=== PATIENT | male | born 1940 | race Caucasian/White ===

== ENCOUNTER → 2018-03-18 09:55 | Outpatient (CLI) | payer MEDICARE, OTHER, SELFPAY ==
[2018-03-18 12:13] LABS: Absolute Lymphocyte Count 1.56 X10^3/ul (0.83-4.51); Absolute Neutrophil Count 4.7 X10^3/uL (2.0-7.7); Basophil# 0.03 X10^3/uL; Basophil% 0.4 % (0-1); Eosinophil# 0.12 X10^3/uL; Eosinophils% 1.7 % (0-5); Hematocrit 43.8 % (40-54); Hemoglobin 14.7 g/dl (13.0-16.5); Lymphocyte # 1.56 X10^3/ul (4.0); Lymphocyte % 22.3 % (19-41); Mean Corp Hgb Conc 33.6 g/gl (32-36); Mean Corpuscular Hgb 31.8 pg (27.0-32.0); Mean Corpuscular Volume 94.8 fL (80-94); Mean Platelet Vol. 10.5 fl (6.2-12.0); Monocyte# 0.62 X10^3/uL; Monocyte% 8.9 % (0-10); Neutrophil # 4.66 X10^3/uL (2.7-7.7); Neutrophil % 66.6 % (47-70); Platelet Count 208 K/mm3 (150-450); RBC Distribution Width CV 13.1 % (11.6-14.6); Red Blood Count 4.62 M/mm3 (4.6-6.2)
[2018-03-18 12:21] LABS: POSITIVE COUNT NO; POSITIVE DIFFERENTIAL NO; POSITIVE MORPHOLOGY NO
[2018-03-18 12:31] LABS: AST(SGOT) 44 U/L (15-37); Alanine Aminotransfer ALT/SGPT 42 U/L (16-61); Albumin, Serum 3.8 g/dL (3.2-5.0); Alkaline Phosphatase 53 U/L (45-117); Anion Gap 9 (5-15); BUN 15 mg/dL (7-18); BUN/Creat Ratio 12.6 RATIO (10-20); Calcium,Total 9.1 mg/dL (8.5-10.1); Chloride 105 mmol/L (98-107); Creatinine, Serum 1.19 mg/dL (0.70-1.30); EST Glomerular Filtration Rate 63 mL/min (>60); Est Glom Filt Rate - Afr Amer 76 mL/min (>60); Globulin 3.9 g/dL (2.2-4.2); Glucose 197 mg/dL (74-106); Potassium 4.5 mmol/L (3.5-5.1); Protein, Total 7.7 g/dL (6.4-8.2); Sodium Level 141 mmol/L (136-145)
[2018-03-18 12:32] LABS: Hemoglobin A1c 8.4 % (4.2-6.3)
== END ==
PROVIDERS: Family Provider Family Medicine; PCP Family Medicine; Visit Provider Family Medicine
DX: E11.22 Type 2 diabetes mellitus with diabetic chronic kidney disease (principal); J44.9 Chronic obstructive pulmonary disease, unspecified
CPT/HCPCS: 36415; 80053; 83036; 85025

== ENCOUNTER 2018-05-06 16:37 | Inpatient (IN) | payer MEDICARE, OTHER, SELFPAY ==
[2018-05-06] VITALS (8 sets, daily range): BP systolic 144–206; BP diastolic 80–99; PULSE 74–88; RESP 15–18; TEMP 36.8–37.1; O2SAT 94–98; BMI 32.3; BMI 31.1
--- NOTE | 2018-05-06 16:49 | CT_ITS ---
STUDY: CT CERVICAL SPINE WITHOUT CONTRAST REASON FOR EXAM: Male, 77 years old. Fall. Question loss of consciousness. Laceration over the right high. RADIATION DOSAGE (If Supplied By Facility): CTDIvol = ( 34.12 ) mGy, DLP = ( 635.15 ) mGycm TECHNIQUE: High resolution transaxial imaging was performed without contrast material. Sagittal and coronal images were reconstructed. Individualized dose optimization techniques were used for this CT. COMPARISON: CT of the cervical spine, June 16, 2017. FINDINGS: Normal craniovertebral junction. There is widening of the anterior atlantoaxial articulation suggesting ligamentous laxity. Normal odontoid process. Normal cervical lordosis. Normal vertebral bodies and posterior osseous elements. C2-3: Normal endplates. Normal disc height and morphology. There is facet and uncovertebral joint degenerative change. Normal central canal and intervertebral neuroforamina. C3-4: There is anterolisthesis of C3 on C4 of 2 mm. There is no evidence of facet joint subluxation. There is no loss of disc height or endplate spondylosis. There is marked facet joint degenerative change left greater than right.. Normal central canal . There is mild narrowing of the bilateral intervertebral neuroforamina. C4-5: There is loss of disc height with endplate spondylosis. There is facet and uncovertebral joint degenerative change. Normal central canal and intervertebral neuroforamina. C5-6: There is loss of disc height with endplate spondylosis. There is facet and uncovertebral joint degenerative change. Normal central canal and is narrowing of the bilateral intervertebral neuroforamina, right greater than left. C6-7: There is loss of disc height with endplate spondylosis. There is facet and uncovertebral joint degenerative change. Normal central canal and intervertebral neuroforamina. C7-T1: Normal endplates. There is minimal loss of disc height.. Normal central canal and intervertebral neuroforamina. Normal visualized soft tissue structures. CT/Spine Cervical without Contras IMPRESSION: Degenerative changes of the cervical spine. Findings appear unchanged from June 16, 2017. There is no acute fracture or subluxation. Electronically Signed: Piyush Ruggiero DO at 17:35 EDT Tel [phone], Service support ,
--- NOTE | 2018-05-06 16:49 | CT_ITS ---
STUDY: CT BRAIN WITHOUT CONTRAST REASON FOR EXAM: Male, 77 years old. Fall with right eye laceration. Question loss of consciousness. RADIATION DOSAGE (If Supplied By Facility): CTDIvol = ( 60.81 ) mGy, DLP = ( 1135.50 ) mGycm TECHNIQUE: Transaxial CT imaging of the brain was performed without administration of intravenous contrast material. Individualized dose optimization techniques were used for this CT. COMPARISON: June 16, 2017. FINDINGS: There is mild thickening of the right preseptal soft tissues extending towards the right restorationist. Soft tissues are otherwise unremarkable. The right globe and intraorbital contents appear normal. There is no visualized orbital fracture. Normal calvarium. There is asymmetry of the ventricles consistent with an anatomic variant. There are areas of decreased attenuation within the white matter tracts of the supratentorial brain, consistent with microvascular disease changes. There is an area of white matter encephalomalacia in the right posterior parietal lobe where the hemorrhage is noted on the previous study. Normal basal ganglia and thalami. Normal brainstem. Normal cerebellum. There is no intracranial hemorrhage. There are no findings of an acute ischemic infarction. Normal visualized paranasal sinuses. CT/Brain/Head without Contrast IMPRESSION: Chronic involutional changes without evidence of acute intracranial or calvarial abnormality. There is resolution of the intracranial hemorrhage seen on the previous study. Electronically Signed: Piyush Ruggiero DO at 17:40 EDT Tel [phone], Service support ,
--- NOTE | 2018-05-06 16:49 | EKG12_ITS ---
Test Reason : FALL Blood Pressure : / mmHG Vent. Rate : 074 BPM Atrial Rate : 069 BPM P-R Int : 000 ms QRS Dur : 126 ms QT Int : 404 ms P-R-T Axes : 000 -66 063 degrees QTc Int : 448 ms Atrial fibrillation with occasional ventricular-paced complexes Left axis deviation Non-specific intra-ventricular conduction block Abnormal ECG Confirmed by YANNI MORALES, FRANCOIS ([id number]), fan mail editor NOY CASTLE ([id number]) on 05/09/2018 1:31:05 PM Referred By: BAO Confirmed By:FRANCOIS LIAO MD
--- NOTE | 2018-05-06 16:54 | RAD_ITS ---
STUDY: X-RAY CHEST REASON FOR EXAM: Male, 77 years old. Fall. Syncope. TECHNIQUE: Single AP portable view of the chest. COMPARISON: April 02, 2016. FINDINGS: Telemetry wires overlie the chest. The lungs are well expanded. There is no focal mass or infiltrate. There is no demonstrated pleural abnormality. There is borderline cardiomegaly. Stable cardiac pacemaker. Normal mediastinum and sylvie. Normal visualized pulmonary arteries. There is atherosclerotic tortuosity of the aortic arch and descending thoracic aorta. There are diffuse degenerative changes of the visualized thoracic spine. There is degenerative osteoarthritis of the bilateral shoulders. There is no demonstrated abnormality of the visualized soft tissue structures of the upper abdomen. RAD/Chest 1 View (Portable) IMPRESSION: Slightly decreased inspiratory effort when compared to prior study. The remainder of the findings are stable. Electronically Signed: Piyush Ruggiero DO at 17:04 EDT Tel [phone], Service support ,
[2018-05-06 17:21] LABS: Absolute Lymphocyte Count 2.08 X10^3/ul (0.83-4.51); Absolute Neutrophil Count 4.4 X10^3/uL (2.0-7.7); Basophil# 0.03 X10^3/uL; Basophil% 0.4 % (0-1); Eosinophil# 0.17 X10^3/uL; Eosinophils% 2.3 % (0-5); Hematocrit 42.8 % (40-54); Hemoglobin 14.1 g/dl (13.0-16.5); Lymphocyte # 2.08 X10^3/ul (4.0); Lymphocyte % 28.5 % (19-41); Mean Corp Hgb Conc 32.9 g/gl (32-36); Mean Corpuscular Volume 94.1 fL (80-94); Mean Platelet Vol. 10.3 fl (6.2-12.0); Monocyte# 0.58 X10^3/uL; Neutrophil # 4.41 X10^3/uL (2.7-7.7); Neutrophil % 60.5 % (47-70); Platelet Count 178 K/mm3 (150-450); RBC Distribution Width SD 44.9 fl (35.1-43.9); Red Blood Count 4.55 M/mm3 (4.6-6.2); White Blood Count 7.3 K/mm3 (4.4-11.0)
[2018-05-06 17:32] LABS: International Normalized Ratio 2.2; Partial Thromboplast Time 31.4 Seconds (24.1-36.2); Prothrombin Time (Protime)PT. 24.5 SECONDS (11.7-14.9)
[2018-05-06 17:35] LABS: Anion Gap 7 (5-15); BUN 12 mg/dL (7-18); BUN/Creat Ratio 10.4 RATIO (10-20); Calcium,Total 8.9 mg/dL (8.5-10.1); Chloride 105 mmol/L (98-107); Creatinine, Serum 1.15 mg/dL (0.70-1.30); EST Glomerular Filtration Rate 65 mL/min (>60); Est Glom Filt Rate - Afr Amer 79 mL/min (>60); Estimated Creatinine Clearance 53.78 ml/min; Glucose 246 mg/dL (74-106); Potassium 4.1 mmol/L (3.5-5.1); Sodium Level 140 mmol/L (136-145)
[2018-05-06 17:36] LABS: Bacteria 0 SEEN /hpf (None Seen); Mucous, Urine 0 SEEN /hpf (<or=2+); Red Blood Cells-Urine 0 SEEN /hpf (0-5); Squamous Epithelial Cells - UA 0 SEEN /hpf (0-5); White Blood Cells 0 SEEN /hpf (0-5)
[2018-05-06 17:36] LABS: POSITIVE COUNT NO; POSITIVE DIFFERENTIAL NO; POSITIVE MORPHOLOGY NO
[2018-05-06 17:43] LABS: Color, Urine Yellow (Yellow); Glucose, Dipstick 1000 mg/dl (Normal); Ketone-Dipstick Negative (Negative); Leukocyte Esterase-Dipstick Negative /ul (Negative); Nitrite-Dipstick Negative (Negative); Occult Blood-Urine 25 /ul (Negative); Protein-Dipstick 100 mg/dl (Negative); Specific Gravity, Urine 1.015 (1.002-1.030); Urine Bilirubin Dipstick Negative (Negative); Urine Clarity Clear (Clear); Urine Urobilinogen Normal (Normal)
--- NOTE | 2018-05-06 19:11 | ED.VISSUMM ---
- ER Visit Summary Date of Service: 05/06/18 Chief Complaint: Fall History of Present Illness: The patient is a 77 M who fell today. He did hit his head and sustained an abrasion to his right eyebrow. He does not remember the events of the fall. EMS helped him up at home after his called 911. He was unsteady on his feet. His reports that he falls every 2-3 weeks. He is sometimes incontinent afterwards. Every time he falls he is confused for an hour or so afterwards. She has never noted any seizure activity. He does take Coumadin for atrial fibrillation and a history of PE. She said he fell last year and had a intracranial bleed. Physical Examination: Blood pressure 206/92. Otherwise vitals unremarkable. Afebrile. He has an abrasion to his right lateral eyebrow. Neck is nontender. HEENT exam otherwise unremarkable. Heart irregularly irregular. Lungs clear. Abdomen soft. Patient is incontinent of urine. Extremities atraumatic. No focal neurologic abnormalities grossly. Alert but oriented to person only. Test Results: EKG showed atrial fibrillation at a rate of 74. CBC normal. Glucose 246. INR 2.2. Urinalysis unremarkable. Troponin normal. Chest x-ray was stable. CT head and C-spine showed chronic changes and nothing acute. Emergency Department Course and Treatment: Patient was placed on a monitor. He received IV fluids. He had no new or worsening symptoms during his stay. He had no seizure activity or syncope in the emergency department. On reevaluation, he is alert and oriented ?3. I spoke with neurology who recommended MRI, Keppra, and EEG. I spoke with the hospitalist who will admit. On further evaluation, the patient has a pacemaker and cannot have an MRI. Treatment Plan: As above Disposition: Admission Impression: 1. Syncopal episode This note was generated with [employer] dictation software. It may contain incorrect words, spelling, and punctuation that were not noted in review of the chart prior to signing ED Disposition - Plan for ED Patient: Chief Complaint: Fall Referrals: Joe Hernandez MD [Primary Care Provider] -
[2018-05-06] MEDS: levETIRAcetam 500 MG Tablet PO (19:29)
--- NOTE | 2018-05-06 19:30 | PCM.HP.STD ---
Problem List (1) CAD (coronary artery disease) Status: Chronic Qualifiers: (2) Chronic atrial fibrillation Status: Chronic (3) DM2 (diabetes mellitus, type 2) Status: Chronic (4) Dyslipidemia Status: Chronic (5) Essential (primary) hypertension Status: Chronic (6) Cardiac pacemaker Status: Chronic (7) Cardiac dysrhythmia Status: Chronic (8) HTN (hypertension) Status: Chronic Qualifiers: History of Present Illness Date of Admission: 05/06/18 Chief Complaint: Fall. The patient is a 77 year old M with past medical history as mentioned above presented to the emergency room because of fall. Today around 4 PM, patient had a fall at home, was walking and all of a sudden, he collapsed. He is not completely aware of what happened. He denied any preceding symptoms such as dizziness, lightheadedness, chest pain, palpitation or shortness of breath. He does not think that he passed out completely. His mentioned that when she heard the fall, she came to see him and he was on his face but he responded to her call and he seemed to be confused. She mentioned that he was incontinent of urine. There is no reported obvious seizure activity. According to the patient's , patient had been having frequent falls every 2-4 weeks for the last several months and most of them are similar to what happened today. He has history of chronic atrial fibrillation status post pacemaker, patient's mentioned that he had pacer checked a week ago and looks fine but I could not find any documents for that pacer check. Most recent pacer check was back on January, according to the patient's chart. Still of type 2 diabetes mellitus, has been on Victoza and metformin and his blood pressure is not well controlled, most recent hemoglobin A1c was in March, and it was 8.4. He has a history of CAD status post stents to RCA, and he has been on aspirin, losartan, metoprolol and statins. In the emergency department, his blood pressure was elevated upon arrival which was 206/92 and most recent one is 171/99, was afebrile, heart rate stable, pulse ox is maintained on room air. Routine blood work was unremarkable. INR is 2.2. EKG revealed atrial fibrillation, paced rhythm, no acute ischemic changes. Troponin is negative. CT scan brain showed no acute hemorrhage or infarction. CT cervical spine showed no acute fractures or dislocation. Chest x-ray showed no acute infiltrate, consolidation or effusion. He is being admitted for recurrent falls, questionable suspected seizure versus near syncope. Past Medical History Past Medical History (Chronic Problems): Chronic Problems (Last Updated 09/21/17 @ 08:09 by KATIE Glover) Sick sinus syndrome (Chronic) On anticoagulant therapy (Chronic) CAD (coronary artery disease) (Chronic) Chronic atrial fibrillation (Chronic) DM2 (diabetes mellitus, type 2) (Chronic) Dyslipidemia (Chronic) Essential (primary) hypertension (Chronic) Cardiac pacemaker (Chronic) Diverticulosis (Chronic) Tremor, essential (Chronic) TIA (transient ischemic attack) (Chronic) Subtherapeutic international normalized ratio (INR) (Chronic) Cardiac dysrhythmia (Chronic) Atrial dysrhythmia (Chronic) Atrial fibrillation (Chronic) S/P PTCA (percutaneous transluminal coronary angioplasty) (Chronic) HTN (hypertension) (Chronic) HLD (hyperlipidemia) (Chronic) Medical History: Medical History (Last Updated 09/21/17 @ 08:09 by CARLOS GloverC) Sick sinus syndrome (Chronic) I49.5 On anticoagulant therapy (Chronic) Z79.01 CAD (coronary artery disease) (Chronic) I25.10 Chronic atrial fibrillation (Chronic) I48.2 DM2 (diabetes mellitus, type 2) (Chronic) E11.9 Dyslipidemia (Chronic) E78.5 Essential (primary) hypertension (Chronic) I10 Cardiac pacemaker (Chronic) Z95.0 Diverticulosis (Chronic) K57.90 Tremor, essential (Chronic) G25.0 TIA (transient ischemic attack) (Chronic) Subtherapeutic international normalized ratio (INR) (Chronic) R79.1 Cardiac dysrhythmia (Chronic) I49.9 Atrial dysrhythmia (Chronic) I49.8 Atrial fibrillation (Chronic) I48.91 HTN (hypertension) (Chronic) I10 HLD (hyperlipidemia) (Chronic) E78.5 History of cardioversion Z98.890 09/2005; History of electrophysiologic study Z98.890 December 2005 Pulmonary embolism I26.99 Allergies hydrochlorothiazide Adverse Reaction (Unknown, Verified 05/06/18 16:38) Gout symptoms Home Medications: Ambulatory Orders Medication Instructions Recorded Aspirin [Aspirin, Baby] 81 mg PO DAILY 06/24/14 Liraglutide [Victoza] 1.8 units SQ DAILY 06/16/17 bumetanide 1 mg tablet 0.5 mg PO PRN PRN tab 09/21/17 albuterol sulfate HFA 90 2 puff INHALATION Q6H 09/22/17 mcg/actuation aerosol inhaler nitroglycerin 0.4 mg sublingual 0.4 mg SUBLINGUAL Q5-15M PRN 09/22/17 tablet losartan 100 mg tablet 100 mg PO DAILY #90 tab 01/12/18 Clonidine HCl [Catapres] 0.1 mg PO DAILY 05/06/18 Metformin HCl [Glucophage] 500 mg PO DAILY 05/06/18 Metoprolol Tartrate [Lopressor 50 mg PO BID 05/06/18 (beta mitul)] Multivit-Min/FA/Lycopen/Lutein 1 tablet PO DAILY 05/06/18 [Centrum Silver Tablet] Pravastatin Sodium 80 mg PO QHS 05/06/18 Warfarin Sodium [Warfarin Sodium] 3 mg PO .COMPLEX 05/06/18 Surgical History: Surgical History (Last Reviewed 09/22/17 @ 09:17 by Jacques Alberts) S/P PTCA (percutaneous transluminal coronary angioplasty) (Chronic) Z98.61 H/O right and left heart catheterization Z98.890 December 2005; PTCA of the RCA April 2010; PVI and Superior Vena Cava Isolation 01/31/2010 S/P ablation of atrial flutter Z98.890, Z86.December; 01/31/2010 S/P pericardiocentesis Z98.890 04/2010 S/P placement of cardiac pacemaker Onset Date: ~02/2010 Z95.0 Surgical History: angioplasty, pacemaker implantation Psychiatric History: No pertinent psych hx Lives: Spouse/ Significant Other Smoking Status: Former smoker Alcohol: None Drugs: None - *Family History Maternal Family History: Family History (Last Reviewed 09/22/17 @ 09:18 by Jacques Alberts) Brother Colon cancer Father CAD (coronary artery disease) Mother Colon cancer Sister Breast cancer History Items: Cancer - of the colon, No pertinent history Paternal Family History: Family History (Last Reviewed 09/22/17 @ 09:18 by Jacques Alberts) Brother Colon cancer Father CAD (coronary artery disease) Mother Colon cancer Sister Breast cancer History Items: Heart Disease Review of Systems Constitutional: Denies: Anorexia, Chills, Fever, Weakness Eyes: Denies: Blurred vision, Double vision, Drainage, Redness HEENT: Denies: Difficulty Hearing, Ear Pain, Eye Pain, Nasal Congestion, Sore Throat Cardiovascular: Denies: Chest Pain, Chest Pressure, Chest Tightness, Heaviness, Light Headedness, Palpitations, Paroxysmal Noc. Dyspnea, Syncope Respiratory: Denies: Cough, Pleuritic Pain, Shortness of Breath, Sputum production, Wheezing Gastrointestinal: Denies: Abdominal Pain, Constipation, Diarrhea, Nausea, Vomiting Genitourinary: Denies: Dysuria, Frequency, Hematuria Musculoskeletal: Denies: Arm Pain, Back Pain, Foot Pain Skin: Denies: Dryness, Rash Neurological: Reports: Confusion. Denies: Balance problems, Double vision, Change in Speech, Slurred speech, Headaches, Incoordination, Numbness Psychiatric: Denies: Anxiety, Depression VTE Information - Inpt Only VTE Present on Admission: No VTE Mechan Device Prophylaxis: None VTE Pharm Prophylaxis ordered?: No - Physical Exam General: Alert, Oriented x3, Cooperative, No apparent distress HEENT: PERRLA, EOMI, Normocephalic, - - Small laceration above the right eyebrow. Oral: Moist Mucosa, No Gingival or Mucosal Lesions/ Ulcerations Neck: Supple, No JVD, Negative Carotid Bruits, Trachea Midline, Thyroid Normal Size and Texture Lungs: Clear to auscultation, No rhonchi, No wheeze, No rales, Diminished Cardiovascular: Normal S1, Normal S2, No murmurs, PMI Normal, Irregular Rate Abdomen: Bowel Sounds Present, Soft, Non Tender, Non-Distended, No Hepato-splenomegaly, Obese Extremities: No clubbing, No cyanosis, Edema - + Edema. Skin: No rashes, No breakdown Lymphatic: No Cervical, Supraclavicular, or Inguinal Adenopathy Neurological: Cranial nerves II-XII grossly intact, Motor Exam 5/5 strength throughout Psych/Mental Status: Normal Affect, Appropriate, Alert and oriented to time, place, person, mood and affect Vital Signs Temp Pulse Resp BP Pulse Ox 98.3 F 76 18 171/99 H 98 05/06/18 16:38 05/06/18 19:15 05/06/18 19:15 05/06/18 19:15 05/06/18 19:15 Oxygen Delivery Method Room Air Weight: 225 lb 1.471 oz Body Mass Index (BMI) 32.3 Finger Stick Blood Glucose 124 Laboratory Tests Past 24 Hrs 05/06/18 05/06/18 05/06/18 17:00 17:00 17:00 WBC 7.3 RBC 4.55 L Hgb 14.1 Hct 42.8 MCV 94.1 H MCH 31.0 MCHC 32.9 RDW 13.0 RDW Differential 44.9 H Plt Count 178 MPV 10.3 Immature Gran % (Auto) 0.300 Neut % (Auto) 60.5 Lymph % (Auto) 28.5 [place] % (Auto) 8.0 Eos % (Auto) 2.3 Baso % (Auto) 0.4 Absolute Neuts (auto) 4.4 Absolute Lymphs (auto) 2.08 Total Counted Not Reportable PT 24.5 H INR 2.2 APTT 31.4 Sodium 140 Potassium 4.1 Chloride 105 Carbon Dioxide 28.0 Anion Gap 7 BUN 12 Creatinine 1.15 Estim Creat Clear Calc 53.78 Est GFR (MDRD) Af Amer 79 Est GFR (MDRD) Non-Af 65 BUN/Creatinine Ratio 10.4 Glucose 246 H Calcium 8.9 Troponin I < 0.015 Urine Color Urine Clarity Urine pH Ur Specific [place] Urine Protein Urine Glucose (UA) Urine Ketones Urine Occult Blood Urine Nitrite Urine Bilirubin Urine Urobilinogen Ur Leukocyte Esterase Urine RBC Urine WBC Ur Squamous Epith Cells Urine Bacteria Urine Mucus 05/06/18 17:29 WBC RBC Hgb Hct MCV MCH MCHC RDW RDW Differential Plt Count MPV Immature Gran % (Auto) Neut % (Auto) Lymph % (Auto) [place] % (Auto) Eos % (Auto) Baso % (Auto) Absolute Neuts (auto) Absolute Lymphs (auto) Total Counted PT INR APTT Sodium Potassium Chloride Carbon Dioxide Anion Gap BUN Creatinine Estim Creat Clear Calc Est GFR (MDRD) Af Amer Est GFR (MDRD) Non-Af BUN/Creatinine Ratio Glucose Calcium Troponin I Urine Color Yellow Urine Clarity Clear Urine pH 6.0 Ur Specific [place] 1.015 Urine Protein 100 H Urine Glucose (UA) 1000 H Urine Ketones Negative Urine Occult Blood 25 H Urine Nitrite Negative Urine Bilirubin Negative Urine Urobilinogen Normal Ur Leukocyte Esterase Negative Urine RBC 0 SEEN Urine WBC 0 SEEN Ur Squamous Epith Cells 0 SEEN Urine Bacteria 0 SEEN Urine Mucus 0 SEEN Clinical Impression(s) from Imaging Studies Brain CT 05/06/18 16:49 IMPRESSION: Chronic involutional changes without evidence of acute intracranial or calvarial abnormality. There is resolution of the intracranial hemorrhage seen on the previous study. Electronically Signed: Piyush Ruggiero at 17:40 EDT Tel [phone], Service support , Cervical Spine CT 05/06/18 16:49 IMPRESSION: Degenerative changes of the cervical spine. Findings appear unchanged from June 16, 2017. There is no acute fracture or subluxation. Electronically Signed: Piyush BahmanDO at 17:35 EDT Tel [phone], Service support , Chest X-Ray 05/06/18 16:54 IMPRESSION: Slightly decreased inspiratory effort when compared to prior study. The remainder of the findings are stable. Electronically Signed: Piyush BahmanDO at 17:04 EDT Tel [phone], Service support , Assessment/Plan All Active Problems (Last Updated 09/21/17 @ 08:09 by Filiberto Landon NP-C) Hx pulmonary embolism (Resolved) This is a 77 years old male patient presented to the emergency room because of fall, followed by transient confusion and urine incontinence and he is being admitted for evaluation for possible seizure versus near syncope. #1 fall/confusion/urinary incontinence: Unclear etiology, could be due to possible seizure versus near syncope. Patient reported that he did not pass out completely. He denied any preceding prodromal symptoms, no chest pain, shortness of breath, palpitation, dizziness or lightheadedness. Patient's reported urine incontinence but no obvious seizure activity. Patient has been having frequent falls at home with the same scenario. He has a history of chronic A. fib status post pacemaker. EKG revealed A. fib, paced rhythm. CT scan brain showed no acute findings. CT scan cervical spine showed no acute fractures of the secretions. Routine blood work was unremarkable. Troponin is negative. Plan: Admit to PCU for observation, cardiac monitoring, orthostatic vitals, pacer check, EEG, neurology consult, PT OT evaluation and treatment. Patient cannot have MRI done because he has pacemaker. #2 chronic atrial fibrillation: Rate is controlled, continue metoprolol for rate control and Coumadin for anticoagulation, INR is therapeutic. #3 hypertension: Blood pressure elevated, slightly improved at this time. Plan to continue Catapres, losartan and metoprolol, start IV hydralazine as needed. #4 type 2 diabetes mellitus: ADA diet, Accu-Cheks, and systolic scale, continue Victoza and metformin. #5 CAD status post stents: EKG reviewed, no acute ischemic changes, troponin is negative. Continue aspirin, losartan, metoprolol and statins. #6 hyperlipidemia: Continue statins. #7 DVT prophylaxis: INR is 2.2. This note was generated with [employer] dictation software. It may contain incorrect words, spelling, and punctuation that were not noted in checking the note before signing. Code Visit OBSV E&M: 98902 Initial observation care L3
--- NOTE | 2018-05-06 19:39 | HP.PCM_ITS ---
Problem List (1) CAD (coronary artery disease) Status: Chronic Qualifiers: (2) Chronic atrial fibrillation Status: Chronic (3) DM2 (diabetes mellitus, type 2) Status: Chronic (4) Dyslipidemia Status: Chronic (5) Essential (primary) hypertension Status: Chronic (6) Cardiac pacemaker Status: Chronic (7) Cardiac dysrhythmia Status: Chronic (8) HTN (hypertension) Status: Chronic Qualifiers: History of Present Illness Date of Admission: 05/06/18 Chief Complaint: Fall. The patient is a 77 year old M with past medical history as mentioned above presented to the emergency room because of fall. Today around 4 PM, patient had a fall at home, was walking and all of a sudden, he collapsed. He is not completely aware of what happened. He denied any preceding symptoms such as dizziness, lightheadedness, chest pain, palpitation or shortness of breath. He does not think that he passed out completely. His mentioned that when she heard the fall, she came to see him and he was on his face but he responded to her call and he seemed to be confused. She mentioned that he was incontinent of urine. There is no reported obvious seizure activity. According to the patient's , patient had been having frequent falls every 2-4 weeks for the last several months and most of them are similar to what happened today. He has history of chronic atrial fibrillation status post pacemaker, patient's mentioned that he had pacer checked a week ago and looks fine but I could not find any documents for that pacer check. Most recent pacer check was back on January, according to the patient's chart. Still of type 2 diabetes mellitus, has been on Victoza and metformin and his blood pressure is not well controlled, most recent hemoglobin A1c was in March, and it was 8.4. He has a history of CAD status post stents to RCA, and he has been on aspirin, losartan, metoprolol and statins. In the emergency department, his blood pressure was elevated upon arrival which was 206/92 and most recent one is 171/ 99, was afebrile, heart rate stable, pulse ox is maintained on room air. Routine blood work was unremarkable. INR is 2.2. EKG revealed atrial fibrillation, paced rhythm, no acute ischemic changes. Troponin is negative. CT scan brain showed no acute hemorrhage or infarction. CT cervical spine showed no acute fractures or dislocation. Chest x-ray showed no acute infiltrate, consolidation or effusion. He is being admitted for recurrent falls , questionable suspected seizure versus near syncope. Past Medical History Past Medical History (Chronic Problems): Chronic Problems (Last Updated 09/21/17 @ 08:09 by KATIE Glover) Sick sinus syndrome (Chronic) On anticoagulant therapy (Chronic) CAD (coronary artery disease) (Chronic) Chronic atrial fibrillation (Chronic) DM2 (diabetes mellitus, type 2) (Chronic) Dyslipidemia (Chronic) Essential (primary) hypertension (Chronic) Cardiac pacemaker (Chronic) Diverticulosis (Chronic) Tremor, essential (Chronic) TIA (transient ischemic attack) (Chronic) Subtherapeutic international normalized ratio (INR) (Chronic) Cardiac dysrhythmia (Chronic) Atrial dysrhythmia (Chronic) Atrial fibrillation (Chronic) S/P PTCA (percutaneous transluminal coronary angioplasty) (Chronic) HTN (hypertension) (Chronic) HLD (hyperlipidemia) (Chronic) Medical History: Medical History (Last Updated 09/21/17 @ 08:09 by CARLOS GloverC) Sick sinus syndrome (Chronic) I49.5 On anticoagulant therapy (Chronic) Z79.01 CAD (coronary artery disease) (Chronic) I25.10 Chronic atrial fibrillation (Chronic) I48.2 DM2 (diabetes mellitus, type 2) (Chronic) E11.9 Dyslipidemia (Chronic) E78.5 Essential (primary) hypertension (Chronic) I10 Cardiac pacemaker (Chronic) Z95.0 Diverticulosis (Chronic) K57.90 Tremor, essential (Chronic) G25.0 TIA (transient ischemic attack) (Chronic) Subtherapeutic international normalized ratio (INR) (Chronic) R79.1 Cardiac dysrhythmia (Chronic) I49.9 Atrial dysrhythmia (Chronic) I49.8 Atrial fibrillation (Chronic) I48.91 HTN (hypertension) (Chronic) I10 HLD (hyperlipidemia) (Chronic) E78.5 History of cardioversion Z98.890 09/2005; History of electrophysiologic study Z98.890 December 2005 Pulmonary embolism I26.99 Allergies hydrochlorothiazide Adverse Reaction (Unknown, Verified 05/06/18 16:38) Gout symptoms Home Medications: Ambulatory Orders Medication Instructions Recorded Aspirin [Aspirin, Baby] 81 mg PO DAILY 06/24/14 Liraglutide [Victoza] 1.8 units SQ DAILY 06/16/17 bumetanide 1 mg tablet 0.5 mg PO PRN PRN tab 09/21/17 albuterol sulfate HFA 90 2 puff INHALATION Q6H 09/22/17 mcg/actuation aerosol inhaler nitroglycerin 0.4 mg sublingual 0.4 mg SUBLINGUAL Q5-15M PRN 09/22/17 tablet losartan 100 mg tablet 100 mg PO DAILY #90 tab 01/12/18 Clonidine HCl [Catapres] 0.1 mg PO DAILY 05/06/18 Metformin HCl [Glucophage] 500 mg PO DAILY 05/06/18 Metoprolol Tartrate [Lopressor 50 mg PO BID 05/06/18 (beta mitul)] Multivit-Min/FA/Lycopen/Lutein 1 tablet PO DAILY 05/06/18 [Centrum Silver Tablet] Pravastatin Sodium 80 mg PO QHS 05/06/18 Warfarin Sodium [Warfarin Sodium] 3 mg PO .COMPLEX 05/06/18 Surgical History: Surgical History (Last Reviewed 09/22/17 @ 09:17 by Jacques Alberts) S/P PTCA (percutaneous transluminal coronary angioplasty) (Chronic) Z98.61 H/O right and left heart catheterization Z98.890 December 2005; PTCA of the RCA April 2010; PVI and Superior Vena Cava Isolation 01/31/2010 S/P ablation of atrial flutter Z98.890, Z86.December; 01/31/2010 S/P pericardiocentesis Z98.890 04/2010 S/P placement of cardiac pacemaker Onset Date: ~02/2010 Z95.0 Surgical History: angioplasty, pacemaker implantation Psychiatric History: No pertinent psych hx Lives: Spouse/ Significant Other Smoking Status: Former smoker Alcohol: None Drugs: None - *Family History Maternal Family History: Family History (Last Reviewed 09/22/17 @ 09:18 by Jacques Alberts) Brother Colon cancer Father CAD (coronary artery disease) Mother Colon cancer Sister Breast cancer History Items: Cancer - of the colon, No pertinent history Paternal Family History: Family History (Last Reviewed 09/22/17 @ 09:18 by Jacques Alberts) Brother Colon cancer Father CAD (coronary artery disease) Mother Colon cancer Sister Breast cancer History Items: Heart Disease Review of Systems Constitutional: Denies: Anorexia, Chills, Fever, Weakness Eyes: Denies: Blurred vision, Double vision, Drainage, Redness HEENT: Denies: Difficulty Hearing, Ear Pain, Eye Pain, Nasal Congestion, Sore Throat Cardiovascular: Denies: Chest Pain, Chest Pressure, Chest Tightness, Heaviness, Light Headedness, Palpitations, Paroxysmal Noc. Dyspnea, Syncope Respiratory: Denies: Cough, Pleuritic Pain, Shortness of Breath, Sputum production, Wheezing Gastrointestinal: Denies: Abdominal Pain, Constipation, Diarrhea, Nausea, Vomiting Genitourinary: Denies: Dysuria, Frequency, Hematuria Musculoskeletal: Denies: Arm Pain, Back Pain, Foot Pain Skin: Denies: Dryness, Rash Neurological: Reports: Confusion. Denies: Balance problems, Double vision, Change in Speech, Slurred speech, Headaches, Incoordination, Numbness Psychiatric: Denies: Anxiety, Depression VTE Information - Inpt Only VTE Present on Admission: No VTE Mechan Device Prophylaxis: None VTE Pharm Prophylaxis ordered?: No - Physical Exam General: Alert, Oriented x3, Cooperative, No apparent distress HEENT: PERRLA, EOMI, Normocephalic, - - Small laceration above the right eyebrow. Oral: Moist Mucosa, No Gingival or Mucosal Lesions/ Ulcerations Neck: Supple, No JVD, Negative Carotid Bruits, Trachea Midline, Thyroid Normal Size and Texture Lungs: Clear to auscultation, No rhonchi, No wheeze, No rales, Diminished Cardiovascular: Normal S1, Normal S2, No murmurs, PMI Normal, Irregular Rate Abdomen: Bowel Sounds Present, Soft, Non Tender, Non-Distended, No Hepato- splenomegaly, Obese Extremities: No clubbing, No cyanosis, Edema - + Edema. Skin: No rashes, No breakdown Lymphatic: No Cervical, Supraclavicular, or Inguinal Adenopathy Neurological: Cranial nerves II-XII grossly intact, Motor Exam 5/5 strength throughout Psych/Mental Status: Normal Affect, Appropriate, Alert and oriented to time, place, person, mood and affect Vital Signs Temp Pulse Resp BP Pulse Ox 98.3 F 76 18 171/99 H 98 05/06/18 16:38 05/06/18 19:15 05/06/18 19:15 05/06/18 19:15 05/06/18 19:15 Oxygen Delivery Method Room Air Weight: 225 lb 1.471 oz Body Mass Index (BMI) 32.3 Finger Stick Blood Glucose 124 Laboratory Tests Past 24 Hrs 05/06/18 05/06/18 05/06/18 17:00 17:00 17:00 WBC 7.3 RBC 4.55 L Hgb 14.1 Hct 42.8 MCV 94.1 H MCH 31.0 MCHC 32.9 RDW 13.0 RDW Differential 44.9 H Plt Count 178 MPV 10.3 Immature Gran % (Auto) 0.300 Neut % (Auto) 60.5 Lymph % (Auto) 28.5 [place] % (Auto) 8.0 Eos % (Auto) 2.3 Baso % (Auto) 0.4 Absolute Neuts (auto) 4.4 Absolute Lymphs (auto) 2.08 Total Counted Not Reportable PT 24.5 H INR 2.2 APTT 31.4 Sodium 140 Potassium 4.1 Chloride 105 Carbon Dioxide 28.0 Anion Gap 7 BUN 12 Creatinine 1.15 Estim Creat Clear Calc 53.78 Est GFR (MDRD) Af Amer 79 Est GFR (MDRD) Non-Af 65 BUN/Creatinine Ratio 10.4 Glucose 246 H Calcium 8.9 Troponin I < 0.015 Urine Color Urine Clarity Urine pH Ur Specific [place] Urine Protein Urine Glucose (UA) Urine Ketones Urine Occult Blood Urine Nitrite Urine Bilirubin Urine Urobilinogen Ur Leukocyte Esterase Urine RBC Urine WBC Ur Squamous Epith Cells Urine Bacteria Urine Mucus 05/06/18 17:29 WBC RBC Hgb Hct MCV MCH MCHC RDW RDW Differential Plt Count MPV Immature Gran % (Auto) Neut % (Auto) Lymph % (Auto) [place] % (Auto) Eos % (Auto) Baso % (Auto) Absolute Neuts (auto) Absolute Lymphs (auto) Total Counted PT INR APTT Sodium Potassium Chloride Carbon Dioxide Anion Gap BUN Creatinine Estim Creat Clear Calc Est GFR (MDRD) Af Amer Est GFR (MDRD) Non-Af BUN/Creatinine Ratio Glucose Calcium Troponin I Urine Color Yellow Urine Clarity Clear Urine pH 6.0 Ur Specific [place] 1.015 Urine Protein 100 H Urine Glucose (UA) 1000 H Urine Ketones Negative Urine Occult Blood 25 H Urine Nitrite Negative Urine Bilirubin Negative Urine Urobilinogen Normal Ur Leukocyte Esterase Negative Urine RBC 0 SEEN Urine WBC 0 SEEN Ur Squamous Epith Cells 0 SEEN Urine Bacteria 0 SEEN Urine Mucus 0 SEEN Clinical Impression(s) from Imaging Studies Brain CT 05/06/18 16:49 IMPRESSION: Chronic involutional changes without evidence of acute intracranial or calvarial abnormality. There is resolution of the intracranial hemorrhage seen on the previous study. Electronically Signed: Piyush Ruggiero at 17:40 EDT Tel [phone], Service support , Cervical Spine CT 05/06/18 16:49 IMPRESSION: Degenerative changes of the cervical spine. Findings appear unchanged from June 16, 2017. There is no acute fracture or subluxation. Electronically Signed: Piyush BahmanDO at 17:35 EDT Tel [phone], Service support , Chest X-Ray 05/06/18 16:54 IMPRESSION: Slightly decreased inspiratory effort when compared to prior study. The remainder of the findings are stable. Electronically Signed: Piyush BahmanDO at 17:04 EDT Tel [phone], Service support , Assessment/Plan All Active Problems (Last Updated 09/21/17 @ 08:09 by Filiberto Landon NP-C) Hx pulmonary embolism (Resolved) This is a 77 years old male patient presented to the emergency room because of fall, followed by transient confusion and urine incontinence and he is being admitted for evaluation for possible seizure versus near syncope. #1 fall/confusion/urinary incontinence: Unclear etiology, could be due to possible seizure versus near syncope. Patient reported that he did not pass out completely. He denied any preceding prodromal symptoms, no chest pain, shortness of breath, palpitation, dizziness or lightheadedness. Patient's reported urine incontinence but no obvious seizure activity. Patient has been having frequent falls at home with the same scenario. He has a history of chronic A. fib status post pacemaker. EKG revealed A. fib, paced rhythm. CT scan brain showed no acute findings. CT scan cervical spine showed no acute fractures of the secretions. Routine blood work was unremarkable. Troponin is negative. Plan: Admit to PCU for observation, cardiac monitoring, orthostatic vitals, pacer check, EEG, neurology consult, PT OT evaluation and treatment. Patient cannot have MRI done because he has pacemaker. #2 chronic atrial fibrillation: Rate is controlled, continue metoprolol for rate control and Coumadin for anticoagulation, INR is therapeutic. #3 hypertension: Blood pressure elevated, slightly improved at this time. Plan to continue Catapres, losartan and metoprolol, start IV hydralazine as needed. #4 type 2 diabetes mellitus: ADA diet, Accu-Cheks, and systolic scale, continue Victoza and metformin. #5 CAD status post stents: EKG reviewed, no acute ischemic changes, troponin is negative. Continue aspirin, losartan, metoprolol and statins. #6 hyperlipidemia: Continue statins. #7 DVT prophylaxis: INR is 2.2. This note was generated with Gliph dictation software. It may contain incorrect words, spelling, and punctuation that were not noted in checking the note before signing. Code Visit OBSV E&M: 15996 Initial observation care L3
[2018-05-06] MEDS: Acetaminophen 325 MG Tablet 650 MG PO (20:13)
[2018-05-06] MEDS: Metoprolol Tartrate 50 MG Tablet PO (21:22)
[2018-05-06] MEDS: Insulin Lispro 100 UNIT/ML INSULN.PEN SC (21:23)
[2018-05-06] MEDS: Pravastatin 80 MG Tablet PO (21:23)
[2018-05-06 21:35] LABS: Bedside Glucose 245 mg/dL (70-110)
[2018-05-07] VITALS (16 sets, daily range): BP systolic 146–182; BP diastolic 69–105; PULSE 66–89; RESP 16–18; TEMP 36.3–37.4; O2SAT 95–97
[2018-05-07] MEDS: HYDROcodone Bitartrate/Apap 5/325 Tablet PO ×3 (03:22→21:36)
--- NOTE | 2018-05-07 05:55 | EKG12_ITS ---
Test Reason : CP Blood Pressure : / mmHG Vent. Rate : 073 BPM Atrial Rate : 084 BPM P-R Int : 000 ms QRS Dur : 128 ms QT Int : 404 ms P-R-T Axes : 000 -69 -16 degrees QTc Int : 445 ms Atrial fibrillation with intermittent electronic ventricular pacemaker Left axis deviation Non-specific intra-ventricular conduction block Abnormal ECG Confirmed by YANNI MORALES, FRANCOIS ([id number]), film editor supervisor NOY CASTLE ([id number]) on 05/11/2018 11:34:08 AM Referred By: LIEN Confirmed By:FRANCOIS LIAO MD
[2018-05-07 06:50] LABS: Bedside Glucose 223 mg/dL (70-110)
[2018-05-07 06:57] LABS: International Normalized Ratio 2.2; Prothrombin Time (Protime)PT. 24.5 SECONDS (11.7-14.9)
[2018-05-07 07:28] LABS: Absolute Neutrophil Count 4.5 X10^3/uL (2.0-7.7); Basophil# 0.02 X10^3/uL; Basophil% 0.3 % (0-1); Eosinophil# 0.09 X10^3/uL; Eosinophils% 1.3 % (0-5); Hematocrit 40.6 % (40-54); Hemoglobin 13.2 g/dl (13.0-16.5); Lymphocyte % 23.2 % (19-41); Mean Corp Hgb Conc 32.5 g/gl (32-36); Mean Corpuscular Hgb 30.7 pg (27.0-32.0); Mean Corpuscular Volume 94.4 fL (80-94); Mean Platelet Vol. 10.6 fl (6.2-12.0); Monocyte# 0.68 X10^3/uL; Monocyte% 9.9 % (0-10); Neutrophil # 4.49 X10^3/uL (2.7-7.7); Neutrophil % 65.2 % (47-70); POSITIVE COUNT NO; POSITIVE DIFFERENTIAL NO; POSITIVE MORPHOLOGY NO; Platelet Count 164 K/mm3 (150-450); RBC Distribution Width CV 13.1 % (11.6-14.6); RBC Distribution Width SD 44.9 fl (35.1-43.9); White Blood Count 6.9 K/mm3 (4.4-11.0)
[2018-05-07 07:37] LABS: Anion Gap 5 (5-15); BUN 12 mg/dL (7-18); BUN/Creat Ratio 11.4 RATIO (10-20); Calcium,Total 8.5 mg/dL (8.5-10.1); Chloride 107 mmol/L (98-107); Creatinine, Serum 1.05 mg/dL (0.70-1.30); EST Glomerular Filtration Rate 72 mL/min (>60); Est Glom Filt Rate - Afr Amer 87 mL/min (>60); Glucose 239 mg/dL (74-106); Potassium 4.5 mmol/L (3.5-5.1); Sodium Level 140 mmol/L (136-145)
[2018-05-07] MEDS: Losartan Potassium 100 MG Tablet PO (08:30)
[2018-05-07] MEDS: cloNIDine HCl 0.1 MG Tablet PO (08:30)
[2018-05-07] MEDS: Aspirin 81 MG TAB.CHEW PO (08:30)
[2018-05-07] MEDS: Metoprolol Tartrate 50 MG Tablet PO ×2 (08:30→21:32)
[2018-05-07] MEDS: Insulin Lispro 100 UNIT/ML INSULN.PEN SC ×4 (08:31→21:32)
--- NOTE | 2018-05-07 08:51 | RAD_ITS ---
STUDY: X-RAY - RIGHT SHOULDER REASON FOR EXAM: Male, 77 years old. Fall. Pain. TECHNIQUE: view(s) of the shoulder. COMPARISON: Right humerus, May 07, 2018. FINDINGS: There is mild degenerative arthrosis of the glenohumeral articulation. There is degenerative arthrosis of the acromioclavicular joint without inferior osseous spur formation. Normal acromion. There is no acute fracture, dislocation or destructive osseous pathology. Normal humeral head and visualized proximal humerus. The soft tissue structures are unremarkable. There is a cardiac pacemaker generator overlying the left chest. Normal visualized pulmonary apex. RAD/Shoulder min 2 Views IMPRESSION: Degenerative changes of the right shoulder without fracture or dislocation. Electronically Signed: Piyush Ruggiero DO at 18:10 EDT Tel [phone], Service support ,
--- NOTE | 2018-05-07 08:52 | RAD_ITS ---
STUDY: X-RAY - RIGHT HUMERUS REASON FOR EXAM: Male, 77 years old. Fall. Pain. TECHNIQUE: 2 view(s) of the humerus. COMPARISON: Right shoulder, May 07, 2018. FINDINGS: Normal visualized humerus. There is no demonstrated fracture or osseous destructive process. The shoulder and elbow appear intact. There is no demonstrated soft tissue abnormality. There is a cardiac pacemaker overlying the right upper chest. RAD/Humerus min 2 Views IMPRESSION: No acute fracture or dislocation. Electronically Signed: Piyush Ruggiero DO at 18:05 EDT Tel [phone], Service support ,
--- NOTE | 2018-05-07 11:13 | CASEMGMT ---
Social Work Referral for placement due to patient having multiples falls within the home. Spoke with patient in room. This director social welfare introduced self as well as social work role. Patient reporting to live with spouse in a 1-story home with 2-3 stairs to enter the home. Patient reporting to use a cane prior to hospitalization and to be independent with all functional task. This director social welfare broaching topic of skilled stay for patient as patient was noted to ambulate 60 feet with a walker at a CGA level. Patient is not open to senior care placement and is reporting to be planning to return home with spouse. Patient is agreeable to outpatient physical therapy through [facility] but is declining home health services. Order for outpatient physical therapy signed by doctor and placed on patient chart in event that patient discharges this weekend. Support given. Social work to continue to follow as needed. Kaya VAZQUEZ, WILDLIFE PROTECTOR
--- NOTE | 2018-05-07 11:34 | PCM.PN.HOSP ---
Subjective: Patient seen and examined. He was admitted on account of frequent falls at home. He fell yesterday and had right upper extremity pain. He rates of pain in his right upper extremity after he fell. He denies any limited range of movement of right arm. He denies any fever or chills, any cough or chest pain, shortness of breath, any abdominal pain, any diarrhea vomiting. Review of systems was otherwise negative. Patient denies any lightheadedness or dizziness or palpitations of short of breath prior to falls. He states that he just falls because his knees give out. Was stated by the admitting note that patient had been having frequent falls every 2-4 weeks for the last several months. He has a pacemaker in place which was checked recently according to was normal, but there was no documentation for that seen. Blood pressure in the ED was elevated when he arrived at 206/92. INR was therapeutic at 2.2. EKG showed atrial fibrillation troponins were negative. CT brain was negative and CT of the cervical spine showed no acute fractures or dislocations. He has been managed for recurrent falls due to a suspected seizure near syncope. Vitals/I&O's: Vital Signs Temp Pulse Resp BP Pulse Ox 98.1 F 66 18 153/89 H 95 05/07/18 08:24 05/07/18 11:11 05/07/18 08:24 05/07/18 08:30 05/07/18 09:30 Oxygen Delivery Method Room Air Weight: 217 lb 2.485 oz Body Mass Index (BMI) 31.1 Orthostatic Vital Signs Start: 05/07/18 03:25 Freq: q24h Status: Active Protocol: Activity Type Activity Date Activity User E-Sign Co-Sign Detail Recorded Client Recorded Date Recorded By Document 05/07/18 03:25 [facility] [id number] 05/07/18 03:30 [facility] 05/07/18 03:25 Orthostatic Vitals Standing -Blood Pressure (90/60-120/80) 182/105 H -Extremity Use Left Arm -Pulse Rate (60-100) 89 Sitting -Blood Pressure (90/60-120/80) 153/94 H -Extremity Use Left Arm -Pulse Rate (60-100) 83 Lying -Blood Pressure (90/60-120/80) 154/82 H -Extremity Use Left Arm -Pulse Rate (60-100) 80 Intake and Output for Last 24 Hours 08/02/18 08/03/18 08/04/18 23:59 23:59 23:59 Intake Total 240 / 240 Output Total 200 / 200 275 / 275 Balance 40 / 40 -275 / -275 General: Alert, Oriented x3, Cooperative, No apparent distress HEENT: Atraumatic, PERRLA, EOMI, Normocephalic Oral: Moist Mucosa Neck: Supple, No JVD, Negative Carotid Bruits Lungs: Clear to auscultation, Normal air movement, No rhonchi, No wheeze, No rales Cardiovascular: Normal S1, Normal S2, No murmurs, Irregular Rate - and rhythm Abdomen: Bowel Sounds Present, Soft, Non Tender, Non-Distended, No Hepato-splenomegaly Extremities: No clubbing, No cyanosis, No edema, Capillary Refill Less than 3 Seconds Skin: No rashes, No breakdown Musculoskeletal: No Tenderness to Palpation of Joints or Extremities Lymphatic: No Cervical, Supraclavicular, or Inguinal Adenopathy Neurological: Cranial nerves II-XII grossly intact, Motor Exam 5/5 strength throughout, - - resting tremors of UEs bilaterally. Patient also appears to have a flat affect, ?masked facies Psych/Mental Status: Flat Affect Laboratory Results 05/06/18 21:18: POC Glucose 245 H 05/07/18 06:30: PT 24.5 H, INR 2.2 05/07/18 06:30: WBC 6.9, RBC 4.30 L, Hgb 13.2, Hct 40.6, MCV 94.4 H, MCH 30.7, MCHC 32.5, RDW 13.1, RDW Differential 44.9 H, Plt Count 164, MPV 10.6, Immature Gran % (Auto) 0.100, Neut % (Auto) 65.2, Lymph % (Auto) 23.2, [place] % (Auto) 9.9, Eos % (Auto) 1.3, Baso % (Auto) 0.3, Absolute Neuts (auto) 4.5, Absolute Lymphs (auto) 1.60, Total Counted Not Reportable 05/07/18 06:30: Sodium 140, Potassium 4.5, Chloride 107, Carbon Dioxide 28.0, Anion Gap 5, BUN 12, Creatinine 1.05, Estim Creat Clear Calc 58.90, Est GFR (MDRD) Af Amer 87, Est GFR (MDRD) Non-Af 72, BUN/Creatinine Ratio 11.4, Glucose 239 H, Calcium 8.5 05/07/18 06:45: POC Glucose 223 H Diagnostic Data Brain CT 05/06/18 16:49 IMPRESSION: Chronic involutional changes without evidence of acute intracranial or calvarial abnormality. There is resolution of the intracranial hemorrhage seen on the previous study. Electronically Signed: Piyush Ruggiero DO at 17:40 EDT Tel [phone], Service support , Cervical Spine CT 05/06/18 16:49 IMPRESSION: Degenerative changes of the cervical spine. Findings appear unchanged from June 16, 2017. There is no acute fracture or subluxation. Electronically Signed: Piyush Ruggiero DO at 17:35 EDT Tel [phone], Service support , Chest X-Ray 05/06/18 16:54 IMPRESSION: Slightly decreased inspiratory effort when compared to prior study. The remainder of the findings are stable. Electronically Signed: Piyush Ruggiero DO at 17:04 EDT Tel [phone], Service support , Current Medications Acetaminophen (Tylenol) 650 mg PO Q6H PRN PRN PRN Reason: Fever, headache, pain Last Admin: 05/06/18 20:13 Dose: 650 mg Hydrocodone Bitart/Acetaminophen (Lingle 5mg-325mg) 1 - 2 tablet PO Q6H PRN PRN PRN Reason: Moderate-severe pain Last Admin: 05/07/18 11:30 Dose: 2 tablet Aspirin (Aspirin, Baby) 81 mg PO DAILY@0800 [facility] Last Admin: 05/07/18 08:30 Dose: 81 mg Clonidine (Catapres) 0.1 mg PO DAILY [facility] Last Admin: 05/07/18 08:30 Dose: 0.1 mg Hydralazine HCl (Apresoline) 25 mg PO Q6H PRN PRN PRN Reason: SBP > 160 Sodium Chloride () 250 mls @ 15 mls/hr IV .[id number] PRN PRN Reason: SALINE FLUSH Insulin Human Lispro (Humalog Kwikpen (Bkc)) 0 unit SC ACHS [facility] PRN Reason: Protocol Last Admin: 05/07/18 08:31 Dose: 2 units Losartan Potassium (Cozaar) 100 mg PO DAILY [facility] Last Admin: 05/07/18 08:30 Dose: 100 mg Magnesium Hydroxide (Milk Of Magnesia) 30 ml PO DAILY PRN PRN Reason: Constipation Metformin HCl (Glucophage) 500 mg PO DAILY@0800 [facility] Last Admin: 05/07/18 08:30 Dose: 500 mg Metoprolol Tartrate (Lopressor (Beta Mohinder)) 50 mg PO BID [facility] Last Admin: 05/07/18 08:30 Dose: 50 mg Morphine Sulfate () 1 - 2 mg IV Q4H PRN PRN PRN Reason: PAIN Ondansetron HCl (Zofran) 4 mg IV Q8H PRN PRN PRN Reason: NAUSEA/VOMITING Pravastatin Sodium (Pravachol) 80 mg PO QHS [facility] Last Admin: 05/06/18 21:23 Dose: 80 mg Sodium Chloride () 5 - 30 ml IV UD PRN PRN Reason: SALINE FLUSH Warfarin Sodium (Coumadin (Pbkc)) 3 mg PO SuMoTuWeThSa@1700 [facility] Warfarin Sodium 0.5 mg/ (Warfarin Sodium 1 mg) 1.5 mg PO Fr@1700 [facility] Medical Necessity - Tobacco Use Smoking Status: Former smoker Assessment/Plan All Active Problems (Last Updated 09/21/17 @ 08:09 by Filiberto Landon NP-C) Hx pulmonary embolism (Resolved) 1. REcurrent mechanical falls Etiology is unclear. Patient denies any dizziness or lightheadedness or palpitations prior to falls. She does not lose consciousness with falls and has no urinary or fecal incontinence. His however noted that he had urinary incontinence, per documentation. He has resting tremors of both upper extremities. He does have somewhat of a flat affect; As such gait instability from Parkinson's disease or Parkinson-plus syndrome may not fully be ruled out in this case. EKG showed A. fib with paced rhythm. CT head and cervical spine were negative. Orthostatics were negative Neurology consulted. MRI was deferred on admission on account of pacemaker being present. discussed extensively with Dr Murdock. Patient received a dose of PO Keppra 500mg once in the ED: plan had been to start patient on PO Keppra 500mg bid; however, patient does not seem to have any prodromal lightheadedness, dizziness, palpitations or loss of consciousness. He does have urinary incontinence, but it is chronic. Neurology to review him, and would like to hold off on Keppra now till they evaluate him as seizure seems less likely from the description given by patient. CT cervical spine showed chronic degenerative changes unchanged from previous CT in 2017. CT lumbar spine ordered, per neuro PT OT consulted Falls precaution 2. Right shoulder and arm pain due to fall complains of pain of his right shoulder and upper arm after fall. Thinks he hit his shoulder against the wall on tyelenol and Lingle for pain. xray of Right shoulder and right upper arm ordered. 3. chronic atrial fibrillation: rate controlled. On metoprolol. On coumadin for anticoagulation. INR was 2.2 on admission. is 2.2 today In light of frequent falls, will have to discuss with cardiology about stopping coumadin due to risk of intracranial bleed with falls. 4. Hypertension: Interval is improved. Blood pressure was in the 200s systolic on admission. Is 153/89 during review today. On losartan, metoprolol and clonidine. Continue. 5. Type 2 diabetes mellitus on ISS and metformin. ISS. Accuchecks ACHS 6. CA s/p stents: On aspirin, statin, metoprolol and losartan. 7. DVT prophylaxis: On Coumadin for A. fib CODE STATUS: Disposition: wants to go home after discharge; refuses to consider SNF. This note was generated with [employer] dictation software. It may contain incorrect words, spelling, and punctuation that were not noted in checking the note before signing. Code Visit Inpatient E&M: 73601 Subs Hosp L3
[2018-05-07 11:36] LABS: Bedside Glucose 296 mg/dL (70-110)
--- NOTE | 2018-05-07 11:39 | PN_ITS ---
Subjective: Patient seen and examined. He was admitted on account of frequent falls at home. He fell yesterday and had right upper extremity pain. He rates of pain in his right upper extremity after he fell. He denies any limited range of movement of right arm. He denies any fever or chills, any cough or chest pain, shortness of breath, any abdominal pain, any diarrhea vomiting. Review of systems was otherwise negative. Patient denies any lightheadedness or dizziness or palpitations of short of breath prior to falls. He states that he just falls because his knees give out. Was stated by the admitting note that patient had been having frequent falls every 2-4 weeks for the last several months. He has a pacemaker in place which was checked recently according to was normal, but there was no documentation for that seen. Blood pressure in the ED was elevated when he arrived at 206/92. INR was therapeutic at 2.2. EKG showed atrial fibrillation troponins were negative. CT brain was negative and CT of the cervical spine showed no acute fractures or dislocations. He has been managed for recurrent falls due to a suspected seizure near syncope. Vitals/I&O's: Vital Signs Temp Pulse Resp BP Pulse Ox 98.1 F 66 18 153/89 H 95 05/07/18 08:24 05/07/18 11:11 05/07/18 08:24 05/07/18 08:30 05/07/18 09:30 Oxygen Delivery Method Room Air Weight: 217 lb 2.485 oz Body Mass Index (BMI) 31.1 Orthostatic Vital Signs Start: 05/07/18 03:25 Freq: q24h Status: Active Protocol: Activity Type Activity Date Activity User E-Sign Co-Sign Detail Recorded Client Recorded Date Recorded By Document 05/07/18 03:25 [facility] [id number] 05/07/18 03:30 [facility] 05/07/18 03:25 Orthostatic Vitals Standing -Blood Pressure (90/60-120/80) 182/105 H -Extremity Use Left Arm -Pulse Rate (60-100) 89 Sitting -Blood Pressure (90/60-120/80) 153/94 H -Extremity Use Left Arm -Pulse Rate (60-100) 83 Lying -Blood Pressure (90/60-120/80) 154/82 H -Extremity Use Left Arm -Pulse Rate (60-100) 80 Intake and Output for Last 24 Hours 08/02/18 08/03/18 08/04/18 23:59 23:59 23:59 Intake Total 240 / 240 Output Total 200 / 200 275 / 275 Balance 40 / 40 -275 / -275 General: Alert, Oriented x3, Cooperative, No apparent distress HEENT: Atraumatic, PERRLA, EOMI, Normocephalic Oral: Moist Mucosa Neck: Supple, No JVD, Negative Carotid Bruits Lungs: Clear to auscultation, Normal air movement, No rhonchi, No wheeze, No rales Cardiovascular: Normal S1, Normal S2, No murmurs, Irregular Rate - and rhythm Abdomen: Bowel Sounds Present, Soft, Non Tender, Non-Distended, No Hepato- splenomegaly Extremities: No clubbing, No cyanosis, No edema, Capillary Refill Less than 3 Seconds Skin: No rashes, No breakdown Musculoskeletal: No Tenderness to Palpation of Joints or Extremities Lymphatic: No Cervical, Supraclavicular, or Inguinal Adenopathy Neurological: Cranial nerves II-XII grossly intact, Motor Exam 5/5 strength throughout, - - resting tremors of UEs bilaterally. Patient also appears to have a flat affect, ?masked facies Psych/Mental Status: Flat Affect Laboratory Results 05/06/18 21:18: POC Glucose 245 H 05/07/18 06:30: PT 24.5 H, INR 2.2 05/07/18 06:30: WBC 6.9, RBC 4.30 L, Hgb 13.2, Hct 40.6, MCV 94.4 H, MCH 30.7, MCHC 32.5, RDW 13.1, RDW Differential 44.9 H, Plt Count 164, MPV 10.6, Immature Gran % (Auto) 0.100, Neut % (Auto) 65.2, Lymph % (Auto) 23.2, [place] % (Auto) 9.9 , Eos % (Auto) 1.3, Baso % (Auto) 0.3, Absolute Neuts (auto) 4.5, Absolute Lymphs (auto) 1.60, Total Counted Not Reportable 05/07/18 06:30: Sodium 140, Potassium 4.5, Chloride 107, Carbon Dioxide 28.0, Anion Gap 5, BUN 12, Creatinine 1.05, Estim Creat Clear Calc 58.90, Est GFR ( MDRD) Af Amer 87, Est GFR (MDRD) Non-Af 72, BUN/Creatinine Ratio 11.4, Glucose 239 H, Calcium 8.5 05/07/18 06:45: POC Glucose 223 H Diagnostic Data Brain CT 05/06/18 16:49 IMPRESSION: Chronic involutional changes without evidence of acute intracranial or calvarial abnormality. There is resolution of the intracranial hemorrhage seen on the previous study. Electronically Signed: Piyush Ruggiero DO at 17:40 EDT Tel [phone], Service support , Cervical Spine CT 05/06/18 16:49 IMPRESSION: Degenerative changes of the cervical spine. Findings appear unchanged from June 16, 2017. There is no acute fracture or subluxation. Electronically Signed: Piyush Ruggiero DO at 17:35 EDT Tel [phone], Service support , Chest X-Ray 05/06/18 16:54 IMPRESSION: Slightly decreased inspiratory effort when compared to prior study. The remainder of the findings are stable. Electronically Signed: Piyush Ruggiero DO at 17:04 EDT Tel [phone], Service support , Current Medications Acetaminophen (Tylenol) 650 mg PO Q6H PRN PRN PRN Reason: Fever, headache, pain Last Admin: 05/06/18 20:13 Dose: 650 mg Hydrocodone Bitart/Acetaminophen ([place] 5mg-325mg) 1 - 2 tablet PO Q6H PRN PRN PRN Reason: Moderate-severe pain Last Admin: 05/07/18 11:30 Dose: 2 tablet Aspirin (Aspirin, Baby) 81 mg PO DAILY@0800 [facility] Last Admin: 05/07/18 08:30 Dose: 81 mg Clonidine (Catapres) 0.1 mg PO DAILY [facility] Last Admin: 05/07/18 08:30 Dose: 0.1 mg Hydralazine HCl (Apresoline) 25 mg PO Q6H PRN PRN PRN Reason: SBP > 160 Sodium Chloride () 250 mls @ 15 mls/hr IV .[id number] PRN PRN Reason: SALINE FLUSH Insulin Human Lispro (Humalog Kwikpen (Bkc)) 0 unit SC ACHS [facility] PRN Reason: Protocol Last Admin: 05/07/18 08:31 Dose: 2 units Losartan Potassium (Cozaar) 100 mg PO DAILY [facility] Last Admin: 05/07/18 08:30 Dose: 100 mg Magnesium Hydroxide (Milk Of Magnesia) 30 ml PO DAILY PRN PRN Reason: Constipation Metformin HCl (Glucophage) 500 mg PO DAILY@0800 [facility] Last Admin: 05/07/18 08:30 Dose: 500 mg Metoprolol Tartrate (Lopressor (Beta Mohinder)) 50 mg PO BID [facility] Last Admin: 05/07/18 08:30 Dose: 50 mg Morphine Sulfate () 1 - 2 mg IV Q4H PRN PRN PRN Reason: PAIN Ondansetron HCl (Zofran) 4 mg IV Q8H PRN PRN PRN Reason: NAUSEA/VOMITING Pravastatin Sodium (Pravachol) 80 mg PO QHS [facility] Last Admin: 05/06/18 21:23 Dose: 80 mg Sodium Chloride () 5 - 30 ml IV UD PRN PRN Reason: SALINE FLUSH Warfarin Sodium (Coumadin (Pbkc)) 3 mg PO SuMoTuWeThSa@1700 [facility] Warfarin Sodium 0.5 mg/ (Warfarin Sodium 1 mg) 1.5 mg PO Fr@1700 [facility] Medical Necessity - Tobacco Use Smoking Status: Former smoker Assessment/Plan All Active Problems (Last Updated 09/21/17 @ 08:09 by Filiberto Landon [employer]-C) Hx pulmonary embolism (Resolved) 1. REcurrent mechanical falls * Etiology is unclear. Patient denies any dizziness or lightheadedness or palpitations prior to falls. She does not lose consciousness with falls and has no urinary or fecal incontinence. His however noted that he had urinary incontinence, per documentation. * He has resting tremors of both upper extremities. He does have somewhat of a flat affect; As such gait instability from Parkinson's disease or Parkinson- plus syndrome may not fully be ruled out in this case. * EKG showed A. fib with paced rhythm. CT head and cervical spine were negative. * Orthostatics were negative * Neurology consulted. MRI was deferred on admission on account of pacemaker being present. * discussed extensively with Dr Murdock. Patient received a dose of PO Keppra 500mg once in the ED: plan had been to start patient on PO Keppra 500mg bid; however, patient does not seem to have any prodromal lightheadedness, dizziness, palpitations or loss of consciousness. He does have urinary incontinence, but it is chronic. Neurology to review him, and would like to hold off on Keppra now till they evaluate him as seizure seems less likely from the description given by patient. * CT cervical spine showed chronic degenerative changes unchanged from previous CT in 2017. * CT lumbar spine ordered, per neuro * PT OT consulted * Falls precaution 2. Right shoulder and arm pain due to fall * complains of pain of his right shoulder and upper arm after fall. Thinks he hit his shoulder against the wall * on tyelenol and Ramona for pain. * xray of Right shoulder and right upper arm ordered. * 3. chronic atrial fibrillation: * rate controlled. On metoprolol. On coumadin for anticoagulation. * INR was 2.2 on admission. is 2.2 today * In light of frequent falls, will have to discuss with cardiology about stopping coumadin due to risk of intracranial bleed with falls. * 4. Hypertension: * Interval is improved. Blood pressure was in the 200s systolic on admission. Is 153/89 during review today. * On losartan, metoprolol and clonidine. Continue. * 5. Type 2 diabetes mellitus * on ISS and metformin. ISS. Accuchecks ACHS * 6. CA s/p stents: On aspirin, statin, metoprolol and losartan. 7. DVT prophylaxis: On Coumadin for A. fib CODE STATUS: Disposition: wants to go home after discharge; refuses to consider SNF. This note was generated with [employer] dictation software. It may contain incorrect words, spelling, and punctuation that were not noted in checking the note before signing. Code Visit Inpatient E&M: 95195 Subs Hosp L3
--- NOTE | 2018-05-07 13:33 | CT_ITS ---
STUDY: CT LUMBAR SPINE WITHOUT CONTRAST REASON FOR EXAM: Male, 77 years old. Fell last night. Lower back pain. History of hypertension and diabetes. RADIATION DOSAGE (If Supplied By Facility): CTDIvol = ( 42.73 ) mGy, DLP = ( 1241.28 ) mGycm TECHNIQUE: The patient was scanned in a multi detector CT scanner. High resolution transaxial imaging was performed. Images were obtained from T12 to the sacrum. Sagittal and coronal images were reconstructed. Individualized dose optimization techniques were used for this CT. COMPARISON: None FINDINGS: Normal lumbar lordosis. There is no substantial scoliosis. Normal vertebrae of the lumbar spine. L1-2: There is endplate spondylosis. There is a mildly bulging annulus without loss of disc height. There are degenerative changes of the bilateral facet joints, most marked on the right.. Normal central canal. Question mild impingement on the right lateral recess. Normal bilateral intervertebral neural foramina. L2-3: Normal endplates. There is a mild bulging annulus without loss of disc height. There is facet joint degenerative change. Normal central canal and bilateral lateral recesses. Normal bilateral intervertebral neural foramina. L3-4: There is anterolisthesis of L3 on L4 of 2 mm. There is loss of disc height with vacuum disc phenomena diffusely bulging annulus. There is minimal endplate spondylosis. There is facet joint degenerative change without subluxation. There is ligamentum flavum hypertrophy.. There is severe stenosis central canal and impingement on the bilateral lateral recesses. Is narrowing of the bilateral intervertebral neural foramina. L4-5: There is minimal endplate spondylosis. There is a minimal bulging annulus without loss of disc height. There is facet joint degenerative change. Normal central canal and bilateral lateral recesses. Normal bilateral intervertebral neural foramina. L5-S1: Normal endplates. There is minimal loss of disc height with a mildly bulging annulus. There is facet joint degenerative change. Normal central canal and bilateral lateral recesses. Normal bilateral intervertebral neural foramina. Normal visualized paraspinous soft tissue structures. CT/Spine Lumbar without Contrast IMPRESSION: 1. Degenerative changes of the lumbar spine most marked at L3-4. There is no acute fracture or subluxation. Electronically Signed: Piyush Ruggiero DO at 17:48 EDT Tel [phone], Service support ,
[2018-05-07 16:50] LABS: Bedside Glucose 320 mg/dL (70-110)
--- NOTE | 2018-05-07 18:58 | EEG ---
- Electroencephalogram Date of service 05/07/2018 History EEG is being done in this 77 yr M to rule out seizures EEG Description: This is an 18 channel EEG with 10-20 lead placement system. Bipolar montages, Referential and Circumferential montages were reviewed. Photic stimulation and Hyperventilation were performed. The posterior dominant rhythm is 8 HZ synchronous, symmetric, reacting to eye opening and closing. Photo stimulation elicited normal driving response but no abnormal photoparoxysmal response, Hyperventilation did not elicit any abnormal photoparoxysmal response. Sleep was identified. There is no abnormal background slowing noted. There was no epileptiform discharges or electrographic seizures noted during this recording. EEG Interpretation This is a normal awake and asleep EEG. There is no epileptiform discharges or electrographic seizures noted during the record.
--- NOTE | 2018-05-07 19:47 | CON.PCM_ITS ---
Problem List (1) Frequent falls Status: Chronic (2) Balance problem Status: Chronic (3) Lumbar stenosis Status: Chronic Reason for Consult Date of Consultation: 05/07/18 Reason for Consultation: Frequent falls, balance issues History of Present Illness: The patient is a 77 year old CM with PMH HTN, HLD, DM, H/O TIA, H/O SAH in 2017 , Essential Tremors, CAD s/p stents, Afib on Coumadin, SSS s/p pacer admitted with frequent falls and balance issues. Per patient he falls about once in a month, his legs give out and he falls down, denies any loss of consciousness, denies any episodes of confusion with the fall. Per patient he has been having falls for more than a year now, has chronic urinary incontinence, denies any new memory issues, denies any REM behavior sleep d/o, denies any visual hallucinations, denies resting tremors, bradykinesia or stiffness. Per patient he has tremors in both UE when he is trying to do things like reading newspaper and has to place the paper on the table to read. Patient also complaints of lower back pain if he stands for a long time and cannot walk long distances due to pain in the lower back. Denies any neck pain, radicular symptoms, denies any numbness in the fingers and toes. Per ED documentation, patient's had told ED physician Dr. Whelan that he gets confused after the falls and has episodes of urinary incontinence and hence Dr. Whelan felt it could be seizures and hence patient was given a dose of Keppra, but there is no witnessed GTCs or partial seizures. Per patient he is always aware of the fall, falls forward, yesterday he fell and was found face down on the floor when the paramedics had reached his place. Per patient he would mostly hold on to the furniture, uses cane to ambulate, does drive and does not need any assistance for his ADLs. On admission his BP was high at 206/[address] head on admission reported nothing acute, CT C spine reported to show degenerative changes without any fracture, and CT L spine reported to show degenerative changes, with severe canal stenosis and impingement on the bilateral lateral recesses at L3-4 level. On admission UA was negative. Past Medical History Past Medical History (Chronic Problems): Chronic Problems (Last Updated 09/21/17 @ 08:09 by KATIE Glover) Frequent falls (Chronic) Balance problem (Chronic) Lumbar stenosis (Chronic) Sick sinus syndrome (Chronic) On anticoagulant therapy (Chronic) CAD (coronary artery disease) (Chronic) Chronic atrial fibrillation (Chronic) DM2 (diabetes mellitus, type 2) (Chronic) Dyslipidemia (Chronic) Essential (primary) hypertension (Chronic) Cardiac pacemaker (Chronic) Diverticulosis (Chronic) Tremor, essential (Chronic) TIA (transient ischemic attack) (Chronic) Subtherapeutic international normalized ratio (INR) (Chronic) Cardiac dysrhythmia (Chronic) Atrial dysrhythmia (Chronic) Atrial fibrillation (Chronic) S/P PTCA (percutaneous transluminal coronary angioplasty) (Chronic) HTN (hypertension) (Chronic) HLD (hyperlipidemia) (Chronic) Medical History: Medical History (Last Updated 09/21/17 @ 08:09 by KATIE Glover) Sick sinus syndrome (Chronic) I49.5 On anticoagulant therapy (Chronic) Z79.01 CAD (coronary artery disease) (Chronic) I25.10 Chronic atrial fibrillation (Chronic) I48.2 DM2 (diabetes mellitus, type 2) (Chronic) E11.9 Dyslipidemia (Chronic) E78.5 Essential (primary) hypertension (Chronic) I10 Cardiac pacemaker (Chronic) Z95.0 Diverticulosis (Chronic) K57.90 Tremor, essential (Chronic) G25.0 TIA (transient ischemic attack) (Chronic) Subtherapeutic international normalized ratio (INR) (Chronic) R79.1 Cardiac dysrhythmia (Chronic) I49.9 Atrial dysrhythmia (Chronic) I49.8 Atrial fibrillation (Chronic) I48.91 HTN (hypertension) (Chronic) I10 HLD (hyperlipidemia) (Chronic) E78.5 History of cardioversion Z98.890 09/2005; History of electrophysiologic study Z98.890 December 2005 Pulmonary embolism I26.99 Allergies hydrochlorothiazide Adverse Reaction (Unknown, Verified 05/06/18 16:38) Gout symptoms Home Medications: Ambulatory Orders Medication Instructions Recorded Aspirin [Aspirin, Baby] 81 mg PO DAILY 06/24/14 Liraglutide [Victoza] 1.8 units SQ DAILY 06/16/17 bumetanide 1 mg tablet 0.5 mg PO PRN PRN tab 09/21/17 albuterol sulfate HFA 90 2 puff INHALATION Q6H 09/22/17 mcg/actuation aerosol inhaler nitroglycerin 0.4 mg sublingual 0.4 mg SUBLINGUAL Q5-15M PRN 09/22/17 tablet losartan 100 mg tablet 100 mg PO DAILY #90 tab 01/12/18 Clonidine HCl [Catapres] 0.1 mg PO DAILY 05/06/18 Metformin HCl [Glucophage] 500 mg PO DAILY 05/06/18 Metoprolol Tartrate [Lopressor 50 mg PO BID 05/06/18 (beta mitul)] Multivit-Min/FA/Lycopen/Lutein 1 tablet PO DAILY 05/06/18 [Centrum Silver Tablet] Pravastatin Sodium 80 mg PO QHS 05/06/18 Warfarin Sodium [Warfarin Sodium] 3 mg PO .COMPLEX 05/06/18 Surgical History: Surgical History (Last Reviewed 09/22/17 @ 09:17 by Jacques Alberts) S/P PTCA (percutaneous transluminal coronary angioplasty) (Chronic) Z98.61 H/O right and left heart catheterization Z98.890 December 2005; PTCA of the RCA April 2010; PVI and Superior Vena Cava Isolation 01/31/2010 S/P ablation of atrial flutter Z98.890, Z86.December; 01/31/2010 S/P pericardiocentesis Z98.890 04/2010 S/P placement of cardiac pacemaker Onset Date: ~02/2010 Z95.0 Surgical History: angioplasty, pacemaker implantation Psychiatric History: No pertinent psych hx Lives: Spouse/ Significant Other Smoking Status: Former smoker Alcohol: None Drugs: None - *Family History Maternal Family History: Family History (Last Reviewed 09/22/17 @ 09:18 by Jacques Alberts) Brother Colon cancer Father CAD (coronary artery disease) Mother Colon cancer Sister Breast cancer History Items: Cancer - of the colon, No pertinent history Paternal Family History: Family History (Last Reviewed 09/22/17 @ 09:18 by Jacques Alberts) Brother Colon cancer Father CAD (coronary artery disease) Mother Colon cancer Sister Breast cancer History Items: Heart Disease Review of Systems Constitutional: Reports: - - complete ROS negative except as documented in HPI - Physical Exam General: Alert HEENT: Normocephalic Neck: Supple Lungs: Clear to auscultation Cardiovascular: Normal S1, Normal S2, Irregular Rate Abdomen: Bowel Sounds Present Extremities: No cyanosis Musculoskeletal: - - RIght shoulder tenderness Neurological: - - consious, alert, AoAx3, CN 2-12 grossly intact, power Right UE limited examination due to right shoulder tenderness following the fall, Left UE and B/L LE 5/5, no sensory loss, B/L action tremors, no cerebellar signs , Reflexes + B/L B/S/T/K/A, gait mildly wide based, had to use walker at present to ambulate, no short shuffling gait seen, tone normal both UE, Romberg' s deferred. Psych/Mental Status: Normal Affect Vital Signs Temp Pulse Resp BP Pulse Ox 97.3 F L 75 18 150/83 H 96 05/07/18 14:20 05/07/18 15:36 05/07/18 14:20 05/07/18 14:20 05/07/18 14:20 Oxygen Delivery Method Room Air POC Glucose 05/07/18 16:41 POC Glucose 320 H Assessment/Plan All Active Problems (Last Updated 09/21/17 @ 08:09 by Filiberto Landon, SPECIAL EDUCATION CLASSROOM AIDE-C) Hx pulmonary embolism (Resolved) The patient is a 77 year old CM with PMH HTN, HLD, DM, H/O TIA, H/O SAH in 2017 , Essential Tremors, CAD s/p stents, Afib on Coumadin, H/O PE, SSS s/p pacer admitted with frequent falls and balance issues. Per patient he falls about once in a month, his legs give out and he falls down, denies any loss of consciousness, denies any episodes of confusion with the fall. Per patient he has been having falls for more than a year now, has chronic urinary incontinence , denies any new memory issues, denies any REM behavior sleep d/o, denies any visual hallucinations, denies resting tremors, bradykinesia or stiffness. Per patient he has tremors in both UE when he is trying to do things like reading newspaper and has to place the paper on the table to read. Patient also complaints of lower back pain if he stands for a long time and cannot walk long distances due to pain in the lower back. Denies any neck pain, radicular symptoms, denies any numbness in the fingers and toes. Per ED documentation, patient's had told ED physician Dr. Whelan that he gets confused after the falls and has episodes of urinary incontinence and hence Dr. Whelan felt it could be seizures and hence patient was given a dose of Keppra, but there is no witnessed GTCs or partial seizures. Per patient he is always aware of the fall, falls forward, yesterday he fell and was found face down on the floor when the paramedics had reached his place. Per patient he would mostly hold on to the furniture, uses cane to ambulate, does drive and does not need any assistance for his ADLs. On admission his BP was high at 206/[address] head on admission reported nothing acute, CT C spine reported to show degenerative changes without any fracture, and CT L spine reported to show degenerative changes, with severe canal stenosis and impingement on the bilateral lateral recesses at L3-4 level. On admission UA was negative. Impression Frequent falls Balance issues Lumbar stenosis Plan -CT head, CT C spine and CT L spine reviewed -Cannot get MRI due to pacer -Recommend spine surgeon consult for severe lumbar stenosis -Check TSH, Vitamin B12 level and vitamin D level. -At present unlikely to be seizures, with no clear seizure symptomatology and normal EEG/CT brain -At present features unlikely from neurodegenerative d/o like PD or parkinsonism -Better BP control with goal BP < 130/80 mmHg, will defer to primary team -Further medical management per primary team -GI/DVT Prophylaxis -PT/OT and placement -Fall precautions -Please call with questions if any -Thank you for allowing us to participate in patient's care and management I spent 60 minutes taking history, doing physical examination, reviewing medical records, coordinating care, and counseling patient Code Visit Inpatient E&M: 49459 Init Hosp L3
[2018-05-07] MEDS: hydrALAZINE 25 MG Tablet PO (20:33)
[2018-05-07] MEDS: Pravastatin 80 MG Tablet PO (21:32)
[2018-05-07 22:15] LABS: Bedside Glucose 296 mg/dL (70-110)
[2018-05-07 22:30] LABS: Thyroid Stim Hormone (TSH) 3.61 uIU/mL (0.358-3.74)
[2018-05-08] VITALS (15 sets, daily range): BP systolic 146–167; BP diastolic 77–90; PULSE 63–82; RESP 18; TEMP 36.4–37.1; O2SAT 94–98
[2018-05-08 06:45] LABS: Bedside Glucose 243 mg/dL (70-110)
[2018-05-08] MEDS: Insulin Lispro 100 UNIT/ML INSULN.PEN SC ×4 (07:50→21:51)
[2018-05-08] MEDS: Losartan Potassium 100 MG Tablet PO (07:52)
[2018-05-08] MEDS: Metoprolol Tartrate 50 MG Tablet PO ×2 (07:52→21:51)
[2018-05-08] MEDS: Aspirin 81 MG TAB.CHEW PO (07:52)
[2018-05-08] MEDS: cloNIDine HCl 0.1 MG Tablet PO (07:52)
[2018-05-08] MEDS: HYDROcodone Bitartrate/Apap 5/325 Tablet PO ×2 (11:35→21:55)
[2018-05-08 11:40] LABS: Bedside Glucose 254 mg/dL (70-110)
--- NOTE | 2018-05-08 12:04 | PCM.PN.HOSP ---
Subjective: He had a good night and felt wonderful. He denied any fever or chills, any cough or chest pain, no shortness of breath, any belly pain, any diarrhea vomiting. Review of systems is otherwise negative. Patient's came to his bedside at time of review. Labs and vitals reviewed. 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 It is therefore unlikely that he has any Parkinson's or Parkinson plus syndrome. CT of the lumbar spine showed lumbar spinal stenosis and this is thought to be likely due to the cause of his balance problems. Neurology therefore, the patient follows up with neurosurgeon. However patient told me point blank that it is unlikely he will go just because he does not want to. Patient's concurred that patient is likely not to follow-up because it might involve surgery which he does not want to do. Patient's expressed concerns about the fact that they needed by 3 will start home because of patient's frequent falls and also he needed a walker or Rollator. Available today and so patient will be discharged tomorrow most likely. Also discussed concerns about patient's frequent falls and being on Coumadin which put him at risk of brain bleed. states patient had a brain bleed last he was managed at [facility] after being transferred from [facility]. He has never been kept on the Coumadin until then. Will discuss with Dr. Lawson. Vitals/I&O's: Vital Signs Temp Pulse Resp BP Pulse Ox 98.0 F 71 18 155/77 H 96 05/08/18 07:43 05/08/18 11:45 05/08/18 07:43 05/08/18 07:52 05/08/18 07:43 Oxygen Delivery Method Room Air Orthostatic Vital Signs Start: 05/07/18 03:25 Freq: q24h Status: Active Protocol: Activity Type Activity Date Activity User E-Sign Co-Sign Detail Recorded Client Recorded Date Recorded By Document 05/08/18 06:10 KDB [id number] 05/08/18 06:26 KDB 05/08/18 06:10 Orthostatic Vitals Standing -Blood Pressure (90/60-120/80) 165/88 H -Extremity Use Left Arm -Pulse Rate (60-100) 64 Sitting -Blood Pressure (90/60-120/80) 166/90 H -Extremity Use Left Arm -Pulse Rate (60-100) 76 Lying -Blood Pressure (90/60-120/80) 167/89 H -Extremity Use Left Arm -Pulse Rate (60-100) 82 Intake and Output for Last 24 Hours 05/06/18 05/07/18 05/08/18 23:59 23:59 23:59 Intake Total 480 / 480 Output Total 125 / 500 Balance 355 / -20 General: Alert, Oriented x3, Cooperative, No apparent distress HEENT: Atraumatic, PERRLA, EOMI, Normocephalic Oral: Moist Mucosa Neck: Supple, No JVD, Negative Carotid Bruits Lungs: Clear to auscultation, Normal air movement, No rhonchi, No wheeze, No rales Cardiovascular: Regular rate, Normal S1, Normal S2, No murmurs, - - Irregular rhythm Abdomen: Bowel Sounds Present, Soft, Non Tender, Non-Distended, No Hepato-splenomegaly Extremities: No clubbing, No cyanosis, No edema, Capillary Refill Less than 3 Seconds Skin: No rashes, No breakdown Musculoskeletal: No Tenderness to Palpation of Joints or Extremities Lymphatic: No Cervical, Supraclavicular, or Inguinal Adenopathy Neurological: Cranial nerves II-XII grossly intact, Neuro grossly intact Psych/Mental Status: Normal Affect, Alert and oriented to time, place, person, mood and affect Laboratory Results 05/07/18 16:41: POC Glucose 320 H 05/07/18 21:29: POC Glucose 296 H 05/07/18 21:46: TSH 3.61 05/07/18 21:46: Vitamin B12 Pending, Vitamin D 25-Hydroxy Pending 05/08/18 06:41: POC Glucose 243 H 05/08/18 11:28: POC Glucose 254 H Laboratory Tests 05/06/18 05/06/18 05/06/18 17:00 17:00 17:00 WBC 7.3 RBC 4.55 L Hgb 14.1 Hct 42.8 MCV 94.1 H MCH 31.0 MCHC 32.9 RDW 13.0 RDW Differential 44.9 H Plt Count 178 MPV 10.3 Immature Gran % (Auto) 0.300 Neut % (Auto) 60.5 Lymph % (Auto) 28.5 [place] % (Auto) 8.0 Eos % (Auto) 2.3 Baso % (Auto) 0.4 Absolute Neuts (auto) 4.4 Absolute Lymphs (auto) 2.08 Total Counted Not Reportable PT 24.5 H INR 2.2 APTT 31.4 Sodium 140 Potassium 4.1 Chloride 105 Carbon Dioxide 28.0 Anion Gap 7 BUN 12 Creatinine 1.15 Estim Creat Clear Calc 53.78 Est GFR (MDRD) Af Amer 79 Est GFR (MDRD) Non-Af 65 BUN/Creatinine Ratio 10.4 Glucose 246 H Calcium 8.9 Troponin I < 0.015 TSH Urine Color Urine Clarity Urine pH Ur Specific [place] Urine Protein Urine Glucose (UA) Urine Ketones Urine Occult Blood Urine Nitrite Urine Bilirubin Urine Urobilinogen Ur Leukocyte Esterase Urine RBC Urine WBC Ur Squamous Epith Cells Urine Bacteria Urine Mucus POC Glucose 05/06/18 05/06/18 05/07/18 17:29 21:18 06:30 WBC RBC Hgb Hct MCV MCH MCHC RDW RDW Differential Plt Count MPV Immature Gran % (Auto) Neut % (Auto) Lymph % (Auto) [place] % (Auto) Eos % (Auto) Baso % (Auto) Absolute Neuts (auto) Absolute Lymphs (auto) Total Counted PT 24.5 H INR 2.2 APTT Sodium Potassium Chloride Carbon Dioxide Anion Gap BUN Creatinine Estim Creat Clear Calc Est GFR (MDRD) Af Amer Est GFR (MDRD) Non-Af BUN/Creatinine Ratio Glucose Calcium Troponin I TSH Urine Color Yellow Urine Clarity Clear Urine pH 6.0 Ur Specific [place] 1.015 Urine Protein 100 H Urine Glucose (UA) 1000 H Urine Ketones Negative Urine Occult Blood 25 H Urine Nitrite Negative Urine Bilirubin Negative Urine Urobilinogen Normal Ur Leukocyte Esterase Negative Urine RBC 0 SEEN Urine WBC 0 SEEN Ur Squamous Epith Cells 0 SEEN Urine Bacteria 0 SEEN Urine Mucus 0 SEEN POC Glucose 245 H 05/07/18 05/07/18 05/07/18 06:30 06:30 06:45 WBC 6.9 RBC 4.30 L Hgb 13.2 Hct 40.6 MCV 94.4 H MCH 30.7 MCHC 32.5 RDW 13.1 RDW Differential 44.9 H Plt Count 164 MPV 10.6 Immature Gran % (Auto) 0.100 Neut % (Auto) 65.2 Lymph % (Auto) 23.2 [place] % (Auto) 9.9 Eos % (Auto) 1.3 Baso % (Auto) 0.3 Absolute Neuts (auto) 4.5 Absolute Lymphs (auto) 1.60 Total Counted Not Reportable PT INR APTT Sodium 140 Potassium 4.5 Chloride 107 Carbon Dioxide 28.0 Anion Gap 5 BUN 12 Creatinine 1.05 Estim Creat Clear Calc 58.90 Est GFR (MDRD) Af Amer 87 Est GFR (MDRD) Non-Af 72 BUN/Creatinine Ratio 11.4 Glucose 239 H Calcium 8.5 Troponin I TSH Urine Color Urine Clarity Urine pH Ur Specific [place] Urine Protein Urine Glucose (UA) Urine Ketones Urine Occult Blood Urine Nitrite Urine Bilirubin Urine Urobilinogen Ur Leukocyte Esterase Urine RBC Urine WBC Ur Squamous Epith Cells Urine Bacteria Urine Mucus POC Glucose 223 H 05/07/18 05/07/18 05/07/18 11:15 16:41 21:29 WBC RBC Hgb Hct MCV MCH MCHC RDW RDW Differential Plt Count MPV Immature Gran % (Auto) Neut % (Auto) Lymph % (Auto) [place] % (Auto) Eos % (Auto) Baso % (Auto) Absolute Neuts (auto) Absolute Lymphs (auto) Total Counted PT INR APTT Sodium Potassium Chloride Carbon Dioxide Anion Gap BUN Creatinine Estim Creat Clear Calc Est GFR (MDRD) Af Amer Est GFR (MDRD) Non-Af BUN/Creatinine Ratio Glucose Calcium Troponin I TSH Urine Color Urine Clarity Urine pH Ur Specific [place] Urine Protein Urine Glucose (UA) Urine Ketones Urine Occult Blood Urine Nitrite Urine Bilirubin Urine Urobilinogen Ur Leukocyte Esterase Urine RBC Urine WBC Ur Squamous Epith Cells Urine Bacteria Urine Mucus POC Glucose 296 H 320 H 296 H 05/07/18 05/08/18 05/08/18 21:46 06:41 11:28 WBC RBC Hgb Hct MCV MCH MCHC RDW RDW Differential Plt Count MPV Immature Gran % (Auto) Neut % (Auto) Lymph % (Auto) [place] % (Auto) Eos % (Auto) Baso % (Auto) Absolute Neuts (auto) Absolute Lymphs (auto) Total Counted PT INR APTT Sodium Potassium Chloride Carbon Dioxide Anion Gap BUN Creatinine Estim Creat Clear Calc Est GFR (MDRD) Af Amer Est GFR (MDRD) Non-Af BUN/Creatinine Ratio Glucose Calcium Troponin I TSH 3.61 Urine Color Urine Clarity Urine pH Ur Specific [place] Urine Protein Urine Glucose (UA) Urine Ketones Urine Occult Blood Urine Nitrite Urine Bilirubin Urine Urobilinogen Ur Leukocyte Esterase Urine RBC Urine WBC Ur Squamous Epith Cells Urine Bacteria Urine Mucus POC Glucose 243 H 254 H Diagnostic Data Brain CT 05/06/18 16:49 IMPRESSION: Chronic involutional changes without evidence of acute intracranial or calvarial abnormality. There is resolution of the intracranial hemorrhage seen on the previous study. Electronically Signed: Piyush Ruggiero DO at 17:40 EDT Tel [phone], Service support , Cervical Spine CT 05/06/18 16:49 IMPRESSION: Degenerative changes of the cervical spine. Findings appear unchanged from June 16, 2017. There is no acute fracture or subluxation. Electronically Signed: Piyush Ruggiero DO at 17:35 EDT Tel [phone], Service support , Chest X-Ray 05/06/18 16:54 IMPRESSION: Slightly decreased inspiratory effort when compared to prior study. The remainder of the findings are stable. Electronically Signed: Piyush Ruggiero DO at 17:04 EDT Tel [phone], Service support , Shoulder X-Ray 05/07/18 08:51 IMPRESSION: Degenerative changes of the right shoulder without fracture or dislocation. Electronically Signed: Piyush Ruggiero DO at 18:10 EDT Tel [phone], Service support , Humerus X-Ray 05/07/18 08:52 IMPRESSION: No acute fracture or dislocation. Electronically Signed: Piyush Ruggiero DO at 18:05 EDT Tel [phone], Service support , Lumbar Spine CT 05/07/18 13:33 IMPRESSION: 1. Degenerative changes of the lumbar spine most marked at L3-4. There is no acute fracture or subluxation. Electronically Signed: Piyush Ruggiero DO at 17:48 EDT Tel [phone], Service support , Current Medications Acetaminophen (Tylenol) 650 mg PO Q6H PRN PRN PRN Reason: Fever, headache, pain Last Admin: 05/06/18 20:13 Dose: 650 mg Hydrocodone Bitart/Acetaminophen ([place] 5mg-325mg) 1 - 2 tablet PO Q6H PRN PRN PRN Reason: Moderate-severe pain Last Admin: 05/08/18 11:35 Dose: 1 tablet Aspirin (Aspirin, Baby) 81 mg PO DAILY@0800 [facility] Last Admin: 05/08/18 07:52 Dose: 81 mg Clonidine (Catapres) 0.1 mg PO DAILY [facility] Last Admin: 05/08/18 07:52 Dose: 0.1 mg Hydralazine HCl (Apresoline) 25 mg PO Q6H PRN PRN PRN Reason: SBP > 160 Last Admin: 05/07/18 20:33 Dose: 25 mg Sodium Chloride () 250 mls @ 15 mls/hr IV .[id number] PRN PRN Reason: SALINE FLUSH Insulin Human Lispro (Humalog Kwikpen (Bkc)) 0 unit SC ACHS [facility] PRN Reason: Protocol Last Admin: 05/08/18 11:30 Dose: 2 units Losartan Potassium (Cozaar) 100 mg PO DAILY [facility] Last Admin: 05/08/18 07:52 Dose: 100 mg Magnesium Hydroxide (Milk Of Magnesia) 30 ml PO DAILY PRN PRN Reason: Constipation Metformin HCl (Glucophage) 500 mg PO DAILY@0800 [facility] Last Admin: 05/08/18 07:52 Dose: 500 mg Metoprolol Tartrate (Lopressor (Beta Mohinder)) 50 mg PO BID [facility] Last Admin: 05/08/18 07:52 Dose: 50 mg Morphine Sulfate () 1 - 2 mg IV Q4H PRN PRN PRN Reason: PAIN Ondansetron HCl (Zofran) 4 mg IV Q8H PRN PRN PRN Reason: NAUSEA/VOMITING Pravastatin Sodium (Pravachol) 80 mg PO QHS [facility] Last Admin: 05/07/18 21:32 Dose: 80 mg Sodium Chloride () 5 - 30 ml IV UD PRN PRN Reason: SALINE FLUSH Warfarin Sodium (Coumadin (Pbkc)) 3 mg PO Jesse@1700 [facility] Last Admin: 05/07/18 16:44 Dose: 3 mg Warfarin Sodium 0.5 mg/ (Warfarin Sodium 1 mg) 1.5 mg PO Fr@1700 [facility] Medical Necessity - Tobacco Use Smoking Status: Former smoker Assessment/Plan All Active Problems (Last Updated 09/21/17 @ 08:09 by Filiberto Landon, BILLIE-C) Hx pulmonary embolism (Resolved) 1. REcurrent mechanical falls Has been working well with physical therapy and has been able to ambulate very well with a walker. Has no complaints today. Orthostatics have been negative. EEG done o/a of suspicion for seizure was negative. CT cervical spine showed chronic degenerative changes unchanged from previous CT in 2017. CT lumbar spine: The canal stenosis and impingement on the bilateral lateral recesses at the L3-L4 level PT OT on board Patient to be referred to neurosurgeon at [facility] upon discharge. Patient is however not likely his complaints he stated that he would not go. needs both reveals at home on account of patient's frequent falls and also he needs a Rollator. Falls precaution 2. Right shoulder and arm pain due to fall resolving. Pain is much better. on tyelenol and [place] for pain. xray of Right shoulder and right upper arm negative for any fracture 3. chronic atrial fibrillation: rate controlled. On metoprolol. On coumadin for anticoagulation. INR has been therapeutic. Discussed concerns about risk of intracranial bleed extensively with Dr. Lawson, patient's oim architect. 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 He was transferred from [place] to [place] and says that he was managed conservatively. states patient keeps on falling at home. Patient is therefore at high risk of intracranial bleeding bleed on account of recent falls. Actually has a resolving laceration on his eyebrow on account of recent fall. Per discussion with Dr. Lawson, will stop patient's Coumadin and put him on aspirin 81 mg daily. Patient is to comply with aspirin and to follow-up with oim architect. 4. Hypertension: Fairly controlled. On losartan, metoprolol and clonidine. Continue. 5. Type 2 diabetes mellitus on ISS and metformin. ISS. Accuchecks ACHS 6. CA s/p stents: On aspirin, statin, metoprolol and losartan. 7. DVT prophylaxis: On Coumadin for A. fib Disposition: for discharge home tomorrow. Need to set up home health care, bathroom rails and rollator. drug department worker not available today. Will dc tomorrow after setting all these up with casey saw operator, as feels he wont be safe at home if these are not addressed. This note was generated with [employer] dictation software. It may contain incorrect words, spelling, and punctuation that were not noted in checking the note before signing. Code Visit Inpatient E&M: 59133 Subs Hosp L2
--- NOTE | 2018-05-08 12:08 | PN_ITS ---
Subjective: He had a good night and felt wonderful. He denied any fever or chills, any cough or chest pain, no shortness of breath, any belly pain, any diarrhea vomiting. Review of systems is otherwise negative. Patient's came to his bedside at time of review. Labs and vitals reviewed. 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 It is therefore unlikely that he has any Parkinson's or Parkinson plus syndrome. CT of the lumbar spine showed lumbar spinal stenosis and this is thought to be likely due to the cause of his balance problems. Neurology therefore, the patient follows up with neurosurgeon. However patient told me point blank that it is unlikely he will go just because he does not want to. Patient's concurred that patient is likely not to follow-up because it might involve surgery which he does not want to do. Patient's expressed concerns about the fact that they needed by 3 will start home because of patient's frequent falls and also he needed a walker or Rollator. Available today and so patient will be discharged tomorrow most likely. Also discussed concerns about patient' s frequent falls and being on Coumadin which put him at risk of brain bleed. states patient had a brain bleed last he was managed at [place] after being transferred from [facility]. He has never been kept on the Coumadin until then. Will discuss with Dr. Lawson. Vitals/I&O's: Vital Signs Temp Pulse Resp BP Pulse Ox 98.0 F 71 18 155/77 H 96 05/08/18 07:43 05/08/18 11:45 05/08/18 07:43 05/08/18 07:52 05/08/18 07:43 Oxygen Delivery Method Room Air Orthostatic Vital Signs Start: 05/07/18 03:25 Freq: q24h Status: Active Protocol: Activity Type Activity Date Activity User E-Sign Co-Sign Detail Recorded Client Recorded Date Recorded By Document 05/08/18 06:10 KDB [id number] 05/08/18 06:26 KDB 05/08/18 06:10 Orthostatic Vitals Standing -Blood Pressure (90/60-120/80) 165/88 H -Extremity Use Left Arm -Pulse Rate (60-100) 64 Sitting -Blood Pressure (90/60-120/80) 166/90 H -Extremity Use Left Arm -Pulse Rate (60-100) 76 Lying -Blood Pressure (90/60-120/80) 167/89 H -Extremity Use Left Arm -Pulse Rate (60-100) 82 Intake and Output for Last 24 Hours 05/06/18 05/07/18 05/08/18 23:59 23:59 23:59 Intake Total 480 / 480 Output Total 125 / 500 Balance 355 / -20 General: Alert, Oriented x3, Cooperative, No apparent distress HEENT: Atraumatic, PERRLA, EOMI, Normocephalic Oral: Moist Mucosa Neck: Supple, No JVD, Negative Carotid Bruits Lungs: Clear to auscultation, Normal air movement, No rhonchi, No wheeze, No rales Cardiovascular: Regular rate, Normal S1, Normal S2, No murmurs, - - Irregular rhythm Abdomen: Bowel Sounds Present, Soft, Non Tender, Non-Distended, No Hepato- splenomegaly Extremities: No clubbing, No cyanosis, No edema, Capillary Refill Less than 3 Seconds Skin: No rashes, No breakdown Musculoskeletal: No Tenderness to Palpation of Joints or Extremities Lymphatic: No Cervical, Supraclavicular, or Inguinal Adenopathy Neurological: Cranial nerves II-XII grossly intact, Neuro grossly intact Psych/Mental Status: Normal Affect, Alert and oriented to time, place, person, mood and affect Laboratory Results 05/07/18 16:41: POC Glucose 320 H 05/07/18 21:29: POC Glucose 296 H 05/07/18 21:46: TSH 3.61 05/07/18 21:46: Vitamin B12 Pending, Vitamin D 25-Hydroxy Pending 05/08/18 06:41: POC Glucose 243 H 05/08/18 11:28: POC Glucose 254 H Laboratory Tests 05/06/18 05/06/18 05/06/18 17:00 17:00 17:00 WBC 7.3 RBC 4.55 L Hgb 14.1 Hct 42.8 MCV 94.1 H MCH 31.0 MCHC 32.9 RDW 13.0 RDW Differential 44.9 H Plt Count 178 MPV 10.3 Immature Gran % (Auto) 0.300 Neut % (Auto) 60.5 Lymph % (Auto) 28.5 [place] % (Auto) 8.0 Eos % (Auto) 2.3 Baso % (Auto) 0.4 Absolute Neuts (auto) 4.4 Absolute Lymphs (auto) 2.08 Total Counted Not Reportable PT 24.5 H INR 2.2 APTT 31.4 Sodium 140 Potassium 4.1 Chloride 105 Carbon Dioxide 28.0 Anion Gap 7 BUN 12 Creatinine 1.15 Estim Creat Clear Calc 53.78 Est GFR (MDRD) Af Amer 79 Est GFR (MDRD) Non-Af 65 BUN/Creatinine Ratio 10.4 Glucose 246 H Calcium 8.9 Troponin I < 0.015 TSH Urine Color Urine Clarity Urine pH Ur Specific [place] Urine Protein Urine Glucose (UA) Urine Ketones Urine Occult Blood Urine Nitrite Urine Bilirubin Urine Urobilinogen Ur Leukocyte Esterase Urine RBC Urine WBC Ur Squamous Epith Cells Urine Bacteria Urine Mucus POC Glucose 05/06/18 05/06/18 05/07/18 17:29 21:18 06:30 WBC RBC Hgb Hct MCV MCH MCHC RDW RDW Differential Plt Count MPV Immature Gran % (Auto) Neut % (Auto) Lymph % (Auto) [place] % (Auto) Eos % (Auto) Baso % (Auto) Absolute Neuts (auto) Absolute Lymphs (auto) Total Counted PT 24.5 H INR 2.2 APTT Sodium Potassium Chloride Carbon Dioxide Anion Gap BUN Creatinine Estim Creat Clear Calc Est GFR (MDRD) Af Amer Est GFR (MDRD) Non-Af BUN/Creatinine Ratio Glucose Calcium Troponin I TSH Urine Color Yellow Urine Clarity Clear Urine pH 6.0 Ur Specific [place] 1.015 Urine Protein 100 H Urine Glucose (UA) 1000 H Urine Ketones Negative Urine Occult Blood 25 H Urine Nitrite Negative Urine Bilirubin Negative Urine Urobilinogen Normal Ur Leukocyte Esterase Negative Urine RBC 0 SEEN Urine WBC 0 SEEN Ur Squamous Epith Cells 0 SEEN Urine Bacteria 0 SEEN Urine Mucus 0 SEEN POC Glucose 245 H 05/07/18 05/07/18 05/07/18 06:30 06:30 06:45 WBC 6.9 RBC 4.30 L Hgb 13.2 Hct 40.6 MCV 94.4 H MCH 30.7 MCHC 32.5 RDW 13.1 RDW Differential 44.9 H Plt Count 164 MPV 10.6 Immature Gran % (Auto) 0.100 Neut % (Auto) 65.2 Lymph % (Auto) 23.2 [place] % (Auto) 9.9 Eos % (Auto) 1.3 Baso % (Auto) 0.3 Absolute Neuts (auto) 4.5 Absolute Lymphs (auto) 1.60 Total Counted Not Reportable PT INR APTT Sodium 140 Potassium 4.5 Chloride 107 Carbon Dioxide 28.0 Anion Gap 5 BUN 12 Creatinine 1.05 Estim Creat Clear Calc 58.90 Est GFR (MDRD) Af Amer 87 Est GFR (MDRD) Non-Af 72 BUN/Creatinine Ratio 11.4 Glucose 239 H Calcium 8.5 Troponin I TSH Urine Color Urine Clarity Urine pH Ur Specific [place] Urine Protein Urine Glucose (UA) Urine Ketones Urine Occult Blood Urine Nitrite Urine Bilirubin Urine Urobilinogen Ur Leukocyte Esterase Urine RBC Urine WBC Ur Squamous Epith Cells Urine Bacteria Urine Mucus POC Glucose 223 H 05/07/18 05/07/18 05/07/18 11:15 16:41 21:29 WBC RBC Hgb Hct MCV MCH MCHC RDW RDW Differential Plt Count MPV Immature Gran % (Auto) Neut % (Auto) Lymph % (Auto) [place] % (Auto) Eos % (Auto) Baso % (Auto) Absolute Neuts (auto) Absolute Lymphs (auto) Total Counted PT INR APTT Sodium Potassium Chloride Carbon Dioxide Anion Gap BUN Creatinine Estim Creat Clear Calc Est GFR (MDRD) Af Amer Est GFR (MDRD) Non-Af BUN/Creatinine Ratio Glucose Calcium Troponin I TSH Urine Color Urine Clarity Urine pH Ur Specific [place] Urine Protein Urine Glucose (UA) Urine Ketones Urine Occult Blood Urine Nitrite Urine Bilirubin Urine Urobilinogen Ur Leukocyte Esterase Urine RBC Urine WBC Ur Squamous Epith Cells Urine Bacteria Urine Mucus POC Glucose 296 H 320 H 296 H 05/07/18 05/08/18 05/08/18 21:46 06:41 11:28 WBC RBC Hgb Hct MCV MCH MCHC RDW RDW Differential Plt Count MPV Immature Gran % (Auto) Neut % (Auto) Lymph % (Auto) [place] % (Auto) Eos % (Auto) Baso % (Auto) Absolute Neuts (auto) Absolute Lymphs (auto) Total Counted PT INR APTT Sodium Potassium Chloride Carbon Dioxide Anion Gap BUN Creatinine Estim Creat Clear Calc Est GFR (MDRD) Af Amer Est GFR (MDRD) Non-Af BUN/Creatinine Ratio Glucose Calcium Troponin I TSH 3.61 Urine Color Urine Clarity Urine pH Ur Specific [place] Urine Protein Urine Glucose (UA) Urine Ketones Urine Occult Blood Urine Nitrite Urine Bilirubin Urine Urobilinogen Ur Leukocyte Esterase Urine RBC Urine WBC Ur Squamous Epith Cells Urine Bacteria Urine Mucus POC Glucose 243 H 254 H Diagnostic Data Brain CT 05/06/18 16:49 IMPRESSION: Chronic involutional changes without evidence of acute intracranial or calvarial abnormality. There is resolution of the intracranial hemorrhage seen on the previous study. Electronically Signed: Piyush Ruggiero DO at 17:40 EDT Tel [phone], Service support , Cervical Spine CT 05/06/18 16:49 IMPRESSION: Degenerative changes of the cervical spine. Findings appear unchanged from June 16, 2017. There is no acute fracture or subluxation. Electronically Signed: Piyush Ruggiero DO at 17:35 EDT Tel [phone], Service support , Chest X-Ray 05/06/18 16:54 IMPRESSION: Slightly decreased inspiratory effort when compared to prior study. The remainder of the findings are stable. Electronically Signed: Piyush Ruggiero DO at 17:04 EDT Tel [phone], Service support , Shoulder X-Ray 05/07/18 08:51 IMPRESSION: Degenerative changes of the right shoulder without fracture or dislocation. Electronically Signed: Piyush Ruggiero DO at 18:10 EDT Tel [phone], Service support , Humerus X-Ray 05/07/18 08:52 IMPRESSION: No acute fracture or dislocation. Electronically Signed: Piyush Ruggiero DO at 18:05 EDT Tel [phone], Service support , Lumbar Spine CT 05/07/18 13:33 IMPRESSION: 1. Degenerative changes of the lumbar spine most marked at L3-4. There is no acute fracture or subluxation. Electronically Signed: Piyush Ruggiero DO at 17:48 EDT Tel [phone], Service support , Current Medications Acetaminophen (Tylenol) 650 mg PO Q6H PRN PRN PRN Reason: Fever, headache, pain Last Admin: 05/06/18 20:13 Dose: 650 mg Hydrocodone Bitart/Acetaminophen ([place] 5mg-325mg) 1 - 2 tablet PO Q6H PRN PRN PRN Reason: Moderate-severe pain Last Admin: 05/08/18 11:35 Dose: 1 tablet Aspirin (Aspirin, Baby) 81 mg PO DAILY@0800 [facility] Last Admin: 05/08/18 07:52 Dose: 81 mg Clonidine (Catapres) 0.1 mg PO DAILY [facility] Last Admin: 05/08/18 07:52 Dose: 0.1 mg Hydralazine HCl (Apresoline) 25 mg PO Q6H PRN PRN PRN Reason: SBP > 160 Last Admin: 05/07/18 20:33 Dose: 25 mg Sodium Chloride () 250 mls @ 15 mls/hr IV .[id number] PRN PRN Reason: SALINE FLUSH Insulin Human Lispro (Humalog Kwikpen (Bkc)) 0 unit SC ACHS [facility] PRN Reason: Protocol Last Admin: 05/08/18 11:30 Dose: 2 units Losartan Potassium (Cozaar) 100 mg PO DAILY [facility] Last Admin: 05/08/18 07:52 Dose: 100 mg Magnesium Hydroxide (Milk Of Magnesia) 30 ml PO DAILY PRN PRN Reason: Constipation Metformin HCl (Glucophage) 500 mg PO DAILY@0800 [facility] Last Admin: 05/08/18 07:52 Dose: 500 mg Metoprolol Tartrate (Lopressor (Beta Mohinder)) 50 mg PO BID [facility] Last Admin: 05/08/18 07:52 Dose: 50 mg Morphine Sulfate () 1 - 2 mg IV Q4H PRN PRN PRN Reason: PAIN Ondansetron HCl (Zofran) 4 mg IV Q8H PRN PRN PRN Reason: NAUSEA/VOMITING Pravastatin Sodium (Pravachol) 80 mg PO QHS [facility] Last Admin: 05/07/18 21:32 Dose: 80 mg Sodium Chloride () 5 - 30 ml IV UD PRN PRN Reason: SALINE FLUSH Warfarin Sodium (Coumadin (Pbkc)) 3 mg PO Jesse@1700 [facility] Last Admin: 05/07/18 16:44 Dose: 3 mg Warfarin Sodium 0.5 mg/ (Warfarin Sodium 1 mg) 1.5 mg PO Fr@1700 [facility] Medical Necessity - Tobacco Use Smoking Status: Former smoker Assessment/Plan All Active Problems (Last Updated 09/21/17 @ 08:09 by Filiberto Landon, BILLIE-C) Hx pulmonary embolism (Resolved) 1. REcurrent mechanical falls * Has been working well with physical therapy and has been able to ambulate very well with a walker. * Has no complaints today. Orthostatics have been negative. * EEG done o/a of suspicion for seizure was negative. * CT cervical spine showed chronic degenerative changes unchanged from previous CT in 2017. * CT lumbar spine: The canal stenosis and impingement on the bilateral lateral recesses at the L3-L4 level * PT OT on board * Patient to be referred to neurosurgeon at [facility] upon discharge. Patient is however not likely his complaints he stated that he would not go. * needs both reveals at home on account of patient's frequent falls and also he needs a Rollator. * Falls precaution 2. Right shoulder and arm pain due to fall * resolving. Pain is much better. * on tyelenol and [place] for pain. * xray of Right shoulder and right upper arm negative for any fracture * 3. chronic atrial fibrillation: * rate controlled. On metoprolol. On coumadin for anticoagulation. * INR has been therapeutic. * Discussed concerns about risk of intracranial bleed extensively with Dr. Lawson, patient's research laboratory manager. 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 He was transferred from [place] to [place] and says that he was managed conservatively. states patient keeps on falling at home. Patient is therefore at high risk of intracranial bleeding bleed on account of recent falls. Actually has a resolving laceration on his eyebrow on account of recent fall. Per discussion with Dr. Lawsno, will stop patient's Coumadin and put him on aspirin 81 mg daily. Patient is to comply with aspirin and to follow-up with research laboratory manager. * * 4. Hypertension: * Fairly controlled. * On losartan, metoprolol and clonidine. Continue. * 5. Type 2 diabetes mellitus * on ISS and metformin. ISS. Accuchecks ACHS * 6. CA s/p stents: On aspirin, statin, metoprolol and losartan. 7. DVT prophylaxis: On Coumadin for A. fib Disposition: for discharge home tomorrow. Need to set up home health care, bathroom rails and rollator. city secretary not available today. Will dc tomorrow after setting all these up with case work aide, as feels he wont be safe at home if these are not addressed. This note was generated with [employer] dictation software. It may contain incorrect words, spelling, and punctuation that were not noted in checking the note before signing. Code Visit Inpatient E&M: 67256 Subs Hosp L2
[2018-05-08 16:40] LABS: Bedside Glucose 244 mg/dL (70-110)
[2018-05-08] MEDS: Pravastatin 80 MG Tablet PO (21:51)
[2018-05-08 22:21] LABS: Bedside Glucose 279 mg/dL (70-110)
[2018-05-09] VITALS (8 sets, daily range): BP systolic 152–174; BP diastolic 90–96; PULSE 58–113; RESP 17–18; TEMP 36.5–37.1; O2SAT 95–98
[2018-05-09 06:51] LABS: Bedside Glucose 226 mg/dL (70-110)
[2018-05-09] MEDS: Insulin Lispro 100 UNIT/ML INSULN.PEN SC ×2 (08:04→11:06)
[2018-05-09] MEDS: Aspirin 81 MG TAB.CHEW PO (08:04)
[2018-05-09] MEDS: HYDROcodone Bitartrate/Apap 5/325 Tablet PO ×2 (08:09→11:13)
[2018-05-09 10:20] LABS: Vitamin B12 423 pg/mL (211-911); Vitamin D,25 Hydroxy 28.6 ng/mL (29.95-100.01)
--- NOTE | 2018-05-09 10:31 | CASEMGMT ---
CONNER LINDQUIST Note. Intro role of CM to patient and his . Recommendation is for home health on discharge and rollator. and both seem reticent to have home health. RN AMEENA explained @ length benefit of PT evaluations including safety assessment, recommendations for safety equipment @ home, Nurse assessment. They are agreeable to [facility] (choices were given for area agencies, no preference noted). did ask re: SNF instead of home. CONNER LINDQUIST let her know we could have referral sent however pt states no, he is returning home. -Rollator script given to who will go to DME co. to fill if they decide they need this. -Call to [place] w/[facility]. Referral given. Crystal JARQUINN RN ACM
[2018-05-09] MEDS: Losartan Potassium 100 MG Tablet PO (11:05)
[2018-05-09] MEDS: Metoprolol Tartrate 50 MG Tablet PO (11:05)
[2018-05-09] MEDS: cloNIDine HCl 0.1 MG Tablet PO (11:07)
--- NOTE | 2018-05-09 11:12 | PCM.DC ---
- Discharge Diagnoses Current Active Problems: Current Active and Chronic Problems (Last Updated 09/21/17 @ 08:09 by CARLOS GloverC) Frequent falls (Chronic) Balance problem (Chronic) Lumbar stenosis (Chronic) Allergies/Adverse Reactions: Allergies hydrochlorothiazide Adverse Reaction (Unknown, Verified 05/06/18 16:38) Gout symptoms Medications to take at Discharge Aspirin [Aspirin, Baby] 81 mg PO DAILY 06/24/14 Liraglutide [Victoza] 1.8 units SQ DAILY 06/16/17 bumetanide 1 mg tablet 0.5 mg PO PRN PRN tab 09/21/17 albuterol sulfate HFA 90 mcg/actuation aerosol inhaler 2 puff INHALATION Q6H 09/22/17 nitroglycerin 0.4 mg sublingual tablet 0.4 mg SUBLINGUAL Q5-15M PRN 09/22/17 losartan 100 mg tablet 100 mg PO DAILY #90 tab 01/12/18 Clonidine HCl [Catapres] 0.1 mg PO DAILY 05/06/18 Metformin HCl [Glucophage] 500 mg PO DAILY 05/06/18 Metoprolol Tartrate [Lopressor (beta mitul)] 50 mg PO BID 05/06/18 Multivit-Min/FA/Lycopen/Lutein [Centrum Silver Tablet] 1 tablet PO DAILY 05/06/18 Pravastatin Sodium 80 mg PO QHS 05/06/18 Primary Care Physician: Joe Hernandez MD [Primary Care Provider] - Please follow up with your Primary Care Physician in: 1-2 weeks Test Results: Test results from this visit will be discussed in further detail at your follow-up appointment, if applicable. Please Follow Up With: Carter Arroyo - Neurosurgery When: 1-2 weeks Proposed Discharge Date: 05/09/18
--- NOTE | 2018-05-09 11:54 | PCM.DC.SUM ---
<Radu Browning - Last Filed: 05/09/18 12:03> Discharge Date and Diagnosis Date of Admission: 05/06/18 Date of Discharge: 05/09/18 - Primary Discharge Diagnosis Debility with recurrent mechanical falls 2/2 spinal stenosis L3-4 C spine degenerative changes Benign essential tremor Chronic Afib HTN T2DM CAD, prior stents - Secondary Discharge Diagnosis Chronic Problems (Last Updated 09/21/17 @ 08:09 by Filiberto Landon NP-C) Frequent falls (Chronic) Balance problem (Chronic) Lumbar stenosis (Chronic) Sick sinus syndrome (Chronic) On anticoagulant therapy (Chronic) CAD (coronary artery disease) (Chronic) Chronic atrial fibrillation (Chronic) DM2 (diabetes mellitus, type 2) (Chronic) Dyslipidemia (Chronic) Essential (primary) hypertension (Chronic) Cardiac pacemaker (Chronic) Diverticulosis (Chronic) Tremor, essential (Chronic) TIA (transient ischemic attack) (Chronic) Subtherapeutic international normalized ratio (INR) (Chronic) Cardiac dysrhythmia (Chronic) Atrial dysrhythmia (Chronic) Atrial fibrillation (Chronic) S/P PTCA (percutaneous transluminal coronary angioplasty) (Chronic) HTN (hypertension) (Chronic) HLD (hyperlipidemia) (Chronic) Hospital Course and Treatment Imaging Results: CT/Brain/Head without Contrast IMPRESSION: Chronic involutional changes without evidence of acute intracranial or calvarial abnormality. There is resolution of the intracranial hemorrhage seen on the previous study. CT/Spine Cervical without Contras IMPRESSION: Degenerative changes of the cervical spine. Findings appear unchanged from June 16, 2017. There is no acute fracture or subluxation. RAD/Chest 1 View (Portable) IMPRESSION: Slightly decreased inspiratory effort when compared to prior study. The remainder of the findings are stable. RAD/Shoulder min 2 Views IMPRESSION: Degenerative changes of the right shoulder without fracture or dislocation. RAD/Humerus min 2 Views IMPRESSION: No acute fracture or dislocation. EEG Interpretation This is a normal awake and asleep EEG. There is no epileptiform discharges or electrographic seizures noted during the record. Consults: Collette - neuro Operations: None Procedures: Electroencephalogram Summary of Care Provided: Physical exam on day of discharge: General: Resting comfortably NAD Psych: A/Ox3 normal affect HEENT: PEARRLA AT SD Neck: Supple NT CV: RRR no m/t/r/g/h Resp: CTA Abd: [id number] Soft NT no guarding or rigidity Ext: DP2+= no edema Skin: W/D normal turgor Lymph/Heme: No active bleeding or adenopathy Neuro: CN2-12 intact Hospital Course: The patient is a 77 year old M with a hx of CAD, htn, DMt2, arthritis, benign essential tremor who presented to the ER with fall and right shoulder pain with no prodromal symptoms. No seizure activity reported. He seemed confused and incontinent. He had fallen multiple times over the preceding weeks and has worsening leg weakness. CT brain, C spine negative for acute changes. Shoulder and humeral fractures were negative. He was admitted to the PCU. Neuro was consulted. EEG was obtained. Lumbar spine CT obtained showing degenerative changes of the lumbar spine at L3-4. This was felt to be the most likely cause of his increasing weakness. EEG was negative. No MRI could be obtained as he has a pacemaker. We recommended a neurosurgery referral as an outpatient, he is undecided whether he will follow through with it or not. He continued to be unsteady on his feet. An Rx was provided for a rollator. Home health care was arranged. With his hx of multiple falls it was felt that warfarin (Hx afib) was now contraindicated, and this was discontinued. He was discharged home in stable condition. Patient was seen by Radu Browning PA-C under the supervision of Dr. Medrano [] Discharge Diet: Low fat/ Low Cholesterol, 1800 Calorie Control Diet, 2000 mg Sodium Diet Discharge Activity: Return to Normal Activity Home Medications: Medications to take at Discharge Aspirin [Aspirin, Baby] 81 mg PO DAILY 06/24/14 Liraglutide [Victoza] 1.8 units SQ DAILY 06/16/17 bumetanide 1 mg tablet 0.5 mg PO PRN PRN tab 09/21/17 albuterol sulfate HFA 90 mcg/actuation aerosol inhaler 2 puff INHALATION Q6H 09/22/17 nitroglycerin 0.4 mg sublingual tablet 0.4 mg SUBLINGUAL Q5-15M PRN 09/22/17 losartan 100 mg tablet 100 mg PO DAILY #90 tab 01/12/18 Clonidine HCl [Catapres] 0.1 mg PO DAILY 05/06/18 Metformin HCl [Glucophage] 500 mg PO DAILY 05/06/18 Metoprolol Tartrate [Lopressor (beta mitul)] 50 mg PO BID 05/06/18 Multivit-Min/FA/Lycopen/Lutein [Centrum Silver Tablet] 1 tablet PO DAILY 05/06/18 Pravastatin Sodium 80 mg PO QHS 05/06/18 Primary Care Physician: Joe Hernandez MD [Primary Care Provider] - Please follow up with your Primary Care Physician in: 1-2 weeks Please Follow Up With: Catrer Arroyo When: 1-2 weeks Please Follow Up With: Joe Hernandez MD Disposition: Home Minutes spent on discharge:: 35 Patient Condition:: Stable Medical Necessity - Tobacco Use Smoking Status: Former smoker Meaningful Use Info Meaningful Use Diagnoses (Choose all that apply): None applicable <Cornelia Medrano - Last Filed: 05/09/18 15:46> Discharge Date and Diagnosis - Secondary Discharge Diagnosis Chronic Problems (Last Updated 09/21/17 @ 08:09 by KATIE Glover) Frequent falls (Chronic) Balance problem (Chronic) Lumbar stenosis (Chronic) Sick sinus syndrome (Chronic) On anticoagulant therapy (Chronic) CAD (coronary artery disease) (Chronic) Chronic atrial fibrillation (Chronic) DM2 (diabetes mellitus, type 2) (Chronic) Dyslipidemia (Chronic) Essential (primary) hypertension (Chronic) Cardiac pacemaker (Chronic) Diverticulosis (Chronic) Tremor, essential (Chronic) TIA (transient ischemic attack) (Chronic) Subtherapeutic international normalized ratio (INR) (Chronic) Cardiac dysrhythmia (Chronic) Atrial dysrhythmia (Chronic) Atrial fibrillation (Chronic) S/P PTCA (percutaneous transluminal coronary angioplasty) (Chronic) HTN (hypertension) (Chronic) HLD (hyperlipidemia) (Chronic) Hospital Course and Treatment Summary of Care Provided: Patient seen by Radu Browning PA-C under my supervision. The patient is a 77 year old M with a past medical history as listed above. He was admitted with a complaint of frequent falls and right shoulder pain. Seizure was ruled out with negative EEG and CT of the brain and C-spine were negative. X-rays of the shoulder and left humerus were also negative. Lumbar spine CT showed degenerative changes of the lumbar spine at L3 and L4 with spinal stenosis which was thought to be the cause of his frequent falls. MRI could not be done as he had a pacemaker. ORthostatics were negative. Patient was referred to outpatient neurosurgery at [facility]; patient however stated that it was unlikely he would go. Due to patient's frequent falls, I was discussed with cardiology Dr. Lawson about his Coumadin and decision was made to stop Coumadin due to risk of intracranial bleed. It must be mentioned the patient stated he had intracranial bleed last year which was managed conservatively. Patient remained stable and was discharged home with home health care on 05/09/2018. He was given a prescription for a rollator. Patient seen and examined prior to discharge/ o/e: Vital Signs Height 5 ft 10 in Weight: 217 lb 2.485 oz Weight in Pounds 217.2 lbs Pulse Ox 98 Temperature 98.7 F Pulse Rate [Standing] 64 Pulse Rate [Sitting] 76 Pulse Rate [Lying] 82 Pulse Rate 65 Respiratory Rate 17 Blood Pressure [Standing] 165/88 Blood Pressure [Sitting] 166/90 Blood Pressure [Lying] 167/89 Blood Pressure 174/94 Blood Pressure Position Sitting []General: Alert, Oriented x3, Cooperative, No apparent distress HEENT: Atraumatic, PERRLA, EOMI, Normocephalic Oral: Moist Mucosa Neck: Supple, No JVD, Negative Carotid Bruits Lungs: Clear to auscultation, Normal air movement, No rhonchi, No wheeze, No rales Cardiovascular: Regular rate, Normal S1, Normal S2, No murmurs, - - Irregular rhythm Abdomen: Bowel Sounds Present, Soft, Non Tender, Non-Distended, No Hepato-splenomegaly Extremities: No clubbing, No cyanosis, No edema, Capillary Refill Less than 3 Seconds Skin: No rashes, No breakdown Musculoskeletal: No Tenderness to Palpation of Joints or Extremities Lymphatic: No Cervical, Supraclavicular, or Inguinal Adenopathy Neurological: Cranial nerves II-XII grossly intact, Neuro grossly intact Psych/Mental Status: Normal Affect, Alert and oriented to time, place, person, mood and affect Plan as stated above. Agree with rest of documentation by Radu Browning PA-C Code Visit Inpatient E&M: [id number] Disch Hosp
--- NOTE | 2018-05-09 12:03 | DS.PCM_ITS ---
<Radu Browning - Last Filed: 05/09/18 12:03> Discharge Date and Diagnosis Date of Admission: 05/06/18 Date of Discharge: 05/09/18 - Primary Discharge Diagnosis Debility with recurrent mechanical falls 2/2 spinal stenosis L3-4 C spine degenerative changes Benign essential tremor Chronic Afib HTN T2DM CAD, prior stents - Secondary Discharge Diagnosis Chronic Problems (Last Updated 09/21/17 @ 08:09 by Filiberto Landon NP-C) Frequent falls (Chronic) Balance problem (Chronic) Lumbar stenosis (Chronic) Sick sinus syndrome (Chronic) On anticoagulant therapy (Chronic) CAD (coronary artery disease) (Chronic) Chronic atrial fibrillation (Chronic) DM2 (diabetes mellitus, type 2) (Chronic) Dyslipidemia (Chronic) Essential (primary) hypertension (Chronic) Cardiac pacemaker (Chronic) Diverticulosis (Chronic) Tremor, essential (Chronic) TIA (transient ischemic attack) (Chronic) Subtherapeutic international normalized ratio (INR) (Chronic) Cardiac dysrhythmia (Chronic) Atrial dysrhythmia (Chronic) Atrial fibrillation (Chronic) S/P PTCA (percutaneous transluminal coronary angioplasty) (Chronic) HTN (hypertension) (Chronic) HLD (hyperlipidemia) (Chronic) Hospital Course and Treatment Imaging Results: CT/Brain/Head without Contrast IMPRESSION: Chronic involutional changes without evidence of acute intracranial or calvarial abnormality. There is resolution of the intracranial hemorrhage seen on the previous study. CT/Spine Cervical without Contras IMPRESSION: Degenerative changes of the cervical spine. Findings appear unchanged from June 16, 2017. There is no acute fracture or subluxation. RAD/Chest 1 View (Portable) IMPRESSION: Slightly decreased inspiratory effort when compared to prior study. The remainder of the findings are stable. RAD/Shoulder min 2 Views IMPRESSION: Degenerative changes of the right shoulder without fracture or dislocation. RAD/Humerus min 2 Views IMPRESSION: No acute fracture or dislocation. EEG Interpretation This is a normal awake and asleep EEG. There is no epileptiform discharges or electrographic seizures noted during the record. Consults: Collette - neuro Operations: None Procedures: Electroencephalogram Summary of Care Provided: Physical exam on day of discharge: General: Resting comfortably NAD Psych: A/Ox3 normal affect HEENT: PEARRLA AT SD Neck: Supple NT CV: RRR no m/t/r/g/h Resp: CTA Abd: [id number] Soft NT no guarding or rigidity Ext: DP2+= no edema Skin: W/D normal turgor Lymph/Heme: No active bleeding or adenopathy Neuro: CN2-12 intact Hospital Course: The patient is a 77 year old M with a hx of CAD, htn, DMt2, arthritis, benign essential tremor who presented to the ER with fall and right shoulder pain with no prodromal symptoms. No seizure activity reported. He seemed confused and incontinent. He had fallen multiple times over the preceding weeks and has worsening leg weakness. CT brain, C spine negative for acute changes. Shoulder and humeral fractures were negative. He was admitted to the PCU. Neuro was consulted. EEG was obtained. Lumbar spine CT obtained showing degenerative changes of the lumbar spine at L3-4. This was felt to be the most likely cause of his increasing weakness. EEG was negative. No MRI could be obtained as he has a pacemaker. We recommended a neurosurgery referral as an outpatient, he is undecided whether he will follow through with it or not. He continued to be unsteady on his feet. An Rx was provided for a rollator. Home health care was arranged. With his hx of multiple falls it was felt that warfarin (Hx afib) was now contraindicated, and this was discontinued. He was discharged home in stable condition. Patient was seen by Radu Browning PA-C under the supervision of Dr. Medrano [] Discharge Diet: Low fat/ Low Cholesterol, 1800 Calorie Control Diet, 2000 mg Sodium Diet Discharge Activity: Return to Normal Activity Home Medications: Medications to take at Discharge Aspirin [Aspirin, Baby] 81 mg PO DAILY 06/24/14 Liraglutide [Victoza] 1.8 units SQ DAILY 06/16/17 bumetanide 1 mg tablet 0.5 mg PO PRN PRN tab 09/21/17 albuterol sulfate HFA 90 mcg/actuation aerosol inhaler 2 puff INHALATION Q6H nitroglycerin 0.4 mg sublingual tablet 0.4 mg SUBLINGUAL Q5-15M PRN 09/22/17 losartan 100 mg tablet 100 mg PO DAILY #90 tab 01/12/18 Clonidine HCl [Catapres] 0.1 mg PO DAILY 05/06/18 Metformin HCl [Glucophage] 500 mg PO DAILY 05/06/18 Metoprolol Tartrate [Lopressor (beta mitul)] 50 mg PO BID 05/06/18 Multivit-Min/FA/Lycopen/Lutein [Centrum Silver Tablet] 1 tablet PO DAILY Pravastatin Sodium 80 mg PO QHS 05/06/18 Primary Care Physician: Joe Hernandez MD [Primary Care Provider] - Please follow up with your Primary Care Physician in: 1-2 weeks Please Follow Up With: Carter rAroyo When: 1-2 weeks Please Follow Up With: Joe Hernandez MD Disposition: Home Minutes spent on discharge:: 35 Patient Condition:: Stable Medical Necessity - Tobacco Use Smoking Status: Former smoker Meaningful Use Info Meaningful Use Diagnoses (Choose all that apply): None applicable <Cornelia Medrano - Last Filed: 05/09/18 15:46> Discharge Date and Diagnosis - Secondary Discharge Diagnosis Chronic Problems (Last Updated 09/21/17 @ 08:09 by KATIE Glover) Frequent falls (Chronic) Balance problem (Chronic) Lumbar stenosis (Chronic) Sick sinus syndrome (Chronic) On anticoagulant therapy (Chronic) CAD (coronary artery disease) (Chronic) Chronic atrial fibrillation (Chronic) DM2 (diabetes mellitus, type 2) (Chronic) Dyslipidemia (Chronic) Essential (primary) hypertension (Chronic) Cardiac pacemaker (Chronic) Diverticulosis (Chronic) Tremor, essential (Chronic) TIA (transient ischemic attack) (Chronic) Subtherapeutic international normalized ratio (INR) (Chronic) Cardiac dysrhythmia (Chronic) Atrial dysrhythmia (Chronic) Atrial fibrillation (Chronic) S/P PTCA (percutaneous transluminal coronary angioplasty) (Chronic) HTN (hypertension) (Chronic) HLD (hyperlipidemia) (Chronic) Hospital Course and Treatment Summary of Care Provided: Patient seen by Radu Browning PA-C under my supervision. The patient is a 77 year old M with a past medical history as listed above. He was admitted with a complaint of frequent falls and right shoulder pain. Seizure was ruled out with negative EEG and CT of the brain and C-spine were negative. X-rays of the shoulder and left humerus were also negative. Lumbar spine CT showed degenerative changes of the lumbar spine at L3 and L4 with spinal stenosis which was thought to be the cause of his frequent falls. MRI could not be done as he had a pacemaker. ORthostatics were negative. Patient was referred to outpatient neurosurgery at [facility]; patient however stated that it was unlikely he would go. Due to patient's frequent falls, I was discussed with cardiology Dr. Lawson about his Coumadin and decision was made to stop Coumadin due to risk of intracranial bleed. It must be mentioned the patient stated he had intracranial bleed last year which was managed conservatively. Patient remained stable and was discharged home with home health care on 05/09/2018. He was given a prescription for a rollator. Patient seen and examined prior to discharge/ o/e: Vital Signs Height 5 ft 10 in Weight: 217 lb 2.485 oz Weight in Pounds 217.2 lbs Pulse Ox 98 Temperature 98.7 F Pulse Rate [Standing] 64 Pulse Rate [Sitting] 76 Pulse Rate [Lying] 82 Pulse Rate 65 Respiratory Rate 17 Blood Pressure [Standing] 165/88 Blood Pressure [Sitting] 166/90 Blood Pressure [Lying] 167/89 Blood Pressure 174/94 Blood Pressure Position Sitting []General: Alert, Oriented x3, Cooperative, No apparent distress HEENT: Atraumatic, PERRLA, EOMI, Normocephalic Oral: Moist Mucosa Neck: Supple, No JVD, Negative Carotid Bruits Lungs: Clear to auscultation, Normal air movement, No rhonchi, No wheeze, No rales Cardiovascular: Regular rate, Normal S1, Normal S2, No murmurs, - - Irregular rhythm Abdomen: Bowel Sounds Present, Soft, Non Tender, Non-Distended, No Hepato- splenomegaly Extremities: No clubbing, No cyanosis, No edema, Capillary Refill Less than 3 Seconds Skin: No rashes, No breakdown Musculoskeletal: No Tenderness to Palpation of Joints or Extremities Lymphatic: No Cervical, Supraclavicular, or Inguinal Adenopathy Neurological: Cranial nerves II-XII grossly intact, Neuro grossly intact Psych/Mental Status: Normal Affect, Alert and oriented to time, place, person, mood and affect Plan as stated above. Agree with rest of documentation by Radu Browning PA-C Code Visit Inpatient E&M: [id number] Disch Hosp
[2018-05-09 12:26] LABS: Bedside Glucose 286 mg/dL (70-110)
--- NOTE | 2018-05-10 15:14 | CASEMGMT ---
CONNER LINDQUIST DC PHONE CALL NOTE. MATILDA 3. DC DATE: 05/09/18 Intro role of CM to pt's via phone. remembered CM from speaking with them prior to dc yesterday. No questions re: prescriptions, f/u or DC instructions. is able to assist pt at home and states he is feeling better. CONNER LINDQUIST Thanked her for using [facility]. No suggestions given for improving care @ this time. Crystal JARQUINN RN ACM
== END 2018-05-09 13:25 | disposition home health service (06) | DRG 552 ==
LOC: ED 17:35 → PCU 19:23
PROVIDERS: Psychiatry & Neurology Neurology; Admitting Provider Hospitalist; Emergency Provider Emergency Medicine; Family Provider Family Medicine; PCP Family Medicine; Visit Provider Student in an Organized Health Care Education/Training Program
DX: M48.061 Spinal stenosis, lumbar region without neurogenic claudication (principal); I48.2 Chronic atrial fibrillation; Z95.0 Presence of cardiac pacemaker; E78.5 Hyperlipidemia, unspecified; I10 Essential (primary) hypertension; E11.9 Type 2 diabetes mellitus without complications; I25.10 Atherosclerotic heart disease of native coronary artery without angina pectoris; Z87.891 Personal history of nicotine dependence; G25.0 Essential tremor; Z95.5 Presence of coronary angioplasty implant and graft; M19.90 Unspecified osteoarthritis, unspecified site; R32 Unspecified urinary incontinence; R29.6 Repeated falls; S00.211A Abrasion of right eyelid and periocular area, initial encounter; W18.39XA Other fall on same level, initial encounter; Y93.01 Activity, walking, marching and hiking; Y92.009 Unspecified place in unspecified non-institutional (private) residence as the place of occurrence of the external cause; Z86.711 Personal history of pulmonary embolism; M25.511 Pain in right shoulder; M79.601 Pain in right arm
CPT/HCPCS: 36415; 51702; 70450; 71045; 72125; 72131; 73030; 73060; 80048; 81001; 82306; 82607; 82962; 84443; 84484; 85025; 85610; 85730; 93005; 95819; 97110; 97162; 97166; 97535; 99285; J7030; J7040

== ENCOUNTER → 2018-12-02 11:57 | Outpatient (CLI) | payer MEDICARE, OTHER, SELFPAY ==
[2018-12-02 14:33] LABS: Absolute Lymphocyte Count 1.32 X10^3/ul (0.83-4.51); Absolute Neutrophil Count 6.3 X10^3/uL (2.0-7.7); Basophil# 0.02 X10^3/uL; Basophil% 0.2 % (0-1); Eosinophil# 0.06 X10^3/uL; Eosinophils% 0.7 % (0-5); Hematocrit 42.3 % (40-54); Hemoglobin 13.7 g/dl (13.0-16.5); Lymphocyte # 1.32 X10^3/ul (4.0); Lymphocyte % 15.3 % (19-41); Mean Corp Hgb Conc 32.4 g/gl (32-36); Mean Corpuscular Hgb 31.4 pg (27.0-32.0); Mean Corpuscular Volume 96.8 fL (80-94); Mean Platelet Vol. 10.3 fl (6.2-12.0); Monocyte# 0.91 X10^3/uL; Monocyte% 10.5 % (0-10); Neutrophil # 6.32 X10^3/uL (2.7-7.7); Neutrophil % 73.2 % (47-70); Platelet Count 232 K/mm3 (150-450); RBC Distribution Width CV 12.6 % (11.6-14.6); RBC Distribution Width SD 43.6 fl (35.1-43.9); Red Blood Count 4.37 M/mm3 (4.6-6.2); White Blood Count 8.6 K/mm3 (4.4-11.0)
[2018-12-02 14:35] LABS: POSITIVE COUNT NO; POSITIVE DIFFERENTIAL NO; POSITIVE MORPHOLOGY NO
[2018-12-02 14:45] LABS: ALB/GLOB Ratio 1.1 RATIO (0.9-2.4); AST(SGOT) 15 U/L (15-37); Alanine Aminotransfer ALT/SGPT 17 U/L (16-61); Albumin, Serum 3.8 g/dL (3.2-5.0); Alkaline Phosphatase 61 U/L (45-117); Anion Gap 11 (5-15); BUN 17 mg/dL (7-18); BUN/Creat Ratio 15.6 RATIO (10-20); Calcium,Total 9.2 mg/dL (8.5-10.1); Chloride 106 mmol/L (98-107); Creatinine, Serum 1.09 mg/dL (0.70-1.30); EST Glomerular Filtration Rate 69 mL/min (>60); Est Glom Filt Rate - Afr Amer 84 mL/min (>60); Globulin 3.5 g/dL (2.2-4.2); Glucose 238 mg/dL (74-106); Potassium 4.6 mmol/L (3.5-5.1); Protein, Total 7.3 g/dL (6.4-8.2); Sodium Level 142 mmol/L (136-145)
== END ==
PROVIDERS: Family Provider Family Medicine; PCP Family Medicine; Referring Provider Family Medicine; Visit Provider Family Medicine
DX: N18.2 Chronic kidney disease, stage 2 (mild) (principal); R32 Unspecified urinary incontinence
CPT/HCPCS: 36415; 80053; 85025; 87086; 87088

== ENCOUNTER → 2019-01-02 08:19 | Outpatient (CLI) | payer MEDICARE, OTHER, SELFPAY ==
[2019-01-02 10:35] LABS: Anion Gap 9 (5-15); BUN 14 mg/dL (7-18); BUN/Creat Ratio 12.7 RATIO (10-20); Calcium,Total 9.4 mg/dL (8.5-10.1); Chloride 107 mmol/L (98-107); EST Glomerular Filtration Rate 68 mL/min (>60); Est Glom Filt Rate - Afr Amer 83 mL/min (>60); Glucose 257 mg/dL (74-106); Potassium 4.2 mmol/L (3.5-5.1); Sodium Level 140 mmol/L (136-145)
[2019-01-02 13:51] LABS: Erythrocyte Sedimentation Rate 87 mm/hr (0-20)
[2019-01-02 14:09] LABS: Absolute Lymphocyte Count 1.57 X10^3/ul (0.83-4.51); Absolute Neutrophil Count 6.7 X10^3/uL (2.0-7.7); Basophil# 0.02 X10^3/uL; Basophil% 0.2 % (0-1); Eosinophil# 0.11 X10^3/uL; Eosinophils% 1.2 % (0-5); Hemoglobin 13.2 g/dl (13.0-16.5); Lymphocyte # 1.57 X10^3/ul (4.0); Lymphocyte % 16.8 % (19-41); Mean Corp Hgb Conc 32.2 g/gl (32-36); Mean Corpuscular Hgb 29.9 pg (27.0-32.0); Mean Platelet Vol. 9.8 fl (6.2-12.0); Monocyte# 0.86 X10^3/uL; Monocyte% 9.2 % (0-10); Neutrophil # 6.73 X10^3/uL (2.7-7.7); Neutrophil % 72.3 % (47-70); Platelet Count 308 K/mm3 (150-450); RBC Distribution Width CV 12.7 % (11.6-14.6); RBC Distribution Width SD 42.9 fl (35.1-43.9); Red Blood Count 4.41 M/mm3 (4.6-6.2); White Blood Count 9.3 K/mm3 (4.4-11.0)
[2019-01-02 14:13] LABS: CPK Total, Creatine Kinase 37 U/L (39-308); Thyroid Stim Hormone (TSH) 1.43 uIU/mL (0.358-3.74)
[2019-01-02 14:15] LABS: POSITIVE COUNT NO; POSITIVE DIFFERENTIAL NO; POSITIVE MORPHOLOGY NO
[2019-01-04 11:14] LABS: ANTINUCLEAR ANTIBODIES DIRECT Negative (Negative)
== END ==
PROVIDERS: Family Provider Family Medicine; PCP Family Medicine; Visit Provider Family Medicine
DX: M35.3 Polymyalgia rheumatica (principal); E78.00 Pure hypercholesterolemia, unspecified
CPT/HCPCS: 36415; 80048; 82550; 84443; 85025; 85652; 86038; 86140

== ENCOUNTER → 2019-01-04 08:01 | Outpatient (CLI) | payer MEDICARE, OTHER, SELFPAY ==
[2019-01-06 14:59] LABS: Cortisol, Free 24Ur 4 ug/24 hr (5-64); Cortisol, Urinary Free 5 ug/L (Undefined)
== END ==
PROVIDERS: Family Provider Family Medicine; PCP Family Medicine; Referring Provider Family Medicine; Visit Provider Family Medicine
DX: M35.3 Polymyalgia rheumatica (principal)
CPT/HCPCS: 81050; 82530

== ENCOUNTER → 2019-01-06 10:21 | Outpatient (CLI) | payer MEDICARE, OTHER, SELFPAY ==
[2019-01-06 12:42] LABS: Erythrocyte Sedimentation Rate 26 mm/hr (0-20)
[2019-01-06 12:55] LABS: CRP 3.76 mg/L (0.0-3.0)
== END ==
PROVIDERS: Family Provider Family Medicine; PCP Family Medicine; Referring Provider Family Medicine; Visit Provider Family Medicine
DX: M35.3 Polymyalgia rheumatica (principal)
CPT/HCPCS: 36415; 85652; 86140

== ENCOUNTER 2019-01-23 09:59 | Outpatient (RCR) | payer MEDICARE, OTHER, SELFPAY ==
[2019-01-13 09:05] VITALS: BMI 29.2
[2019-01-23 12:39] LABS: Erythrocyte Sedimentation Rate 22 mm/hr (0-20)
[2019-01-23 12:42] LABS: CRP < 2.90 mg/L (0.0-3.0)
== END 2019-01-31 23:59 ==
LOC: MFPLAB 09:59
PROVIDERS: Family Provider Family Medicine; PCP Family Medicine; Visit Provider Family Medicine
DX: M35.3 Polymyalgia rheumatica (principal)
CPT/HCPCS: 36415; 85652; 86140

== ENCOUNTER → 2019-04-05 | Outpatient (CLI) | payer MEDICARE, OTHER, SELFPAY ==
[2019-01-13 09:05] VITALS: BMI 29.2
[2019-04-05 12:46] LABS: Erythrocyte Sedimentation Rate 16 mm/hr (0-20)
[2019-04-05 12:50] LABS: Absolute Lymphocyte Count 1.58 X10^3/ul (0.83-4.51); Absolute Neutrophil Count 8.9 X10^3/uL (2.0-7.7); Basophil# 0.01 X10^3/uL; Basophil% 0.1 % (0-1); Eosinophil# 0.05 X10^3/uL; Eosinophils% 0.4 % (0-5); Hematocrit 40.9 % (40-54); Hemoglobin 13.5 g/dl (13.0-16.5); Lymphocyte # 1.58 X10^3/ul (4.0); Lymphocyte % 14.1 % (19-41); Mean Corpuscular Hgb 30.2 pg (27.0-32.0); Mean Corpuscular Volume 91.5 fL (80-94); Monocyte# 0.67 X10^3/uL; Neutrophil # 8.85 X10^3/uL (2.7-7.7); Neutrophil % 78.9 % (47-70); Platelet Count 249 K/mm3 (150-450); RBC Distribution Width CV 15.1 % (11.6-14.6); RBC Distribution Width SD 49.8 fl (35.1-43.9); Red Blood Count 4.47 M/mm3 (4.6-6.2); White Blood Count 11.2 K/mm3 (4.4-11.0)
[2019-04-05 12:55] LABS: POSITIVE COUNT NO; POSITIVE DIFFERENTIAL NO; POSITIVE MORPHOLOGY NO
[2019-04-05 13:07] LABS: ALB/GLOB Ratio 1.1 RATIO (0.9-2.4); AST(SGOT) 15 U/L (15-37); Alanine Aminotransfer ALT/SGPT 17 U/L (16-61); Albumin, Serum 3.5 g/dL (3.2-5.0); Alkaline Phosphatase 49 U/L (45-117); Anion Gap 12 (5-15); BUN 25 mg/dL (7-18); CRP 3.18 mg/L (0.0-3.0); Calcium,Total 9.4 mg/dL (8.5-10.1); Chloride 105 mmol/L (98-107); Creatinine, Serum 1.19 mg/dL (0.70-1.30); EST Glomerular Filtration Rate 62 mL/min (>60); Est Glom Filt Rate - Afr Amer 76 mL/min (>60); Globulin 3.2 g/dL (2.2-4.2); Glucose 206 mg/dL (74-106); Potassium 5.1 mmol/L (3.5-5.1); Protein, Total 6.7 g/dL (6.4-8.2); Sodium Level 140 mmol/L (136-145); Thyroid Stim Hormone (TSH) 2.04 uIU/mL (0.358-3.74)
== END | disposition home or self-care (01) ==
LOC: MFPLAB 10:30
PROVIDERS: Family Provider Family Medicine; PCP Family Medicine; Referring Provider Family Medicine; Visit Provider Family Medicine
DX: E11.22 Type 2 diabetes mellitus with diabetic chronic kidney disease (principal); N18.2 Chronic kidney disease, stage 2 (mild); M35.3 Polymyalgia rheumatica
CPT/HCPCS: 36415; 80053; 84443; 85025; 85652; 86140

== ENCOUNTER 2019-06-16 10:30 | Outpatient (RCR) | payer MEDICARE, OTHER, SELFPAY ==
[2019-01-13 09:05] VITALS: BMI 29.2
--- NOTE | 2019-04-10 12:50 | HP.PTEVAL_ITS ---
Patient's Visit Information TANIA GUERRERO is a 78 year old M referred to Physical Therapy by Joe Hernandez MD with a diagnosis of PMR, weakness in core, tremor. Date of Evaluation: 04/10/19 Physical Therapist: ELDA Amado - Visit Plan Frequency: 1x/Week Duration: 10 weeks Plan: 1X/ week for 10 weeks for LE strengthening, gait mechanics, functional transfers and activities, balance activities including testing on the NeuroCOM with HEP. - Subjective Findings: Pt reports that 2 months ago he could not get in and out of bed by himself cause his muscle and joints were all messed up. put him on the prednizone. He uses a walker in the home and he uses a cane when he is out and about. He seems to be getting better but Dr Hernandez wanted him to do PT. He reports that his balance is not really good. He has not fallen for quite awhile. He fell 4 months ago and hit his head and was taken to [facility] for a brain bleed. He has had an essential tremor forever. Stairs: He has stairs at home but does not use them everyday. He uses a 2handrails and he goes up and down reciprical. He reports that he had home therapy for 3 months or so. He has hand rails in the tub and shower. - Objective Gait: walks with slightly WBOS with very little veering with a straight cane. LE MMT: B hip flex 4-/5, B hip abd 4-/5, Bridge ( 1/2 normal ROM), B knee flex 3+/5, B knee ext 4/5. Sit to stand transfer: Pt is not able to get out of the chair without using his arms. He plops back down into the chair. Stairs: Pt is able to go up and and down the stairs sometimes recip and sometimes a step 2 pattern with 2 hand rails. FGA: 9. Rolling on mat table.... pt was able to do it but he struggled a little with it. - Balance Scores Functional Gait Assessment Score: 9 % Disability: 70.0000 - Goals Goal 1:: I HEP Goal Time Frame: 4-6 Weeks Goal 2:: Test the pt on the NeuroCOM Goal Time Frame: 2 Weeks Goal 3:: Increase LE strength by 1/2 muscle grade to make ADL's easier. ( at ti me of eval: LE MMT: B hip flex 4-/5, B hip abd 4-/5, Bridge ( 1/2 normal ROM), B knee flex 3+/5, B knee ext 4/5). Goal Time Frame: 4-6 Weeks Goal 4:: Be able to get out of a chair and sit back into the chair without use of UE's with slow controlled movement on first attempt. Goal Time Frame: 4-6 Weeks Goal 5:: Be able to go up and down the stairs recip with 2 hand rails with SBA Goal Time Frame: 4-6 Weeks Goal 6:: Increase FGA by 5 points to decrease fall risk to a 14) - Rehabilitation Potential Rehabilitation Potential: Good - Anticipated Interventions Patient/Client Instruction: Educate patient on: Condition, Plan of Care For the Purpose of:: To improve muscle performance and motor function, To improve ability to perform ADL's, To increase tolerance to activity/condition/position, To improve performance and independence with ADL's, To improve ability of physical actions for home/community/work/leisure, To improve gait and locomotor functions, To decrease soft tissue restriction, To improve endurance, To improve balance, To improve safety with gait Therapeutic Exercise to Include: Strength training, Endurance training, Balance training, Gait and locomotor training, Neuromotor development, Active ROM, Dynamic Lumbar Stabilization For the Purpose of:: To improve muscle performance and motor function, To improve ability to perform ADL's, To increase tolerance to activity/condition/position, To improve performance and independence with ADL's, To improve ability of physical actions for home/community/work/leisure, To improve gait and locomotor functions, To increase flexibility/ROM, To improve endurance, To improve balance, To improve safety with gait Functional Training to Include: Gait training For the Purpose of:: To improve gait and locomotor functions Thank you for the opportunity to evaluate your patient. For Medicare and Medicare HMO plans, please review the plan of care and approve it. It will need to be FAXED BACK to us at [phone] for Medicare purposes. For Medicare only, by signing this I certify the plan of care. Please let me know if there are questions or concerns regarding this plan of care. Physician Signature: Date:
--- NOTE | 2019-05-02 09:20 | HP.PTCOM_ITS ---
PT Communication Note 05/02/[address] Joe Hernandez MD , Thank you for the referral of Peter Montaño to our clinic. He was tested on our [employer] Equitest System today and enclosed are the test results. On the Sensory Organization Test her scored an overall score of 28 which is recommendation for an assistive device. He had trouble with his somatosensory systems and vestibular systems helping to control his balance. In other words, he relies heavily on his vision to help him control his balance. His center of gravity alignment is within normal limits and he is more ankle dominant which is higher level. On the Motor Control Test... the pt's overall score was with in normal limits which shows that his overall reaction time is normal. On the Limits of Stability Test the pt had trouble with weight shifting in all directions except to his L side. At this point in time we will add weight shifting to our plan of care as well s activities that will use his somatosensory and vestibular systems. Sincerely, Evelyn Hill, ELDA Contact Information
--- NOTE | 2019-06-16 10:53 | HP.PTDCSUM ---
HP - PT D/C Summary It has been my pleasure to treat TANIA GUERRERO under orders from Joe Hernandez MD, for the diagnosis of PMR, weakness in core, tremor for a total of 9 visit(s). Discharge Date: 06/16/19 Please see the following information for a summary of their discharge status. - Subjective Subjective: Pt reports that he is doing good at home and keeps using his walker at home cause his yells at him. He can get up and down the steps ok. He is doing his HEP everyother day and is happy with that. He reports that his Quads were sore for 3 days after trying to sit to stand without using his arms. - Overall Improvement % Improvement: 75 - Objective Objective/Function: Pt still needs UE to get up out of a chair. LE MMT: B hip flex 4/5, B hip abd 4-/5, Bridge ( 1/2 normal ROM), B knee flex 4-/5, B knee ext 4/5. Stairs: be able to go up and down the stairs recip with 2 hand rails with SBA. FGA: 10 - Goals Goal 1:: I HEP Goal Progress: Goal Met Goal 2:: Test the pt on the NeuroCOM Goal Progress: Goal Met Goal 3:: Increase LE strength by 1/2 muscle grade to make ADL's easier. ( at time of eval: LE MMT: B hip flex 4-/5, B hip abd 4-/5, Bridge ( 1/2 normal ROM), B knee flex 3+/5, B knee ext 4/5). Goal Progress: Goal Met Goal 4:: Be able to get out of a chair and sit back into the chair without use of UE's with slow controlled movement on first attempt. Goal Progress: Progressing Goal 5:: Be able to go up and down the stairs recip with 2 hand rails with SBA Goal Progress: Goal Met Goal 6:: Increase FGA by 5 points to decrease fall risk to a 14) Goal Progress: Progressing - Plan Plan: DC PT to HEP - D/C Information Discharge Comments: DC PT to HEP If there are questions or concerns regarding this patient's physical therapy, please feel free to call me at [phone]. Thank you for the referral of this patient. Sincerely, Evelyn Hill, MPT
== END 2019-06-16 19:00 | disposition home or self-care (01) ==
LOC: PT 10:30
PROVIDERS: Family Provider Family Medicine; PCP Family Medicine; Referring Provider Family Medicine; Visit Provider Family Medicine
DX: M35.3 Polymyalgia rheumatica (principal); M62.81 Muscle weakness (generalized); R25.1 Tremor, unspecified
CPT/HCPCS: 97110; 97161; 97530; 97750

== ENCOUNTER → 2019-08-11 10:57 | Outpatient (CLI) | payer MEDICARE, OTHER, SELFPAY ==
[2019-07-20 10:40] VITALS: BMI 28.5
[2019-08-11 13:04] LABS: Erythrocyte Sedimentation Rate 11 mm/hr (0-20)
[2019-08-11 13:55] LABS: AST(SGOT) 12 U/L (15-37); Alanine Aminotransfer ALT/SGPT 19 U/L (16-61); Albumin, Serum 3.6 g/dL (3.2-5.0); Alkaline Phosphatase 44 U/L (45-117); Anion Gap 10 (5-15); BUN 15 mg/dL (7-18); CRP < 2.90 mg/L (0.0-3.0); Calcium,Total 9.2 mg/dL (8.5-10.1); Chloride 107 mmol/L (98-107); EST Glomerular Filtration Rate 76 mL/min (>60); Est Glom Filt Rate - Afr Amer 92 mL/min (>60); Globulin 3.6 g/dL (2.2-4.2); Glucose 114 mg/dL (74-106); Potassium 4.6 mmol/L (3.5-5.1); Protein, Total 7.2 g/dL (6.4-8.2); Sodium Level 141 mmol/L (136-145)
[2019-08-11 15:02] LABS: Hemoglobin A1c 9.6 % (4.2-6.3)
== END ==
PROVIDERS: Family Provider Family Medicine; PCP Family Medicine; Referring Provider Family Medicine; Visit Provider Family Medicine
DX: E11.22 Type 2 diabetes mellitus with diabetic chronic kidney disease (principal); N18.2 Chronic kidney disease, stage 2 (mild); M35.3 Polymyalgia rheumatica
CPT/HCPCS: 36415; 80053; 83036; 85652; 86140

== ENCOUNTER → 2019-11-16 10:33 | Outpatient (CLI) | payer MEDICARE, OTHER, SELFPAY ==
[2019-07-20 10:40] VITALS: BMI 28.5
[2019-11-16 12:49] LABS: AST(SGOT) 10 U/L (15-37); Alanine Aminotransfer ALT/SGPT 15 U/L (16-61); Albumin, Serum 3.7 g/dL (3.2-5.0); Alkaline Phosphatase 58 U/L (45-117); Anion Gap 5 (5-15); BUN 15 mg/dL (7-18); BUN/Creat Ratio 13.3 RATIO (10-20); Calcium,Total 9.2 mg/dL (8.5-10.1); Chloride 107 mmol/L (98-107); Creatinine, Serum 1.13 mg/dL (0.70-1.30); EST Glomerular Filtration Rate 66 mL/min (>60); Est Glom Filt Rate - Afr Amer 80 mL/min (>60); Ferritin 28 ng/mL (26-388); Globulin 3.8 g/dL (2.2-4.2); Glucose 189 mg/dL (74-106); Potassium 4.2 mmol/L (3.5-5.1); Protein, Total 7.5 g/dL (6.4-8.2); Sodium Level 140 mmol/L (136-145)
[2019-11-16 13:49] LABS: Erythrocyte Sedimentation Rate 16 mm/hr (0-20)
[2019-11-16 13:51] LABS: Absolute Lymphocyte Count 1.55 X10^3/uL (0.83-4.51); Absolute Neutrophil Count 4.3 X10^3/uL (2.0-7.7); Basophil# 0.04 X10^3/uL; Basophil% 0.6 % (0-1); Eosinophils% 1.5 % (0-5); Hematocrit 45.2 % (40-54); Hemoglobin 14.2 g/dL (13.0-16.5); Lymphocyte # 1.55 X10^3/ul (4.0); Lymphocyte % 23.3 % (19-41); Mean Corp Hgb Conc 31.4 g/dL (32-36); Mean Corpuscular Hgb 30.3 pg (27.0-32.0); Mean Corpuscular Volume 96.4 fL (80-94); Mean Platelet Vol. 10.4 fl (6.2-12.0); NRBC Flagged by Analyzer 0 % (0-5); Neutrophil # 4.33 X10^3/uL (2.7-7.7); Neutrophil % 65.3 % (47-70); Platelet Count 215 K/mm3 (150-450); RBC Distribution Width CV 12.9 % (11.6-14.6); RBC Distribution Width SD 45.7 fl (35.1-43.9); Red Blood Count 4.69 M/mm3 (4.6-6.2); White Blood Count 6.6 K/mm3 (4.4-11.0)
== END ==
PROVIDERS: PCP Family Medicine; Referring Provider Family Medicine; Visit Provider Family Medicine
DX: E11.22 Type 2 diabetes mellitus with diabetic chronic kidney disease (principal); N18.2 Chronic kidney disease, stage 2 (mild); M35.3 Polymyalgia rheumatica
CPT/HCPCS: 36415; 80053; 82728; 85025; 85652; 86140

== ENCOUNTER → 2019-12-14 | Outpatient (CLI) | payer MEDICARE, OTHER, SELFPAY ==
[2019-07-20 10:40] VITALS: BMI 28.5
== END | disposition home or self-care (01) ==
PROVIDERS: PCP Family Medicine; Referring Provider Family Medicine; Visit Provider Family Medicine
DX: R35.0 Frequency of micturition (principal)
CPT/HCPCS: 87086; 87088

== ENCOUNTER 2019-12-16 00:02 | Observation (INO) | payer MEDICARE, OTHER, SELFPAY ==
[2019-07-20 10:40] VITALS: BMI 28.5
[2019-12-16] VITALS (14 sets, daily range): BP systolic 150–218; BP diastolic 66–106; PULSE 62–86; RESP 14–20; TEMP 36.7–37.1; O2SAT 95–97; BMI 29.4; BMI 39.1
--- NOTE | 2019-12-16 00:24 | CT_ITS ---
STUDY: CT BRAIN WITHOUT CONTRAST REASON FOR EXAM: Male, 79 years old. CONFUSION SINCE WEDNESDAY, HX TIA, HTN, DIABetes, PACER RADIATION DOSAGE (If Supplied By Facility): CTDIvol = ( 44.99 ) mGy, DLP = ( 846.73 ) mGycm TECHNIQUE: Transaxial CT imaging of the brain was performed without administration of intravenous contrast material. Individualized dose optimization techniques were used for this CT. COMPARISON: CT brain noncontrast 05/06/2018. 06/16/2017. 07/03/2014. FINDINGS: Normal soft tissue structures. Normal calvarium. There is moderate cerebral atrophy with widening of the extra-axial spaces and ventricular dilatation. There are areas of decreased attenuation within the white matter tracts of the supratentorial brain, consistent with microvascular disease changes. Small area of encephalomalacia left high parietal lobe at former site of June 23, 2017. Normal basal ganglia and thalami. Normal brainstem. There is mild cerebellar atrophy. There is no intracranial hemorrhage. There are no findings of an acute ischemic infarction. Trace fluid in the dependent maxillary sinuses. The bilateral mastoid air cells and ossicles are unopacified. Intracranial arteriosclerosis of the carotid and vertebral arteries. CT/Brain/Head without Contrast IMPRESSION: Chronic involutional changes of the brain. There is no acute intracranial pathology. There is no significant interval change. Trace fluid in the maxillary sinuses is new. Electronically Signed: Radha Wall MD at 1:09 EDT , Service support ,
--- NOTE | 2019-12-16 00:25 | RAD_ITS ---
STUDY: X-RAY CHEST REASON FOR EXAM: Male, 79 years old. Confusion TECHNIQUE: Single AP portable view of the chest. COMPARISON: 04/02/2016. 05/06/2018. FINDINGS: There is a stable dual right subclavian approached multilead permanent pacemaker. There are superimposed monitor leads. The lungs are clear and expanded. There is no demonstrated pleural abnormality. Stable mild cardiac enlargement.. Normal mediastinum and sylvie. Normal visualized pulmonary arteries. Normal visualized aortic arch and descending thoracic aorta. There are diffuse degenerative changes of the visualized thoracic spine. There is degenerative osteoarthritis of the bilateral shoulders. There is no demonstrated abnormality of the visualized soft tissue structures of the upper abdomen. RAD/Chest 1 View (Portable) IMPRESSION: Stable mild cardiomegaly and postsurgical changes. No pulmonary edema, congestive heart failure or confluent pneumonia. Electronically Signed: Radha Wall MD at 1:11 EDT , Service support ,
--- NOTE | 2019-12-16 00:27 | EKG12_ITS ---
Test Reason : DYSRHYTHMIA Blood Pressure : / mmHG Vent. Rate : 072 BPM Atrial Rate : 060 BPM P-R Int : 000 ms QRS Dur : 104 ms QT Int : 422 ms P-R-T Axes : 000 -67 145 degrees QTc Int : 462 ms Atrial fibrillation Left axis deviation Septal infarct , age undetermined Abnormal ECG Confirmed by REYNA MORALES, ZHENG ([id number]), purchase request editor SOFIA RAMSAY ([id number]) on 12/18/2019 1:52:33 PM Referred By: GIOVANI Confirmed By:DON ORELLANA MD
[2019-12-16 00:41] LABS: Absolute Lymphocyte Count 2.37 X10^3/uL (0.83-4.51); Basophil# 0.04 X10^3/uL; Basophil% 0.5 % (0-1); Eosinophil# 0.27 X10^3/uL; Eosinophils% 3.2 % (0-5); Hematocrit 43.8 % (40-54); Lymphocyte # 2.37 X10^3/ul (4.0); Lymphocyte % 27.9 % (19-41); Mean Corpuscular Hgb 29.5 pg (27.0-32.0); Mean Corpuscular Volume 92.4 fL (80-94); Monocyte# 0.81 X10^3/uL; Monocyte% 9.6 % (0-10); NRBC Flagged by Analyzer 0 % (0-5); Neutrophil # 4.96 X10^3/uL (2.7-7.7); Neutrophil % 58.4 % (47-70); Platelet Count 227 K/mm3 (150-450); RBC Distribution Width CV 12.9 % (11.6-14.6); RBC Distribution Width SD 43.8 fl (35.1-43.9); Red Blood Count 4.74 M/mm3 (4.6-6.2); White Blood Count 8.5 K/mm3 (4.4-11.0)
[2019-12-16 00:45] LABS: International Normalized Ratio 1.1
[2019-12-16 00:46] LABS: Partial Thromboplast Time 27.3 Seconds (24.1-36.2)
[2019-12-16 00:55] LABS: AST(SGOT) 14 U/L (15-37); Alanine Aminotransfer ALT/SGPT 12 U/L (16-61); Albumin, Serum 3.7 g/dL (3.2-5.0); Alkaline Phosphatase 61 U/L (45-117); Anion Gap 5 (5-15); BUN 12 mg/dL (7-18); BUN/Creat Ratio 9.8 RATIO (10-20); Calcium,Total 9.3 mg/dL (8.5-10.1); Chloride 109 mmol/L (98-107); Creatinine, Serum 1.23 mg/dL (0.70-1.30); EST Glomerular Filtration Rate 60 mL/min (>60); Est Glom Filt Rate - Afr Amer 73 mL/min (>60); Estimated Creatinine Clearance 48.63 ml/min; Globulin 3.7 g/dL (2.2-4.2); Glucose 130 mg/dL (74-106); Potassium 4.3 mmol/L (3.5-5.1); Protein, Total 7.4 g/dL (6.4-8.2); Sodium Level 143 mmol/L (136-145)
[2019-12-16 02:07] LABS: Bacteria 0 SEEN /hpf (None Seen); Mucous, Urine 0 SEEN /hpf (<or=2+); Red Blood Cells-Urine 0 SEEN /hpf (0-5)
[2019-12-16 02:08] LABS: Color, Urine Yellow (Yellow); Glucose, Dipstick Normal (Normal); Ketone-Dipstick Negative (Negative); Leukocyte Esterase-Dipstick 25 /ul (Negative); Nitrite-Dipstick Negative (Negative); Occult Blood-Urine Negative /ul (Negative); Protein-Dipstick 30 mg/dl (Negative); Urine Bilirubin Dipstick Negative (Negative); Urine Clarity Sl. Cloudy (Clear); Urine Urobilinogen 1 mg/dl (Normal)
[2019-12-16 02:15] LABS: Squamous Epithelial Cells - UA 0-5 SEEN /hpf (0-5); White Blood Cells 0-5 SEEN /hpf (0-5)
--- NOTE | 2019-12-16 02:16 | HP.PCM_ITS ---
Problem List (1) Acute encephalopathy Status: Acute (2) Mixed hyperlipidemia Status: Chronic (3) Essential hypertension Status: Chronic (4) COPD (chronic obstructive pulmonary disease) Status: Chronic Qualifiers: COPD type: unspecified COPD Qualified Code(s): J44.9 - Chronic obstructive pulmonary disease, unspecified (5) Cardiac pacemaker in situ Status: Chronic (6) Atherosclerotic heart disease of [place] coronary artery without angina pectoris Status: Chronic Qualifiers: [place] vs. 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 ED on 12/16/19 with history of increased confusion ongoing x 4 days to been evaluated by a physician 2 days prior with recommendation to present if ongoing. notes his confusion has been intermittent with some more lucid periods. Spouse denies any specific focal neurological deficits but patient has had some difficulty following commands. Work-up in the ED included T 98.4, heart 75, BP initially 190/102, respiratory rate 20, 96% on room air, CBC with WBC 8.5, hemoglobin 14, platelet 227 with no shift, coags unremarkable, UA unremarkable, CMP with unremarkable aside glucose 130, chest x-ray with no acute cardiopulmonary findings, CT head with chronic involutional changes of the brain with no acute intracranial pathology, EKG with atrial fibrillation without acute evidence of ischemia. Past Medical History Past Medical History (Chronic Problems): Chronic Problems (Last Reviewed 07/20/19 @ 10:48 by Yelena Elliott) Mixed hyperlipidemia (Chronic) Essential hypertension (Chronic) COPD (chronic obstructive pulmonary disease) (Chronic) Cardiac pacemaker in situ (Chronic) Atherosclerotic heart disease of [place] coronary artery without angina pectoris (Chronic) Frequent falls (Chronic) Balance problem (Chronic) Lumbar stenosis (Chronic) Sick sinus syndrome (Chronic) Chronic atrial fibrillation (Chronic) DM2 (diabetes mellitus, type 2) (Chronic) Atrial dysrhythmia (Chronic) S/P PTCA (percutaneous transluminal coronary angioplasty) (Chronic ~04/2010) PTCA of the RCA intracoronary stent 04/12 Medical History: Medical History (Last Reviewed 07/20/19 @ 10:48 by Yelena Elliott) Mixed hyperlipidemia (Chronic) E78.2 Essential hypertension (Chronic) I10 COPD (chronic obstructive pulmonary disease) (Chronic) J44.9 History of bacterial endocarditis (Acute) Z86.79 Cardiac tamponade (Acute) I31.4 Cardiac pacemaker in situ (Chronic) Z95.0 Atherosclerotic heart disease of [place] coronary artery without angina pectoris (Chronic) I25.10 Sick sinus syndrome (Chronic) I49.5 Chronic atrial fibrillation (Chronic) I48.2 DM2 (diabetes mellitus, type 2) (Chronic) E11.9 Atrial dysrhythmia (Chronic) I49.8 Gout M10.9 Sick sinus syndrome I49.5 TIA (transient ischemic attack) G45.9 Diverticulosis K57.90 History of cardioversion Z98.890 09/2005; History of electrophysiologic study Z98.890 December 2005 Pulmonary embolism I26.99 Cardiac dysrhythmia (Inactive) I49.9 Essential (primary) hypertension (Inactive) I10 HTN (hypertension) (Inactive) I10 Hyperlipidemia (Inactive) E78.5 On anticoagulant therapy (Inactive) Z79.01 Tremor, essential (Inactive) G25.0 Allergies hydrochlorothiazide Adverse Reaction (Unknown, Verified 12/16/19 00:28) Gout symptoms Home Medications: Ambulatory Orders Medication Instructions Recorded Aspirin [Aspirin, Baby] 81 mg PO DAILY 06/24/14 bumetanide 1 mg tablet 0.5 mg PO PRN PRN tab 09/21/17 metformin 1,000 mg tablet 1,000 mg PO BID 01/13/19 losartan 100 mg tablet 100 mg PO DAILY #90 tab 07/07/19 clonidine HCl 0.1 mg tablet 0.1 mg PO DAILY tab 07/20/19 insulin glargine 100 unit/mL 10 unit SC BREAKFAST 07/20/19 subcutaneous solution pravastatin 80 mg tablet 80 mg PO QHS #90 tab 09/25/19 Magnesium Oxide [Magnesium] 400 mg PO DAILY 12/16/19 Metoprolol Succinate [Toprol Xl] 50 mg PO BID 12/16/19 Multivit-Min/FA/Lycopen/Lutein 1 ea PO DAILY 12/16/19 [Centrum Silver Tablet] Vit A/Vit C/Vit E/Zinc/Copper 1 ea PO DAILY 12/16/19 [Preservision Areds Tablet] Surgical History: Surgical History (Last Reviewed 07/20/19 @ 10:48 by Yelena Elliott) S/P PTCA (percutaneous transluminal coronary angioplasty) (Chronic) Onset Date: ~04/2010 Z98.61 PTCA of the RCA intracoronary stent 04/12 H/O right and left heart catheterization Z98.890 December 2005; PTCA of the RCA April 2010; PVI and Superior Vena Cava Isolation 01/31/2010 S/P pericardiocentesis Z98.890 04/2010 S/P placement of cardiac pacemaker Onset Date: ~02/2010 Z95.0 History of cardiac radiofrequency ablation Onset Date: ~09/2005 Z98.890 History of hernia repair Z98.890, Z87.19 Surgical History: angioplasty, pacemaker implantation Psychiatric History: No pertinent psych hx Lives: Spouse/ Significant Other Smoking Status: Never smoker Tobacco Use: Non-smoker Alcohol: None Drugs: None - *Family History Maternal Family History: Family History (Last Reviewed 07/20/19 @ 10:48 by Yelena Elliott) Brother Colon cancer Father CAD (coronary artery disease) Mother Colon cancer Sister Breast cancer History Items: Cancer - of the colon Paternal Family History: Family History (Last Reviewed 07/20/19 @ 10:48 by Yelena Elliott) Brother Colon cancer Father CAD (coronary artery disease) Mother Colon cancer Sister Breast cancer History Items: High Cholesterol, Heart Disease, Hypertension Review of Systems Constitutional: Reports: Fatigue. Denies: Anorexia, Chills, Fever, Malaise, Weakness, Weight Change HEENT: Denies: Head Aches, Sinus Congestion, Sinus Drainage Cardiovascular: Denies: Chest Pain, Palpitations Respiratory: Denies: Cough, Shortness of breath at rest, Sputum production Gastrointestinal: Reports: Constipation. Denies: Abdominal Pain, Nausea, Vomiting Genitourinary: Denies: Dysuria Musculoskeletal: Reports: Joint Pain. Denies: Joint Tenderness Skin: Denies: Rash, Wounds Neurological: Reports: Confusion, Tremor. Denies: Balance problems, Focal weakness, Numbness, Tingling Psychiatric: Denies: Anxiety, Depression, Homicidal Ideations, Suicidal Ideations Hematologic/ Lymphatic: Reports: Easy Bruising, Easy Bleeding. Denies: Anemia VTE Information - Inpt Only VTE Present on Admission: No VTE Mechan Device Prophylaxis: SCD's VTE Pharm Prophylaxis ordered?: Yes Patient Problems: Active and Suspected Problems (Last Reviewed 07/20/19 @ 10:48 by Yelena Elliott) Acute encephalopathy (Acute) Accelerated hypertension (Acute) Subjective: Seated upright in ED bed, fatigued appearance, notes he has been mildly irritable but currently calm. Objective: Physical Examination: General: awake, alert, oriented to self, states that he is at home and is unable to give correct year, month, president, remains cooperative, seated upright in the ED bed in no apparent distress. Skin: normal color, turgor, no icterus, cyanosis. HEENT: AT/NC, EOMI, PERRLA, mildly dry MM, no carotid bruits or JVD noted. Lungs: CTA bilaterally, moderate effort, moderate decrease BL bases, no rales, ronchi or wheezing. Heart: Irregular, rate controlled; no gallop, rub audible. Abdomen: soft, NTTP, ND, normal BS, no HSM. Extremities: no cyanosis, clubbing, or edema. Neurological: patient awake, alert, oriented as noted; cognitive function not baseline intact; pupils equally reactive to light and accomodation; cranial nerves II-XII grossly normal, moving all 4 extremities, no focal specific deficits however difficult examination as some difficulty following commands, sensation intact, some difficulty with [id number] and [id number] although when able to do so performs it correctly, equivocal Babinski. Psychiatric: affect appears fatigued, no acute evidence of depressive or anxiety feelings. - Physical Exam Vitals/I&O's: Vital Signs Temp Pulse Resp BP Pulse Ox 98.4 F 75 20 H 190/102 H 96 12/16/19 00:05 12/16/19 00:05 12/16/19 00:05 12/16/19 00:05 12/16/19 00:05 Oxygen Delivery Method Room Air Weight: 205 lb 0.478 oz Body Mass Index (BMI) 29.4 Finger Stick Blood Glucose 124 Laboratory Results 12/16/19 00:15: WBC 8.5, RBC 4.74, Hgb 14.0, Hct 43.8, MCV 92.4, MCH 29.5, MCHC 32.0, RDW Std Deviation 43.8, RDW Coeff of Cristel 12.9, Plt Count 227, MPV 10.0, Immature Gran % (Auto) 0.400, Neut % (Auto) 58.4, Lymph % (Auto) 27.9, [place] % (Auto) 9.6, Eos % (Auto) 3.2, Baso % (Auto) 0.5, Absolute Neuts (auto) 5.0, Absolute Lymphs (auto) 2.37, Nucleated RBC % 0 12/16/19 00:15: Sodium 143, Potassium 4.3, Chloride 109 H, Carbon Dioxide 29.0, Anion Gap 5, BUN 12, Creatinine 1.23, Estim Creat Clear Calc 48.63, Est GFR (MDRD) Af Amer 73, Est GFR (MDRD) Non-Af 60, BUN/Creatinine Ratio 9.8 L, Glucose 130 H, Calcium 9.3, Total Bilirubin 0.40, AST 14 L, ALT 12 L, Alkaline Phosphatase 61, Total Protein 7.4, Albumin 3.7, Globulin 3.7, Albumin/Globulin Ratio 1.0 12/16/19 00:15: PT 14.0, INR 1.1, APTT 27.3 12/16/19 02:03: Urine Color Yellow, Urine Clarity Sl. Cloudy, Urine pH 6.0, Ur Specific [place] 1.020, Urine Protein 30 H, Urine Glucose (UA) Normal, Urine Ketones Negative, Urine Occult Blood Negative, Urine Nitrite Negative, Urine Bilirubin Negative, Urine Urobilinogen 1 H, Ur Leukocyte Esterase 25 H, Urine RBC 0 SEEN, Urine WBC 0-5 SEEN, Ur Squamous Epith Cells 0-5 SEEN, Urine Bacteria 0 SEEN, Urine Mucus 0 SEEN Assessment/Plan All Active Problems (Last Reviewed 07/20/19 @ 10:48 by Yelena Elliott) Acute encephalopathy (Acute) Accelerated hypertension (Acute) History of bacterial endocarditis (Acute) Cardiac tamponade (Acute) Hx pulmonary embolism (Resolved) The patient is an 79 y/o M w/ PMHx: Essential tremor, Sick Sinus Syndrome s/p pacemaker, Chronic COPD, HTN, HLD, Diabetes mellitus type II, CAD s/p PTCA RCA, Hx TIA, Chronic AF s/p RFA who presents to the [facility] ED on 12/16/19 with history of increased confusion ongoing x 4 days to been evaluated by a physician 2 days prior with recommendation to present if ongoing. 1. Acute encephalopathy, unclear etiology, Possible CVA: Will admit to PCU, unable to obtain MRI of the brain given pacemaker status, will continue to closely monitor on telemetry, cycle cardiac enzymes, obtain carotid US, obtain ECHO given duration of prior, PT/OT/Speech/Nutrition evaluation per protocol. May consider Neurology consultation pending these evaluations. Given timeline will continue patient HTN regimen, maintain on asa, statin w/ AM FLP, fall precautions. Mag, TSH, HgbA1c pending. Interrogation of pacemaker requested. NH requested. 2. Chronic atrial fibrillation: Status post RFA, status post permanent pacemaker, continue patient home aspirin, metoprolol regimen. Previous record of anticoagulation with Coumadin but notable fall history thus suspect likely discontinuation. Most recent echo noted 06/24/2014 with normal LV size, normal LV systolic function, EF 60%, mild ALIN. 3. Diabetes mellitus type II: Hold oral home regimen, continue home insulin regimen, ADA diet, accu checks w/ ISS, most recent hemoglobin A1c noted 08/11/2019 9.6%. 4. CAD: Status post PCI RCA, continue patient home aspirin, metoprolol, losartan, statin therapy. 5. Hypertension: Continue home regimen including clonidine, losartan, metoprolol, PRN hydralazine. 6. Hyperlipidemia: Continue home statin regimen. AM FLP. 7. Chronic COPD: ATC duonebs, PRN albuterol, HOB, IS parameters. 8. History of sick sinus syndrome: Status post permanent pacemaker. Most recent pacemaker check noted 10/24/2019. Interrogation requested given acute presentation as noted #1. 9. DVT prophylaxis: SCDs, Lovenox. 10. CODE status: Patient KORY is his who is present and living will is currently in place. Discussed CODE status at length including difference between FULL code, DNR-CCA and DNR-CC status. Following discussions about the differences in these status, requested DNR CCA, no intubation. Advanced Care Planning Face to Face Time: 16 minutes. OBSV E&M: [id number] Initial observation care L3 Procedures: [id number] Advncd Care Plan 30 Min
--- NOTE | 2019-12-16 02:22 | ED.VIS.GEN ---
History of Present Illness Chief Complaint: Confusion Informant: Patient, Significant Other Onset: Days - 3 Narrative: Brought by EMS from home significant other present. Increased confusion since Wednesday. Saw PCP office yesterday concerns for UTI started on Bactrim. See other states at supper seem to be himself however shortly after more confused. No dementia or stroke history. Reports history of atrial fibrillation, taken off his Coumadin [address] Lawson due to frequent falls. Patient denies any symptoms. No other reports no recent cough no recent vomiting or diarrhea. EMS reports blood glucose 120. Prior similar symptoms: No Past Medical History - Allergies and Home Meds Allergies/Adverse Reactions: Allergies hydrochlorothiazide Adverse Reaction (Unknown, Verified 12/16/19 00:28) Gout symptoms Past Medical History: - - Hypertension, hyperlipidemia, diabetes, chronic A. fib, sick sinus syndrome, CHF, COPD Surgical History: angioplasty, pacemaker implantation Smoking Status: Never smoker - Family History Maternal Family History: Family History (Last Reviewed 07/20/19 @ 10:48 by Yelena Elliott) Brother Colon cancer Father CAD (coronary artery disease) Mother Colon cancer Sister Breast cancer Family History: Reports: Cancer - of the colon, No pertinent history Paternal Family History: Family History (Last Reviewed 07/20/19 @ 10:48 by Yelena Elliott) Brother Colon cancer Father CAD (coronary artery disease) Mother Colon cancer Sister Breast cancer Family History: Reports: Heart Disease Review of Systems All systems negative except as indicated General: Denies: Chills, Fever, Sweats Eyes: Denies: Visual changes - bilaterally, Diplopia ENT: Denies: Rhinorrhea, Sore throat Cardiovascular: Denies: Chest pain, Palpitations Respiratory: Denies: Dyspnea, Cough, Dyspnea on exertion Gastrointestinal: Denies: Abdominal pain, Nausea, Vomiting, Diarrhea, Melena, Hematochezia Genitourinary: Denies: Dysuria, Hematuria, Frequency Musculoskeletal: Denies: Back pain, Extremity Pain Skin: Denies: Rash, Wounds Neurological: Denies: Headache, Weakness, Numbness Physical Exam Vital Signs/Narrative: Vital Signs Temp Pulse Resp BP Pulse Ox 12/16/19 02:17 78 16 95 12/16/19 00:05 98.4 F 75 20 H 190/102 H 96 Inital Vital Signs reviewed: Yes General: Well nourished, Well developed, No Acute Distress, - - Pleasantly confused, cooperative Head: Normocephalic, Atraumatic Eyes: Perrl, EOMI ENT: Moist mucous membranes, No rhinorrhea Neck: Supple, Nontender Cardiovascular: Regular rate, Regular rhythm, No murmurs Respiratory: No distress, CTA bilaterally, Chest nontender Abdomen: Soft, Nontender, Nondistended, Normal bowel sounds Back: Nontender, Normal Inspection Extremities: Nontender, No edema Skin: Normal color, No rash Neurological: Alert, Cranial nerves II-XII grossly intact, Normal Strength, Normal Sensation, - - Alert to person, and age difficult due to patient confusion. Could not tell me his age or month, unable to describe objects. No focal deficits however. Psychological: Normal affect, Normal Mood Diagnostic/Tx/Re-eval Clinical Impression(s) from Imaging Studies Brain CT 12/16/19 00:24 IMPRESSION: Chronic involutional changes of the brain. There is no acute intracranial pathology. There is no significant interval change. Trace fluid in the maxillary sinuses is new. Electronically Signed: Radha Wall MD at 1:09 EDT , Service support , Chest X-Ray 12/16/19 00:25 IMPRESSION: Stable mild cardiomegaly and postsurgical changes. No pulmonary edema, congestive heart failure or confluent pneumonia. Electronically Signed: Radha Wall MD at 1:11 EDT , Service support , Abnormal Lab Results 12/16/19 12/16/19 12/16/19 00:15 00:15 00:15 WBC 8.5 RBC 4.74 Hgb 14.0 Hct 43.8 MCV 92.4 MCH 29.5 MCHC 32.0 RDW Std Deviation 43.8 RDW Coeff of Cristel 12.9 Plt Count 227 MPV 10.0 Immature Gran % (Auto) 0.400 Neut % (Auto) 58.4 Lymph % (Auto) 27.9 Woods % (Auto) 9.6 Eos % (Auto) 3.2 Baso % (Auto) 0.5 Absolute Neuts (auto) 5.0 Absolute Lymphs (auto) 2.37 Nucleated RBC % 0 PT 14.0 INR 1.1 APTT 27.3 Sodium 143 Potassium 4.3 Chloride 109 H Carbon Dioxide 29.0 Anion Gap 5 BUN 12 Creatinine 1.23 Estim Creat Clear Calc 48.63 Est GFR (MDRD) Af Amer 73 Est GFR (MDRD) Non-Af 60 BUN/Creatinine Ratio 9.8 L Glucose 130 H Calcium 9.3 Total Bilirubin 0.40 AST 14 L ALT 12 L Alkaline Phosphatase 61 Total Protein 7.4 Albumin 3.7 Globulin 3.7 Albumin/Globulin Ratio 1.0 Urine Color Urine Clarity Urine pH Ur Specific [place] Urine Protein Urine Glucose (UA) Urine Ketones Urine Occult Blood Urine Nitrite Urine Bilirubin Urine Urobilinogen Ur Leukocyte Esterase Urine RBC Urine WBC Ur Squamous Epith Cells Urine Bacteria Urine Mucus 12/16/19 02:03 WBC RBC Hgb Hct MCV MCH MCHC RDW Std Deviation RDW Coeff of Cristel Plt Count MPV Immature Gran % (Auto) Neut % (Auto) Lymph % (Auto) Woods % (Auto) Eos % (Auto) Baso % (Auto) Absolute Neuts (auto) Absolute Lymphs (auto) Nucleated RBC % PT INR APTT Sodium Potassium Chloride Carbon Dioxide Anion Gap BUN Creatinine Estim Creat Clear Calc Est GFR (MDRD) Af Amer Est GFR (MDRD) Non-Af BUN/Creatinine Ratio Glucose Calcium Total Bilirubin AST ALT Alkaline Phosphatase Total Protein Albumin Globulin Albumin/Globulin Ratio Urine Color Yellow Urine Clarity Sl. Cloudy Urine pH 6.0 Ur Specific [place] 1.020 Urine Protein 30 H Urine Glucose (UA) Normal Urine Ketones Negative Urine Occult Blood Negative Urine Nitrite Negative Urine Bilirubin Negative Urine Urobilinogen 1 H Ur Leukocyte Esterase 25 H Urine RBC 0 SEEN Urine WBC 0-5 SEEN Ur Squamous Epith Cells 0-5 SEEN Urine Bacteria 0 SEEN Urine Mucus 0 SEEN - EKG Initial EKG Interpretation: Atrial Fibrillation - Rate controlled atrial fibrillation at 72 - Medical Decision Making Patient with no focal neurologic deficits however he is confused. Work-up initiated. CT chest x-ray negative. Labs stable urine noted leukocytes. Urine sent for culture. I discussed with hospitalist Dr. Stacy, risk factors for stroke especially taken off his anticoagulants, however he does have a pacemaker. We will hold antibiotics at this time pending the culture. Will admit to PCU. During ED, patient's blood pressure trended up, will give IV hydralazine. ED Disposition - Plan for ED Patient: Disposition: Acute Care Hospital [facility] Diagnosis: Acute encephalopathy, Accelerated hypertension
[2019-12-16] MEDS: 0.9% Normal Saline 1,000 ML 100 ML IV (04:20)
[2019-12-16] MEDS: 0.9% Saline Lock 10 ML Syringe IV (04:32)
[2019-12-16] MEDS: hydrALAZINE 20 MG/ML Vial 10 MG IV (04:32)
[2019-12-16 04:54] LABS: Absolute Lymphocyte Count 1.24 X10^3/uL (0.83-4.51); Absolute Neutrophil Count 6.2 X10^3/uL (2.0-7.7); Basophil# 0.03 X10^3/uL; Basophil% 0.4 % (0-1); Eosinophil# 0.08 X10^3/uL; Hematocrit 41.7 % (40-54); Hemoglobin 13.1 g/dL (13.0-16.5); Lymphocyte # 1.24 X10^3/ul (4.0); Lymphocyte % 15.2 % (19-41); Mean Corp Hgb Conc 31.4 g/dL (32-36); Mean Corpuscular Hgb 29.6 pg (27.0-32.0); Mean Corpuscular Volume 94.3 fL (80-94); Mean Platelet Vol. 9.9 fl (6.2-12.0); Monocyte% 7.4 % (0-10); NRBC Flagged by Analyzer 0 % (0-5); Neutrophil # 6.16 X10^3/uL (2.7-7.7); Neutrophil % 75.6 % (47-70); Platelet Count 216 K/mm3 (150-450); Red Blood Count 4.42 M/mm3 (4.6-6.2); White Blood Count 8.1 K/mm3 (4.4-11.0)
[2019-12-16] MEDS: Metoprolol Tartrate 5 MG/5 ML Vial IV (05:24)
[2019-12-16 05:33] LABS: AST(SGOT) 15 U/L (15-37); Alanine Aminotransfer ALT/SGPT 13 U/L (16-61); Albumin, Serum 3.5 g/dL (3.2-5.0); Alkaline Phosphatase 54 U/L (45-117); Anion Gap 2 (5-15); BUN 12 mg/dL (7-18); BUN/Creat Ratio 9.8 RATIO (10-20); Calcium,Total 9.1 mg/dL (8.5-10.1); Chloride 109 mmol/L (98-107); Cholesterol 114 mg/dL (200); Creatinine, Serum 1.23 mg/dL (0.70-1.30); EST Glomerular Filtration Rate 60 mL/min (>60); Est Glom Filt Rate - Afr Amer 73 mL/min (>60); Estimated Creatinine Clearance 33.31 ml/min; Globulin 3.6 g/dL (2.2-4.2); Glucose 163 mg/dL (74-106); High Density Lipoprotein 44 mg/dL; Magnesium 1.5 mg/dL (1.6-2.6); Potassium 4.9 mmol/L (3.5-5.1); Protein, Total 7.1 g/dL (6.4-8.2); Sodium Level 141 mmol/L (136-145); Thyroid Stim Hormone (TSH) 1.54 uIU/mL (0.358-3.74); Triglycerides 89 mg/dL; Very Low Density Lipoprotein 18 mg/dL (5-40)
--- NOTE | 2019-12-16 05:55 | ECHOD_ITS ---
Reason For Study: TIA/CVA Procedure This was a 2D Doppler, Color Flow transthoracic echocardiogram. Exam performed portable in patient room. Left Ventricle Normal LV size. The estimated ejection fraction is 60 %. Diastolic function is indeterminate. No regional wall motion abnormalities noted. Right Ventricle Normal RV size. There is a pacemaker lead in the right ventricle. Normal systolic function. Atria The left atrium is mildly enlarged. The right atrium is mildly enlarged. ICD or pacer leads identified within the right atrium. No doppler evidence for ASD. Mitral Valve There is no mitral valve stenosis. Mild-Moderate (1-2+) mitral valve insufficiency. Tricuspid Valve There is no tricuspid stenosis. Mild tricuspid valve insufficiency. Pulmonary artery systolic pressure is 50-55 mmHg. Aortic Valve Trisinus/trileaflet aortic valve. Aortic sclerosis, no stenosis. There is no aortic stenosis. Mild (1+) aortic valve insufficiency. Pulmonic Valve There is no pulmonic valvular stenosis. No pulmonic valve insufficiency. Great Vessels Normal aortic root. Pericardium/Pleural No pericardial effusion. MMode/2D Measurements & Calculations LVIDd: 5.0 cm IVSd: 1.3 cm Ao root diam: 3.4 cm LVIDs: 2.9 cm LVPWd: 0.85 cm RVDd: 3.6 cm FS: 41.6 % LAV(MOD-bp): 68.4 ml LVAd ap4: 28.0 cm2 SV(MOD-sp4): 38.3 ml LAV(MOD-bp) Indexed: 32.4 ml/m2 EDV(MOD-sp4): 79.3 ml LAV(MOD-sp2): 69.7 ml EDV(sp4-el): 81.7 ml LAV(MOD-sp4): 62.8 ml LVAs ap4: 17.9 cm2 ESV(MOD-sp4): 41.0 ml ESV(sp4-el): 39.9 ml EF(MOD-sp4): 48.3 % EF(sp4-el): 51.1 % SV(sp4-el): 41.8 ml LA A4 area: 22.1 cm2 LA dimension(2D): 5.1 cm RA A4 area: 24.4 cm2 Doppler Measurements & Calculations MV E max jb: 105.5 cm/sec Ao V2 max: 108.5 cm/sec AI max jb: 428.1 cm/sec Ao max P.7 mmHg AI max P.4 mmHg Ao V2 mean: 73.5 cm/sec Ao mean P.4 mmHg AI dec slope: 246.4 cm/sec2 Ao V2 VTI: 20.2 cm AI P1/2t: 508.9 msec LV V1 max: 94.3 cm/sec PA V2 max: 74.6 cm/sec TR max jb: 339.9 cm/sec LV V1 max P.6 mmHg TR max P.2 mmHg Interpretation Summary The estimated ejection fraction is 60 %. Diastolic function is indeterminate. The left atrium is mildly enlarged. The right atrium is mildly enlarged. Mild-Moderate (1-2+) mitral valve insufficiency. Mild tricuspid valve insufficiency. Pulmonary artery systolic pressure is 50-55 mmHg. Aortic sclerosis, no stenosis. Mild (1+) aortic valve insufficiency. ICD or pacer leads identified within the right atrium There is a pacemaker lead in the right ventricle. Ordering Physician: Gisela Stacy Referring Physician: Joe Hernandez Performed By: Latosha Landon, URSULA, RVT
[2019-12-16 06:51] LABS: Bedside Glucose 136 mg/dL (70-110)
[2019-12-16 07:30] LABS: Hemoglobin A1c 6.6 % (4.2-6.3)
--- NOTE | 2019-12-16 10:36 | PN_ITS ---
Patient Problems: Active and Suspected Problems (Last Reviewed 07/20/19 @ 10:48 by Yelena Elliott) Acute encephalopathy (Acute) Accelerated hypertension (Acute) Subjective: Patient seen and examined.. He was admitted with a complaint of confusion. says she noted he was more confused, and kept moving his arms for no reason. He had no fever or chills and she had not noticed any nausea or vomiting or frequent urination. She says he is usually admitted oriented and able to carry on a conversation. Patient had no complaints this morning. He did seem confused but was elected to place and person though he was not alert at the time. Review of systems was negative. He has remained hemodynamically stable. He had a brain CT which was negative for any stroke. However he is not able to have an MRI on account of having a pacemaker which is not MRI compatible. Vitals/I&O's: Vital Signs Temp Pulse Resp BP Pulse Ox 98.4 F 69 14 162/66 H 96 12/16/19 08:38 12/16/19 08:38 12/16/19 08:38 12/16/19 08:38 12/16/19 08:38 Oxygen Delivery Method Room Air Weight: 200 lb 2.876 oz Body Mass Index (BMI) 39.1 Finger Stick Blood Glucose 124 Intake and Output for Last 24 Hours 12/14/19 12/15/19 12/16/19 23:59 23:59 23:59 Intake Total 352.27 / 352.27 Output Total 30 / 30 Balance 322.27 / 322.27 General: Alert, Cooperative, No apparent distress, Disoriented HEENT: Atraumatic, PERRLA, EOMI, Normocephalic Oral: Dry Mucosa Neck: Supple, No JVD, Negative Carotid Bruits Lungs: Clear to auscultation, Normal air movement, No rhonchi, No wheeze, No rales Cardiovascular: Regular rate, Regular Rhythm, Normal S1, Normal S2, No murmurs Abdomen: Bowel Sounds Present, Soft, Non Tender, Non-Distended, No Hepato- splenomegaly Extremities: No clubbing, No cyanosis, No edema, Capillary Refill Less than 3 Seconds Skin: No rashes, No breakdown Musculoskeletal: No Tenderness to Palpation of Joints or Extremities Lymphatic: No Cervical, Supraclavicular, or Inguinal Adenopathy Neurological: Cranial nerves II-XII grossly intact, Motor Exam 5/5 strength throughout, - - has tremors of the UEs- says it is a benign tremor, per previous diagnosis Psych/Mental Status: Normal Affect, Appropriate Laboratory Results 12/16/19 00:15: WBC 8.5, RBC 4.74, Hgb 14.0, Hct 43.8, MCV 92.4, MCH 29.5, MCHC 32.0, RDW Std Deviation 43.8, RDW Coeff of Cristel 12.9, Plt Count 227, MPV 10.0, Immature Gran % (Auto) 0.400, Neut % (Auto) 58.4, Lymph % (Auto) 27.9, [place] % (Auto) 9.6, Eos % (Auto) 3.2, Baso % (Auto) 0.5, Absolute Neuts (auto) 5.0, Absolute Lymphs (auto) 2.37, Nucleated RBC % 0 12/16/19 00:15: Sodium 143, Potassium 4.3, Chloride 109 H, Carbon Dioxide 29.0, Anion Gap 5, BUN 12, Creatinine 1.23, Estim Creat Clear Calc 48.63, Est GFR (MDRD) Af Amer 73, Est GFR (MDRD) Non-Af 60, BUN/Creatinine Ratio 9.8 L, Glucose 130 H, Calcium 9.3, Total Bilirubin 0.40, AST 14 L, ALT 12 L, Alkaline Phosphatase 61, Total Protein 7.4, Albumin 3.7, Globulin 3.7, Albumin/Globulin Ratio 1.0 12/16/19 00:15: PT 14.0, INR 1.1, APTT 27.3 12/16/19 02:03: Urine Color Yellow, Urine Clarity Sl. Cloudy, Urine pH 6.0, Ur Specific [place] 1.020, Urine Protein 30 H, Urine Glucose (UA) Normal, Urine Ketones Negative, Urine Occult Blood Negative, Urine Nitrite Negative, Urine Bilirubin Negative, Urine Urobilinogen 1 H, Ur Leukocyte Esterase 25 H, Urine RBC 0 SEEN, Urine WBC 0-5 SEEN, Ur Squamous Epith Cells 0-5 SEEN, Urine Bacteria 0 SEEN, Urine Mucus 0 SEEN 12/16/19 04:42: Ammonia 18.0 12/16/19 04:42: WBC 8.1, RBC 4.42 L, Hgb 13.1, Hct 41.7, MCV 94.3 H, MCH 29.6, MCHC 31.4 L, RDW Std Deviation 45.0 H, RDW Coeff of Cristel 13.0, Plt Count 216, MPV 9.9, Immature Gran % (Auto) 0.400, Neut % (Auto) 75.6 H, Lymph % (Auto) 15.2 L, [place] % (Auto) 7.4, Eos % (Auto) 1.0, Baso % (Auto) 0.4, Absolute Neuts (auto) 6.2, Absolute Lymphs (auto) 1.24, Nucleated RBC % 0 12/16/19 04:42: Sodium 141, Potassium 4.9, Chloride 109 H, Carbon Dioxide 30.0, Anion Gap 2 L, BUN 12, Creatinine 1.23, Estim Creat Clear Calc 33.31, Est GFR (MDRD) Af Amer 73, Est GFR (MDRD) Non-Af 60, BUN/Creatinine Ratio 9.8 L, Glucose 163 H, Calcium 9.1, Magnesium 1.5 L, Total Bilirubin 0.50, AST 15, ALT 13 L, Alkaline Phosphatase 54, Total Protein 7.1, Albumin 3.5, Globulin 3.6, Albumin/Globulin Ratio 1.0, Triglycerides 89, Cholesterol 114, LDL Cholesterol 52, VLDL Cholesterol 18, HDL Cholesterol 44, Folate 6.80, TSH 1.54 12/16/19 04:42: Hemoglobin A1c 6.6 H 12/16/19 04:42: Vitamin B12 Pending 12/16/19 06:46: POC Glucose 136 H Diagnostic Data Brain CT 12/16/19 00:24 IMPRESSION: Chronic involutional changes of the brain. There is no acute intracranial pathology. There is no significant interval change. Trace fluid in the maxillary sinuses is new. Electronically Signed: Radha Wall MD at 1:09 EDT , Service support , Chest X-Ray 12/16/19 00:25 IMPRESSION: Stable mild cardiomegaly and postsurgical changes. No pulmonary edema, congestive heart failure or confluent pneumonia. Electronically Signed: Radha Wall MD at 1:11 EDT , Service support , Current Medications Acetaminophen (Tylenol) 650 mg PO Q6H PRN PRN PRN Reason: Pain Score 1-10/Temp > 100.7 F Al Hydroxide/Mg Hydroxide (Mylanta Ii) 30 ml PO Q6H PRN PRN PRN Reason: Gastric Burning Albuterol Sulfate (Ventolin Aerosols) 2.5 mg INHALATION Q2H PRN PRN PRN Reason: SOB/Wheezing Aspirin (Aspirin, Baby) 81 mg PO DAILYCM DAYAMI Clonidine (Catapres) 0.1 mg PO DAILY DAYAMI Enoxaparin Sodium (Lovenox) 40 mg SC DAILY DAYAMI Famotidine (Pepcid) 20 mg PO BID DAYAMI Glucagon () 1 mg IM .X1 PRN PRN Reason: Hypoglycemia Guaifenesin (Robitussin) 20 ml PO Q4H PRN PRN PRN Reason: COUGH Hydralazine HCl (Apresoline Iv) 10 mg IV Q4H PRN PRN PRN Reason: SBP > 160 Last Admin: 12/16/19 04:32 Dose: 10 mg Documented by: Sodium Chloride () 1,000 mls @ 100 mls/hr IV .Q10H DAYAMI Stop: 12/16/19 13:56 Last Infusion: 12/16/19 08:49 Dose: 100 mls/hr Documented by: Sodium Chloride () 250 mls @ 15 mls/hr IV .[id number] PRN PRN Reason: Saline Flush Sodium Chloride () 250 mls @ 15 mls/hr IV .[id number] PRN PRN Reason: Additional IVPB Infusion Dextrose (Dextrose 10%-Water) 250 mls @ 999 mls/hr IV .Q16M PRN; Protocol PRN Reason: HYPOGLYCEMIA Insulin Glargine (Lantus (Bk)) 10 units SC BREAKFAST DAYAMI Insulin Human Lispro (Humalog Kwikpen ([facility])) 0 unit SC ACHS DAYAMI; Protocol Last Admin: 12/16/19 06:46 Dose: Not Given Documented by: Losartan Potassium (Cozaar) 100 mg PO DAILY DAYAMI Magnesium Hydroxide (Milk Of Magnesia) 30 ml PO DAILY PRN PRN PRN Reason: Constipation Magnesium Oxide (Mag-Ox 400) 400 mg PO DAILY [facility] Melatonin (Melatonin) 3 mg PO QHS PRN PRN PRN Reason: INSOMNIA Metoprolol Succinate (Toprol Xl (Beta Mohinder)) 50 mg PO BID [facility] Metoprolol Tartrate (Lopressor (Beta Mohinder)) 5 mg IV Q8H PRN PRN PRN Reason: SBP > 160, hold for HR < 60 Last Admin: 12/16/19 05:24 Dose: 5 mg Documented by: Ondansetron HCl (Zofran) 4 mg IV Q8H PRN PRN PRN Reason: NAUSEA/VOMITING Pravastatin Sodium (Pravachol) 80 mg PO QHS [facility] Prochlorperazine Edisylate (Compazine Iv) 5 mg IV Q4H PRN PRN PRN Reason: Breakthrough Nausea/Vomiting Psyllium Hydrophilic Mucilloid (Metamucil) 1 packet PO DAILY PRN PRN PRN Reason: Constipation Senna/Docusate Sodium (Senokot-S, Bridgett-Colace) 2 tablet PO BID PRN PRN PRN Reason: Constipation Sodium Chloride () 10 - 40 ml IV UD PRN PRN Reason: SALINE FLUSH Last Admin: 12/16/19 04:32 Dose: 10 ml Documented by: Throat Lozenges (Cepacol Sore Throat Lozenge) 1 lozenge MUCOUS MEM Q2H PRN PRN PRN Reason: SORE THROAT STROKE Vital Signs/Narrative: Vital Signs Temp Pulse Resp BP BP Pulse Ox 12/16/19 08:38 98.4 F 69 14 162/66 H 96 12/16/19 07:00 68 12/16/19 06:40 73 150/82 H Medical Necessity - Tobacco Use Smoking Status: Never smoker Tobacco Use: Non-smoker Assessment/Plan All Active Problems (Last Reviewed 07/20/19 @ 10:48 by Yelena Elliott) Acute encephalopathy (Acute) Accelerated hypertension (Acute) History of bacterial endocarditis (Acute) Cardiac tamponade (Acute) Hx pulmonary embolism (Resolved) 1. Acute metatabolic encephalopathy * etiology is unclear * CT of brain was negative, MRI cannot be done o/a of patient having a pacemaker which is not MRI compatible * 2D ehco pending; carotid USG pending * lipid panel WNL. * PT/OT on board * will consult neurology to help make determination whether patient needs to go back on anticoagulation if suspicion is high this is a stroke; patient has been off anticoagulation for Afib for ~ 6 months o/a of fall risk. says patient hasnt had any recent falls though. * per neurology recommendations, patient to be transferred to tertiary Center forcontinuous EEG monitoring as patient may be having seizures versus acute CVA * 2. Chronic afib * currently rate controlled * on metoprolol 50mg bid * on baby aspirin; not on oral anticoagulation as under 1. 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 3. Type 2 diabetes mellitus * A1C is 6.6 * on ISS, accuchecks ACHS * on lantus 10IU with breakfast * 4. CAD s/p stents: on aspirin, statin, loasrtan and metoprolol 5. Hyperlipidemia: on losartan, metoprolol and clonidine 6. Sick sinus syndrome: Status post pacemaker. Recent pacemaker check was on 10/24/2019. Pacemaker check requested for this admission. Upon pacemaker check, it was determined that Lester is MRI compatible. However patient is unable to have MRI till Wednesday because pacemaker has to be put in MRI mode. DVT prophylaxis: Lovenox Code status: DNRCCA- no intubation Disposition: transfer to [facility]- accepting physician Dr Bragg. OBSV E&M: [id number] Subsequent observation care L2
[2019-12-16] MEDS: Losartan Potassium 100 MG Tablet PO (10:49)
[2019-12-16] MEDS: Enoxaparin 40 MG/0.4 ML Syringe SC (10:49)
[2019-12-16] MEDS: cloNIDine HCl 0.1 MG Tablet PO (10:49)
[2019-12-16] MEDS: Aspirin 81 MG TAB.CHEW PO (10:49)
[2019-12-16] MEDS: Famotidine 20 MG Tablet PO (10:50)
[2019-12-16] MEDS: Magnesium Oxide 400 MG Tablet PO (10:50)
[2019-12-16] MEDS: Metoprolol(XL)Succ 50 MG Tablet PO (10:50)
--- NOTE | 2019-12-16 11:00 | NURSING ---
Pt having increased urinary frequency and only voiding small amounts at a time. Bladder scan performed on patient only showing PVR of 167. Will continue to monitor.
[2019-12-16] MEDS: Insulin Lispro 100 UNIT/ML INSULN.PEN SC (12:18)
[2019-12-16 12:41] LABS: Bedside Glucose 198 mg/dL (70-110)
--- NOTE | 2019-12-16 15:12 | DS.PCM_ITS ---
Discharge Date and Diagnosis - Problem List Patient Problems: Active and Suspected Problems (Last Reviewed 07/20/19 @ 10:48 by Yelena Elliott) Acute encephalopathy (Acute) Accelerated hypertension (Acute) Date of Admission: 12/16/19 Date of Discharge: 12/16/19 - Primary Discharge Diagnosis Active and Suspected Problems (Last Reviewed 07/20/19 @ 10:48 by Yelena Elliott) Acute encephalopathy (Acute) Accelerated hypertension (Acute) - Secondary Discharge Diagnosis Chronic Problems (Last Reviewed 07/20/19 @ 10:48 by Yelena Elliott) Mixed hyperlipidemia (Chronic) Essential hypertension (Chronic) COPD (chronic obstructive pulmonary disease) (Chronic) Cardiac pacemaker in situ (Chronic) Atherosclerotic heart disease of [place] coronary artery without angina pectoris (Chronic) Frequent falls (Chronic) Balance problem (Chronic) Lumbar stenosis (Chronic) Sick sinus syndrome (Chronic) Chronic atrial fibrillation (Chronic) DM2 (diabetes mellitus, type 2) (Chronic) Atrial dysrhythmia (Chronic) S/P PTCA (percutaneous transluminal coronary angioplasty) (Chronic ~04/2010) PTCA of the RCA intracoronary stent 04/12 Hospital Course and Treatment Imaging Results: 12/16/19 11:46 Brain without Contrast [MRI] Stat MRA Head ONLY WITH & W/O Cont [MRI] Stat 12/16/19 11:47 MRA Neck WITH and W/O Contrast [MRI] Stat Diagnostic Data Brain CT 12/16/19 00:24 IMPRESSION: Chronic involutional changes of the brain. There is no acute intracranial pathology. There is no significant interval change. Trace fluid in the maxillary sinuses is new. Electronically Signed: Radha Wall MD at 1:09 EDT , Service support , Chest X-Ray 12/16/19 00:25 IMPRESSION: Stable mild cardiomegaly and postsurgical changes. No pulmonary edema, congestive heart failure or confluent pneumonia. Electronically Signed: Radha Wall MD at 1:11 EDT , Service support , neurology- SOC teleneurology Operations: None Procedures: None Summary of Care Provided: The patient is a 79 year old M with an extensive past medical history as outlined was admitted with a complaint of confusion going on for about 4 days prior to admission. He had been evaluated by his physician 2 days prior and was told to present again if symptoms were ongoing. notes as that is symptoms were worsening but were intermittent with more lucid periods. He had no associated blurred vision or dizziness and denied any focal weakness of mouth droop. CT of the brain done on admission was negative for any acute intracranial pathology and EKG done showed no evidence of ischemia. Of note, patient had been off his anticoagulation for about 6 to 9 months according to his due to concerns for falls. Patient was admitted and managed for acute metabolic encephalopathy with suspicion been a probable stroke. Patient's pacemaker was initially thought to be not compatible with MRI, but after I was interrogated, it was determined that it was MRI compatible. However patient could not have the MRI on 12/16/2019 because there was nobody available to put pacer in MRI mode. Neurology was consulted, and per their review, the neurologist felt that patient had either had a CVA or was having seizures. He recommended continuous EEG monitoring to assess for seizures. Since this is not available in [facility], he recommended that patient be transferred to a tertiary center for continuous EEG monitoring. Patient was accepted at [facility] to the care of Dr. Bragg. He was transferred to [facility] on 12/16/2019. Patient was seen and examined prior to discharge. He had no complaints. was by his bedside. He denied any lightheadedness, palpitations or dizziness, chest pain, palpitations, dizziness, diarrhea vomiting. Review of systems otherwise negative. Labs and vitals reviewed. o/e: Vital Signs Height 5 ft Weight: 200 lb 2.876 oz Weight in Pounds 200.2 lbs Pulse Ox 97 Temperature 98.1 F Pulse Rate 70 Respiratory Rate 16 Blood Pressure [BP] 150/82 Blood Pressure 150/74 Blood Pressure Position [BP] Semi-Fowlers Blood Pressure Position Semi-Fowlers [] General: Alert, Cooperative, No apparent distress, Disoriented HEENT: Atraumatic, PERRLA, EOMI, Normocephalic Oral: Dry Mucosa Neck: Supple, No JVD, Negative Carotid Bruits Lungs: Clear to auscultation, Normal air movement, No rhonchi, No wheeze, No rales Cardiovascular: Regular rate, Regular Rhythm, Normal S1, Normal S2, No murmurs Abdomen: Bowel Sounds Present, Soft, Non Tender, Non-Distended, No Hepato- splenomegaly Extremities: No clubbing, No cyanosis, No edema, Capillary Refill Less than 3 Seconds Skin: No rashes, No breakdown Musculoskeletal: No Tenderness to Palpation of Joints or Extremities Lymphatic: No Cervical, Supraclavicular, or Inguinal Adenopathy Neurological: Cranial nerves II-XII grossly intact, Motor Exam 5/5 strength throughout, - - has tremors of the UEs- says it is a benign tremor, per previous diagnosis Psych/Mental Status: Normal Affect, Appropriate Plan is for transfer to [facility]. Patient Problems: Active and Suspected Problems (Last Reviewed 07/20/19 @ 10:48 by Yelena Elliott) Acute encephalopathy (Acute) Accelerated hypertension (Acute) - Physical Exam Vitals/I&O's: Vital Signs Temp Pulse Resp BP Pulse Ox 98.1 F 70 16 150/74 H 97 12/16/19 12:40 12/16/19 12:40 12/16/19 12:40 12/16/19 12:40 12/16/19 12:40 Oxygen Delivery Method Room Air Weight: 200 lb 2.876 oz Body Mass Index (BMI) 39.1 Finger Stick Blood Glucose 124 Intake and Output for Last 24 Hours 12/14/19 12/15/19 12/16/19 23:59 23:59 23:59 Intake Total 800.60 / 800.60 Output Total 255 / 255 Balance 545.60 / 545.60 Laboratory Results 12/16/19 00:15: WBC 8.5, RBC 4.74, Hgb 14.0, Hct 43.8, MCV 92.4, MCH 29.5, MCHC 32.0, RDW Std Deviation 43.8, RDW Coeff of Cristel 12.9, Plt Count 227, MPV 10.0, Immature Gran % (Auto) 0.400, Neut % (Auto) 58.4, Lymph % (Auto) 27.9, [place] % (Auto) 9.6, Eos % (Auto) 3.2, Baso % (Auto) 0.5, Absolute Neuts (auto) 5.0, Absolute Lymphs (auto) 2.37, Nucleated RBC % 0 12/16/19 00:15: Sodium 143, Potassium 4.3, Chloride 109 H, Carbon Dioxide 29.0, Anion Gap 5, BUN 12, Creatinine 1.23, Estim Creat Clear Calc 48.63, Est GFR (MDRD) Af Amer 73, Est GFR (MDRD) Non-Af 60, BUN/Creatinine Ratio 9.8 L, Glucose 130 H, Calcium 9.3, Total Bilirubin 0.40, AST 14 L, ALT 12 L, Alkaline Phosphatase 61, Total Protein 7.4, Albumin 3.7, Globulin 3.7, Albumin/Globulin Ratio 1.0 12/16/19 00:15: PT 14.0, INR 1.1, APTT 27.3 12/16/19 02:03: Urine Color Yellow, Urine Clarity Sl. Cloudy, Urine pH 6.0, Ur Specific [place] 1.020, Urine Protein 30 H, Urine Glucose (UA) Normal, Urine Ketones Negative, Urine Occult Blood Negative, Urine Nitrite Negative, Urine Bilirubin Negative, Urine Urobilinogen 1 H, Ur Leukocyte Esterase 25 H, Urine RBC 0 SEEN, Urine WBC 0-5 SEEN, Ur Squamous Epith Cells 0-5 SEEN, Urine Bacteria 0 SEEN, Urine Mucus 0 SEEN 12/16/19 04:42: Ammonia 18.0 12/16/19 04:42: WBC 8.1, RBC 4.42 L, Hgb 13.1, Hct 41.7, MCV 94.3 H, MCH 29.6, MCHC 31.4 L, RDW Std Deviation 45.0 H, RDW Coeff of Cristel 13.0, Plt Count 216, MPV 9.9, Immature Gran % (Auto) 0.400, Neut % (Auto) 75.6 H, Lymph % (Auto) 15.2 L, [place] % (Auto) 7.4, Eos % (Auto) 1.0, Baso % (Auto) 0.4, Absolute Neuts (auto) 6.2, Absolute Lymphs (auto) 1.24, Nucleated RBC % 0 12/16/19 04:42: Sodium 141, Potassium 4.9, Chloride 109 H, Carbon Dioxide 30.0, Anion Gap 2 L, BUN 12, Creatinine 1.23, Estim Creat Clear Calc 33.31, Est GFR (MDRD) Af Amer 73, Est GFR (MDRD) Non-Af 60, BUN/Creatinine Ratio 9.8 L, Glucose 163 H, Calcium 9.1, Magnesium 1.5 L, Total Bilirubin 0.50, AST 15, ALT 13 L, Alkaline Phosphatase 54, Total Protein 7.1, Albumin 3.5, Globulin 3.6, Albumin/Globulin Ratio 1.0, Triglycerides 89, Cholesterol 114, LDL Cholesterol 52, VLDL Cholesterol 18, HDL Cholesterol 44, Folate 6.80, TSH 1.54 12/16/19 04:42: Hemoglobin A1c 6.6 H 12/16/19 04:42: Vitamin B12 Pending 12/16/19 06:46: POC Glucose 136 H 12/16/19 12:15: POC Glucose 198 H Current Medications Acetaminophen (Tylenol) 650 mg PO Q6H PRN PRN PRN Reason: Pain Score 1-10/Temp > 100.7 F Al Hydroxide/Mg Hydroxide (Mylanta Ii) 30 ml PO Q6H PRN PRN PRN Reason: Gastric Burning Albuterol Sulfate (Ventolin Aerosols) 2.5 mg INHALATION Q2H PRN PRN PRN Reason: SOB/Wheezing [facility], [facility]) [facility] Last Admin: 12/16/19 10:49 Dose: 81 mg Documented by: Clonidine (Catapres) 0.1 mg PO DAILY [facility] Last Admin: 12/16/19 10:49 Dose: 0.1 mg Documented by: Enoxaparin Sodium (Lovenox) 40 mg SC DAILY [facility] Last Admin: 12/16/19 10:49 Dose: 40 mg Documented by: Famotidine (Pepcid) 20 mg PO BID [facility] Last Admin: 12/16/19 10:50 Dose: 20 mg Documented by: Glucagon () 1 mg IM .X1 PRN PRN Reason: Hypoglycemia Guaifenesin (Robitussin) 20 ml PO Q4H PRN PRN PRN Reason: COUGH Hydralazine HCl (Apresoline Iv) 10 mg IV Q4H PRN PRN PRN Reason: SBP > 160 Last Admin: 12/16/19 04:32 Dose: 10 mg Documented by: Sodium Chloride () 250 mls @ 15 mls/hr IV .[id number] PRN PRN Reason: Saline Flush Sodium Chloride () 250 mls @ 15 mls/hr IV .[id number] PRN PRN Reason: Additional IVPB Infusion Dextrose (Dextrose 10%-Water) 250 mls @ 999 mls/hr IV .Q16M PRN; Protocol PRN Reason: HYPOGLYCEMIA Insulin Glargine (Lantus (Bk)) 10 units SC BREAKFAST [facility] Last Admin: 12/16/19 10:50 Dose: 10 units Documented by: Insulin Human Lispro (Humalog Kwikpen ([facility])) 0 unit SC ACHS [facility]; Protocol Last Admin: 12/16/19 12:18 Dose: 2 units Documented by: Losartan Potassium (Cozaar) 100 mg PO DAILY [facility] Last Admin: 12/16/19 10:49 Dose: 100 mg Documented by: Magnesium Hydroxide (Milk Of Magnesia) 30 ml PO DAILY PRN PRN PRN Reason: Constipation Magnesium Oxide (Mag-Ox 400) 400 mg PO DAILY [facility] Last Admin: 12/16/19 10:50 Dose: 400 mg Documented by: Melatonin (Melatonin) 3 mg PO QHS PRN PRN PRN Reason: INSOMNIA Metoprolol Succinate (Toprol Xl (Beta Mohinder)) 50 mg PO BID [facility] Last Admin: 12/16/19 10:50 Dose: 50 mg Documented by: Metoprolol Tartrate (Lopressor (Beta Mohinder)) 5 mg IV Q8H PRN PRN PRN Reason: SBP > 160, hold for HR < 60 Last Admin: 12/16/19 05:24 Dose: 5 mg Documented by: Ondansetron HCl (Zofran) 4 mg IV Q8H PRN PRN PRN Reason: NAUSEA/VOMITING Pravastatin Sodium (Pravachol) 80 mg PO QHS [facility] Prochlorperazine Edisylate (Compazine Iv) 5 mg IV Q4H PRN PRN PRN Reason: Breakthrough Nausea/Vomiting Psyllium Hydrophilic Mucilloid (Metamucil) 1 packet PO DAILY PRN PRN PRN Reason: Constipation Senna/Docusate Sodium (Senokot-S, Bridgett-Colace) 2 tablet PO BID PRN PRN PRN Reason: Constipation Sodium Chloride () 10 - 40 ml IV UD PRN PRN Reason: SALINE FLUSH Last Admin: 12/16/19 04:32 Dose: 10 ml Documented by: Throat Lozenges (Cepacol Sore Throat Lozenge) 1 lozenge MUCOUS MEM Q2H PRN PRN PRN Reason: SORE THROAT Home Medications: Medications to take at Discharge Aspirin [Aspirin, Baby] 81 mg PO DAILY 06/24/14 bumetanide 1 mg tablet 0.5 mg PO QODAY PRN tab 09/21/17 metformin 1,000 mg tablet 1,000 mg PO BID 01/13/19 losartan 100 mg tablet 100 mg PO DAILY #90 tab 07/07/19 clonidine HCl 0.1 mg tablet 0.1 mg PO DAILY tab 07/20/19 insulin glargine 100 unit/mL subcutaneous solution 10 unit SC BREAKFAST 07/20/19 pravastatin 80 mg tablet 80 mg PO QHS #90 tab 09/25/19 Magnesium Oxide [Magnesium] 400 mg PO DAILY 12/16/19 Metoprolol Succinate [Toprol Xl] 50 mg PO BID 12/16/19 Multivit-Min/FA/Lycopen/Lutein [Centrum Silver Tablet] 1 ea PO DAILY 12/16/19 Vit A/Vit C/Vit E/Zinc/Copper [Preservision Areds Tablet] 1 ea PO DAILY 12/16/19 Primary Care Physician: Joe Hernandez MD [Primary Care Provider] - Please follow up with your Primary Care Physician in: 1-2 weeks Disposition: Acute care Hospital - [facility] Minutes spent on discharge:: 45 Patient Condition:: Stable Medical Necessity - Tobacco Use Smoking Status: Never smoker Tobacco Use: Non-smoker Meaningful Use Info Meaningful Use Diagnoses (Choose all that apply): None applicable Inpatient E&M: 47237 Disch Hosp
[2019-12-18 10:55] LABS: Vitamin B12 189 pg/mL (211-911)
== END 2019-12-16 16:39 | disposition short-term general hospital (02) ==
LOC: ED 00:28 → PCU 02:44
PROVIDERS: Admitting Provider Family Medicine; Emergency Provider Emergency Medicine; PCP Family Medicine; Visit Provider Student in an Organized Health Care Education/Training Program
DX: G93.40 Encephalopathy, unspecified (principal); I10 Essential (primary) hypertension; E78.2 Mixed hyperlipidemia; J44.9 Chronic obstructive pulmonary disease, unspecified; I25.10 Atherosclerotic heart disease of native coronary artery without angina pectoris; I48.20 Chronic atrial fibrillation, unspecified; E11.9 Type 2 diabetes mellitus without complications; Z95.0 Presence of cardiac pacemaker; Z79.899 Other long term (current) drug therapy; Z79.4 Long term (current) use of insulin; Z79.82 Long term (current) use of aspirin; G25.0 Essential tremor; Z86.711 Personal history of pulmonary embolism; I49.5 Sick sinus syndrome
CPT/HCPCS: 36415; 70450; 71045; 80053; 80061; 81001; 82140; 82607; 82746; 82962; 83036; 83735; 84443; 85025; 85610; 85730; 87077; 87086; 87088; 92610; 93005; 93306; 96361; 96372; 96374; 96375; 97162; 97166; 97802; 99218; 99251; 99285; J7030; Q9957; A4216; G0378; G0463

== ENCOUNTER → 2020-01-15 10:04 | Outpatient (CLI) | payer MEDICARE, OTHER, SELFPAY ==
[2020-01-11 14:11] VITALS: BMI 38.0
[2020-01-15 12:29] LABS: Anion Gap 6 (5-15); BUN 17 mg/dL (7-18); BUN/Creat Ratio 15.6 RATIO (10-20); CRP 4.55 mg/L (0.0-3.0); Calcium,Total 9.4 mg/dL (8.5-10.1); Chloride 106 mmol/L (98-107); Creatinine, Serum 1.09 mg/dL (0.70-1.30); EST Glomerular Filtration Rate 69 mL/min (>60); Est Glom Filt Rate - Afr Amer 83 mL/min (>60); Glucose 113 mg/dL (74-106); Magnesium 1.5 mg/dL (1.6-2.6); Potassium 4.5 mmol/L (3.5-5.1); Sodium Level 139 mmol/L (136-145)
[2020-01-15 12:50] LABS: Absolute Lymphocyte Count 1.91 X10^3/uL (0.83-4.51); Absolute Neutrophil Count 7.1 X10^3/uL (2.0-7.7); Basophil# 0.04 X10^3/uL; Basophil% 0.4 % (0-1); Eosinophil# 0.19 X10^3/uL; Eosinophils% 1.9 % (0-5); Hematocrit 44.7 % (40-54); Lymphocyte # 1.91 X10^3/ul (4.0); Lymphocyte % 19.1 % (19-41); Mean Corp Hgb Conc 31.3 g/dL (32-36); Mean Corpuscular Volume 92.7 fL (80-94); Mean Platelet Vol. 10.4 fl (6.2-12.0); Monocyte# 0.75 X10^3/uL; Monocyte% 7.5 % (0-10); NRBC Flagged by Analyzer 0 % (0-5); Neutrophil # 7.06 X10^3/uL (2.7-7.7); Neutrophil % 70.8 % (47-70); Platelet Count 283 K/mm3 (150-450); RBC Distribution Width CV 12.7 % (11.6-14.6); RBC Distribution Width SD 43.2 fl (35.1-43.9); Red Blood Count 4.82 M/mm3 (4.6-6.2)
[2020-01-15 13:53] LABS: Erythrocyte Sedimentation Rate 25 mm/hr (0-20)
== END ==
PROVIDERS: PCP Family Medicine; Referring Provider Family Medicine; Visit Provider Family Medicine
DX: M79.89 Other specified soft tissue disorders (principal); E53.8 Deficiency of other specified B group vitamins; M35.3 Polymyalgia rheumatica
CPT/HCPCS: 36415; 80048; 83735; 85025; 85652; 86140

== ENCOUNTER → 2020-03-07 09:48 | Outpatient (CLI) | payer MEDICARE, OTHER, SELFPAY ==
[2020-01-11 14:11] VITALS: BMI 38.0
[2020-03-07 12:31] LABS: Absolute Lymphocyte Count 1.85 X10^3/uL (0.83-4.51); Absolute Neutrophil Count 5.2 X10^3/uL (2.0-7.7); Basophil# 0.04 X10^3/uL; Basophil% 0.5 % (0-1); Eosinophil# 0.19 X10^3/uL; Eosinophils% 2.4 % (0-5); Hematocrit 42.4 % (40-54); Hemoglobin 13.5 g/dL (13.0-16.5); Lymphocyte # 1.85 X10^3/ul (4.0); Lymphocyte % 23.1 % (19-41); Mean Corp Hgb Conc 31.8 g/dL (32-36); Mean Corpuscular Hgb 29.7 pg (27.0-32.0); Mean Corpuscular Volume 93.4 fL (80-94); Mean Platelet Vol. 10.4 fl (6.2-12.0); Monocyte# 0.75 X10^3/uL; Monocyte% 9.4 % (0-10); NRBC Flagged by Analyzer 0 % (0-5); Neutrophil # 5.15 X10^3/uL (2.7-7.7); Neutrophil % 64.2 % (47-70); Platelet Count 247 K/mm3 (150-450); RBC Distribution Width SD 47.8 fl (35.1-43.9); Red Blood Count 4.54 M/mm3 (4.6-6.2)
[2020-03-07 12:43] LABS: Erythrocyte Sedimentation Rate 19 mm/hr (0-20)
[2020-03-07 12:57] LABS: Hemoglobin A1c 6.4 % (3.8-5.6)
[2020-03-07 13:02] LABS: Vitamin B12 659 pg/mL (211-911); Vitamin D,25 Hydroxy 27.4 ng/mL
[2020-03-07 13:23] LABS: AST(SGOT) 15 U/L (15-37); Alanine Aminotransfer ALT/SGPT 17 U/L (16-61); Albumin, Serum 3.8 g/dL (3.2-5.0); Alkaline Phosphatase 58 U/L (45-117); Anion Gap 7 (5-15); BUN 16 mg/dL (7-18); BUN/Creat Ratio 13.3 RATIO (10-20); CRP 5.71 mg/L (0.0-3.0); Calcium,Total 9.6 mg/dL (8.5-10.1); Chloride 105 mmol/L (98-107); EST Glomerular Filtration Rate 62 mL/min (>60); Est Glom Filt Rate - Afr Amer 75 mL/min (>60); Ferritin 52 ng/mL (26-388); Globulin 3.8 g/dL (2.2-4.2); Glucose 155 mg/dL (74-106); Potassium 4.7 mmol/L (3.5-5.1); Protein, Total 7.6 g/dL (6.4-8.2); Sodium Level 139 mmol/L (136-145)
== END ==
PROVIDERS: PCP Family Medicine; Referring Provider Family Medicine; Visit Provider Family Medicine
DX: E53.8 Deficiency of other specified B group vitamins (principal); M35.3 Polymyalgia rheumatica; E11.22 Type 2 diabetes mellitus with diabetic chronic kidney disease; N18.9 Chronic kidney disease, unspecified
CPT/HCPCS: 36415; 80053; 82306; 82607; 82728; 83036; 85025; 85652; 86140

== ENCOUNTER → 2020-05-13 11:08 | Outpatient (CLI) | payer MEDICARE, OTHER, SELFPAY ==
[2020-05-07 12:38] VITALS: BMI 39.2
[2020-05-13 12:59] LABS: Erythrocyte Sedimentation Rate 11 mm/hr (0-20)
[2020-05-13 13:00] LABS: Microalbumin,Random Urine 60.6 mg/L (NO RANGE EST.)
[2020-05-13 13:01] LABS: Absolute Neutrophil Count 4.9 X10^3/uL (2.0-7.7); Basophil# 0.05 X10^3/uL; Basophil% 0.6 % (0-1); Eosinophil# 0.19 X10^3/uL; Eosinophils% 2.3 % (0-5); Hematocrit 44.5 % (40-54); Hemoglobin 14.1 g/dL (13.0-16.5); Lymphocyte % 26.8 % (19-41); Mean Corp Hgb Conc 31.7 g/dL (32-36); Mean Corpuscular Hgb 29.4 pg (27.0-32.0); Mean Corpuscular Volume 92.9 fL (80-94); Mean Platelet Vol. 10.1 fl (6.2-12.0); Monocyte# 0.81 X10^3/uL; Monocyte% 9.9 % (0-10); NRBC Flagged by Analyzer 0 % (0-5); Neutrophil # 4.93 X10^3/uL (2.7-7.7); Platelet Count 239 K/mm3 (150-450); RBC Distribution Width CV 13.3 % (11.6-14.6); RBC Distribution Width SD 45.4 fl (35.1-43.9); Red Blood Count 4.79 M/mm3 (4.6-6.2); White Blood Count 8.2 K/mm3 (4.4-11.0)
[2020-05-13 13:06] LABS: ALB/GLOB Ratio 0.8 RATIO (0.9-2.4); AST(SGOT) 18 U/L (15-37); Alanine Aminotransfer ALT/SGPT 17 U/L (16-61); Albumin, Serum 3.4 g/dL (3.2-5.0); Alkaline Phosphatase 58 U/L (45-117); Anion Gap 9 (5-15); BUN 14 mg/dL (7-18); BUN/Creat Ratio 12.1 RATIO (10-20); CRP 2.94 mg/L (0.0-3.0); Calcium,Total 9.1 mg/dL (8.5-10.1); Chloride 106 mmol/L (98-107); Cholesterol 146 mg/dL (200); Creatinine, Serum 1.16 mg/dL (0.70-1.30); EST Glomerular Filtration Rate 64 mL/min (>60); Est Glom Filt Rate - Afr Amer 78 mL/min (>60); Globulin 4.2 g/dL (2.2-4.2); Glucose 107 mg/dL (74-106); High Density Lipoprotein 49 mg/dL; Potassium 5.1 mmol/L (3.5-5.1); Protein, Total 7.6 g/dL (6.4-8.2); Sodium Level 137 mmol/L (136-145); Triglycerides 204 mg/dL; Very Low Density Lipoprotein 41 mg/dL (5-40)
== END ==
PROVIDERS: PCP Family Medicine; Visit Provider Family Medicine
DX: E11.22 Type 2 diabetes mellitus with diabetic chronic kidney disease (principal); N18.9 Chronic kidney disease, unspecified; M35.3 Polymyalgia rheumatica
CPT/HCPCS: 36415; 80053; 80061; 82043; 82570; 85025; 85652; 86140

== ENCOUNTER → 2020-10-22 08:03 | Outpatient (CLI) | payer MEDICARE, OTHER, SELFPAY ==
[2020-05-16 12:58] VITALS: BMI 39.2
[2020-10-22 08:10] LABS: Bacteria 0 SEEN /hpf (None Seen); Mucous, Urine 0 SEEN /hpf (<or=2+)
[2020-10-22 09:44] LABS: Color, Urine Yellow (Yellow); Glucose, Dipstick Normal (Normal); Ketone-Dipstick 5 mg/dl (Negative); Leukocyte Esterase-Dipstick 25 /ul (Negative); Nitrite-Dipstick Negative (Negative); Occult Blood-Urine Negative /ul (Negative); Protein-Dipstick 100 mg/dl (Negative); Urine Bilirubin Dipstick Negative (Negative); Urine Clarity Clear (Clear); Urine Urobilinogen Normal (Normal)
[2020-10-22 09:59] LABS: Erythrocyte Sedimentation Rate 7 mm/hr (0-20); Red Blood Cells-Urine 0 SEEN /hpf (0-5); Squamous Epithelial Cells - UA 0-5 SEEN /hpf (0-5); White Blood Cells 0-5 SEEN /hpf (0-5)
[2020-10-22 10:12] LABS: Hemoglobin A1c 7.2 % (3.8-5.6)
[2020-10-22 10:15] LABS: Absolute Lymphocyte Count 2.02 X10^3/uL (0.83-4.51); Absolute Neutrophil Count 5.7 X10^3/uL (2.0-7.7); Basophil# 0.06 X10^3/uL; Basophil% 0.7 % (0-1); Eosinophil# 0.28 X10^3/uL; Eosinophils% 3.2 % (0-5); Hematocrit 45.2 % (40-54); Hemoglobin 14.8 g/dL (13.0-16.5); Lymphocyte # 2.02 X10^3/ul (4.0); Lymphocyte % 23.1 % (19-41); Mean Corp Hgb Conc 32.7 g/dL (32-36); Mean Corpuscular Hgb 30.5 pg (27.0-32.0); Mean Platelet Vol. 10.4 fl (6.2-12.0); NRBC Flagged by Analyzer 0 % (0-5); Neutrophil # 5.67 X10^3/uL (2.7-7.7); Neutrophil % 64.8 % (47-70); Platelet Count 215 K/mm3 (150-450); RBC Distribution Width SD 44.3 fl (35.1-43.9); Red Blood Count 4.86 M/mm3 (4.6-6.2); White Blood Count 8.8 K/mm3 (4.4-11.0)
[2020-10-22 10:22] LABS: AST(SGOT) 17 U/L (15-37); Alanine Aminotransfer ALT/SGPT 18 U/L (16-61); Albumin, Serum 4.1 g/dL (3.2-5.0); Alkaline Phosphatase 62 U/L (45-117); Anion Gap 8 (5-15); BUN 20 mg/dL (7-18); BUN/Creat Ratio 14.6 RATIO (10-20); CRP < 2.90 mg/L (0.0-3.0); Calcium,Total 9.3 mg/dL (8.5-10.1); Chloride 105 mmol/L (98-107); Creatinine, Serum 1.37 mg/dL (0.70-1.30); EST Glomerular Filtration Rate 53 mL/min (>60); Est Glom Filt Rate - Afr Amer 64 mL/min (>60); Glucose 134 mg/dL (74-106); Potassium 4.1 mmol/L (3.5-5.1); Protein, Total 8.1 g/dL (6.4-8.2); Sodium Level 140 mmol/L (136-145); Thyroid Stim Hormone (TSH) 1.75 uIU/mL (0.358-3.74)
== END ==
PROVIDERS: PCP Family Medicine; Referring Provider Family Medicine; Visit Provider Family Medicine
DX: E11.22 Type 2 diabetes mellitus with diabetic chronic kidney disease (principal); N18.9 Chronic kidney disease, unspecified; M35.3 Polymyalgia rheumatica; R46.89 Other symptoms and signs involving appearance and behavior
CPT/HCPCS: 36415; 80053; 81001; 83036; 84443; 85025; 85652; 86140; 87086; 87088

== ENCOUNTER → 2020-11-02 09:47 | Outpatient (CLI) | payer MEDICARE, OTHER, SELFPAY ==
[2020-05-16 12:58] VITALS: BMI 39.2
--- NOTE | 2020-11-02 09:55 | CT_ITS ---
STUDY: CT LUMBAR SPINE WITHOUT CONTRAST REASON FOR EXAM: Male, 80 years old. SPINAL STENOSIS -- LOW BACK P AIN, FREQUENT FALLS RADIATION DOSAGE (If Supplied By Facility): CTDIvol = ( 17.75 ) mGy, DLP = ( 493.56 ) mGycm TECHNIQUE: The patient was scanned in a multi detector CT scanner. High resolution transaxial imaging was performed. Images were obtained from T12 to S1. Sagittal and coronal images were reconstructed. Individualized dose optimization techniques were used for this CT. COMPARISON: 05/07/2018 FINDINGS: Normal lumbar lordosis. There is no substantial scoliosis. Normal vertebrae of the lumbar spine. L1-2: Mild bilateral facet hypertrophy and moderate ligament flavum hypertrophy, calcified on the right. No change in the mild bilobed disc protrusion which produces mild spinal stenosis and mild bilateral neural foraminal stenosis. L2-3: Mild bilateral facet hypertrophy and ligament flavum hypertrophy. No change in the 2 mm retrolisthesis of L2 on L3 with a mild bilobed disc protrusion which produces mild spinal stenosis and mild bilateral neural foraminal stenosis. L3-4: Moderate bilateral facet hypertrophy and ligament flavum hypertrophy. No change in the 2 mm of anterolisthesis of L3 on L4 with a moderate broad disc protrusion with vacuum disc formation which produces moderate spinal stenosis and moderate bilateral neural foraminal stenosis. L4-5: Mild bilateral facet hypertrophy and ligament flavum hypertrophy. No change in the mild broad disc protrusion which produces mild spinal stenosis and mild bilateral neural foraminal stenosis. L5-S1: Normal endplates. Normal disc height and morphology. Normal bilateral facet joints. Normal central canal and bilateral lateral recesses. Normal bilateral intervertebral neural foramina. Normal visualized paraspinous soft tissue structures. CT/Spine Lumbar without Contrast IMPRESSION: No change from 05/07/2018 P Electronically Signed: Ishaan Austin MD at 13:30 EST Tel , Service support ,
== END ==
PROVIDERS: PCP Family Medicine; Referring Provider Family Medicine; Visit Provider Family Medicine
DX: M48.061 Spinal stenosis, lumbar region without neurogenic claudication (principal)
CPT/HCPCS: 72131

== ENCOUNTER → 2021-06-10 16:10 | Outpatient (CLI) | payer MEDICARE, OTHER, SELFPAY ==
[2021-06-10 18:05] LABS: Vitamin D,25 Hydroxy 19.9 ng/mL
[2021-06-10 18:06] LABS: Vitamin B12 > 2000 pg/mL (211-911)
[2021-06-10 18:11] LABS: ALB/GLOB Ratio 0.9 RATIO (0.9-2.4); AST(SGOT) 14 U/L (15-37); Alanine Aminotransfer ALT/SGPT 17 U/L (16-61); Albumin, Serum 3.7 g/dL (3.2-5.0); Alkaline Phosphatase 59 U/L (45-117); Anion Gap 9 (5-15); BUN 14 mg/dL (7-18); BUN/Creat Ratio 9.9 RATIO (10-20); Chloride 104 mmol/L (98-107); Creatinine, Serum 1.41 mg/dL (0.70-1.30); EST Glomerular Filtration Rate 51 mL/min (>60); Est Glom Filt Rate - Afr Amer 62 mL/min (>60); Globulin 3.9 g/dL (2.2-4.2); Glucose 176 mg/dL (74-106); Potassium 4.3 mmol/L (3.5-5.1); Protein, Total 7.6 g/dL (6.4-8.2); Sodium Level 139 mmol/L (136-145); Thyroid Stim Hormone (TSH) 2.39 uIU/mL (0.358-3.74)
[2021-06-10 18:25] LABS: Microalbumin:Creatinine Ratio 154.9 mg/g CRE (<30 mg/g CRE)
== END ==
PROVIDERS: PCP Family Medicine; Visit Provider Family Medicine
DX: E11.22 Type 2 diabetes mellitus with diabetic chronic kidney disease (principal); E53.8 Deficiency of other specified B group vitamins; E55.9 Vitamin D deficiency, unspecified; I12.9 Hypertensive chronic kidney disease with stage 1 through stage 4 chronic kidney disease, or unspecified chronic kidney disease; N18.2 Chronic kidney disease, stage 2 (mild)
CPT/HCPCS: 36415; 80053; 82043; 82306; 82570; 82607; 84443

== ENCOUNTER 2021-07-14 10:15 | Day surgery (SDC) | payer MEDICARE, OTHER, SELFPAY ==
--- NOTE | 2021-07-09 12:22 | RAD_ITS ---
INDICATION: For PPM generator change with Dr. Graham on EXAMINATION/TECHNIQUE: X-RAY - XR Chest 2 Views COMPARISON: 12/16/2019. FINDINGS: LINES/DEVICES: AICD visualized in the right chest with 2 leads in the RA and RV.. LUNGS: The bronchovascular interstitial lung markings are unremarkable bilaterally, no evidence of consolidation, edema or effusion. No evidence of parenchymal contusion or pneumothorax. MEDIASTINUM AND CARDIOVASCULAR STRUCTURES: Cardiac silhouette not enlarged. Central airways and mediastinal contour are unremarkable. BONES AND SOFT TISSUES: Unremarkable. RAD/Chest PA and Lateral IMPRESSION: No radiographic evidence of acute cardiopulmonary disease. Electronically Signed: Santy Moeller MD at 14:43 EDT Tel , Service support ,
[2021-07-09 12:34] LABS: Bacteria 0 SEEN /hpf (None Seen); Red Blood Cells-Urine 0 SEEN /hpf (0-5); White Blood Cells 0 SEEN /hpf (0-5)
[2021-07-09 12:48] LABS: Color, Urine Yellow (Yellow); Glucose, Dipstick Normal (Normal); Ketone-Dipstick Negative (Negative); Leukocyte Esterase-Dipstick Negative /ul (Negative); Nitrite-Dipstick Negative (Negative); Occult Blood-Urine Negative /ul (Negative); Protein-Dipstick 30 mg/dl (Negative); Urine Bilirubin Dipstick Negative (Negative); Urine Clarity Clear (Clear); Urine Urobilinogen Normal (Normal)
[2021-07-09 12:49] LABS: Hematocrit 43.8 % (40-54); Hemoglobin 13.9 g/dL (13.0-16.5); Mean Corp Hgb Conc 31.7 g/dL (32-36); Mean Corpuscular Hgb 29.5 pg (27.0-32.0); Mean Platelet Vol. 10.1 fl (6.2-12.0); Platelet Count 246 K/mm3 (150-450); RBC Distribution Width CV 13.1 % (11.6-14.6); RBC Distribution Width SD 45.1 fl (35.1-43.9); Red Blood Count 4.71 M/mm3 (4.6-6.2); White Blood Count 8.7 K/mm3 (4.4-11.0)
[2021-07-09 12:58] LABS: Squamous Epithelial Cells - UA 0-5 SEEN /hpf (0-5)
[2021-07-09 12:59] LABS: Mucous, Urine RARE /hpf (<or=2+)
[2021-07-09 13:00] LABS: International Normalized Ratio 1.1; Prothrombin Time (Protime)PT. 13.4 SECONDS (11.7-14.9)
[2021-07-09 13:02] LABS: Anion Gap 7 (5-15); BUN 16 mg/dL (7-18); BUN/Creat Ratio 10.5 RATIO (10-20); Calcium,Total 9.7 mg/dL (8.5-10.1); Chloride 104 mmol/L (98-107); Creatinine, Serum 1.53 mg/dL (0.70-1.30); EST Glomerular Filtration Rate 46 mL/min (>60); Est Glom Filt Rate - Afr Amer 56 mL/min (>60); Glucose 192 mg/dL (74-106); Potassium 4.2 mmol/L (3.5-5.1); Sodium Level 138 mmol/L (136-145)
[2021-07-11 07:56] VITALS: BMI 29.3
--- NOTE | 2021-07-14 12:52 | CL.IE_ITS ---
Patient: TANIA GUERRERO Study Date: 07/14/2021 Performing: Estevan Graham MD : [id number] Age: 81 Gender: male PROCEDURES PERFORMED [id number] REMOVAL+REPLACEMENT PACER-DUAL LEAD INDICATIONS Sinoatrial node dysfunction/Sick sinus syndrome PROCEDURE DETAILS The patient was brought to the Catheterization Lab in the postabsorptive nonsedated state. Infor med consent was obtained prior to the procedure. Local anesthetic was given subcutaneously to the [facility] subclavian region with Lidocaine 2%. Incision was made to the right subclavicular area. PPM gener ator was then interrogated by the rpg programmer. PPM generator was removed. PPM generator was attached t o the lead(s) and inserted into the pocket. Device pocket was irrigated with antibiotic. Subcutaneous closure was completed with 3-0 Vicryl. Skin closure was completed with 4-0 Vicryl. Instrument, spong e, and needle counts were noted to be normal. The patient tolerated the procedure well. Estimated Blood Loss: 15 ml's IMPLANTED / EX-PLANTED DEVICES IMPLANTED DEVICE(S): PPM Generator - Learning Officer: [employer]erID, Model # [id number] XT DR [id number] Bustamante [id number] , Serial # [id number] DEVICE PARAMETERS ATRIAL LEAD PARAMETERS: P wave (mV) - 0.3 threshold (V) - 1.50 VENTRICULAR LEAD PARAMETERS: R wave (mV) - 0.9 threshold (V) - 2.00 DEVICE PARAMETERS: Mode - AAR-DDDR lower rate - 60 upper rate - 130 CONCLUSIONS / RECOMMENDATIONS Device Conclusions: Successful implantation of a dual chamber pacemaker battery change and replacemen t Device Recommendations: Follow up with Primary Care Physician PROCEDURE MEDICATIONS Versed 1 mg IV Fentanyl 50 mcg IV Versed 1 mg IV Oxygen: 2 L/min via nasal cannula Antibiotic given in appropriate timeframe. Ancef 2 Gm IV @ 07/14/2021 11:48:03 Signed By Estevan Graham MD On 07/14/2021 12:51:24 Estevan Graham MD
== END 2021-07-14 14:10 | disposition home or self-care (01) ==
LOC: CLSP 10:16
PROVIDERS: Internal Medicine Cardiovascular Disease; PCP Family Medicine; Referring Provider Internal Medicine Cardiovascular Disease; Visit Provider Internal Medicine Cardiovascular Disease
DX: Z45.018 Encounter for adjustment and management of other part of cardiac pacemaker (principal); I25.10 Atherosclerotic heart disease of native coronary artery without angina pectoris; I10 Essential (primary) hypertension; I49.5 Sick sinus syndrome; J44.9 Chronic obstructive pulmonary disease, unspecified; E11.9 Type 2 diabetes mellitus without complications; M10.9 Gout, unspecified; E78.5 Hyperlipidemia, unspecified; I48.11 Longstanding persistent atrial fibrillation; E78.2 Mixed hyperlipidemia; G25.0 Essential tremor; Z86.73 Personal history of transient ischemic attack (TIA), and cerebral infarction without residual deficits; Z86.711 Personal history of pulmonary embolism; Z95.5 Presence of coronary angioplasty implant and graft; Z79.82 Long term (current) use of aspirin; Z79.84 Long term (current) use of oral hypoglycemic drugs; Z79.899 Other long term (current) drug therapy
CPT/HCPCS: 33228; 36415; 71046; 80048; 81001; 85027; 85610; 99152; 99153; J7040; J7050

== ENCOUNTER → 2021-09-15 10:46 | Outpatient (CLI) | payer MEDICARE, OTHER, SELFPAY ==
--- NOTE | 2021-09-15 10:49 | RAD_ITS ---
STUDY: X-RAY CHEST REASON FOR EXAM: Male, 81 years old. CHEST PAIN CHRONIC OBSTRUCTIVE PULM DISEASE TECHNIQUE: XR Chest 2 Views COMPARISON: 07/09/2021 FINDINGS: There is no demonstrated pleural abnormality. There is a right sided pacemaker batterypack. Normal size heart. Normal mediastinum and sylvie. Normal visualized pulmonary arteries. There is atherosclerotic calcification of the aortic arch with tortuosity. There are diffuse degenerative changes of the visualized thoracic spine. There is degenerative osteoarthritis of the bilateral shoulders. There is no demonstrated abnormality of the visualized soft tissue structures of the upper abdomen. RAD/Chest PA and Lateral IMPRESSION: There are no acute findings. Electronically Signed: Gato Hancock MD at 17:01 EST , Service support ,
== END ==
PROVIDERS: PCP Family Medicine; Referring Provider Family Medicine; Visit Provider Family Medicine
DX: J44.1 Chronic obstructive pulmonary disease with (acute) exacerbation (principal)
CPT/HCPCS: 71046

== ENCOUNTER → 2021-09-15 11:13 | Outpatient (CLI) | payer MEDICARE, OTHER, SELFPAY | PROVIDERS: PCP Family Medicine; Visit Provider Family Medicine | DX: J39.9 Disease of upper respiratory tract, unspecified (principal); J44.1 Chronic obstructive pulmonary disease with (acute) exacerbation | CPT/HCPCS: 71046; 87633; 87635; U0005; U0003 ==

== ENCOUNTER 2022-04-30 09:02 | Outpatient (CLI) | payer MEDICARE, OTHER, SELFPAY ==
[2022-04-30 10:25] LABS: Hematocrit 47.7 % (40-54); Hemoglobin 15.1 g/dL (13.0-16.5); Mean Corp Hgb Conc 31.7 g/dL (32-36); Mean Corpuscular Hgb 29.8 pg (27.0-32.0); Mean Corpuscular Volume 94.1 fL (80-94); POSITIVE DIFFERENTIAL YES; Platelet Count 249 K/mm3 (150-450); RBC Distribution Width CV 13.9 % (11.6-14.6); RBC Distribution Width SD 47.6 fl (35.1-43.9); Red Blood Count 5.07 M/mm3 (4.6-6.2); White Blood Count 12.6 K/mm3 (4.4-11.0)
[2022-04-30 10:41] LABS: Differential Indicated MANUAL DIFF
[2022-04-30 10:54] LABS: Eosinophil 12 % (0-5); Lymphocyte 21 % (19-41); Monocyte 6 % (0-10); Neutrophil-Segmented 61 % (47-70); Platelet Estimate ADEQUATE (ADEQ); Red Cell Morphology NORM C+C NORMAL (NORM C&C); Total Cells Counted 100 (MANUAL DIFF)
[2022-04-30 10:56] LABS: Absolute Neutrophil Count 7.7 X10^3/uL (2.0-7.7)
[2022-04-30 11:29] LABS: Microalbumin,Random Urine 22.2 mg/L (NO RANGE EST.); Microalbumin:Creatinine Ratio 21.1 mg/g CRE (<30 mg/g CRE)
[2022-04-30 11:31] LABS: ALB/GLOB Ratio 0.9 RATIO (0.9-2.4); AST(SGOT) 14 U/L (15-37); Alanine Aminotransfer ALT/SGPT 14 U/L (16-61); Albumin, Serum 3.8 g/dL (3.2-5.0); Alkaline Phosphatase 72 U/L (45-117); Anion Gap 8 (5-15); BUN 23 mg/dL (7-18); BUN/Creat Ratio 14.6 RATIO (10-20); Calcium,Total 9.5 mg/dL (8.5-10.1); Chloride 107 mmol/L (98-107); Cholesterol 164 mg/dL (200); Creatinine, Serum 1.57 mg/dL (0.70-1.30); EST Glomerular Filtration Rate 45 mL/min (>60); Est Glom Filt Rate - Afr Amer 54 mL/min (>60); Globulin 4.2 g/dL (2.2-4.2); Glucose 156 mg/dL (74-106); High Density Lipoprotein 47 mg/dL; Potassium 4.9 mmol/L (3.5-5.1); Sodium Level 140 mmol/L (136-145); Thyroid Stim Hormone (TSH) 1.97 uIU/mL (0.358-3.74); Triglycerides 140 mg/dL; Very Low Density Lipoprotein 28 mg/dL (5-40)
[2022-04-30 13:51] LABS: Hemoglobin A1c 7.3 % (3.8-5.6)
[2022-05-01 12:32] LABS: Pathologist Review Reviewed
== END 2022-04-30 23:59 | disposition home or self-care (01) ==
LOC: MFPLAB 09:09
PROVIDERS: PCP Family Medicine; Referring Provider Family Medicine; Visit Provider Family Medicine
DX: E11.22 Type 2 diabetes mellitus with diabetic chronic kidney disease (principal); J44.9 Chronic obstructive pulmonary disease, unspecified; I48.92 Unspecified atrial flutter; N18.2 Chronic kidney disease, stage 2 (mild)
CPT/HCPCS: 36415; 80053; 80061; 82043; 82570; 83036; 84443; 85025

== ENCOUNTER → 2022-11-10 | Outpatient (CLI) | payer MEDICARE, OTHER, SELFPAY ==
[2022-11-10 14:41] LABS: Hematocrit 48.7 % (40-54); Hemoglobin 15.3 g/dL (13.0-16.5); Mean Corp Hgb Conc 31.4 g/dL (32-36); Mean Corpuscular Hgb 30.1 pg (27.0-32.0); Mean Corpuscular Volume 95.7 fL (80-94); Platelet Count 200 K/mm3 (150-450); RBC Distribution Width CV 13.3 % (11.6-14.6); RBC Distribution Width SD 47.2 fl (35.1-43.9); Red Blood Count 5.09 M/mm3 (4.6-6.2); White Blood Count 8.8 K/mm3 (4.4-11.0)
[2022-11-10 15:14] LABS: ALB/GLOB Ratio 0.8 RATIO (0.9-2.4); AST(SGOT) 12 U/L (15-37); Alanine Aminotransfer ALT/SGPT 21 U/L (16-61); Albumin, Serum 3.8 g/dL (3.2-5.0); Alkaline Phosphatase 64 U/L (45-117); Anion Gap 10 (5-15); BUN 23 mg/dL (7-18); BUN/Creat Ratio 13.1 RATIO (10-20); Calcium,Total 9.1 mg/dL (8.5-10.1); Chloride 102 mmol/L (98-107); Creatinine, Serum 1.76 mg/dL (0.70-1.30); EST Glomerular Filtration Rate 39 mL/min (>60); Est Glom Filt Rate - Afr Amer 48 mL/min (>60); Globulin 4.5 g/dL (2.2-4.2); Glucose 240 mg/dL (74-106); Potassium 4.1 mmol/L (3.5-5.1); Protein, Total 8.3 g/dL (6.4-8.2); Sodium Level 140 mmol/L (136-145); Thyroid Stim Hormone (TSH) 2.05 uIU/mL (0.358-3.74)
[2022-11-10 15:52] LABS: Vitamin D,25 Hydroxy 14.6 ng/mL
== END | disposition home or self-care (01) ==
LOC: MTLAB 11:05
PROVIDERS: PCP Family Medicine; Referring Provider Family Medicine; Visit Provider Family Medicine
DX: E53.8 Deficiency of other specified B group vitamins (principal); N18.31 Chronic kidney disease, stage 3a
CPT/HCPCS: 36415; 80053; 82306; 82746; 84443; 85027

== ENCOUNTER → 2023-04-13 | Outpatient (CLI) | payer MEDICARE, OTHER, SELFPAY ==
[2023-04-13 12:21] LABS: Absolute Lymphocyte Count 1.72 X10^3/uL (0.83-4.51); Basophil# 0.05 X10^3/uL; Basophil% 0.6 % (0-1); Eosinophil# 0.33 X10^3/uL; Eosinophils% 3.7 % (0-5); Hematocrit 49.2 % (40-54); Hemoglobin 15.1 g/dL (13.0-16.5); Lymphocyte # 1.72 X10^3/ul (0.83-4.51); Lymphocyte % 19.4 % (19-41); Mean Corp Hgb Conc 30.7 g/dL (32-36); Mean Corpuscular Hgb 30.2 pg (27.0-32.0); Mean Corpuscular Volume 98.4 fL (80-94); Monocyte# 0.71 X10^3/uL; NRBC Flagged by Analyzer 0 % (0-5); Neutrophil # 5.98 X10^3/uL (2.7-7.7); Neutrophil % 67.6 % (47-70); Platelet Count 173 K/mm3 (150-450); RBC Distribution Width CV 13.1 % (11.6-14.6); RBC Distribution Width SD 46.6 fl (35.1-43.9); White Blood Count 8.9 K/mm3 (4.4-11.0)
[2023-04-13 12:41] LABS: Vitamin B12 306 pg/mL (211-911)
[2023-04-13 12:48] LABS: ALB/GLOB Ratio 1.1 RATIO (0.9-2.4); AST(SGOT) 17 U/L (15-37); Alanine Aminotransfer ALT/SGPT 16 U/L (16-61); Albumin, Serum 3.6 g/dL (3.2-5.0); Alkaline Phosphatase 66 U/L (45-117); Anion Gap 8 (5-15); BUN 20 mg/dL (7-18); BUN/Creat Ratio 10.9 RATIO (10-20); Chloride 106 mmol/L (98-107); Creatinine, Serum 1.83 mg/dL (0.70-1.30); EST Glomerular Filtration Rate 38 mL/min (>60); Est Glom Filt Rate - Afr Amer 46 mL/min (>60); Globulin 3.4 g/dL (2.2-4.2); Glucose 282 mg/dL (74-106); Potassium 5.2 mmol/L (3.5-5.1); Sodium Level 139 mmol/L (136-145)
== END | disposition home or self-care (01) ==
LOC: MFPLAB 10:02
PROVIDERS: PCP Family Medicine; Visit Provider Family Medicine
DX: E53.8 Deficiency of other specified B group vitamins (principal); E11.22 Type 2 diabetes mellitus with diabetic chronic kidney disease
CPT/HCPCS: 36415; 80053; 82607; 82746; 85025

== ENCOUNTER → 2023-05-05 | Outpatient (CLI) | payer MEDICARE, OTHER, SELFPAY ==
[2023-05-05 13:14] LABS: Anion Gap 5 (5-15); BUN 23 mg/dL (7-18); BUN/Creat Ratio 12.6 RATIO (10-20); Calcium,Total 9.1 mg/dL (8.5-10.1); Chloride 105 mmol/L (98-107); Creatinine, Serum 1.83 mg/dL (0.70-1.30); EST Glomerular Filtration Rate 38 mL/min (>60); Est Glom Filt Rate - Afr Amer 46 mL/min (>60); Glucose 377 mg/dL (74-106); Sodium Level 134 mmol/L (136-145)
== END | disposition home or self-care (01) ==
LOC: MFPLAB 10:19
PROVIDERS: PCP Family Medicine; Visit Provider Family Medicine
DX: E87.5 Hyperkalemia (principal)
CPT/HCPCS: 36415; 80048

== ENCOUNTER → 2023-06-25 | Outpatient (CLI) | payer MEDICARE, OTHER, SELFPAY ==
[2023-06-25 10:40] LABS: Hemoglobin A1c 9.7 % (3.8-5.6)
[2023-06-25 10:45] LABS: Vitamin D,25 Hydroxy 52.6 ng/mL
[2023-06-25 10:45] LABS: Anion Gap 5 (5-15); BUN 24 mg/dL (7-18); BUN/Creat Ratio 14.2 RATIO (10-20); Calcium,Total 9.4 mg/dL (8.5-10.1); Chloride 106 mmol/L (98-107); Creatinine, Serum 1.69 mg/dL (0.70-1.30); EST Glomerular Filtration Rate 41 mL/min (>60); Est Glom Filt Rate - Afr Amer 50 mL/min (>60); Glucose 185 mg/dL (74-106); Potassium 4.6 mmol/L (3.5-5.1); Sodium Level 137 mmol/L (136-145)
== END | disposition home or self-care (01) ==
LOC: MTLAB 08:59
PROVIDERS: PCP Family Medicine; Referring Provider Family Medicine; Visit Provider Family Medicine
DX: E11.22 Type 2 diabetes mellitus with diabetic chronic kidney disease (principal); E55.9 Vitamin D deficiency, unspecified
CPT/HCPCS: 36415; 80048; 82306; 83036

== ENCOUNTER 2023-08-19 15:14 | Inpatient (IN) | payer MEDICARE, OTHER, SELFPAY ==
[2023-08-19] VITALS (7 sets, daily range): BP systolic 133–192; BP diastolic 65–105; PULSE 65–99; RESP 16–18; TEMP 36.4–37.5; O2SAT 95–98; BMI 30.4
--- NOTE | 2023-08-19 16:14 | EKG12_ITS ---
Test Reason : Blood Pressure : / mmHG Vent. Rate : 060 BPM Atrial Rate : 000 BPM P-R Int : 000 ms QRS Dur : 174 ms QT Int : 466 ms P-R-T Axes : 000 -86 085 degrees QTc Int : 466 ms Atrial fibrillation Left axis deviation Non-specific intra-ventricular conduction block Minimal voltage criteria for LVH, may be normal variant ( [place] product ) Possible Lateral infarct , age undetermined Inferior infarct , age undetermined Abnormal ECG Confirmed by VAIBHAV MORALES, SAM ([id number]), pictures editor MARIA ELENA MENDOZA ([id number]) on 08/25/2023 11:56:42 AM Referred By: Confirmed By:SAM ESPOSITO MD
[2023-08-19] MEDS: Morphine 4 MG/ML Syringe IV ×2 (16:24→20:54)
[2023-08-19] MEDS: Ondansetron 4 MG/2 ML Vial IV (16:24)
--- NOTE | 2023-08-19 16:33 | EX.ED.GENINJ ---
HPI History of Present Illness Chief Complaint: Fall Informant: patient, spouse/S.O. and EMS Narrative Narrative: 83-year-old male presenting to the emergency room following a fall. Patient states he was in his kitchen when to change his shirt lost his balance and fell onto his left side. He believes he struck the left side of his head. No loss of consciousness. He is unable to get up. He notes pain with the left hip with movement. He denies being on a blood thinner other than a baby aspirin a day. Patient has a pacemaker secondary to sick sinus syndrome. [facility] Medical History Atherosclerotic heart disease of [place] coronary artery without angina pectoris Atrial dysrhythmia Cardiac dysrhythmia Cardiac pacemaker in situ Cardiac tamponade COPD (chronic obstructive pulmonary disease) Diverticulosis DM2 (diabetes mellitus, type 2) Essential (primary) hypertension Essential hypertension Gout History of bacterial endocarditis History of cardioversion History of electrophysiologic study HTN (hypertension) Hyperlipidemia Longstanding persistent atrial fibrillation Mixed hyperlipidemia On anticoagulant therapy Presence of stent in coronary artery (~04/08/10) Pulmonary embolism Sick sinus syndrome Sick sinus syndrome TIA (transient ischemic attack) Tremor, essential Home Medications aspirin 81 mg chewable tablet 81 mg PO QHS HEART [facility] 06/24/14 [History Last Taken 08/18/23] furosemide 20 mg tablet 20 mg PO DAILY FLUID #1 TAB 01/11/20 [Rx Last Taken 08/18/23] empagliflozin 10 mg tablet (Jardiance) 10 mg PO DAILY DIABETES 01/14/22 [History Last Taken 08/19/23] glipizide 5 mg tablet 5 mg PO BID DIABETES 01/14/22 [History Last Taken 08/19/23] clonidine HCl 0.1 mg tablet 0.1 mg PO BID BLOOD PRESSURE #180 tabs 10/01/22 [Rx Last Taken 08/19/23] metoprolol tartrate 50 mg tablet 50 mg PO BID BLOOD PRESSURE #180 tabs 04/05/23 [Rx Last Taken 08/19/23] losartan 100 mg tablet 100 mg PO DAILY BLOOD PRESSURE #90 tabs 04/16/23 [Rx Last Taken 08/19/23] pravastatin 80 mg tablet 80 mg PO QHS CHOLESTEROL #90 tabs 07/21/23 [Rx Last Taken 08/18/23] cholecalciferol (vitamin D3) 50 mcg (2,000 unit) capsule 2,000 unit PO DAILY SUPPLEMENT 08/19/23 [History Last Taken 08/19/23] insulin glargine U-300 conc 300 unit/mL (1.5 mL) subcutaneous pen (Toujeo SoloStar U-300 Insulin) 10 unit subcut DAILY DIABETES 08/19/23 [History Last Taken 08/19/23] vitamins A,C,K-ortv-eptddz 4,296 mcg-226 mg-90 mg capsule (PreserVision AREDS) 1 cap PO DAILY EYE HEALTH 08/19/23 [History Last Taken 08/19/23] Allergy/AdvReac Type Severity Reaction Status Date / Time hydrochlorothiazide AdvReac Unknown Gout Verified 08/19/23 15:15 symptoms Family History Brother Colon cancer Father CAD (coronary artery disease) Mother Colon cancer Sister Breast cancer Surgical History H/O right and left heart catheterization History of cardiac radiofrequency ablation (~09/2005) History of hernia repair Presence of coronary angioplasty implant and graft (~04/08/10) PVI and Superior Vena Cava Isolation S/P pericardiocentesis S/P placement of cardiac pacemaker (~02/2010) S/P PTCA (percutaneous transluminal coronary angioplasty) (~04/2010) Social History Smoking Status: Never smoker alcohol intake: current alcohol intake frequency: 0-2 drinks per day Alcohol type: hard liquor substance use type: does not use caffeine: No what type of physical activity do you participate in: none seatbelt use: always do you feel safe at home: Yes ROS ROS ED Constitutional Constitutional ED: Denies chills, fever(s) or weight loss Eyes Eyes: Denies change in vision or diplopia ENT ENT ED: Denies ear pain, rhinorrhea or sore throat Cardiovascular Cardiovascular: Denies chest pain, orthopnea, palpitations or racing heartbeat Respiratory/Chest Respiratory/Chest: Denies cough, dyspnea or orthopnea Gastrointestinal Gastrointestinal: Denies abdominal pain, diarrhea, nausea or vomiting Genitourinary Genitourinary ED: Denies dysuria, hematuria or urinary frequency Musculoskeletal Musculoskeletal: Reports other Details: Left Hip pain ; Denies arthralgias or myalgias Integumentary Denies abscess or rash Neurologic Neurologic: Denies headache(s) or weakness Psychiatric Psychiatric: Denies anxiety, depression, suicidal ideation or suicidal thoughts Endocrine Endocrinology: Denies polydipsia, polyphagia or polyuria Allergic/Immunologic Allergic/Immunologic ED: Denies mouth swelling, tongue swelling or urticaria EXAM Physical Exam Const Vital Signs: 08/19/23 15:16 08/19/23 15:19 Temperature 97.6 F L Temperature Source Temporal Pulse Rate 99 Respiratory Rate 17 Respiratory Effort Normal Non-Labored Respiratory Depth Normal Respiratory Pattern Normal Blood Pressure 133/105 H Blood Pressure Mean 114 Pulse Ox 98 Oxygen Delivery Method Room Air Room Air Positive well nourished and well developed General Appearance ED: well developed HEENT Reports normocephalic, head/scalp atraumatic and moist mucous membranes Eyes PERRL and EOMs intact bilaterally Neck no lymphadenopathy, supple and no JVD Resp normal respiratory effort and clear to auscultation bilaterally Cardio regular rate, regular rhythm and no murmurs GI normal to inspection, nondistended, normoactive bowel sounds and non-tender Palpation: soft Back/Spine no CVA tenderness and normal ROM Extremity Extremity Narrative: Tender to palpation. Positive logroll. Slight shortening and external rotation distally. Neurovascular intact. General Extremety ED: Negative for edema General Extremity: Negative for edema Neuro oriented x3 and CN's II-XII intact bilaterally Sensorium / Orientation: alert Motor Exam: strength 5/5 throughout Psych mental status grossly normal Mood & Affect: Negative for depressed or tearful Skin no rashes or lesions noted Skin Narrative: There is a very mild skin abrasion posterior left elbow MDM MDM MDM Narrative Medical decision making narrative: My independent interpretation of the left hip x-rays with pelvis is a left femoral neck fracture. CT brain and cervical spine showed no acute. Patient received morphine and Zofran for pain. Basic blood work was checked. Glucose 331. Chronic kidney disease with a creatinine of 1.80. I spoke with Dr. Parada from orthopedics and Dr. Stacy from medicine and the patient will be admitted for planned surgery. History & Record Review Discussion w/independent historian: EMS personnel, Patient and Significant other Additional record(s) reviewed:: Prior ED visit and Prior labs Lab Data Attestation: I reviewed the patient's lab results. Labs: Laboratory Results - last 24 hr 08/19/23 15:22 WBC 7.9 RBC 5.26 Hgb 15.5 Hct 49.6 MCV 94.3 H MCH 29.5 MCHC 31.3 L RDW Std Deviation 45.4 H RDW Coeff of [place] 13.1 Plt Count 212 MPV 10.5 Immature Gran % (Auto) 0.500 Neut % (Auto) 61.0 Lymph % (Auto) 25.2 [place] % (Auto) 9.2 Eos % (Auto) 3.3 Baso % (Auto) 0.8 Absolute Neuts (auto) 4.8 Absolute Lymphs (auto) 1.99 Nucleated RBC % 0 PT 13.4 INR 1.0 APTT 28.2 Sodium 139 Potassium 4.7 Chloride 103 Carbon Dioxide 31.0 Anion Gap 5 BUN 29 H Creatinine 1.80 H Est GFR (MDRD) Af Amer 46 L Est GFR (MDRD) Non-Af 38 L BUN/Creatinine Ratio 16.1 Glucose 331 H Calcium 10.1 Radiography Diagnostic Testing: Clinical Impression(s) from Imaging Studies Brain CT 08/19/23 16:34 IMPRESSION: No acute findings. Microvascular ischemic changes. Atrophy. Electronically Signed: Steph Martinez MD at 17:32 EST Reading Location ID and State: Carlota Lauren MD Tel , Service support , Cervical Spine CT 08/19/23 16:34 IMPRESSION: No evidence of fracture. Mild C3-4 anterolisthesis. Degenerative changes as above. Electronically Signed: Steph Martinez MD at 17:44 EST Reading Location ID and State: Carlota Lauren MD Tel , Service support , Hip/Pelvis X-Ray 08/19/23 16:35 IMPRESSION: Acute left femoral neck fracture. Electronically Signed: Steph Martinez MD at 17:34 EST Reading Location ID and State: Carlota Lauren MD Tel , Service support , EKG Initial EKG: Attestation: I personally reviewed and interpreted this EKG as follows: Comments: Ventricularly paced rhythm at a rate of 60 bpm Management Discussion w/another healthcare provider: Hospitalist and Avionics Manager (Orthopedics (Dr. Parada)) Discharge Plan Dx/Rx/DC Orders Clinical Impression: Fall, Fracture of femoral neck, left, Abrasion of elbow, DM2 (diabetes mellitus, type 2), Sick sinus syndrome, Longstanding persistent atrial fibrillation Disposition Disposition: Acute Care Hospital [facility]
--- NOTE | 2023-08-19 16:34 | CT_ITS ---
STUDY: CT BRAIN WITHOUT CONTRAST REASON FOR EXAM: Male, 83 years old. trauma RADIATION DOSAGE (If Supplied By Facility): CTDIvol = ( 44.99 ) mGy, DLP = ( 846.73 ) mGycm TECHNIQUE: Transaxial CT imaging of the brain was performed without administration of intravenous contrast material. Individualized dose optimization techniques were used for this CT. COMPARISON: 12/16/2019. FINDINGS: Normal soft tissue structures. Normal calvarium. There is moderate cerebral atrophy with widening of the extra-axial spaces and ventricular dilatation. There are areas of decreased attenuation within the white matter tracts of the supratentorial brain, consistent with microvascular disease changes. There is no intracranial hemorrhage. There are no findings of an acute ischemic infarction. Normal visualized paranasal sinuses. CT/Brain/Head without Contrast IMPRESSION: No acute findings. Microvascular ischemic changes. Atrophy. Electronically Signed: Steph Martinez MD at 17:32 EST Reading Location ID and State: [id number] / Tel , Service support ,
--- NOTE | 2023-08-19 16:34 | CT_ITS ---
INDICATION: trauma EXAMINATION: CT CERVICAL SPINE - CT Spine Cervical W/O Contrast Injection TECHNIQUE: Helically acquired images were obtained of the cervical spine. 2D reformatted images were reviewed. A radiation dose optimization technique was used for this scan. IV Contrast dosage and agent: None. RADIATION DOSAGE (If Supplied By Facility): CTDIvol = ( 29.21 ) mGy, DLP = ( 661.95 ) mGycm COMPARISON: FINDINGS: VERTEBRAE: No fracture or traumatic subluxation. No discrete lytic or blastic abnormality. Normal alignment. Normal craniocervical junction and cervicothoracic junction. DISCS and SPINAL CANAL: C2-3: Normal disc height and morphology. Normal central canal. Foramina are patent. Left facet hypertrophy. C3-4: Normal disc height and morphology. 2 mm anterolisthesis. Normal central canal. Moderate left foraminal stenosis due to facet hypertrophy. C4-5: Normal disc height and morphology. Normal central canal. Mild foraminal encroachment due to uncinate and facet hypertrophy. C5-6: Mild disc space narrowing. No canal stenosis. Severe right foraminal stenosis due to uncinate hypertrophy. C6-7: Disc space narrowing. Normal central canal. Foramina are patent. C7-T1: Normal disc height and morphology. Normal central canal. Foramina are patent. NECK SOFT TISSUES: No prevertebral soft tissue swelling. There is no cervical adenopathy. LUNG APICES: Clear. CT/Spine Cervical without Contras IMPRESSION: No evidence of fracture. Mild C3-4 anterolisthesis. Degenerative changes as above. Electronically Signed: Steph Martinez MD at 17:44 EST Reading Location ID and State: [id number] / Tel , Service support ,
--- NOTE | 2023-08-19 16:35 | RAD_ITS ---
INDICATION: trauma EXAMINATION/TECHNIQUE: X-RAY - XR Hip Unilateral with Pelvis when performed; 2-3 Views COMPARISON: FINDINGS: Acute subcapital fracture of the left femoral neck with mild varus angulation. No additional fracture. Joint spaces are well-maintained. Normal alignment. Atherosclerotic vascular calcification. No radiopaque foreign body or soft tissue gas. RAD/HIP, UNI W/ Pelvis 2-3 Views IMPRESSION: Acute left femoral neck fracture. Electronically Signed: Steph Martinez MD at 17:34 EST Reading Location ID and State: [id number] / Tel , Service support ,
[2023-08-19 16:39] LABS: Absolute Lymphocyte Count 1.99 X10^3/uL (0.83-4.51); Absolute Neutrophil Count 4.8 X10^3/uL (2.0-7.7); Basophil# 0.06 X10^3/uL; Basophil% 0.8 % (0-1); Eosinophil# 0.26 X10^3/uL; Eosinophils% 3.3 % (0-5); Hematocrit 49.6 % (40-54); Hemoglobin 15.5 g/dL (13.0-16.5); Lymphocyte # 1.99 X10^3/ul (0.83-4.51); Lymphocyte % 25.2 % (19-41); Mean Corp Hgb Conc 31.3 g/dL (32-36); Mean Corpuscular Hgb 29.5 pg (27.0-32.0); Mean Corpuscular Volume 94.3 fL (80-94); Mean Platelet Vol. 10.5 fl (6.2-12.0); Monocyte# 0.73 X10^3/uL; Monocyte% 9.2 % (0-10); NRBC Flagged by Analyzer 0 % (0-5); Neutrophil # 4.82 X10^3/uL (2.7-7.7); Platelet Count 212 K/mm3 (150-450); RBC Distribution Width CV 13.1 % (11.6-14.6); RBC Distribution Width SD 45.4 fl (35.1-43.9); Red Blood Count 5.26 M/mm3 (4.6-6.2); White Blood Count 7.9 K/mm3 (4.4-11.0)
[2023-08-19 16:42] LABS: Anion Gap 5 (5-15); BUN 29 mg/dL (7-18); BUN/Creat Ratio 16.1 RATIO (10-20); Calcium,Total 10.1 mg/dL (8.5-10.1); Chloride 103 mmol/L (98-107); EST Glomerular Filtration Rate 38 mL/min (>60); Est Glom Filt Rate - Afr Amer 46 mL/min (>60); Glucose 331 mg/dL (74-106); Potassium 4.7 mmol/L (3.5-5.1); Sodium Level 139 mmol/L (136-145)
[2023-08-19 16:49] LABS: Partial Thromboplast Time 28.2 Seconds (24.1-36.2); Prothrombin Time (Protime)PT. 13.4 SECONDS (11.7-14.9)
--- NOTE | 2023-08-19 17:42 | HP.PCM.HOS_ITS ---
HPI - General General Date of Admission: 08/19/23 Date of Service: 08/19/23 Chief Complaint: Fall, L hip pain, debility. HPI Narrative The patient is an 83 y/o M w/ PMHx: CAD s/p PCI, HTN, HLD, Sick sinus syndrome s/p pacemaker placement, Gout, Diabetes mellitus type II, Chronic essential tremor, Hx VTE (DVT, PE), Chronic AF s/p EPS/RFA, Hx cardiac tamponade s/p pericardiocentesis, most recent Cardiology visit 05/03/23 with no marked findings with no chest discomfort, palpitations, lower extremity swelling, claudication, dyspnea, orthopnea or marked weight discomfort nor any lightheadedness/dizziness or near syncopal type sensations at that time with most recent pacer check 06/16/2023 without concerning findings not on any chronic anticoagulation secondary to balance issues/fall elevated risk who presents to the [facility] ED on 08/19/23 with history of unfortunate mechanical fall falling onto his left side with significant left hip and left lower extremity pain and debility as well as external rotation in addition to hitting his head on that side with no loss of consciousness prompting EMS call. Work-up in the ED included T97.6, heart rate 99, BP 133/105, respiratory rate 17, 98% on room air, CBC with WBC 7.9, hemoglobin 15.5, platelet 212 without marked shift, unremarkable coags, BMP with BUN/creatinine 29/1.80, glucose 331, CT brain with no acute cardiopulmonary findings with microvascular ischemic changes and atrophy, CT cervical spine no evidence of a fracture with mild C3-4 anterior listhesis and degenerative changes, plain film of the hip and pelvis left side with an acute left femoral neck fracture, EKG paced. In the ED patient ministered Zofran 4 mg IV x1 as well as morphine 4 mg IV x1. ED discussed case with orthopedic surgeon Dr. kwon. Upon admission given patient history also reviewed case with cardiology Dr. Alaniz. In the ED patient reports his L hip pain 5/10 in severity, more aching, worse with movement. [facility] Medical History Atherosclerotic heart disease of [place] coronary artery without angina pectoris Atrial dysrhythmia Cardiac dysrhythmia Cardiac pacemaker in situ Cardiac tamponade COPD (chronic obstructive pulmonary disease) Diverticulosis DM2 (diabetes mellitus, type 2) Essential (primary) hypertension Essential hypertension Gout History of bacterial endocarditis History of cardioversion History of electrophysiologic study HTN (hypertension) Hyperlipidemia Longstanding persistent atrial fibrillation Mixed hyperlipidemia On anticoagulant therapy Presence of stent in coronary artery (~04/08/10) Pulmonary embolism Sick sinus syndrome Sick sinus syndrome TIA (transient ischemic attack) Tremor, essential Home Medications aspirin 81 mg chewable tablet 81 mg PO QHS HEART HEALTH 06/24/14 [History Last Taken 08/18/23] furosemide 20 mg tablet 20 mg PO DAILY FLUID #1 TAB 01/11/20 [Rx Last Taken 08/18/23] empagliflozin 10 mg tablet (Jardiance) 10 mg PO DAILY DIABETES 01/14/22 [History Last Taken 08/19/23] glipizide 5 mg tablet 5 mg PO BID DIABETES 01/14/22 [History Last Taken 08/19/23] clonidine HCl 0.1 mg tablet 0.1 mg PO BID BLOOD PRESSURE #180 tabs 10/01/22 [Rx Last Taken 08/19/23] metoprolol tartrate 50 mg tablet 50 mg PO BID BLOOD PRESSURE #180 tabs 04/05/23 [Rx Last Taken 08/19/23] losartan 100 mg tablet 100 mg PO DAILY BLOOD PRESSURE #90 tabs 04/16/23 [Rx Last Taken 08/19/23] pravastatin 80 mg tablet 80 mg PO QHS CHOLESTEROL #90 tabs 07/21/23 [Rx Last Taken 08/18/23] cholecalciferol (vitamin D3) 50 mcg (2,000 unit) capsule 2,000 unit PO DAILY SUPPLEMENT 08/19/23 [History Last Taken 08/19/23] insulin glargine U-300 conc 300 unit/mL (1.5 mL) subcutaneous pen (Toujeo SoloStar U-300 Insulin) 10 unit subcut DAILY DIABETES 08/19/23 [History Last Taken 08/19/23] vitamins A,C,H-core-cjbtgn 4,296 mcg-226 mg-90 mg capsule (PreserVision AREDS) 1 cap PO DAILY EYE HEALTH 08/19/23 [History Last Taken 08/19/23] Allergy/AdvReac Type Severity Reaction Status Date / Time hydrochlorothiazide AdvReac Unknown Gout Verified 08/19/23 15:15 symptoms Family History Brother Colon cancer Father CAD (coronary artery disease) Mother Colon cancer Sister Breast cancer Surgical History H/O right and left heart catheterization History of cardiac radiofrequency ablation (~09/2005) History of hernia repair Presence of coronary angioplasty implant and graft (~04/08/10) PVI and Superior Vena Cava Isolation S/P pericardiocentesis S/P placement of cardiac pacemaker (~02/2010) S/P PTCA (percutaneous transluminal coronary angioplasty) (~04/2010) Social History Smoking Status: Never smoker alcohol intake: current alcohol intake frequency: 0-2 drinks per day Alcohol type: hard liquor substance use type: does not use caffeine: No what type of physical activity do you participate in: none seatbelt use: always do you feel safe at home: Yes ROS ROS Narrative Admission Review of Systems: CONSTITUTIONAL: No weight loss, fever, chills, + weakness or fatigue. HEENT: Eyes: No visual loss, blurred vision, double vision or yellow sclerae. Ears, Nose, Throat: No hearing loss, sneezing, congestion, runny nose or sore throat. SKIN: No rash or itching, lesions, wounds. CARDIOVASCULAR: + Chronic edema. No chest pain, chest pressure or chest discomfort, palpitations, orthopnea, syncopal events. RESPIRATORY: No shortness of breath, cough or sputum, wheezing, hemoptysis. GASTROINTESTINAL: No anorexia, nausea, vomiting or diarrhea, abdominal pain, melena, BRBPR. GENITOURINARY: No dysuria, frequency, urgency or retention. NEUROLOGICAL: + Chronic essential tremors. No headache, dizziness, syncope, paralysis, ataxia, numbness or tingling in the extremities, focal weakness, change in bowel or bladder control, seizure. MUSCULOSKELETAL: + muscle, back pain, joint pain or stiffness. HEMATOLOGIC: No anemia. + Easy bleeding/bruising. LYMPHATICS: No enlarged nodes. No history of splenectomy. PSYCHIATRIC: No history of depression or anxiety. ENDOCRINOLOGIC: No reports of sweating, cold or heat intolerance. No polyuria or polydipsia. ALLERGIES: No history of asthma, hives, eczema or rhinitis. Vital Signs Vital Signs Vital Signs: 08/19/23 15:16 08/19/23 15:19 Temperature 97.6 F L Temperature Source Temporal Pulse Rate 99 Respiratory Rate 17 Respiratory Effort Normal Non-Labored Respiratory Depth Normal Respiratory Pattern Normal Blood Pressure 133/105 H Blood Pressure Mean 114 Pulse Ox 98 Oxygen Delivery Method Room Air Room Air Physical Exam Narrative Physical Examination: General: Awake, alert, oriented x 3 and cooperative, seated upright in the ED bed in no apparent distress. Skin: Normal color, normal turgor, no icterus, no cyanosis except very staged ecchymoses, abrasions, venous stasis skin changes. HEENT: AT/NC, EOMI, PERRLA, mildly dry MM, no carotid bruits or JVD noted. Lungs: Diminished, greater bases, appropriate effort, no rales, ronchi or wheezing. Heart: Paced; no gallop, rub audible, device R upper chest. Abdomen: Soft, NTTP, ND, normal BS, no HSM. Extremities: No cyanosis, no clubbing, BL LE pedal to knee edema. Neurological: Patient awake, alert, oriented as noted, cognitive function baseline intact; pupils equally reactive to light and accommodation, cranial nerves grossly normal, moving all 4 extremities except expected limitation LLE given fall with L hip fracture, strength accordingly severely globally decreased . Psychiatric: Affect appears fatigued otherwise normal, no acute evidence of depressive or anxiety feelings. Results Lab / Micro Data 08/19/23 15:22 08/19/23 15:22 Labs: Laboratory Results - last 24 hr 08/19/23 15:22: WBC 7.9, RBC 5.26, Hgb 15.5, Hct 49.6, MCV 94.3 H, MCH 29.5, MCHC 31.3 L, RDW Std Deviation 45.4 H, RDW Coeff of Cristel 13.1, Plt Count 212, MPV 10.5, Immature Gran % (Auto) 0.500, Neut % (Auto) 61.0, Lymph % (Auto) 25.2, Aiken % (Auto) 9.2, Eos % (Auto) 3.3, Baso % (Auto) 0.8, Absolute Neuts (auto) 4.8, Absolute Lymphs (auto) 1.99, Nucleated RBC % 0, PT 13.4, INR 1.0, APTT 28.2, Sodium 139, Potassium 4.7, Chloride 103, Carbon Dioxide 31.0, Anion Gap 5, BUN 29 H, Creatinine 1.80 H, Est GFR (MDRD) Af Amer 46 L, Est GFR (MDRD) Non-Af 38 L, BUN/Creatinine Ratio 16.1, Glucose 331 H, Calcium 10.[address] 08/19/23 16:34 IMPRESSION: No acute findings. Microvascular ischemic changes. Atrophy. Electronically Signed: Steph Martinez MD at 17:32 EST Reading Location ID and State: [place] / Tel , Service support , Hip/Pelvis X-Ray 08/19/23 16:35 IMPRESSION: Acute left femoral neck fracture. Electronically Signed: Steph Martinez MD at 17:34 EST Reading Location ID and State: [place] Lauren MD Tel , Service support , Assessment & Plan Assessment/Plan (1) Fracture of femoral neck, left: PLAN: Plan The patient is an 83 y/o M w/ PMHx: CAD s/p PCI, HTN, HLD, Sick sinus syndrome s/p pacemaker placement, Gout, Diabetes mellitus type II, Chronic essential tremor, Hx VTE (DVT, PE), Chronic AF s/p EPS/RFA, Hx cardiac tamponade s/p pericardiocentesis, most recent Cardiology visit 05/03/23 with no marked findings with no chest discomfort, palpitations, lower extremity swelling, claudication, dyspnea, orthopnea or marked weight discomfort nor any lightheadedness/dizziness or near syncopal type sensations at that time with most recent pacer check without concerning findings not on any chronic anticoagulation secondary to balance issues/fall elevated risk who presents to the [facility] ED on 08/19/23 with history of unfortunate mechanical fall falling onto his left side with significant left hip and left lower extremity pain and debility as well as external rotation in addition to hitting his head on that side with no loss of consciousness prompting EMS call. #1. General debility, left hip pain s/p mechanical fall w/ left femoral neck fracture: Films in the ED including CT head, CT cervical spine and plain film of the left hip and pelvis with most notably an acute left femoral neck fracture. Orthopedic surgery consulted from ED. Will admit to [facility], maintain NPO status after midnight, continue gentle IVFs, farrell placement, monitor I/Os, frequent positioning, fall precautions, PRN pain/anti-emetic regimen. PT/OT following operative intervention. CM consulted for discharge planning. Per surgical risk calculator although appropriate METS in independent living status patient does have advanced age of 83, Cr elevated with CKD stage III as noted and elevated ASA would be considered especially given cardiac underlying history at least moderate to high risk for orthopedic intervention and per Jose estimated risk of perioperative myocardial infarction or cardiac arrest 1.7%. 12/16/2019 echocardiogram with EF 60%, indeterminate diastolic function, mildly enlarged LA and RA, mild to moderate MVI, mild TVI, PASP 50 to 55 mmHg, aortic sclerosis with no stenosis, mild ALIN, pacer leads present. Will request Cardio logy consultation for preoperative clearance and ECHO as discussed with Cardiology. Dr. Parada was updated on plan of care and need for cardiac evaluation and echo in AM. #2. Chronic Kidney Disease Stage CKD stage III unclear subtype per GFR trending: Admission BUN/Cr 29/1.80, baseline renal function primarily 1.3-1.8, most recently 06/25/2023 creatinine 1.69, repeat BMP in AM. #3. Diabetes mellitus type II with hyperglycemia: Admission glucose 331, possibly stress response with acute presentation but will continue to monitor, hold oral home regimen, ADA diet until n.p.o. status, accu checks w/ ISS. #4. Hypertension: Continue home regimen including clonidine, Lasix, metoprolol, losartan, PRN hydralazine. #5. Hyperlipidemia: We will continue patient home statin therapy. #6. Chronic essential tremor: Patient is on a beta-mitul, will continue. #7. Chronic AF: Status post EPS/RFA, will continue home metoprolol, not chronically anticoagulated secondary to elevated fall risk and instability. #8. CAD: Status post 04/08/2010 LEONARDO to the mid RCA, will continue asa, metoprolol and home losartan regimen. #9. History sick sinus syndrome: Status post pacemaker placement, most recent assessment 06/16/2023 without concerns. #10. History of prior cardiac tamponade: Remote, status post pericardiocentesis, resolved. #11. DVT prophylaxis: SCDs, holding chemoprophylaxis for intervention as noted above #1. #12. CODE status: Patient KORY is his who is present and living will is currently in place. Discussed CODE status at length including difference between FULL code, DNR-CCA and DNR-CC status. Following discussions about the differences in these status, requested Full Code status. Given history history and age did honestly discuss likelihood of a quality outcome being low. Advanced Care Planning Face to Face Time: 16 minutes. Charges/Coding Visit Charges Inpatient E&M: 49127 Init Hosp L3 Procedures Hospitalists Procedures: 19253 Advncd Care Plan 30 Min
--- NOTE | 2023-08-19 19:00 | ECHOCS_ITS ---
Reason For Study: Arrhythmia Procedure This was a 2D Doppler, Color Flow transthoracic echocardiogram. Technically difficult study, contrast injection performed. Patient scanned supine due to left hip fracture. Exam performed portable in patient room. Left Ventricle Normal left ventricle. The estimated ejection fraction is 55-60 %. Right Ventricle Normal right ventricle. Normal systolic function. Atria The left atrium is mildly enlarged. Mitral Valve There is mild mitral annular calcification. Mild (1+) mitral valve insufficiency. Tricuspid Valve Normal tricuspid valve. Mild tricuspid valve insufficiency. Aortic Valve Aortic sclerosis, no stenosis. Mild (1+) aortic valve insufficiency. Pulmonic Valve The pulmonic valve is not well visualized. Great Vessels Normal aortic root. Pericardium/Pleural No pericardial effusion. Medication Diluted definity 2ml given slow IV push to enhance endocardial definition. MMode/2D Measurements & Calculations LVIDd: 4.5 cm IVSd: 1.0 cm LA dimension: 3.8 cm LVIDs: 3.2 cm LVPWd: 0.98 cm RVDd: 4.9 cm FS: 28.9 % LAV(MOD-bp): 85.0 ml LA A4 area: 26.9 cm2 LAV(MOD-bp) Indexed: 40.7 ml/m2 LAV(MOD-sp2): 77.3 ml LAV(MOD-sp4): 91.1 ml Doppler Measurements & Calculations MV E max bj: 89.1 cm/sec MV V2 max: 92.8 cm/sec MV P1/2t max jb: 93.9 cm/sec MV max P.5 mmHg MV P1/2t: 87.5 msec MV V2 mean: 42.9 cm/sec MV dec slope: 314.2 cm/sec2 MV mean P.96 mmHg MVA(P1/2t): 2.5 cm2 MV V2 VTI: 26.1 cm Ao V2 max: 120.1 cm/sec AI max jb: 384.8 cm/sec LV V1 max: 91.6 cm/sec Ao max P.9 mmHg AI max P.4 mmHg LV V1 max P.4 mmHg Ao V2 mean: 74.9 cm/sec AI dec slope: 146.5 cm/sec2 LV V1 mean P.6 mmHg Ao mean P.7 mmHg AI P1/2t: 769.3 msec LV V1 mean: 57.2 cm/sec Ao V2 VTI: 20.9 cm LV V1 VTI: 17.5 cm AV (velocity ratio): 0.84 TR max jb: 336.2 cm/sec TR max P.2 mmHg ECHO/Echo Complete W/ Contrast Interpretation Summary The estimated ejection fraction is 55-60 %. Normal LV systolic function Aortic valve sclerosis with no evidence of stenosis Mild aortic incompetence Pacemaker lead was noted on the right side In comparison to previous echocardiogram no significant change noted. Ordering Physician: Gisela Stacy Performed By: Sterling Smith RCS
[2023-08-19 19:06] LABS: Magnesium 2.7 mg/dL (1.6-2.6)
[2023-08-19] MEDS: Acetaminophen 325 MG Tablet 650 MG PO ×2 (19:26→23:37)
[2023-08-19] MEDS: oxyCODONE 5 MG Tablet PO ×2 (19:27→23:37)
[2023-08-19] MEDS: Metoprolol Tartrate 50 MG Tablet PO (19:27)
[2023-08-19] MEDS: Senna/Docusate Sodium 1 Tablet 2 TABLET PO (19:28)
[2023-08-19] MEDS: cloNIDine HCl 0.1 MG Tablet PO (19:28)
[2023-08-19] MEDS: Pravastatin 80 MG Tablet PO (19:28)
[2023-08-19] MEDS: Menthol/Lanolin/Calamine/Znox 113 GM Tube 1 APPLIC TOPICAL (21:00)
[2023-08-19] MEDS: Insulin Lispro 100 UNIT/ML INSULN.PEN SC (21:04)
[2023-08-19 21:36] LABS: Bedside Glucose 194 mg/dL (74-106)
[2023-08-20] VITALS (16 sets, daily range): BP systolic 132–183; BP diastolic 60–127; PULSE 61–85; RESP 14–18; TEMP 36.6–37.4; O2SAT 93–98; BMI 30.4
[2023-08-20] MEDS: 0.9% Normal Saline (1000mL) 1,000 ML 75 ML IV (05:48)
[2023-08-20] MEDS: Morphine 4 MG/ML Syringe IV (05:48)
[2023-08-20 05:55] LABS: Absolute Lymphocyte Count 2.26 X10^3/uL (0.83-4.51); Absolute Neutrophil Count 6.6 X10^3/uL (2.0-7.7); Basophil# 0.05 X10^3/uL; Basophil% 0.5 % (0-1); Eosinophil# 0.28 X10^3/uL; Eosinophils% 2.8 % (0-5); Hemoglobin 14.8 g/dL (13.0-16.5); Lymphocyte # 2.26 X10^3/ul (0.83-4.51); Lymphocyte % 22.3 % (19-41); Mean Corp Hgb Conc 30.8 g/dL (32-36); Mean Corpuscular Hgb 29.8 pg (27.0-32.0); Mean Corpuscular Volume 96.6 fL (80-94); Monocyte# 0.93 X10^3/uL; Monocyte% 9.2 % (0-10); NRBC Flagged by Analyzer 0 % (0-5); Neutrophil # 6.59 X10^3/uL (2.7-7.7); Neutrophil % 64.9 % (47-70); Platelet Count 177 K/mm3 (150-450); RBC Distribution Width CV 13.2 % (11.6-14.6); RBC Distribution Width SD 46.9 fl (35.1-43.9); Red Blood Count 4.97 M/mm3 (4.6-6.2); White Blood Count 10.1 K/mm3 (4.4-11.0)
[2023-08-20 06:22] LABS: ALB/GLOB Ratio 0.9 RATIO (0.9-2.4); AST(SGOT) 12 U/L (15-37); Alanine Aminotransfer ALT/SGPT 16 U/L (16-61); Albumin, Serum 3.6 g/dL (3.2-5.0); Alkaline Phosphatase 62 U/L (45-117); Anion Gap 6 (5-15); BUN 30 mg/dL (7-18); BUN/Creat Ratio 16.9 RATIO (10-20); Calcium,Total 9.1 mg/dL (8.5-10.1); Chloride 108 mmol/L (98-107); Creatinine, Serum 1.78 mg/dL (0.70-1.30); EST Glomerular Filtration Rate 39 mL/min (>60); Est Glom Filt Rate - Afr Amer 47 mL/min (>60); Estimated Creatinine Clearance 30.34 ml/min; Globulin 4.1 g/dL (2.2-4.2); Glucose 193 mg/dL (74-106); Potassium 4.5 mmol/L (3.5-5.1); Protein, Total 7.7 g/dL (6.4-8.2); Sodium Level 141 mmol/L (136-145)
[2023-08-20] MEDS: Insulin Lispro 100 UNIT/ML INSULN.PEN SC ×3 (06:46→20:23)
[2023-08-20 07:05] LABS: Bedside Glucose 196 mg/dL (74-106)
[2023-08-20] MEDS: oxyCODONE 5 MG Tablet PO (08:35)
[2023-08-20] MEDS: Acetaminophen 325 MG Tablet 650 MG PO ×2 (08:36→20:20)
[2023-08-20] MEDS: cloNIDine HCl 0.1 MG Tablet PO ×2 (08:45→20:15)
[2023-08-20] MEDS: Furosemide 20 MG Tablet PO (08:45)
[2023-08-20] MEDS: Metoprolol Tartrate 50 MG Tablet PO ×2 (08:46→20:14)
--- NOTE | 2023-08-20 08:57 | CON.PCM.OR_ITS ---
HPI Consult Data Date of Consult: 08/20/23 HPI Narrative HPI Narrative: TANIA GUERRERO, is a 83 M who presents with left hip pain after a fall at home yesterday. He was trying to wear a shirt and then fell backwards towards his left side and hip. He mentions that he did not have any injury to the head or any other extremities other than the left hip. He has had long-term cardiac issues. 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 He was last seen by cardiology PA month or 2 ago. He lives on 1 floor and tries to avoid doing stairs because of shortness of breath. He has longstanding bilateral pedal edema. He uses a cane and support of his when walking. He has a walker but tries to avoid using it. After the fall he came to the emergency room yesterday evening. Is a minimal household ambulator. [facility] Medical History (Updated 08/20/23 @ 09:[address] Giacomo Parada MD) Atherosclerotic heart disease of [place] coronary artery without angina pectoris Atrial dysrhythmia Cardiac dysrhythmia Cardiac pacemaker in situ Cardiac tamponade COPD (chronic obstructive pulmonary disease) Diverticulosis DM2 (diabetes mellitus, type 2) Essential (primary) hypertension Essential hypertension Gout History of bacterial endocarditis History of cardioversion History of electrophysiologic study HTN (hypertension) Hyperlipidemia Longstanding persistent atrial fibrillation Loose, teeth Mixed hyperlipidemia On anticoagulant therapy Presence of stent in coronary artery (~04/08/10) Pulmonary embolism Sick sinus syndrome Sick sinus syndrome TIA (transient ischemic attack) Tremor, essential Home Medications aspirin 81 mg chewable tablet 81 mg PO [facility] 06/24/14 [History Last Taken 08/18/23] furosemide 20 mg tablet 20 mg PO DAILY FLUID #1 TAB 01/11/20 [Rx Last Taken 08/18/23] empagliflozin 10 mg tablet (Jardiance) 10 mg PO DAILY DIABETES 01/14/22 [History Last Taken 08/19/23] glipizide 5 mg tablet 5 mg PO BID DIABETES 01/14/22 [History Last Taken 08/19/23] clonidine HCl 0.1 mg tablet 0.1 mg PO BID BLOOD PRESSURE #180 tabs 10/01/22 [Rx Last Taken 08/19/23] metoprolol tartrate 50 mg tablet 50 mg PO BID BLOOD PRESSURE #180 tabs 04/05/23 [Rx Last Taken 08/19/23] losartan 100 mg tablet 100 mg PO DAILY BLOOD PRESSURE #90 tabs 04/16/23 [Rx Last Taken 08/19/23] pravastatin 80 mg tablet 80 mg PO QHS CHOLESTEROL #90 tabs 07/21/23 [Rx Last Taken 08/18/23] cholecalciferol (vitamin D3) 50 mcg (2,000 unit) capsule 2,000 unit PO DAILY SUPPLEMENT 08/19/23 [History Last Taken 08/19/23] insulin glargine U-300 conc 300 unit/mL (1.5 mL) subcutaneous pen (Toujeo SoloStar U-300 Insulin) 10 unit subcut DAILY DIABETES 08/19/23 [History Last Taken 08/19/23] vitamins A,C,Q-jtbw-viwnuf 4,296 mcg-226 mg-90 mg capsule (PreserVision AREDS) 1 cap PO DAILY [facility] 08/19/23 [History Last Taken 08/19/23] Allergy/AdvReac Type Severity Reaction Status Date / Time hydrochlorothiazide AdvReac Unknown Gout Verified 08/19/23 15:15 symptoms Family History Brother Colon cancer Father CAD (coronary artery disease) Mother Colon cancer Sister Breast cancer Surgical History H/O right and left heart catheterization History of cardiac radiofrequency ablation (~09/2005) History of hernia repair Presence of coronary angioplasty implant and graft (~04/08/10) PVI and Superior Vena Cava Isolation S/P pericardiocentesis S/P placement of cardiac pacemaker (~02/2010) S/P PTCA (percutaneous transluminal coronary angioplasty) (~04/2010) Social History Smoking Status: Never smoker alcohol intake: current alcohol intake frequency: 0-2 drinks per day Alcohol type: hard liquor substance use type: does not use caffeine: No what type of physical activity do you participate in: none seatbelt use: always do you feel safe at home: Yes Vital Signs Vital Signs Vital Signs: 08/19/23 15:16 08/19/23 15:19 11/16/23 17:48 Temperature 97.6 F L Temperature Source Temporal Pulse Rate 99 65 Pulse Strength Respiratory Rate 17 17 Respiratory Effort Normal Non-Labored Respiratory Depth Normal Respiratory Pattern Normal Blood Pressure 133/105 H 165/77 H Blood Pressure Mean 114 106 Blood Pressure Source Blood Pressure Position Blood Pressure Location Pulse Ox 98 97 Oxygen Delivery Method Room Air Room Air 08/19/23 19:00 08/19/23 19:27 08/19/23 20:47 Temperature 99.5 F H 99.5 F H Temperature Source Oral Oral Pulse Rate 67 67 67 Pulse Strength Respiratory Rate 18 18 Respiratory Effort Respiratory Depth Respiratory Pattern Blood Pressure 192/96 H 192/96 H 162/65 H Blood Pressure Mean 128 97 Blood Pressure Source Monitor Monitor Blood Pressure Position Semi-Fowlers Semi-Fowlers Blood Pressure Location Left Arm Left Arm Pulse Ox 97 95 Oxygen Delivery Method Room Air Room Air 08/19/23 21:09 08/19/23 23:40 08/19/23 21:25 Temperature 98.1 F Temperature Source Oral Pulse Rate 77 Pulse Strength Respiratory Rate 16 Respiratory Effort Normal Non-Labored Respiratory Depth Normal Respiratory Pattern Normal Blood Pressure 185/95 H Blood Pressure Mean 125 Blood Pressure Source Monitor Blood Pressure Position Supine Blood Pressure Location Left Arm Pulse Ox 95 95 Oxygen Delivery Method Room Air Room Air 08/19/23 22:00 08/20/23 05:40 08/20/23 08:46 Temperature 98.7 F Temperature Source Oral Pulse Rate 63 74 Pulse Strength Normal (2+) Respiratory Rate 16 Respiratory Effort Respiratory Depth Respiratory Pattern Blood Pressure 168/92 H 177/83 H Blood Pressure Mean 117 Blood Pressure Source Monitor Blood Pressure Position Semi-Fowlers Blood Pressure Location Right Forearm Pulse Ox 93 Oxygen Delivery Method Room Air 08/20/23 08:50 08/20/23 08:53 Temperature 98.6 F Temperature Source Temporal Pulse Rate 74 Pulse Strength Respiratory Rate 16 Respiratory Effort Normal Non-Labored Respiratory Depth Normal Respiratory Pattern Normal Blood Pressure 177/83 H Blood Pressure Mean 114 Blood Pressure Source Monitor Blood Pressure Position Semi-Fowlers Blood Pressure Location Left Forearm Pulse Ox 95 Oxygen Delivery Method Room Air Room Air Weight Weight: 205 lb 14.588 oz Body Mass Index (BMI) 30.4 Physical Exam Narrative Patient is alert, conscious oriented in no acute distress. Examination of the left hip shows no abrasions. There is tenderness in the left hip. His left lo wer extremity is externally rotated. He is able to move his toes and ankle. Distal neurovascular exam is intact. No obvious pain with range of motion of right lower and bilateral upper extremities. No other injuries noted. Lab / Micro Data 08/20/23 05:30 08/20/23 05:30 Labs: Laboratory Results - last 24 hr 08/19/23 15:22: WBC 7.9, RBC 5.26, Hgb 15.5, Hct 49.6, MCV 94.3 H, MCH 29.5, MCHC 31.3 L, RDW Std Deviation 45.4 H, RDW Coeff of Cristel 13.1, Plt Count 212, MPV 10.5, Immature Gran % (Auto) 0.500, Neut % (Auto) 61.0, Lymph % (Auto) 25.2, [place] % (Auto) 9.2, Eos % (Auto) 3.3, Baso % (Auto) 0.8, Absolute Neuts (auto) 4.8, Absolute Lymphs (auto) 1.99, Nucleated RBC % 0, PT 13.4, INR 1.0, APTT 28.2, Sodium 139, Potassium 4.7, Chloride 103, Carbon Dioxide 31.0, Anion Gap 5, BUN 29 H, Creatinine 1.80 H, Est GFR (MDRD) Af Amer 46 L, Est GFR (MDRD) Non-Af 38 L, BUN/Creatinine Ratio 16.1, Glucose 331 H, Calcium 10.1 08/19/23 15:52: Magnesium 2.7 H 08/19/23 20:58: POC Glucose 194 H 08/20/23 05:30: WBC 10.1, RBC 4.97, Hgb 14.8, Hct 48.0, MCV 96.6 H, MCH 29.8, MCHC 30.8 L, RDW Std Deviation 46.9 H, RDW Coeff of Crisetl 13.2, Plt Count 177, MPV 10.0, Immature Gran % (Auto) 0.300, Neut % (Auto) 64.9, Lymph % (Auto) 22.3, [place] % (Auto) 9.2, Eos % (Auto) 2.8, Baso % (Auto) 0.5, Absolute Neuts (auto) 6.6, Absolute Lymphs (auto) 2.26, Nucleated RBC % 0, Sodium 141, Potassium 4.5, Chloride 108 H, Carbon Dioxide 27.0, Anion Gap 6, BUN 30 H, Creatinine 1.78 H, Estim Creat Clear Calc 30.34, Est GFR (MDRD) Af Amer 47 L, Est GFR (MDRD) Non-Af 39 L, BUN/Creatinine Ratio 16.9, Glucose 193 H, Calcium 9.1, Total Bilirubin 0.70, AST 12 L, ALT 16, Alkaline Phosphatase 62, Total Protein 7.7, Albumin 3.6, Globulin 4.1, Albumin/Globulin Ratio 0.9, Blood Type A POSITIVE, Antibody Screen NEGATIVE 08/20/23 06:44: POC Glucose 196 H Imagaing Radiology Impression Brain CT 08/19/23 16:34 IMPRESSION: No acute findings. Microvascular ischemic changes. Atrophy. Electronically Signed: Steph Martinez MD at 17:32 EST Reading Location ID and State: Carlota Lauren MD Tel , Service support , Cervical Spine CT 08/19/23 16:34 IMPRESSION: No evidence of fracture. Mild C3-4 anterolisthesis. Degenerative changes as above. Electronically Signed: Steph Martinez MD at 17:44 EST Reading Location ID and State: Carlota Lauren MD Tel , Service support , Hip/Pelvis X-Ray 08/19/23 16:35 IMPRESSION: Acute left femoral neck fracture. Electronically Signed: Steph Martinez MD at 17:34 EST Reading Location ID and State: Carlota Lauren MD Tel , Service support , Assessment & Plan Assessment/Plan (1) Fracture of femoral neck, left: QUALIFIERS: Encounter type: initial encounter Fracture type: closed Qualified Code(s): S72.002A - Fracture of unspecified part of neck of left femur, initial encounter for closed fracture PLAN: Plan I explained to him, his and son who are also in the room that he has a left hip intracapsular neck femur fracture. I recommended all options of treatment. For this injury, operative treatment provides the best chances of regaining ambulation as early as possible, which is critical to avoid recumbency complications. I recommended a left hip hemiarthroplasty. All risks benefits and alternatives were discussed in detail. The risks include but are not limited to infection, bleeding, injury to nerves and vessels, dislocation, periprosthetic fracture, DVT, pulmonary embolism, cardiopulmonary event, cement embolism, stroke, . Patient and family understand and agree to proceed with the surgery. Patient will obtain cardiac clearance and medicine clearance this morning and will be scheduled for surgery as an add-on this afternoon. All questions were answered.
--- NOTE | 2023-08-20 09:05 | CON.PCM.CA_ITS ---
<Statement entered by Ash Alaniz MD - 08/20/23 16:23> Pt seen & evaluated w/[facility]ILDRED. I personally interviewed & exam the pt. I was involved in all aspects of pt's orders, interpretation of results & treatment Assessment & Plan Assessment/Plan (1) Atherosclerotic heart disease of [place] coronary artery without angina pectoris: QUALIFIERS: [place] vs. transplanted heart: [place] heart Qualified Code(s): I25.10 - Atherosclerotic heart disease of [place] coronary artery without angina pectoris (2) Essential hypertension: (3) Mixed hyperlipidemia: (4) Longstanding persistent atrial fibrillation: (5) Cardiac pacemaker in situ: PLAN: Plan * Pt was recently seen in our office and did not have any symptoms at that time. * Recently PPM interrogation demonstrated that this is functioning appropriately * Echo is pending- if this is unchanged do not feel that any additional testing needs done prior to surgery. HPI Consult Data Date of Consult: 08/20/23 HPI Narrative HPI Narrative: TANIA GUERRERO, is a 83 M who presented to [facility] ER on 08/19/23 for a fall, left hip fracture. We were consulted for cardiac clearance. His echo is pending. He was last in in our office in April of 2023. At that time he was stable from a cardiac standpoint. He does have a hx of CAD, PCI (2009), cardiac dysrhythmias with sick sinus syndrome/atrial fibrillation, permanent pacemaker placement, hypertension and hyperlipidemia. [facility] Medical History (Updated 08/20/23 @ 09:[address] Giacomo Parada MD) Atherosclerotic heart disease of [place] coronary artery without angina pectoris Atrial dysrhythmia Cardiac dysrhythmia Cardiac pacemaker in situ Cardiac tamponade COPD (chronic obstructive pulmonary disease) Diverticulosis DM2 (diabetes mellitus, type 2) Essential (primary) hypertension Essential hypertension Gout History of bacterial endocarditis History of cardioversion History of electrophysiologic study HTN (hypertension) Hyperlipidemia Longstanding persistent atrial fibrillation Loose, teeth Mixed hyperlipidemia On anticoagulant therapy Presence of stent in coronary artery (~04/08/10) Pulmonary embolism Sick sinus syndrome Sick sinus syndrome TIA (transient ischemic attack) Tremor, essential Home Medications aspirin 81 mg chewable tablet 81 mg PO QHS HEART HEALTH 06/24/14 [History Last Taken 08/18/23] furosemide 20 mg tablet 20 mg PO DAILY FLUID #1 TAB 01/11/20 [Rx Last Taken 08/18/23] empagliflozin 10 mg tablet (Jardiance) 10 mg PO DAILY DIABETES 01/14/22 [History Last Taken 08/19/23] glipizide 5 mg tablet 5 mg PO BID DIABETES 01/14/22 [History Last Taken 08/19/23] clonidine HCl 0.1 mg tablet 0.1 mg PO BID BLOOD PRESSURE #180 tabs 10/01/22 [Rx Last Taken 08/19/23] metoprolol tartrate 50 mg tablet 50 mg PO BID BLOOD PRESSURE #180 tabs 04/05/23 [Rx Last Taken 08/19/23] losartan 100 mg tablet 100 mg PO DAILY BLOOD PRESSURE #90 tabs 04/16/23 [Rx Last Taken 08/19/23] pravastatin 80 mg tablet 80 mg PO QHS CHOLESTEROL #90 tabs 07/21/23 [Rx Last Taken 08/18/23] cholecalciferol (vitamin D3) 50 mcg (2,000 unit) capsule 2,000 unit PO DAILY SUPPLEMENT 08/19/23 [History Last Taken 08/19/23] insulin glargine U-300 conc 300 unit/mL (1.5 mL) subcutaneous pen (Toujeo SoloStar U-300 Insulin) 10 unit subcut DAILY DIABETES 08/19/23 [History Last Taken 08/19/23] vitamins A,C,Q-ocvu-mofryo 4,296 mcg-226 mg-90 mg capsule (PreserVision AREDS) 1 cap PO DAILY EYE HEALTH 08/19/23 [History Last Taken 08/19/23] Allergy/AdvReac Type Severity Reaction Status Date / Time hydrochlorothiazide AdvReac Unknown Gout Verified 08/19/23 15:15 symptoms Family History Brother Colon cancer Father CAD (coronary artery disease) Mother Colon cancer Sister Breast cancer Surgical History H/O right and left heart catheterization History of cardiac radiofrequency ablation (~09/2005) History of hernia repair Presence of coronary angioplasty implant and graft (~04/08/10) PVI and Superior Vena Cava Isolation S/P pericardiocentesis S/P placement of cardiac pacemaker (~02/2010) S/P PTCA (percutaneous transluminal coronary angioplasty) (~04/2010) Social History Smoking Status: Never smoker alcohol intake: current alcohol intake frequency: 0-2 drinks per day Alcohol type: hard liquor substance use type: does not use caffeine: No what type of physical activity do you participate in: none seatbelt use: always do you feel safe at home: Yes ROS ROS Narrative Admission Review of Systems: CONSTITUTIONAL: No weight loss, fever, chills, + weakness or fatigue. HEENT: Eyes: No visual loss, blurred vision, double vision or yellow sclerae. Ears, Nose, Throat: No hearing loss, sneezing, congestion, runny nose or sore throat. SKIN: No rash or itching, lesions, wounds. CARDIOVASCULAR: + Chronic edema. No chest pain, chest pressure or chest discomfort, palpitations, orthopnea, syncopal events. RESPIRATORY: No shortness of breath, cough or sputum, wheezing, hemoptysis. GASTROINTESTINAL: No anorexia, nausea, vomiting or diarrhea, abdominal pain, melena, BRBPR. GENITOURINARY: No dysuria, frequency, urgency or retention. NEUROLOGICAL: + Chronic essential tremors. No headache, dizziness, syncope, paralysis, ataxia, numbness or tingling in the extremities, focal weakness, change in bowel or bladder control, seizure. MUSCULOSKELETAL: + muscle, back pain, joint pain or stiffness. HEMATOLOGIC: No anemia. + Easy bleeding/bruising. LYMPHATICS: No enlarged nodes. No history of splenectomy. PSYCHIATRIC: No history of depression or anxiety. ENDOCRINOLOGIC: No reports of sweating, cold or heat intolerance. No polyuria or polydipsia. ALLERGIES: No history of asthma, hives, eczema or rhinitis. Physical Exam Const alert, oriented x3, no apparent distress and healthy appearing HEENT normocephalic, head/scalp atraumatic, hearing grossly normal bilaterally, external ears normal, external nose normal and moist oral mucous membranes Eyes PERRL, EOMs intact bilaterally, conjunctivae normal and no scleral icterus Neck no lymphadenopathy, supple and no JVD Cardio regular rate, regular rhythm, S1 normal heart sound, S2 normal heart sound, no murmurs, no rub, no gallops, no clicks, no JVD and peripheral pulses 2+ throughout GI normal to inspection, nondistended, normoactive bowel sounds, soft to palpation, non-tender and non-distended Extremity normal to inspection, normal capillary refill, no clubbing, cyanosis or edema and no pedal edema Neuro oriented x3, CN's II-XII intact bilaterally, moves all extremities and no focal motor deficits Psych cooperative and affect normal Risk Stratification Risk Stratification Applicable: No Charges/Coding Visit Charges Office Visits / Consults: [id number] IP Consult L3 Objective Data Vital Signs: Vital Signs Temp Pulse Resp BP Pulse Ox O2 Del Method 98.6 F 74 16 177/83 H 95 Room Air 08/20/23 08:53 08/20/23 08:53 08/20/23 08:53 08/20/23 08:53 08/20/23 08:53 08/20/23 08:53 Oxygen Delivery Method Room Air Weight: 205 lb 14.588 oz Body Mass Index (BMI) 30.4 Intake & Output: Intake and Output for Last 24 Hours 08/18/23 08/19/23 08/20/23 23:59 23:59 23:59 Intake Total 200 / 200 0 / 0 Output Total 450 / 450 350 / 350 Balance -250 / -250 -350 / -350 Lab / Micro Data 08/20/23 05:30 08/20/23 05:30 Labs: Laboratory Results - last 24 hr 08/19/23 15:22: WBC 7.9, RBC 5.26, Hgb 15.5, Hct 49.6, MCV 94.3 H, MCH 29.5, MCHC 31.3 L, RDW Std Deviation 45.4 H, RDW Coeff of Cristel 13.1, Plt Count 212, MPV 10.5, Immature Gran % (Auto) 0.500, Neut % (Auto) 61.0, Lymph % (Auto) 25.2, Day % (Auto) 9.2, Eos % (Auto) 3.3, Baso % (Auto) 0.8, Absolute Neuts (auto) 4.8, Absolute Lymphs (auto) 1.99, Nucleated RBC % 0, PT 13.4, INR 1.0, APTT 28.2, Sodium 139, Potassium 4.7, Chloride 103, Carbon Dioxide 31.0, Anion Gap 5, BUN 29 H, Creatinine 1.80 H, Est GFR (MDRD) Af Amer 46 L, Est GFR (MDRD) Non-Af 38 L, BUN/Creatinine Ratio 16.1, Glucose 331 H, Calcium 10.1 08/19/23 15:52: Magnesium 2.7 H 08/19/23 20:58: POC Glucose 194 H 08/20/23 05:30: WBC 10.1, RBC 4.97, Hgb 14.8, Hct 48.0, MCV 96.6 H, MCH 29.8, MCHC 30.8 L, RDW Std Deviation 46.9 H, RDW Coeff of Cristel 13.2, Plt Count 177, MPV 10.0, Immature Gran % (Auto) 0.300, Neut % (Auto) 64.9, Lymph % (Auto) 22.3, Day % (Auto) 9.2, Eos % (Auto) 2.8, Baso % (Auto) 0.5, Absolute Neuts (auto) 6.6, Absolute Lymphs (auto) 2.26, Nucleated RBC % 0, Sodium 141, Potassium 4.5, Chloride 108 H, Carbon Dioxide 27.0, Anion Gap 6, BUN 30 H, Creatinine 1.78 H, Estim Creat Clear Calc 30.34, Est GFR (MDRD) Af Amer 47 L, Est GFR (MDRD) Non-Af 39 L, BUN/Creatinine Ratio 16.9, Glucose 193 H, Calcium 9.1, Total Bilirubin 0. 70, AST 12 L, ALT 16, Alkaline Phosphatase 62, Total Protein 7.7, Albumin 3.6, Globulin 4.1, Albumin/Globulin Ratio 0.9, Blood Type A POSITIVE, Antibody Screen NEGATIVE 08/20/23 06:44: POC Glucose 196 H Cardiology Labs/Tests 08/19/23 15:22: WBC 7.9, RBC 5.26, Hgb 15.5, Hct 49.6, MCV 94.3 H, MCH 29.5, MCHC 31.3 L, Plt Count 212, MPV 10.5, Immature Gran % (Auto) 0.500, Neut % (Auto) 61.0, Lymph % (Auto) 25.2, Day % (Auto) 9.2, Eos % (Auto) 3.3, Baso % (Auto) 0.8, Absolute Neuts (auto) 4.8, Nucleated RBC % 0, PT 13.4, INR 1.0, APTT 28.2, Sodium 139, Potassium 4.7, Chloride 103, Carbon Dioxide 31.0, Anion Gap 5, BUN 29 H, Creatinine 1.80 H, Est GFR (MDRD) Af Amer 46 L, Est GFR (MDRD) Non-Af 38 L, BUN/Creatinine Ratio 16.1, Glucose 331 H, Calcium 10.1 08/19/23 15:52: Magnesium 2.7 H 08/20/23 05:30: WBC 10.1, RBC 4.97, Hgb 14.8, Hct 48.0, MCV 96.6 H, MCH 29.8, MCHC 30.8 L, Plt Count 177, MPV 10.0, Immature Gran % (Auto) 0.300, Neut % (Auto) 64.9, Lymph % (Auto) 22.3, Day % (Auto) 9.2, Eos % (Auto) 2.8, Baso % (Auto) 0.5, Absolute Neuts (auto) 6.6, Nucleated RBC % 0, Sodium 141, Potassium 4.5, Chloride 108 H, Carbon Dioxide 27.0, Anion Gap 6, BUN 30 H, Creatinine 1.78 H, Est GFR (MDRD) Af Amer 47 L, Est GFR (MDRD) Non-Af 39 L, BUN/Creatinine Ratio 16.9, Glucose 193 H, Calcium 9.1, Total Bilirubin 0.70 Rhythm: V paced Radiography Diagnostic Testing: Radiology Impression Brain CT 08/19/23 16:34 IMPRESSION: No acute findings. Microvascular ischemic changes. Atrophy. Electronically Signed: Steph Martinez MD at 17:32 EST Reading Location ID and State: Carlota Lauren MD Tel , Service support , Cervical Spine CT 08/19/23 16:34 IMPRESSION: No evidence of fracture. Mild C3-4 anterolisthesis. Degenerative changes as above. Electronically Signed: Steph Martinez MD at 17:44 EST Reading Location ID and State: Carlota Lauren MD Tel , Service support , Hip/Pelvis X-Ray 08/19/23 16:35 IMPRESSION: Acute left femoral neck fracture. Electronically Signed: Steph Martinez MD at 17:34 EST Reading Location ID and State: [id number] / Tel , Service support ,
--- NOTE | 2023-08-20 11:35 | CASEMGMT ---
CONNER LINDQUIST Assessment: Face to Face with pt for initial transition planning/care coordination assessment. Pt's and a family friend are also present in the room per pt's permission. CONNER LINDQUIST introduced self and role at [facility], pt voices understanding and consents to assessment. Pt is A&O x4 and answers all questions appropriately at this time. Care providers, pharmacy, and demographics verified/updated. Admitting Dx: Fall, L Hip Fracture PCP: Joe Hernandez Specialists: [facility] (Director Of Property Management), Benito (Level Vial Setter) Preferred Pharmacy:[facility] ([place] Insurance: [facility] [place] A & B Prescription Benefit: yes LNOK:Lucero Montaño () Living Will/HCPOA: Yes and Yes; is HCPOA. Living Arrangements: Pt lives at home with his in a [place] that is [place]. 3 steps with railing to enter. Prior to this admission, pt. states that he used his rollator at baseline. Pt. states his assists him with bathing and dressing, pt. is I in toileting. Pt. also states his does the cooking and cleaning. Transportation: DME: Shower Bench, raised toilet seat, cane (uses when outside), lift chair, grab bars, rollator (uses at baseline), BP cuff, Glucometer/supplies. Pt. declines to receive information on medical alert systems. Denies need for additional DME at this time. HHC/SNF: Denies previous SNF and states he had HHC about 5 years ago. Pt states he prefers to discharge home but his thinks it will be too much for her to help care for him and that pt. need to be placed for rehab. Pt. seems somewhat resistant to this but is open to the idea depending on how he does with therapy post surgery. Pt states no further concerns/needs. CM to follow. Advised pt to ask CM if any further question/concerns/needs arise, voices understanding. Pt Goal: Home with HHC Vs. SNF. Plan: TBD. Home with HHC vs. SNF, follow surgery and PT/OT.
[2023-08-20 12:08] LABS: Bedside Glucose 177 mg/dL (74-106)
--- NOTE | 2023-08-20 12:10 | CASEMGMT ---
A list of SNF providers including quality and resource use data and consistent with the patient?s preferred geographic region, medical needs, and insurance network were provided from the [employer] Guide to pt. Pt. encouraged to pick his top 3 and RN CM to check back with him on his choices.
--- NOTE | 2023-08-20 13:00 | CASEMGMT ---
CONNER CM in to pt. room to discuss pt.'s choices for possible SNF placement. They are as follows: #[facility], #2 [facility], #3 [facility]. CONNER Deal updated SW on this.
--- NOTE | 2023-08-20 13:56 | PCM.PN.HOSP ---
Reason for Visit Reason for Visit: Diagnoses Fracture of unspecified part of neck of left femur, initial encounter for closed fracture (08/19/23) Subjective Subjective Patient admitted yesterday afternoon for mechanical fall with left hip fracture. No acute events overnight. Patient seen at bedside this morning, present. Patient laying comfortably in bed, conversing normally, no acute distress. Has very mild left hip pain currently, tolerable with pain medication. Denies any other acute concerns currently. Is hoping that his echo will be read soon so that he can have his orthopedic procedure done today. No other acute concerns at this time. Objective Data Objective Data Vital Signs: Vital Signs Temp Pulse Resp BP Pulse Ox O2 Del Method 98.9 F 67 16 156/84 H 93 Room Air 08/20/23 13:26 08/20/23 13:26 08/20/23 13:26 08/20/23 13:26 08/20/23 13:26 08/20/23 13:26 Oxygen Delivery Method Room Air Weight: 93.4 kg Body Mass Index (BMI) 30.4 Intake & Output: Intake and Output for Last 24 Hours 08/18/23 08/19/23 08/20/23 23:59 23:59 23:59 Intake Total 200 / 200 512.5 / 512.5 Output Total 450 / 450 750 / 750 Balance -250 / -250 -237.5 / -237.5 Lab / Micro Data 08/20/23 05:30 08/20/23 05:30 Labs: Laboratory Results - last 24 hr 08/19/23 15:22: WBC 7.9, RBC 5.26, Hgb 15.5, Hct 49.6, MCV 94.3 H, MCH 29.5, MCHC 31.3 L, RDW Std Deviation 45.4 H, RDW Coeff of Cristel 13.1, Plt Count 212, MPV 10.5, Immature Gran % (Auto) 0.500, Neut % (Auto) 61.0, Lymph % (Auto) 25.2, Lucas % (Auto) 9.2, Eos % (Auto) 3.3, Baso % (Auto) 0.8, Absolute Neuts (auto) 4.8, Absolute Lymphs (auto) 1.99, Nucleated RBC % 0, PT 13.4, INR 1.0, APTT 28.2, Sodium 139, Potassium 4.7, Chloride 103, Carbon Dioxide 31.0, Anion Gap 5, BUN 29 H, Creatinine 1.80 H, Est GFR (MDRD) Af Amer 46 L, Est GFR (MDRD) Non-Af 38 L, BUN/Creatinine Ratio 16.1, Glucose 331 H, Calcium 10.1 08/19/23 15:52: Magnesium 2.7 H 08/19/23 20:58: POC Glucose 194 H 08/20/23 05:30: WBC 10.1, RBC 4.97, Hgb 14.8, Hct 48.0, MCV 96.6 H, MCH 29.8, MCHC 30.8 L, RDW Std Deviation 46.9 H, RDW Coeff of Cristel 13.2, Plt Count 177, MPV 10.0, Immature Gran % (Auto) 0.300, Neut % (Auto) 64.9, Lymph % (Auto) 22.3, Lucas % (Auto) 9.2, Eos % (Auto) 2.8, Baso % (Auto) 0.5, Absolute Neuts (auto) 6.6, Absolute Lymphs (auto) 2.26, Nucleated RBC % 0, Sodium 141, Potassium 4.5, Chloride 108 H, Carbon Dioxide 27.0, Anion Gap 6, BUN 30 H, Creatinine 1.78 H, Estim Creat Clear Calc 30.34, Est GFR (MDRD) Af Amer 47 L, Est GFR (MDRD) Non-Af 39 L, BUN/Creatinine Ratio 16.9, Glucose 193 H, Calcium 9.1, Total Bilirubin 0.70, AST 12 L, ALT 16, Alkaline Phosphatase 62, Total Protein 7.7, Albumin 3.6, Globulin 4.1, Albumin/Globulin Ratio 0.9, Blood Type A POSITIVE, Antibody Screen NEGATIVE 08/20/23 06:44: POC Glucose 196 H 08/20/23 11:48: POC Glucose 177 H Radiography Diagnostic Testing: Radiology Impression Brain CT 08/19/23 16:34 IMPRESSION: No acute findings. Microvascular ischemic changes. Atrophy. Electronically Signed: Steph Martinez MD at 17:32 EST Reading Location ID and State: [place] / Tel , Service support , Cervical Spine CT 08/19/23 16:34 IMPRESSION: No evidence of fracture. Mild C3-4 anterolisthesis. Degenerative changes as above. Electronically Signed: Steph Martinez MD at 17:44 EST Reading Location ID and State: [place] Tel , Service support , Hip/Pelvis X-Ray 08/19/23 16:35 IMPRESSION: Acute left femoral neck fracture. Electronically Signed: Steph Martinez MD at 17:34 EST Reading Location ID and State: [place] / Tel , Service support , Echocardiogram 08/19/23 19:00 Interpretation Summary The estimated ejection fraction is 55-60 %. Normal LV systolic function Aortic valve sclerosis with no evidence of stenosis Mild aortic incompetence Pacemaker lead was noted on the right side In comparison to previous echocardiogram no significant change noted. Ordering Physician: Gisela Stacy Performed By: Sterling Smith RCS Physical Exam Const alert, oriented x3 and no apparent distress Constitutional Narrative: Pleasant elderly male, obese, laying comfortably in bed, conversing normally, no acute distress. General Appearance: cooperative and comfortable HEENT normocephalic, head/scalp atraumatic, hearing grossly normal bilaterally, nasal mucous membranes and turbinates normal and moist oral mucous membranes Eyes PERRL, EOMs intact bilaterally and conjunctivae normal Neck full ROM, no lymphadenopathy and supple Lymph Lymphatic: no lymphadenopathy noted Chest inspection of chest normal Resp normal respiratory effort, normal air movement, no use of accessory muscles and clear to auscultation bilaterally Cardio regular rate, regular rhythm, no murmurs and peripheral pulses 2+ throughout GI normal to inspection, nondistended, normoactive bowel sounds, soft to palpation, non-tender and non-distended Back/Spine normal ROM Extremity Extremity Narrative: Left hip appears grossly normal on visual exam. Skin no rashes or lesions noted Psych mental status grossly normal Assessment & Plan Assessment/Plan (1) Fracture of femoral neck, left: QUALIFIERS: Encounter type: initial encounter Fracture type: closed Qualified Code(s): S72.002A - Fracture of unspecified part of neck of left femur, initial encounter for closed fracture PLAN: Plan Patient is an 83-year-old male who presented with [facility] ED on 08/19/2023 with left hip pain after a mechanical fall at home. 1. Left femoral neck fracture; Acute debility Noted on x-ray on admission. Secondary to mechanical fall at home. Noted to be fairly high surgical risk given morbidities as noted below, cardiology consulted for preop evaluation. TTE on 08/20 was similar to previous, patient okay for procedure. ? Orthopedics following. Plan for OR today. PT/OT/case management consulted. Plan for pain control with scheduled Tylenol, as needed IV Dilaudid and p.o. oxycodone postoperatively. Defer to orthopedics for DVT prophylaxis postoperatively. Chronic medical conditions: ? CKD stage III: Baseline creatinine around 1.6-1.8, creatinine 1.8 on admission. ? Type 2 diabetes: Holding home oral regimen, sliding scale insulin while inpatient. ? Hypertension: Holding home losartan on day of surgery, restart postoperatively. Otherwise continue home clonidine, metoprolol, Lasix. ? Hyperlipidemia: Continue home statin. ? Chronic essential tremor: Continue home beta-mitul. ? Chronic A-fib: S/p EPS/RFA. Continue home metoprolol. Not chronically anticoagulated secondary to elevated fall risk and instability. ? CAD s/p stenting: Continue home aspirin, statin, metoprolol; holding losartan on day of procedure, restart postoperatively. ? History of sick sinus syndrome s/p pacemaker placement ? History of prior cardiac tamponade s/p pericardiocentesis with resolution DVT prophylaxis: SCDs CODE STATUS: Full code, verified Expected disposition: TBD Total clinical time spent by myself addressing the patient's medical issues, reviewing all the data, and collaborating with patient's care team: 35 minutes. Charges/Coding Visit Charges Inpatient E&M: 69080 Subs Hosp L2
[2023-08-20] MEDS: Gabapentin 600 MG Tablet PO (14:21)
[2023-08-20] MEDS: Acetaminophen 500 MG Tablet 1000 MG PO (14:21)
--- NOTE | 2023-08-20 15:00 | BON_PTH ---
PATIENT: TANIA GUERRERO LOC: MS3 U#:[id number] AGE/SX: 83/M [place]: [facility] [place]/[address]: Dr. Torsten Adame MD : 1940 BED: 1 DIS: 08/23/2023 SPEC #: [id number] RECD: 08/23/23 07:51 STATUS: JOSÉ MIGUEL CATES #: [id number] JACQUELINE: 08/20/23 15:[address]: Giacomo Parada DEPT: SURGICAL PATHOLOGY RECD BY: Gina Gaspar ENTERED: 08/23/23 07:56 SP TYPE: Bone OTHR DR: DO Dr. Gisela Solis MD Dr. Chirag Berry, MD Dr. Eric Smith, MD Dr. Farouk Belal, MD Dr. Nicholas F Kotsonis, MD Tissues: Hip, NOS Procedures: Decalcification bone/plaque Surgery Specimen Level IV Comments: @ Ordering doctor for DEC edited from to @ by CONY at 08/23/23 1634 @ Ordering doctor for SUIV edited from to @ by CONY at 08/23/23 1634 @ Submitting doctor edited from to @ by RGOOD at 08/23/23 1632 HEADER OPERATION: Left hip hemiarthroplasty PRE-OP DIAGNOSIS: Fracture of left femoral neck TISSUE SUBMITTED: Left femoral head MICROSCOPIC DIAGNOSIS Left femoral head, total hip resection: Consistent with fracture site. AM:mirza 08/27/2023 MICROSCOPIC DESCRIPTION Slides are reviewed. GROSS DESCRIPTION Received is one container labeled with the patient's name and designated left femoral head. The specimen consists of a [place] rio femoral head measuring 5.0 x 5.0 x 4.4 cm. The articular surface is essentially unremarkable. The non-articular surface is granular and hemorrhagic consistent with fracture. Resection margin is irregular and hemorrhagic. Continuous Process Tanner Rotary Drum sections are submitted in one cassette after decalcification. / AM:mirza 08/23/2023 TC:5 CPT: 62667, 47609
[2023-08-20] MEDS: Cefazolin 2 GM in 0.9% Normal Saline (100mL Bag) 100 ML IV ×2 (15:12→23:56)
[2023-08-20] MEDS: TXA 1000mg in NS100 100ml (IVPB at Incision) 660 MG IV (15:32)
[2023-08-20 15:42] LABS: Hemoglobin A1c 9.2 % (3.8-5.6)
--- NOTE | 2023-08-20 17:15 | RAD_ITS ---
STUDY: X-RAY - PELVIS AND LEFT HIP REASON FOR EXAM: Male, 83 years old. SANDRA IN OR TECHNIQUE: AP views of the pelvis and hip. COMPARISON: August 19, 2023 FINDINGS: Left hip prosthesis has been placed in anatomic alignment and position. RAD/Hip Min 2 Views (Portable) IMPRESSION: Status post left hip prosthesis placement Electronically Signed: Zack King MD at 18:13 EST ,
[2023-08-20] MEDS: TXA 1000mg in NS100 100ml (IVPB at Closure) 660 MG IV (17:22)
[2023-08-20] MEDS: JPS (Morphine 10mg/ml) OPERA.SITE (17:29)
--- NOTE | 2023-08-20 18:00 | PCM.OPRPT ---
Report of Operation Description of Surgical Findings:: PRINCIPAL PRE-OP DIAGNOSIS: Left FEMORAL NECK FRACTURE PRINCIPAL POST-OP DIAG: Left FEMORAL NECK FRACTURE PRINCIPAL PROCEDURE: Left HIP HEMIARTHROPLASTY Surgeon: Giacomo Parada MD ANESTHESIA: General Anesthesia Record E.B.L. 100 SPECIMENS: None COMPLICATIONS: None DISPOSITION: PACU then potentially floor FINDINGS: Right femoral neck status post right hip hemiarthroplasty OPERATIVE REPORT: INDICATION FOR SURGERY: Patient sustained a ground-level fall on his left hip with a subsequent displaced left femoral neck fracture. After discussion with the patient as well as family risk, patient elected for operative intervention with a hemiarthroplasty for his left hip. Risks were discussed with the patient family including but not limited to blood loss, infection, nerve damage, instability, need for revision surgery, intraoperative fracture, cardiac arrest, . Patient signed consent for surgery. Patient was evaluated preoperatively by anesthesia who deemed the patient medically appropriate for the operating room. PROCEDURE: The patient was brought to the operating room and initial timeout was performed prior to induction of anesthesia. After confirming the patient's side, patient name with 2 unique identifiers as well as surgical plan, the patient was sedated per the anesthesiologist and intubated. Patient was then placed in right lateral decubitus position with a beanbag and all bony prominences well-padded. The left lower extremity was sterilely prepped and draped in standard fashion. A second confirmatory timeout was completed which the patient's name and identification with 2 unique identifiers as well as the appropriate side and procedure was confirmed by everyone in the operating room. A standard posterior approach to the right hip was performed with sharp dissection through the IT band and fascia. The piriformis tendon and some of the short external rotators were released off of the right hip and tagged. Capsulotomy was performed and tagging stitch was also placed in the capsule. The femoral neck was then cut 1 cm proximal to the lesser trochanter. The femoral head was then removed. The head measured a 49 and a trial of 50 & 49 mm were used. 50 mm head appeared to have a more stable fit. Next the femoral canal was prepped, the canal was broached up to a size 4 stem which had stable fixation. The canal was then prepped and a size 4 stem was cemented into the femur. After the cement was harden, a 50 shell standard offset was trialed which had appropriate leg length, range of motion, and stability. Trial was then removed the acetabulum was irrigated to ensure there was no cement in the acetabulum. A 50 shell with a 26 head standard offset was then placed and hip was reduced. Stability was then confirmed as well as leg length and range of motion which were all adequate and appropriate. The wound was then again irrigated with Pulsavac saline. Betadine solution was then placed in the wound for 5 minutes & washed off. Irrisept solution was then placed in the wound for 1 minutes & washed off. The short external rotators were repaired as well as the capsule through 2 drill holes in the greater trochanter. The wound was then closed in layered fashion with interrupted 0 Vicryl, 2-0 Vicryl. Pain cocktail was then injected into the local soft tissues. And the skin was closed with kiana. Wound was covered with mepilex dressing. The patient was awoken from anesthesia which he tolerated well. He was returned to the PACU in stable fashion. Patient will be weightbearing as tolerated with posterior hip precautions of the right lower extremity. He will complete a course of postoperative DVT prophylaxis. We will see him back in clinic in 2 weeks for x-rays, wound check.
[2023-08-20 19:30] LABS: Bedside Glucose 212 mg/dL (74-106)
[2023-08-20] MEDS: 0.9% Saline Lock 10 ML Syringe IV ×2 (20:14→20:53)
[2023-08-20] MEDS: Aspirin 81 MG TAB.CHEW PO (20:14)
[2023-08-20] MEDS: Pravastatin 80 MG Tablet PO (20:14)
[2023-08-20] MEDS: Senna/Docusate Sodium 1 Tablet 2 TABLET PO (20:14)
[2023-08-20] MEDS: Menthol/Lanolin/Calamine/Znox 113 GM Tube 1 APPLIC TOPICAL (20:25)
[2023-08-20 22:20] LABS: Bedside Glucose 219 mg/dL (74-106)
[2023-08-21] VITALS (11 sets, daily range): BP systolic 137–163; BP diastolic 68–93; PULSE 61–79; RESP 16–20; TEMP 36.4–37.3; O2SAT 93–98; BMI 30.4
[2023-08-21] MEDS: Acetaminophen 325 MG Tablet 650 MG PO (03:04)
[2023-08-21] MEDS: oxyCODONE 5 MG Tablet PO (03:05)
[2023-08-21] MEDS: Cefazolin 2 GM in 0.9% Normal Saline (100mL Bag) 100 ML IV (06:07)
[2023-08-21] MEDS: Rivaroxaban 10 MG Tablet PO (06:10)
[2023-08-21] MEDS: Insulin Lispro 100 UNIT/ML INSULN.PEN SC ×4 (06:15→21:33)
[2023-08-21 06:27] LABS: Hematocrit 41.5 % (40-54); Hemoglobin 12.8 g/dL (13.0-16.5); Mean Corp Hgb Conc 30.8 g/dL (32-36); Mean Corpuscular Hgb 29.8 pg (27.0-32.0); Mean Corpuscular Volume 96.7 fL (80-94); Mean Platelet Vol. 10.5 fl (6.2-12.0); Platelet Count 153 K/mm3 (150-450); RBC Distribution Width CV 13.2 % (11.6-14.6); RBC Distribution Width SD 47.3 fl (35.1-43.9); Red Blood Count 4.29 M/mm3 (4.6-6.2); White Blood Count 12.6 K/mm3 (4.4-11.0)
[2023-08-21 06:51] LABS: Anion Gap 6 (5-15); BUN 40 mg/dL (7-18); BUN/Creat Ratio 18.6 RATIO (10-20); Calcium,Total 8.6 mg/dL (8.5-10.1); Chloride 110 mmol/L (98-107); Creatinine, Serum 2.15 mg/dL (0.70-1.30); EST Glomerular Filtration Rate 31 mL/min (>60); Est Glom Filt Rate - Afr Amer 38 mL/min (>60); Estimated Creatinine Clearance 25.12 ml/min; Glucose 279 mg/dL (74-106); Potassium 5.6 mmol/L (3.5-5.1); Sodium Level 139 mmol/L (136-145)
[2023-08-21 08:07] LABS: Bedside Glucose 268 mg/dL (74-106)
[2023-08-21] MEDS: Metoprolol Tartrate 50 MG Tablet PO ×2 (08:40→21:31)
[2023-08-21] MEDS: Furosemide 20 MG Tablet PO (08:41)
[2023-08-21] MEDS: Senna/Docusate Sodium 1 Tablet 2 TABLET PO ×2 (08:41→21:33)
[2023-08-21] MEDS: cloNIDine HCl 0.1 MG Tablet PO ×2 (08:41→21:31)
[2023-08-21] MEDS: Losartan Potassium 100 MG Tablet PO (08:42)
[2023-08-21] MEDS: Menthol/Lanolin/Calamine/Znox 113 GM Tube 1 APPLIC TOPICAL ×4 (08:42→21:34)
[2023-08-21] MEDS: Acetaminophen 500 MG Tablet 1000 MG PO ×3 (08:47→21:32)
[2023-08-21 10:40] LABS: Bedside Glucose 265 mg/dL (74-106)
[2023-08-21] MEDS: Insulin Glargine-YFGN 100 UNIT/ML Pen 10 UNIT SC (10:46)
--- NOTE | 2023-08-21 11:42 | PN.ORTHO_ITS ---
Subjective Subjective Postop day 1 status post left hip hemiarthroplasty. Doing well. Pain well controlled. He has been in bed with abduction pillow. Russo present. Has baseline balance issues and tremor. Objective Data Objective Data Vital Signs: Vital Signs Temp Pulse Resp BP Pulse Ox O2 Del Method O2 Flow Rate 99.0 F 64 18 143/75 H 95 Nasal Cannula 2 08/21/23 10:41 08/21/23 10:41 08/21/23 10:41 08/21/23 10:41 08/21/23 10:41 08/21/23 10:41 08/21/23 10:41 Oxygen Flow Rate (L/min) 2 Oxygen Delivery Method Nasal Cannula Weight: 205 lb 14.588 oz Body Mass Index (BMI) 30.4 Intake & Output: Intake and Output for Last 24 Hours 08/19/23 08/20/23 08/21/23 23:59 23:59 23:59 Intake Total 200 / 200 842.5 / 942.5 520 / 520 Output Total 450 / 450 1475 / 1675 400 / 400 Balance -250 / -250 -632.5 / -732.5 120 / 120 Lab / Micro Data 08/21/23 05:36 08/21/23 05:36 Labs: Laboratory Results - last 24 hr 08/20/23 05:30: Hemoglobin A1c 9.2 H 08/20/23 11:48: POC Glucose 177 H 08/20/23 19:12: POC Glucose 212 H 08/20/23 20:12: POC Glucose 219 H 08/21/23 05:36: WBC 12.6 H, RBC 4.29 L, Hgb 12.8 L, Hct 41.5, MCV 96.7 H, MCH 29.8, MCHC 30.8 L, RDW Std Deviation 47.3 H, RDW Coeff of Cristel 13.2, Plt Count 153, MPV 10.5, Sodium 139, Potassium 5.6 H, Chloride 110 H, Carbon Dioxide 23.0, Anion Gap 6, BUN 40 H, Creatinine 2.15 H, Estim Creat Clear Calc 25.12, Est GFR (MDRD) Af Amer 38 L, Est GFR (MDRD) Non-Af 31 L, BUN/Creatinine Ratio 18.6, Glucose 279 H, Calcium 8.6 08/21/23 06:14: POC Glucose 268 H 08/21/23 08:52: POC Glucose 265 H Radiography Diagnostic Testing: Radiology Impression Echocardiogram 08/19/23 19:00 Interpretation Summary The estimated ejection fraction is 55-60 %. Normal LV systolic function Aortic valve sclerosis with no evidence of stenosis Mild aortic incompetence Pacemaker lead was noted on the right side In comparison to previous echocardiogram no significant change noted. Ordering Physician: Gisela Stacy Performed By: Sterling Smith RCS Hip X-Ray 08/20/23 17:15 IMPRESSION: Status post left hip prosthesis placement Electronically Signed: Zack King MD at 18:13 EST Reading Location ID and State: [address] [place] [address] Tel , Service support , Physical Exam Narrative Dressings?CDI. Distal neurovascular exam is intact moving all toes. Abduction pillow present. Limb alignment appropriate. Assessment & Plan Assessment/Plan (1) S/P hip hemiarthroplasty: PLAN: Plan * PT and OT mobilization. Posterior hip precautions. * DVT prophylaxis with oral Xarelto for 2 weeks, followed by full aspirin for 4 more weeks. * Discussed with Dr. Engle * Encourage incentive spirometry. * Weightbearing as tolerated. * Possible discharge to rehab per primary when appropriate * Will follow up with me in clinic in 2 weeks.
[2023-08-21 11:57] LABS: Anion Gap 7 (5-15); BUN 39 mg/dL (7-18); BUN/Creat Ratio 16.7 RATIO (10-20); Calcium,Total 8.9 mg/dL (8.5-10.1); Chloride 108 mmol/L (98-107); Creatinine, Serum 2.34 mg/dL (0.70-1.30); EST Glomerular Filtration Rate 28 mL/min (>60); Est Glom Filt Rate - Afr Amer 34 mL/min (>60); Estimated Creatinine Clearance 23.08 ml/min; Glucose 309 mg/dL (74-106); Sodium Level 137 mmol/L (136-145)
--- NOTE | 2023-08-21 13:16 | PCM.PN.HOSP ---
Reason for Visit Reason for Visit: Diagnoses Mixed hyperlipidemia (08/19/23) Essential (primary) hypertension (08/19/23) Atherosclerotic heart disease of [place] coronary artery without angina pectoris (08/19/23) Longstanding persistent atrial fibrillation (08/19/23) Fracture of unspecified part of neck of left femur, initial encounter for closed fracture (08/19/23) Presence of cardiac pacemaker (08/19/23) Presence of unspecified artificial hip joint (08/19/23) Subjective Subjective No acute events overnight. Patient seen at bedside this morning, present. Sitting up comfortably in bed, conversing normally, no acute distress. Patient states that he tolerated the left hip replacement surgery well yesterday. He currently denies any hip pain at rest. Has not gotten up out of bed yet this morning. Primary complaint is a cough and throat pain likely due to the endotracheal tube that was in place for his procedure. He otherwise denies any fevers or chills, chest pain, shortness of breath. No other acute concerns at this time. Objective Data Objective Data Vital Signs: Vital Signs Temp Pulse Resp BP Pulse Ox O2 Del Method O2 Flow Rate 99.0 F 64 18 143/75 H 95 Nasal Cannula 2 08/21/23 10:41 08/21/23 10:41 08/21/23 10:41 08/21/23 10:41 08/21/23 10:41 08/21/23 10:41 08/21/23 10:41 Oxygen Flow Rate (L/min) 2 Oxygen Delivery Method Nasal Cannula Weight: 93.4 kg Body Mass Index (BMI) 30.4 Intake & Output: Intake and Output for Last 24 Hours 08/19/23 08/20/23 08/21/23 23:59 23:59 23:59 Intake Total 200 / 200 842.5 / 942.5 640 / 640 Output Total 450 / 450 1475 / 1675 650 / 650 Balance -250 / -250 -632.5 / -732.5 -10 / -10 Lab / Micro Data 08/21/23 05:36 08/21/23 11:36 Labs: Laboratory Results - last 24 hr 08/20/23 05:30: Hemoglobin A1c 9.2 H 08/20/23 19:12: POC Glucose 212 H 08/20/23 20:12: POC Glucose 219 H 08/21/23 05:36: WBC 12.6 H, RBC 4.29 L, Hgb 12.8 L, Hct 41.5, MCV 96.7 H, MCH 29.8, MCHC 30.8 L, RDW Std Deviation 47.3 H, RDW Coeff of Cristel 13.2, Plt Count 153, MPV 10.5, Sodium 139, Potassium 5.6 H, Chloride 110 H, Carbon Dioxide 23.0, Anion Gap 6, BUN 40 H, Creatinine 2.15 H, Estim Creat Clear Calc 25.12, Est GFR (MDRD) Af Amer 38 L, Est GFR (MDRD) Non-Af 31 L, BUN/Creatinine Ratio 18.6, Glucose 279 H, Calcium 8.6 08/21/23 06:14: POC Glucose 268 H 08/21/23 08:52: POC Glucose 265 H 08/21/23 11:36: Sodium 137, Potassium 5.0, Chloride 108 H, Carbon Dioxide 22.0, Anion Gap 7, BUN 39 H, Creatinine 2.34 H, Estim Creat Clear Calc 23.08, Est GFR (MDRD) Af Amer 34 L, Est GFR (MDRD) Non-Af 28 L, BUN/Creatinine Ratio 16.7, Glucose 309 H, Calcium 8.9 Radiography Diagnostic Testing: Radiology Impression Hip X-Ray 08/20/23 17:15 IMPRESSION: Status post left hip prosthesis placement Electronically Signed: Zack King MD at 18:13 EST Reading Location ID and State: [address] [place] [address] Tel , Service support , Physical Exam Const alert, oriented x3 and no apparent distress Constitutional Narrative: Pleasant elderly male, obese, sitting comfortably in bed, conversing normally, no acute distress. General Appearance: cooperative and comfortable HEENT normocephalic, head/scalp atraumatic, hearing grossly normal bilaterally, nasal mucous membranes and turbinates normal and moist oral mucous membranes Eyes PERRL, EOMs intact bilaterally and conjunctivae normal Neck full ROM, no lymphadenopathy and supple Lymph Lymphatic: no lymphadenopathy noted Chest inspection of chest normal Resp normal respiratory effort, normal air movement, no use of accessory muscles and clear to auscultation bilaterally Cardio regular rate, regular rhythm, no murmurs and peripheral pulses 2+ throughout GI normal to inspection, nondistended, normoactive bowel sounds, soft to palpation, non-tender and non-distended Back/Spine normal ROM Extremity Extremity Narrative: Left hip appears grossly normal on visual exam. Skin no rashes or lesions noted Psych mental status grossly normal Assessment & Plan Assessment/Plan (1) Fracture of femoral neck, left: QUALIFIERS: Encounter type: initial encounter Fracture type: closed Qualified Code(s): S72.002A - Fracture of unspecified part of neck of left femur, initial encounter for closed fracture PLAN: Plan Patient is an 83-year-old male who presented with [facility] ED on 08/19/2023 with left hip pain after a mechanical fall at home. 1. Left femoral neck fracture; Acute debility Noted on x-ray on admission. Secondary to mechanical fall at home. Noted to be fairly high surgical risk given morbidities as noted below, cardiology consulted for preop evaluation. TTE on 08/20 was similar to previous, patient okay for procedure. ? Orthopedics following. S/p left hip hemiarthroplasty with Dr. Parada on 08/20. Patient tolerated procedure well. Pain control with scheduled Tylenol, as needed IV Dilaudid and p.o. oxycodone. Per orthopedics, for DVT prophylaxis will do Xarelto 10 mg daily for 2 weeks, followed by aspirin 325 mg for 4 weeks. PT/OT/case management following. Planning for SNF placement on discharge. Chronic medical conditions: ? CKD stage III: Baseline creatinine around 1.6-1.8, creatinine 1.8 on admission. ? Type 2 diabetes: Holding home oral regimen, sliding scale insulin while inpatient. ? Hypertension: Continue home clonidine, metoprolol, Lasix, losartan. ? Hyperlipidemia: Continue home statin. ? Chronic essential tremor: Continue home beta-mitul. ? Chronic A-fib: S/p EPS/RFA. Continue home metoprolol. Not chronically anticoagulated secondary to elevated fall risk and instability. ? CAD s/p stenting: Continue home aspirin, statin, metoprolol, losartan. ? History of sick sinus syndrome s/p pacemaker placement ? History of prior cardiac tamponade s/p pericardiocentesis with resolution DVT prophylaxis: Xarelto CODE STATUS: Full code, verified Expected disposition: SNF, D Total clinical time spent by myself addressing the patient's medical issues, reviewing all the data, and collaborating with patient's care team: 35 minutes. Charges/Coding Visit Charges Inpatient E&M: 36105 Subs Hosp L2
--- NOTE | 2023-08-21 13:59 | CASEMGMT ---
Social Work SW met w/pt and in room in regard to discharge plan. Pt states he would like to stay here if possible. SW reviewed both rehab and TCU w/pt. Pt would prefer rehab, and TCU is his second choice. He would prefer to stay here however, vs going to an outside facility. SW explained will make referral and will follow up on Wednesday. SW called the referral line for rehab/TCU and message left. SW to follow up on Wednesday. LIZETH Enamorado
[2023-08-21 18:25] LABS: Bedside Glucose 264 mg/dL (74-106)
[2023-08-21] MEDS: Aspirin 81 MG TAB.CHEW PO (21:31)
[2023-08-21] MEDS: Pravastatin 80 MG Tablet PO (21:31)
[2023-08-21] MEDS: 0.9% Saline Lock 10 ML Syringe IV (21:33)
[2023-08-21 22:09] LABS: Bedside Glucose 297 mg/dL (74-106)
[2023-08-22] VITALS (8 sets, daily range): BP systolic 137–179; BP diastolic 55–75; PULSE 66–74; RESP 16–20; TEMP 36.6–37.3; O2SAT 95–98; BMI 31.5
[2023-08-22] MEDS: Rivaroxaban 10 MG Tablet PO (05:20)
[2023-08-22] MEDS: Acetaminophen 500 MG Tablet 1000 MG PO ×2 (05:21→14:37)
[2023-08-22] MEDS: Insulin Lispro 100 UNIT/ML INSULN.PEN SC ×4 (06:12→23:36)
[2023-08-22 06:13] LABS: Hemoglobin 12.6 g/dL (13.0-16.5); Mean Corp Hgb Conc 30.7 g/dL (32-36); Mean Corpuscular Hgb 29.6 pg (27.0-32.0); Mean Corpuscular Volume 96.5 fL (80-94); Mean Platelet Vol. 10.7 fl (6.2-12.0); Platelet Count 168 K/mm3 (150-450); RBC Distribution Width CV 13.2 % (11.6-14.6); RBC Distribution Width SD 47.4 fl (35.1-43.9); Red Blood Count 4.25 M/mm3 (4.6-6.2); White Blood Count 13.3 K/mm3 (4.4-11.0)
[2023-08-22 06:47] LABS: Anion Gap 8 (5-15); BUN 49 mg/dL (7-18); BUN/Creat Ratio 24.7 RATIO (10-20); Calcium,Total 8.7 mg/dL (8.5-10.1); Chloride 110 mmol/L (98-107); Creatinine, Serum 1.98 mg/dL (0.70-1.30); EST Glomerular Filtration Rate 34 mL/min (>60); Est Glom Filt Rate - Afr Amer 42 mL/min (>60); Estimated Creatinine Clearance 27.28 ml/min; Glucose 197 mg/dL (74-106); Potassium 4.3 mmol/L (3.5-5.1); Sodium Level 140 mmol/L (136-145)
[2023-08-22 07:19] LABS: Bedside Glucose 179 mg/dL (74-106)
[2023-08-22] MEDS: cloNIDine HCl 0.1 MG Tablet PO ×2 (09:44→23:33)
[2023-08-22] MEDS: Menthol/Lanolin/Calamine/Znox 113 GM Tube 1 APPLIC TOPICAL ×4 (09:44→23:33)
[2023-08-22] MEDS: Furosemide 20 MG Tablet PO (09:45)
[2023-08-22] MEDS: Losartan Potassium 100 MG Tablet PO (09:45)
[2023-08-22] MEDS: Metoprolol Tartrate 50 MG Tablet PO ×2 (09:45→23:32)
[2023-08-22] MEDS: Senna/Docusate Sodium 1 Tablet 2 TABLET PO (09:46)
--- NOTE | 2023-08-22 11:23 | PN.HOSP_ITS ---
Reason for Visit Reason for Visit: Diagnoses Mixed hyperlipidemia (08/19/23) Essential (primary) hypertension (08/19/23) Atherosclerotic heart disease of [place] coronary artery without angina pectoris (08/19/23) Longstanding persistent atrial fibrillation (08/19/23) Fracture of unspecified part of neck of left femur, initial encounter for closed fracture (08/19/23) Presence of cardiac pacemaker (08/19/23) Presence of unspecified artificial hip joint (08/19/23) Subjective Subjective No acute events overnight. Patient seen at bedside this morning, present. Patient sitting comfortably in bedside chair, conversing normally, no acute dis tress. Patient states that he feels well this morning. His cough and throat pain are improved from yesterday. Just finished breakfast and tolerated this well. Denies any left hip pain at rest. Was able to work with therapy yesterday somewhat but remains very weak. Denies any acute pain or discomfort. No other acute concerns this morning. Objective Data Objective Data Vital Signs: Vital Signs Temp Pulse Resp BP Pulse Ox O2 Del Method O2 Flow Rate 98.7 F 72 16 137/55 H 98 Room Air 2 08/22/23 09:37 08/22/23 09:45 08/22/23 09:37 08/22/23 09:45 08/22/23 09:37 08/22/23 09:38 08/21/23 10:41 Oxygen Flow Rate (L/min) 2 Oxygen Delivery Method Room Air Weight: 96.5 kg Body Mass Index (BMI) 31.5 Intake & Output: Intake and Output for Last 24 Hours 08/20/23 08/21/23 08/22/23 23:59 23:59 23:59 Intake Total 842.5 / 942.5 1305.75 / 1305.75 Output Total 1475 / 1675 800 / 1175 625 / 625 Balance -632.5 / -732.5 505.75 / 130.75 -625 / -625 Lab / Micro Data 08/22/23 05:03 08/22/23 05:03 Labs: Laboratory Results - last 24 hr 08/21/23 11:36: Sodium 137, Potassium 5.0, Chloride 108 H, Carbon Dioxide 22.0, Anion Gap 7, BUN 39 H, Creatinine 2.34 H, Estim Creat Clear Calc 23.08, Est GFR (MDRD) Af Amer 34 L, Est GFR (MDRD) Non-Af 28 L, BUN/Creatinine Ratio 16.7, Glucose 309 H, Calcium 8.9 08/21/23 16:53: POC Glucose 264 H 08/21/23 21:26: POC Glucose 297 H 08/22/23 05:03: WBC 13.3 H, RBC 4.25 L, Hgb 12.6 L, Hct 41.0, MCV 96.5 H, MCH 29.6, MCHC 30.7 L, RDW Std Deviation 47.4 H, RDW Coeff of Cristel 13.2, Plt Count 168, MPV 10.7, Sodium 140, Potassium 4.3, Chloride 110 H, Carbon Dioxide 22.0, Anion Gap 8, BUN 49 H, Creatinine 1.98 H, Estim Creat Clear Calc 27.28, Est GFR (MDRD) Af Amer 42 L, Est GFR (MDRD) Non-Af 34 L, BUN/Creatinine Ratio 24.7 H, Glucose 197 H, Calcium 8.7 08/22/23 06:09: POC Glucose 179 H Physical Exam Const alert, oriented x3 and no apparent distress Constitutional Narrative: Pleasant elderly male, obese, sitting comfortably in bedside chair, conversing normally, no acute distress. General Appearance: cooperative and comfortable HEENT normocephalic, head/scalp atraumatic, hearing grossly normal bilaterally, nasal mucous membranes and turbinates normal and moist oral mucous membranes Eyes PERRL, EOMs intact bilaterally and conjunctivae normal Neck full ROM, no lymphadenopathy and supple Lymph Lymphatic: no lymphadenopathy noted Chest inspection of chest normal Resp normal respiratory effort, normal air movement, no use of accessory muscles and clear to auscultation bilaterally Cardio regular rate, regular rhythm, no murmurs and peripheral pulses 2+ throughout GI normal to inspection, nondistended, normoactive bowel sounds, soft to palpation, non-tender and non-distended Back/Spine normal ROM Extremity Extremity Narrative: Left hip appears grossly normal on visual exam. Skin no rashes or lesions noted Psych mental status grossly normal Assessment & Plan Assessment/Plan (1) Fracture of femoral neck, left: QUALIFIERS: Encounter type: initial encounter Fracture type: closed Qualified Code(s): S72.002A - Fracture of unspecified part of neck of left femur, initial encounter for closed fracture PLAN: Plan Patient is an 83-year-old male who presented with [facility] ED on 08/19/2023 with left hip pain after a mechanical fall at home. 1. Left femoral neck fracture; Acute debility Noted on x-ray on admission. Secondary to mechanical fall at home. Noted to be fairly high surgical risk given morbidities as noted below, cardiology consulted for preop evaluation. TTE on 08/20 was similar to previous, patient okay for procedure. ? Orthopedics following. S/p left hip hemiarthroplasty with Dr. Parada on 08/20. Patient tolerated procedure well. Pain control with scheduled Tylenol, as needed IV Dilaudid and p.o. oxycodone. Per orthopedics, for DVT prophylaxis will do Xarelto 10 mg daily for 2 weeks, followed by aspirin 325 mg for 4 weeks. PT/OT/case management following. Planning for SNF placement on discharge. Chronic medical conditions: ? CKD stage III: Baseline creatinine around 1.6-1.8, creatinine 1.8 on admission. ? Type 2 diabetes: Holding home oral regimen, sliding scale insulin while inpatient. ? Hypertension: Continue home clonidine, metoprolol, Lasix, losartan. ? Hyperlipidemia: Continue home statin. ? Chronic essential tremor: Continue home beta-mitul. ? Chronic A-fib: S/p EPS/RFA. Continue home metoprolol. Not chronically anticoagulated secondary to elevated fall risk and instability. ? CAD s/p stenting: Continue home aspirin, statin, metoprolol, losartan. ? History of sick sinus syndrome s/p pacemaker placement ? History of prior cardiac tamponade s/p pericardiocentesis with resolution DVT prophylaxis: Xarelto CODE STATUS: Full code, verified Expected disposition: SNF, 1 to 2 days Total clinical time spent by myself addressing the patient's medical issues, reviewing all the data, and collaborating with patient's care team: 35 minutes. Charges/Coding Visit Charges Inpatient E&M: 17606 Subs Hosp L2
[2023-08-22] MEDS: oxyCODONE 5 MG Tablet PO (11:49)
[2023-08-22] MEDS: Insulin Glargine-YFGN 100 UNIT/ML Pen 10 UNIT SC (11:54)
[2023-08-22 14:58] LABS: Bedside Glucose 225 mg/dL (74-106)
[2023-08-22 21:19] LABS: Bedside Glucose 328 mg/dL (74-106)
[2023-08-22] MEDS: Aspirin 81 MG TAB.CHEW PO (23:32)
[2023-08-22] MEDS: Pravastatin 80 MG Tablet PO (23:33)
[2023-08-22] MEDS: 0.9% Saline Lock 10 ML Syringe IV (23:45)
[2023-08-23 01:22] LABS: Bedside Glucose 241 mg/dL (74-106)
[2023-08-23 06:00] VITALS: BMI 30.7
[2023-08-23 06:37] VITALS: BP 161/78; PULSE 64; RESP 20; TEMP 36.9; O2SAT 96
[2023-08-23] MEDS: Rivaroxaban 10 MG Tablet PO (06:44)
[2023-08-23] MEDS: Insulin Lispro 100 UNIT/ML INSULN.PEN SC ×2 (06:48→12:37)
[2023-08-23 06:51] LABS: Hematocrit 41.5 % (40-54); Hemoglobin 12.6 g/dL (13.0-16.5); Mean Corp Hgb Conc 30.4 g/dL (32-36); Mean Corpuscular Volume 98.8 fL (80-94); Mean Platelet Vol. 10.3 fl (6.2-12.0); Platelet Count 176 K/mm3 (150-450); RBC Distribution Width CV 13.3 % (11.6-14.6); RBC Distribution Width SD 48.4 fl (35.1-43.9); White Blood Count 10.6 K/mm3 (4.4-11.0)
[2023-08-23 07:12] LABS: Bedside Glucose 165 mg/dL (74-106)
[2023-08-23 07:31] LABS: Anion Gap 7 (5-15); BUN 45 mg/dL (7-18); BUN/Creat Ratio 24.9 RATIO (10-20); Calcium,Total 8.8 mg/dL (8.5-10.1); Chloride 110 mmol/L (98-107); Creatinine, Serum 1.81 mg/dL (0.70-1.30); EST Glomerular Filtration Rate 38 mL/min (>60); Est Glom Filt Rate - Afr Amer 46 mL/min (>60); Estimated Creatinine Clearance 29.84 ml/min; Glucose 191 mg/dL (74-106); Potassium 4.5 mmol/L (3.5-5.1); Sodium Level 142 mmol/L (136-145)
[2023-08-23 07:55] VITALS: O2SAT 95
--- NOTE | 2023-08-23 09:08 | NURSING ---
Pt reported he urinated about 10 min ago. Bladder scanned for 393. st cath for 450. pt reports he was not feeling any urgency or distention. did not feel any different after st cath. will continue to monitor
--- NOTE | 2023-08-23 09:17 | PCM.PN.HOSP ---
Subjective Subjective Doing well, has had to be straight cathed twice overnight Objective Data Objective Data Vital Signs: Vital Signs Temp Pulse Resp BP Pulse Ox O2 Del Method O2 Flow Rate 98.4 F 64 20 H 161/78 H 95 Room Air 2 08/23/23 06:37 08/23/23 06:37 08/23/23 06:37 08/23/23 06:37 08/23/23 07:55 08/23/23 07:55 08/21/23 10:41 Oxygen Flow Rate (L/min) 2 Oxygen Delivery Method Room Air Weight: 207 lb 10.807 oz Body Mass Index (BMI) 30.7 Intake & Output: Intake and Output for Last 24 Hours 08/22/23 08/23/23 08/24/23 03:59 03:59 03:59 Intake Total 1095.75 / 1095.75 120 / 120 Output Total 975 / 975 1050 / 1050 555 / 555 Balance 120.75 / 120.75 -930 / -930 -555 / -555 Lab / Micro Data 08/23/23 05:55 08/23/23 05:55 Labs: Laboratory Results - last 24 hr 08/22/23 11:53: POC Glucose 225 H 08/22/23 17:10: POC Glucose 328 H 08/22/23 23:35: POC Glucose 241 H 08/23/23 05:55: WBC 10.6, RBC 4.20 L, Hgb 12.6 L, Hct 41.5, MCV 98.8 H, MCH 30.0, MCHC 30.4 L, RDW Std Deviation 48.4 H, RDW Coeff of Cristel 13.3, Plt Count 176, MPV 10.3, Sodium 142, Potassium 4.5, Chloride 110 H, Carbon Dioxide 25.0, Anion Gap 7, BUN 45 H, Creatinine 1.81 H, Estim Creat Clear Calc 29.84, Est GFR (MDRD) Af Amer 46 L, Est GFR (MDRD) Non-Af 38 L, BUN/Creatinine Ratio 24.9 H, Glucose 191 H, Calcium 8.8 08/23/23 06:47: POC Glucose 165 H Physical Exam Narrative General: Alert, Oriented x3, Cooperative, No apparent distress HEENT: Atraumatic, PERRLA, EOMI, Normocephalic Oral: Moist Mucosa Neck: Supple, No JVD Lungs: Diminished, Normal air movement, No rhonchi, No wheeze, No rales Cardiovascular: Regular rate, Regular Rhythm, Normal S1, Normal S2, No murmurs Abdomen: Soft, Non Tender, Non-Distended, No Hepato-splenomegaly Extremities: No edema, Capillary Refill Less than 3 Seconds Skin: Incision CDI Musculoskeletal: Minimal tenderness to Palpation of left hip Neurological: Cranial nerves II-XII grossly intact, Motor Exam 5/5 strength throughout, Sensory exam intact to light touch and pain Psych/Mental Status: Normal Affect, Appropriate Assessment & Plan Assessment/Plan (1) Fracture of femoral neck, left: QUALIFIERS: Encounter type: initial encounter Fracture type: closed Qualified Code(s): S72.002A - Fracture of unspecified part of neck of left femur, initial encounter for closed fracture PLAN: Plan 1. Left femoral neck fracture; Acute debility Noted on x-ray on admission. Secondary to mechanical fall at home. Noted to be fairly high surgical risk given morbidities as noted below, cardiology consulted for preop evaluation. TTE on 08/20 was similar to previous, patient okay for procedure. ? Orthopedics following. S/p left hip hemiarthroplasty with Dr. Parada on 08/20. Patient tolerated procedure well. Pain control with scheduled Tylenol, as needed IV Dilaudid and p.o. oxycodone. Per orthopedics, for DVT prophylaxis will do Xarelto 10 mg daily for 2 weeks, followed by aspirin 325 mg for 4 weeks. PT/OT/case management following. Planning for SNF placement on discharge. Chronic medical conditions: ? CKD stage III: Baseline creatinine around 1.6-1.8, creatinine 1.8 on admission. ? Type 2 diabetes: Holding home oral regimen, sliding scale insulin while inpatient. ? Hypertension: Continue home clonidine, metoprolol, Lasix, losartan. ? Hyperlipidemia: Continue home statin. ? Chronic essential tremor: Continue home beta-mitul. ? Chronic A-fib: S/p EPS/RFA. Continue home metoprolol. Not chronically anticoagulated secondary to elevated fall risk and instability. ? CAD s/p stenting: Continue home aspirin, statin, metoprolol, losartan. ? History of sick sinus syndrome s/p pacemaker placement ? History of prior cardiac tamponade s/p pericardiocentesis with resolution DVT: Xarelto ? Appears medically stable for discharge to SNF Charges/Coding Visit Charges Inpatient E&M: 54541 Subs Hosp L2
[2023-08-23 10:00] VITALS: BP 149/79; PULSE 69; RESP 18; TEMP 36.9; O2SAT 96
[2023-08-23 10:09] VITALS: PULSE 69
[2023-08-23] MEDS: Senna/Docusate Sodium 1 Tablet 2 TABLET PO (10:09)
[2023-08-23] MEDS: Metoprolol Tartrate 50 MG Tablet PO (10:09)
[2023-08-23] MEDS: Losartan Potassium 100 MG Tablet PO (10:09)
[2023-08-23] MEDS: Furosemide 20 MG Tablet PO (10:09)
[2023-08-23] MEDS: cloNIDine HCl 0.1 MG Tablet PO (10:09)
[2023-08-23] MEDS: Insulin Glargine-YFGN 100 UNIT/ML Pen 10 UNIT SC (10:10)
[2023-08-23] MEDS: Menthol/Lanolin/Calamine/Znox 113 GM Tube 1 APPLIC TOPICAL ×2 (10:12→13:41)
--- NOTE | 2023-08-23 11:35 | PN.ORTHO_ITS ---
Subjective Subjective Post op day 3 status post left hip hemiarthroplasty. Doing well. [facility] Sitting up in chair this morning. Had 2 sets of straight cath this morning earlier today. Denies previous known prostate enlargement or medications for it. Has been doing IS. Objective Data Objective Data Vital Signs: Vital Signs Temp Pulse Resp BP Pulse Ox O2 Del Method O2 Flow Rate 98.5 F 69 18 149/79 H 96 Room Air 2 08/23/23 10:00 08/23/23 10:09 08/23/23 10:00 08/23/23 10:00 08/23/23 10:00 08/23/23 10:00 08/21/23 10:41 Oxygen Flow Rate (L/min) 2 Oxygen Delivery Method Room Air Weight: 207 lb 10.807 oz Body Mass Index (BMI) 30.7 Intake & Output: Intake and Output for Last 24 Hours 08/21/23 08/22/23 08/23/23 23:59 23:59 23:59 Intake Total 1305.75 / 1305.75 120 / 120 Output Total 800 / 1175 1425 / 1425 555 / 555 Balance 505.75 / 130.75 -1305 / -1305 -555 / -555 Lab / Micro Data 08/23/23 05:55 08/23/23 05:55 Labs: Laboratory Results - last 24 hr 08/22/23 11:53: POC Glucose 225 H 08/22/23 17:10: POC Glucose 328 H 08/22/23 23:35: POC Glucose 241 H 08/23/23 05:55: WBC 10.6, RBC 4.20 L, Hgb 12.6 L, Hct 41.5, MCV 98.8 H, MCH 30.0, MCHC 30.4 L, RDW Std Deviation 48.4 H, RDW Coeff of Cristel 13.3, Plt Count 176, MPV 10.3, Sodium 142, Potassium 4.5, Chloride 110 H, Carbon Dioxide 25.0, Anion Gap 7, BUN 45 H, Creatinine 1.81 H, Estim Creat Clear Calc 29.84, Est GFR (MDRD) Af Amer 46 L, Est GFR (MDRD) Non-Af 38 L, BUN/Creatinine Ratio 24.9 H, Glucose 191 H, Calcium 8.8 08/23/23 06:47: POC Glucose 165 H Physical Exam Narrative Dressing CDI. Distal neurovascular exam is intact. Assessment & Plan Assessment/Plan (1) S/P hip hemiarthroplasty: PLAN: Plan Recommend tapering down on opioids to improve bladder function. He does not seem to have significant pain. May be appropriate to use Tylenol and NSAIDs if not contraindicated. Continue PT OT mobilization more frequently in the day. Discharge to possibly rehab once medically cleared.
[2023-08-23 12:00] LABS: Bedside Glucose 193 mg/dL (74-106)
--- NOTE | 2023-08-23 13:14 | PCM.TXEXTCAR ---
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 Left femoral neck fracture; Acute debility Noted on x-ray on admission. Secondary to mechanical fall at home. Noted to be fairly high surgical risk given morbidities as noted below, cardiology consulted for preop evaluation. TTE on 08/20 was similar to previous, patient okay for procedure. ? Orthopedics following. S/p left hip hemiarthroplasty with Dr. Parada on 08/20. Patient tolerated procedure well. Pain control with scheduled Tylenol, as needed IV Dilaudid and p.o. oxycodone. Per orthopedics, for DVT prophylaxis will do Xarelto 10 mg daily for 2 weeks, followed by aspirin 325 mg for 4 weeks. PT/OT/case management following. Planning for SNF placement on discharge. Chronic medical conditions: ? CKD stage III: Baseline creatinine around 1.6-1.8, creatinine 1.8 on admission. ? Type 2 diabetes: Holding home oral regimen, sliding scale insulin while inpatient. ? Hypertension: Continue home clonidine, metoprolol, Lasix, losartan. ? Hyperlipidemia: Continue home statin. ? Chronic essential tremor: Continue home beta-mitul. ? Chronic A-fib: S/p EPS/RFA. Continue home metoprolol. Not chronically anticoagulated secondary to elevated fall risk and instability. ? CAD s/p stenting: Continue home aspirin, statin, metoprolol, losartan. ? History of sick sinus syndrome s/p pacemaker placement ? History of prior cardiac tamponade s/p pericardiocentesis with resolution DVT: Xarelto ? Appears medically stable for discharge to SNF Allergies/Procedures Done in Hospital Allergies hydrochlorothiazide Adverse Reaction (Unknown, Verified 08/19/23 15:15) Gout symptoms Procedures: None Type of Care/Length of Stay Estimated LOS: Convalescent Care Less Than 30 days Type of Care Needed: Skilled Rehab Potential: Good Prognosis: Good Additional Orders/Day of Discharge Day of Discharge: 08/23/23 Dietary and Speech Recommendations Dietitian Recommendations/Changes: Will change diet to 1800 reji Consistent CHO / No Added Salt diet d/t pmhx and issues w/ edema. Continue to follow and monitor for changes in pt nutritional status and need for additional nutrition rec/diet education if desired by pt. Discharge Plan Admission Admit Date/Time: 08/19/23 17:45 Attending Provider: Torsten Adame Primary Care Provider: Joe Hernandez Consulting Providers: Ash Alaniz; Giacomo Parada; Gisela Stacy; Perez Engle Discharge Orders/Prescriptions Prescriptions: New Xarelto 10 mg Tablet 10 mg PO DAILY@0600 Qty: 0 0RF acetaminophen 500 mg Tablet 1,000 mg PO Q8 Qty: 0 0RF tamsulosin 0.4 mg Capsule 0.4 mg PO DAILY@1730 Qty: 0 0RF Continued furosemide 20 mg tablet 20 mg PO DAILY Qty: 1 0RF Jardiance 10 mg tablet 10 mg PO DAILY glipizide 5 mg tablet 5 mg PO BID aspirin 81 MG tablet,chewable 81 mg PO QHS cholecalciferol (vitamin D3) 50 mcg (2,000 unit) capsule 2,000 unit PO DAILY Touromeo SoloStar U-300 Insulin 300 unit/mL (1.5 mL) insulin pen 10 unit SUBCUT DAILY PreserVision AREDS 4,296 mcg-226 mg-90 mg capsule 1 cap PO DAILY clonidine HCl 0.1 mg tablet 0.1 mg PO BID Qty: 180 3RF metoprolol tartrate 50 mg tablet 50 mg PO BID Qty: 180 3RF losartan 100 mg tablet 100 mg PO DAILY Qty: 90 3RF pravastatin 80 mg tablet 80 mg PO QHS Qty: 90 3RF Referrals / Follow Up: Joe Hernandez MD [Primary Care Provider] - Giacomo Parada MD [Med Staff - Active Staff] - Within 2 Weeks Disposition Disposition (needs filled in before D/C Order can be placed): Custodial Facility
--- NOTE | 2023-08-23 13:16 | CASEMGMT ---
Addendum entered by Heather Chino 08/23/23 13:45: Social work Per physician, pt is ready for discharge today. Kyara in TCU notified and discharge orders faxed. SW updated pt, pts and bedside RN. Disposition: TCU, skilled level of care TAYLOR Agustin Original Note: Social Work SW met with pt and and introduced self and role of SW. SW updated that Inpatient Rehab has no beds available but TCU can accept. Pt is agreeable to placement at TCU. Medication questions from TCU clarified with pt and and they are understanding and agreeable. Physician notified that pt can discharge to TCU when medically ready. Plan: TCU, when medically ready TAYLOR Agustin
[2023-08-23] MEDS: Tamsulosin HCl 0.4 MG Capsule PO (13:40)
--- NOTE | 2023-08-23 13:40 | PHA.DC.MC.R ---
Pharmacy [facility] Pharmacy Service has performed discharge medication reconciliation and counseling for this patient. The patient's discharge medication list was reviewed for discrepancies and discrepancies were resolved. The patient was counseled on the following discharge medications and changes in medications for homegoing were reviewed. The Reason for Use, instructions for use, and potential side effects were reviewed for all new medications. The patient's questions regarding all of their medications were answered. 1. rivaroxaban 10 mg PO daily 2. tamsulosin 0.4 mg PO daily The patient was able to verbally demonstrate an understanding of their discharge medications. Medications at Discharge Home Medications aspirin 81 mg chewable tablet 81 mg PO QHS HEART HEALTH 06/24/14 furosemide 20 mg tablet 20 mg PO DAILY FLUID #1 TAB 01/11/20 empagliflozin 10 mg tablet (Jardiance) 10 mg PO DAILY DIABETES 01/14/22 glipizide 5 mg tablet 5 mg PO BID DIABETES 01/14/22 clonidine HCl 0.1 mg tablet 0.1 mg PO BID BLOOD PRESSURE #180 tabs 10/01/22 metoprolol tartrate 50 mg tablet 50 mg PO BID BLOOD PRESSURE #180 tabs 04/05/23 losartan 100 mg tablet 100 mg PO DAILY BLOOD PRESSURE #90 tabs 04/16/23 pravastatin 80 mg tablet 80 mg PO QHS CHOLESTEROL #90 tabs 07/21/23 cholecalciferol (vitamin D3) 50 mcg (2,000 unit) capsule 2,000 unit PO DAILY SUPPLEMENT 08/19/23 insulin glargine U-300 conc 300 unit/mL (1.5 mL) subcutaneous pen (Toujeo SoloStar U-300 Insulin) 10 unit subcut DAILY DIABETES 08/19/23 vitamins A,C,O-pocr-ixvjpb 4,296 mcg-226 mg-90 mg capsule (PreserVision AREDS) 1 cap PO DAILY EYE HEALTH 08/19/23 acetaminophen 500 mg tablet 1,000 mg (2 x 500 mg) PO Q8 #0 tabs 08/23/23 rivaroxaban 10 mg tablet (Xarelto) 10 mg PO DAILY@0600 #0 tabs 08/23/23 tamsulosin 0.4 mg capsule 0.4 mg PO DAILY@1730 #0 caps 08/23/23
--- NOTE | 2023-08-23 13:43 | PCM.DC.SUM ---
Providers Date of Admission: 08/19/23 Primary Care Physician: Dr. Joe Hernandez MD Consultations 08/19/23 19:00 Consult: Cardiology Routine Consulting Provider: Ash Alaniz Reason for Consult: Cardiac clearance EMERGENT Consult: No MD Notified: Yes Date Notified: 08/19/23 Time Notified: 18:41 Method of Notification: Verbal Consult: Orthopedics Routine Consulting Provider: Giacomo Parada Reason for Consult: L hip fracture, fall EMERGENT Consult: No Notified: Yes Date Notified: 08/19/23 Time Notified: 18:50 Method of Notification: ED Physician Initiated Reason For Visit: FALL, L HIP FRACTURE Diagnosis Discharge Diagnosis (1) S/P hip hemiarthroplasty: Status: Acute Code(s): Z96.649 - Presence of unspecified artificial hip joint Medications at Discharge Home Medications aspirin 81 mg chewable tablet 81 mg PO QHS HEART HEALTH 06/24/14 furosemide 20 mg tablet 20 mg PO DAILY FLUID #1 TAB 01/11/20 empagliflozin 10 mg tablet (Jardiance) 10 mg PO DAILY DIABETES 01/14/22 glipizide 5 mg tablet 5 mg PO BID DIABETES 01/14/22 clonidine HCl 0.1 mg tablet 0.1 mg PO BID BLOOD PRESSURE #180 tabs 10/01/22 metoprolol tartrate 50 mg tablet 50 mg PO BID BLOOD PRESSURE #180 tabs 04/05/23 losartan 100 mg tablet 100 mg PO DAILY BLOOD PRESSURE #90 tabs 04/16/23 pravastatin 80 mg tablet 80 mg PO QHS CHOLESTEROL #90 tabs 07/21/23 cholecalciferol (vitamin D3) 50 mcg (2,000 unit) capsule 2,000 unit PO DAILY SUPPLEMENT 08/19/23 insulin glargine U-300 conc 300 unit/mL (1.5 mL) subcutaneous pen (Toujeo SoloStar U-300 Insulin) 10 unit subcut DAILY DIABETES 08/19/23 vitamins A,C,U-zeea-zwukqp 4,296 mcg-226 mg-90 mg capsule (PreserVision AREDS) 1 cap PO DAILY EYE HEALTH 08/19/23 acetaminophen 500 mg tablet 1,000 mg (2 x 500 mg) PO Q8 #0 tabs 08/23/23 rivaroxaban 10 mg tablet (Xarelto) 10 mg PO DAILY@0600 #0 tabs 08/23/23 tamsulosin 0.4 mg capsule 0.4 mg PO DAILY@1730 #0 caps 08/23/23 Hospital Course Operations total hip replacement Procedures 2-D Echocardiogram Summary of Care Provided Minutes Spent on Discharge: 37 Hospital Course: Per HPI: The patient is an 83 y/o M w/ PMHx: CAD s/p PCI, HTN, HLD, Sick sinus syndrome s/p pacemaker placement, Gout, Diabetes mellitus type II, Chronic essential tremor, Hx VTE (DVT, PE), Chronic AF s/p EPS/RFA, Hx cardiac tamponade s/p pericardiocentesis, most recent Cardiology visit 05/03/23 with no marked findings with no chest discomfort, palpitations, lower extremity swelling, claudication, dyspnea, orthopnea or marked weight discomfort nor any lightheadedness/dizziness or near syncopal type sensations at that time with most recent pacer check 06/16/2023 without concerning findings not on any chronic anticoagulation secondary to balance issues/fall elevated risk who presents to the [facility] ED on 08/19/23 with history of unfortunate mechanical fall falling onto his left side with significant left hip and left lower extremity pain and debility as well as external rotation in addition to hitting his head on that side with no loss of consciousness prompting EMS call. Work-up in the ED included T97.6, heart rate 99, BP 133/105, respiratory rate 17, 98% on room air, CBC with WBC 7.9, hemoglobin 15.5, platelet 212 without marked shift, unremarkable coags, BMP with BUN/creatinine 29/1.80, glucose 331, CT brain with no acute cardiopulmonary findings with microvascular ischemic changes and atrophy, CT cervical spine no evidence of a fracture with mild C3-4 anterior listhesis and degenerative changes, plain film of the hip and pelvis left side with an acute left femoral neck fracture, EKG paced. In the ED patient ministered Zofran 4 mg IV x1 as well as morphine 4 mg IV x1. ED discussed case with orthopedic surgeon Dr. kwon. Upon admission given patient history also reviewed case with cardiology Dr. Alaniz. In the ED patient reports his L hip pain 5/10 in severity, more aching, worse with movement. Hospital Course: 1. Left femoral neck fractures after mechanical fall status post left hip hemiarthroplasty on 08/20/2023?83-year-old male presented to the hospital after mechanical fall with left femoral neck fracture. Echocardiogram was unremarkable prior to surgery and he underwent a left hemiarthroplasty which he tolerated well. He has been having some urinary retention issues today he was started on Flomax and had to be straight cathed twice if he does not void then we will place a Russo prior to discharge to the transitional care unit. I discussed with him the plan for discharge today he expressed understanding of the risk benefits of going to the alf and would like to go today. Would recommend continuing Flomax however will not discharge him on any narcotics to hopefully assist with his urinary retention issues. I do recommend continuing Tylenol 1000 mg every 8 hours as needed. He will need to follow-up with orthopedic surgery in 2 weeks, in the meantime he will continue with Xarelto 10 mg p.o. daily for 2 weeks and then transition to aspirin 325 mg daily for 4 weeks. 2. Chronic kidney disease stage III, type 2 diabetes, hypertension, hyperlipidemia, chronic essential tremor, chronic A-fib, coronary artery disease status post stent, sick sinus syndrome status post pacemaker for all chronic medical conditions which complicate his care. His home medications were continued where appropriate Weight / BMI Weight Weight: 207 lb 10.807 oz Body Mass Index (BMI) 30.7 ABG / Lab / Microbiology Data 08/23/23 05:55 08/23/23 05:55 Laboratory: Laboratory Results - last 24 hr 08/22/23 11:53: POC Glucose 225 H 08/22/23 17:10: POC Glucose 328 H 08/22/23 23:35: POC Glucose 241 H 08/23/23 05:55: WBC 10.6, RBC 4.20 L, Hgb 12.6 L, Hct 41.5, MCV 98.8 H, MCH 30.0, MCHC 30.4 L, RDW Std Deviation 48.4 H, RDW Coeff of Cristel 13.3, Plt Count 176, MPV 10.3, Sodium 142, Potassium 4.5, Chloride 110 H, Carbon Dioxide 25.0, Anion Gap 7, BUN 45 H, Creatinine 1.81 H, Estim Creat Clear Calc 29.84, Est GFR (MDRD) Af Amer 46 L, Est GFR (MDRD) Non-Af 38 L, BUN/Creatinine Ratio 24.9 H, Glucose 191 H, Calcium 8.8 08/23/23 06:47: POC Glucose 165 H 08/23/23 11:38: POC Glucose 193 H Meaningful Use Info Meaningful Use Diagnoses (Choose all that apply): None applicable Discharge Plan Admission Admit Date/Time: 08/19/23 17:45 Attending Provider: Torsten Adame Primary Care Provider: Joe Hernandez Consulting Providers: Ash Alaniz; Giacomo Parada; Gisela Stacy; Perez Engle Discharge Orders/Prescriptions Prescriptions: New Xarelto 10 mg Tablet 10 mg PO DAILY@0600 Qty: 0 0RF acetaminophen 500 mg Tablet 1,000 mg PO Q8 Qty: 0 0RF tamsulosin 0.4 mg Capsule 0.4 mg PO DAILY@1730 Qty: 0 0RF Continued furosemide 20 mg tablet 20 mg PO DAILY Qty: 1 0RF Jardiance 10 mg tablet 10 mg PO DAILY glipizide 5 mg tablet 5 mg PO BID aspirin 81 MG tablet,chewable 81 mg PO QHS cholecalciferol (vitamin D3) 50 mcg (2,000 unit) capsule 2,000 unit PO DAILY Toujeo SoloStar U-300 Insulin 300 unit/mL (1.5 mL) insulin pen 10 unit SUBCUT DAILY PreserVision AREDS 4,296 mcg-226 mg-90 mg capsule 1 cap PO DAILY clonidine HCl 0.1 mg tablet 0.1 mg PO BID Qty: 180 3RF metoprolol tartrate 50 mg tablet 50 mg PO BID Qty: 180 3RF losartan 100 mg tablet 100 mg PO DAILY Qty: 90 3RF pravastatin 80 mg tablet 80 mg PO QHS Qty: 90 3RF Referrals / Follow Up: Giacomo Parada MD [Med Staff - Active Staff] - Within 2 Weeks Joe Hernandez MD [Primary Care Provider] - Disposition Disposition (needs filled in before D/C Order can be placed): [facility] Facility Charges/Coding Visit Charges Inpatient E&M: 20216 Disch Hosp >30min
[2023-08-23 14:00] VITALS: BP 164/70; PULSE 64; RESP 18; TEMP 36.8; O2SAT 100
--- NOTE | 2023-08-23 14:54 | NURSING ---
Prior to D/c to tcu pt voided 100 cc. bladder scan done 360ml. This was 3rd episode of >300 ml. Russo catheter placed in sterile fashion. Pt tolerated well. Report called to Brynn in TCU
--- NOTE | 2023-08-23 16:46 | CHAPLAIN ---
Type of Pastoral Visit _x__ Initial Visit ___ Follow-up Visit ___ On-call Visit ___ General Patient Visit ___ Spiritual Assessment ___ Family Conference ___ Bereavement ___ Rapid Response ___ Code Blue ___ Other (describe below) Pastoral Care Referral From _x__ Patient ___ Family ___ Nurse ___ Physician ___ Nick Setter ___ Feather Drying Machine Operator ___ Other (describe below) Sacrament/Intervention _x__ Active listening ___ Anointing ___ Jew ___ Bereavement ___ Communion _x__ Aaliyah exploration ___ ___ Life review _x__ Prayer ___ Reconciliation ___ Sacrament of Sick _x__ Supportive presence ___ Wedding ___ Other (describe below) Pastoral Comments patient reports on his fall and surgery; pt admits to having apprehension about going to TCU for therapy and the stay that is required; gave information about how TCU works and gave reassurance of good care; spouse is present and interacts with the conversation; prayer and presence given
== END 2023-08-23 15:35 | DRG 522 ==
LOC: ED 17:50 → MS3 17:58
PROVIDERS: Emergency Medicine; Hospitalist; Orthopaedic Surgery Orthopaedic Surgery of the Spine; Admitting Provider Family Medicine; Emergency Provider Emergency Medicine; PCP Family Medicine; Visit Provider Family Medicine
PROC: 0SRS0J9 Replacement of Left Hip Joint, Femoral Surface with Synthetic Substitute, Cemented, Open Approach (ICD-10-PCS; CPT 27125; principal; 2023-08-20 14:40)
DX: S72.012A Unspecified intracapsular fracture of left femur, initial encounter for closed fracture (principal); I48.11 Longstanding persistent atrial fibrillation; E11.22 Type 2 diabetes mellitus with diabetic chronic kidney disease; I49.5 Sick sinus syndrome; E11.65 Type 2 diabetes mellitus with hyperglycemia; E78.2 Mixed hyperlipidemia; G25.0 Essential tremor; N18.30 Chronic kidney disease, stage 3 unspecified; J44.9 Chronic obstructive pulmonary disease, unspecified; Z79.4 Long term (current) use of insulin; I12.9 Hypertensive chronic kidney disease with stage 1 through stage 4 chronic kidney disease, or unspecified chronic kidney disease; I25.10 Atherosclerotic heart disease of native coronary artery without angina pectoris; W01.198A Fall on same level from slipping, tripping and stumbling with subsequent striking against other object, initial encounter; R33.8 Other retention of urine; R53.81 Other malaise; Z95.0 Presence of cardiac pacemaker; Z95.5 Presence of coronary angioplasty implant and graft; Z79.82 Long term (current) use of aspirin; Z79.84 Long term (current) use of oral hypoglycemic drugs; Z79.899 Other long term (current) drug therapy; Z86.711 Personal history of pulmonary embolism; Z86.73 Personal history of transient ischemic attack (TIA), and cerebral infarction without residual deficits
CPT/HCPCS: 36415; 70450; 72125; 73502; 80048; 80053; 82962; 83036; 83735; 85025; 85027; 85610; 85730; 86850; 86900; 86901; 88305; 88311; 93005; 93306; 94668; 97110; 97116; 97162; 97166; 97530; 97535; 99252; 99285; C1776; J7030; Q9957; A4216; C8929; G0463; J2405

== ENCOUNTER 2023-08-23 15:47 | Inpatient (IN) | payer MEDICARE, OTHER, SELFPAY ==
[2023-08-23 16:24] VITALS: BMI 30.9
[2023-08-23 16:29] VITALS: BP 170/78; PULSE 67; RESP 20; TEMP 36.8; O2SAT 97
[2023-08-23 17:05] LABS: Bedside Glucose 221 mg/dL (74-106)
[2023-08-23 17:34] VITALS: BP 174/78; PULSE 68
[2023-08-23] MEDS: Metoprolol Tartrate 50 MG Tablet PO (17:34)
[2023-08-23] MEDS: Tamsulosin HCl 0.4 MG Capsule PO (17:35)
[2023-08-23] MEDS: cloNIDine HCl 0.1 MG Tablet PO (17:35)
[2023-08-23 19:08] VITALS: BP 147/63; PULSE 63
--- NOTE | 2023-08-23 20:39 | HP.PCM_ITS ---
HPI - General General Date of Admission: 08/23/23 Date of Service: 08/23/23 Chief Complaint: Here for rehabilitation. HPI Narrative 08/19/2023 TANIA GUERRERO, is a 83 Male who presents to [facility] ED with fall. In kitchen, changing shirt, lost balance, fell on left side. Hit head, no loss of consciousness, unable to get up, left hip pain. X-ray left hip fracture, abrasion elbow. 08/19/2023 Admit to Hospital. Pain control, Prepare for surgery. 08/19/2023 Echo EF 55 to 60%. Normal LVSF. 08/20/2023 Dr. Parada performed left hip hemiarthroplasty. 08/21/2023 Doing well. Tylenol, Oxycodone, Dilaudid for pain. Xarelto 10mg daily x 2 weeks, then Aspirin 325mg daily x 4 weeks DVT prophylaxis. PT/OT SNF. 08/22/2023 No left hip pain at rest. PT/OT SNF. 08/23/2023 Straight cath x 2 overnight for urinary retention. 08/23/2023 Admit to TCU with debility, here for rehabilitation, strengthening, prior to discharge home with . [facility] Medical History (Updated 08/23/23 @ 20:[address] Sharif Friend MD) Atherosclerotic heart disease of [place] coronary artery without angina pectoris Atrial dysrhythmia Cardiac dysrhythmia Cardiac pacemaker in situ Cardiac tamponade COPD (chronic obstructive pulmonary disease) Diverticulosis DM2 (diabetes mellitus, type 2) Essential (primary) hypertension Essential hypertension Gout History of bacterial endocarditis History of cardioversion History of electrophysiologic study HTN (hypertension) Hyperlipidemia Longstanding persistent atrial fibrillation Loose, teeth Mixed hyperlipidemia On anticoagulant therapy Presence of stent in coronary artery (~04/08/10) Pulmonary embolism Sick sinus syndrome Sick sinus syndrome TIA (transient ischemic attack) Tremor, essential Home Medications aspirin 81 mg chewable tablet 81 mg PO HS HEART HEALTH 06/24/14 [History Last Taken 08/22/23] furosemide 20 mg tablet 20 mg PO DAILY FLUID #1 TAB 01/11/20 [Rx Last Taken 08/23/23] empagliflozin 10 mg tablet (Jardiance) 10 mg PO DAILY DIABETES 01/14/22 [History Last Taken 08/23/23] glipizide 5 mg tablet 5 mg PO BID DIABETES 01/14/22 [History Last Taken 08/19/23] clonidine HCl 0.1 mg tablet 0.1 mg PO BID BLOOD PRESSURE #180 tabs 10/01/22 [Rx Last Taken 08/23/23 10:10] metoprolol tartrate 50 mg tablet 50 mg PO BID BLOOD PRESSURE #180 tabs 04/05/23 [Rx Last Taken 08/23/23 10:00] losartan 100 mg tablet 100 mg PO DAILY BLOOD PRESSURE #90 tabs 04/16/23 [Rx Last Taken 08/23/23] pravastatin 80 mg tablet 80 mg PO QHS CHOLESTEROL #90 tabs 07/21/23 [Rx Last Taken 08/22/23] cholecalciferol (vitamin D3) 50 mcg (2,000 unit) capsule 2,000 unit PO DAILY SUPPLEMENT 08/19/23 [History Last Taken 08/19/23] insulin glargine U-300 conc 300 unit/mL (1.5 mL) subcutaneous pen (Tethys BioScienceuStoryBlenderoStPlatiza U-300 Insulin) 10 unit subcut DAILY DIABETES 08/19/23 [History Last Taken 08/19/23] vitamins A,C,J-lfsy-gboeqz 4,296 mcg-226 mg-90 mg capsule (PreserVision AREDS) 1 cap PO DAILY EYE HEALTH 08/19/23 [History Last Taken 08/23/23] acetaminophen 500 mg tablet 1,000 mg (2 x 500 mg) PO Q8 Pain #0 tabs 08/23/23 [Rx Last Taken 08/22/23] aspirin 325 mg tablet (Satya Aspirin) 325 mg PO DAILY DVT Prophylaxis 08/23/23 [History Last Taken Unknown] insulin glargine-yfgn 100 unit/mL (3 mL) subcutaneous pen 10 unit subcut DAILY Diabetes 08/23/23 [History Last Taken 08/23/23] rivaroxaban 10 mg tablet (Xarelto) 10 mg PO DAILY@0600 DVT #0 tabs 08/23/23 [Rx Last Taken 08/23/23] tamsulosin 0.4 mg capsule 0.4 mg PO DAILY@1730 Urinary Retention #0 caps 08/23/23 [Rx Last Taken Unknown] Allergy/AdvReac Type Severity Reaction Status Date / Time hydrochlorothiazide AdvReac Unknown Gout Verified 08/19/23 15:15 symptoms Family History Brother Colon cancer Father CAD (coronary artery disease) Mother Colon cancer Sister Breast cancer Surgical History H/O right and left heart catheterization History of cardiac radiofrequency ablation (~09/2005) History of hernia repair Presence of coronary angioplasty implant and graft (~04/08/10) PVI and Superior Vena Cava Isolation S/P pericardiocentesis S/P placement of cardiac pacemaker (~02/2010) S/P PTCA (percutaneous transluminal coronary angioplasty) (~04/2010) Social History (Updated 08/23/23 @ 20:[address] Sharif Friend MD) household members: spouse Smoking Status: Never smoker alcohol intake: current alcohol intake frequency: 0-2 drinks per day Alcohol type: hard liquor substance use type: does not use caffeine: No what type of physical activity do you participate in: none seatbelt use: always do you feel safe at home: Yes ROS Constitutional Constitutional: Denies chills, fever(s) or weight gain ENT HEENT: Denies headache(s), nasal congestion or nasal discharge Cardiovascular Cardiovascular: Denies chest pain or palpitations Respiratory/Chest Respiratory/Chest: Denies cough, excessive phlegm production or shortness of breath with exertion Gastrointestinal Gastrointestinal: Denies abdominal pain, nausea or vomiting Genitourinary Genitourinary: Denies dysuria Musculoskeletal Musculoskeletal: Denies joint pain or joint swelling Integumentary Integumentary: Denies rash or wounds Neurologic Neurologic: Denies focal weakness, numbness or tingling Psychiatric Psychiatric: Denies anxiety, auditory hallucinations, depression, homicidal ideation or suicidal ideation Vital Signs Vital Signs Vital Signs: 08/23/23 16:29 08/23/23 17:34 08/23/23 19:08 Temperature 98.3 F Temperature Source Temporal Pulse Rate 67 68 63 Respiratory Rate 20 H Blood Pressure 170/78 H 174/78 H 147/63 H Blood Pressure Mean 108 91 Blood Pressure Source Monitor Monitor Blood Pressure Position Semi-Fowlers Semi-Fowlers Blood Pressure Location Right Arm Right Arm Pulse Ox 97 Oxygen Delivery Method Room Air Weight Weight: 94.801 kg Body Mass Index (BMI) 30.9 Physical Exam Const alert General Appearance: cooperative HEENT normocephalic Eyes PERRL and EOMs intact bilaterally Neck supple, no JVD and no carotid bruits Resp normal respiratory effort, normal air movement and clear to auscultation bilaterally Cardio regular rate and regular rhythm GI normal to inspection, nondistended, normoactive bowel sounds, non-tender and non-distended Extremity normal capillary refill General Extremity: Negative for edema Skin no rashes or lesions noted General Skin Exam: no breakdown Psych affect normal Appearance: appropriate Results Lab / Micro Data Labs: Laboratory Results - last 24 hr 08/23/23 16:47: POC Glucose 221 H Assessment & Plan Assessment/Plan (1) Debility: (2) Fracture of femoral neck, left: QUALIFIERS: Encounter type: initial encounter Fracture type: closed Qualified Code(s): S72.002A - Fracture of unspecified part of neck of left femur, initial encounter for closed fracture (3) S/P hip hemiarthroplasty: (4) Urinary retention: (5) Diabetes mellitus: (6) HTN (hypertension): QUALIFIERS: Hypertension type: essential hypertension Qualified Code(s): I10 - Essential (primary) hypertension (7) Hyperlipidemia: (8) Coronary artery disease: PLAN: Plan 83 year old male with below past medical history hospitalized for left hip fracture, underwent left hip hemiarthroplasty 08/20/[address] Parada, postoperative course complicated by urinary retention, admitted to TCU with debility, here for rehabilitation, strengthening, prior to discharge home with . * Debility - PT/OT. * Pain - Tylenol 1000mg q8, Oxycodone 2.5mg q4 prn pain (1-10). * Bowel - senna/colace 2 tablets bid, Magnesium citrate 300ml daily prn * Adult immunization - Administer pneumonia vaccine, covid vaccine, flu vaccine as appropriate. * DVT prophylaxis - Xarelto 10mg daily thru 09/07/2023, then Aspirin 325mg daily. * Vitamin D deficiency - D3 50mcg daily. * Hypertension - Metoprolol 50mg bid, Losartan 100mg daily, Clonidine 0.1mg bid. * Diabetes Mellitus II - Glipizide 5mg bidac, Jardiance 10mg daily, Glargine 10 units daily. * Edema - Furosemide 20mg daily. * Macular degeneration - Healthy Eyes 1 daily. * Hyperlipidemia - Pravastatin 80mg qhs. * BPH/urianry retention - Tamsulosin 0.4mg daily, bladder scan surveillance.
[2023-08-23] MEDS: Aspirin 81 MG TAB.CHEW PO (20:49)
[2023-08-23] MEDS: Pravastatin 80 MG Tablet PO (20:49)
[2023-08-23] MEDS: Acetaminophen 500 MG Tablet 1000 MG PO (20:50)
[2023-08-23 21:10] LABS: Bedside Glucose 303 mg/dL (74-106)
[2023-08-24 05:00] VITALS: BP 153/83; PULSE 69; RESP 16; TEMP 37.7; O2SAT 95
[2023-08-24] MEDS: Acetaminophen 500 MG Tablet 1000 MG PO ×3 (05:30→21:47)
[2023-08-24] MEDS: Rivaroxaban 10 MG Tablet PO (05:30)
[2023-08-24 06:00] LABS: Absolute Lymphocyte Count 1.68 X10^3/uL (0.83-4.51); Absolute Neutrophil Count 6.1 X10^3/uL (2.0-7.7); Basophil# 0.04 X10^3/uL; Basophil% 0.4 % (0-1); Eosinophil# 0.65 X10^3/uL; Hematocrit 39.3 % (40-54); Hemoglobin 12.2 g/dL (13.0-16.5); Lymphocyte # 1.68 X10^3/ul (0.83-4.51); Lymphocyte % 18.1 % (19-41); Mean Corpuscular Hgb 29.8 pg (27.0-32.0); Mean Corpuscular Volume 96.1 fL (80-94); Mean Platelet Vol. 10.2 fl (6.2-12.0); Monocyte# 0.78 X10^3/uL; Monocyte% 8.4 % (0-10); NRBC Flagged by Analyzer 0 % (0-5); Neutrophil # 6.09 X10^3/uL (2.7-7.7); Neutrophil % 65.6 % (47-70); Platelet Count 185 K/mm3 (150-450); RBC Distribution Width CV 13.2 % (11.6-14.6); RBC Distribution Width SD 47.1 fl (35.1-43.9); Red Blood Count 4.09 M/mm3 (4.6-6.2); White Blood Count 9.3 K/mm3 (4.4-11.0)
[2023-08-24 06:26] LABS: Bedside Glucose 194 mg/dL (74-106)
[2023-08-24 06:39] LABS: Anion Gap 1 (5-15); BUN 40 mg/dL (7-18); BUN/Creat Ratio 26.3 RATIO (10-20); Calcium,Total 8.8 mg/dL (8.5-10.1); Chloride 113 mmol/L (98-107); Creatinine, Serum 1.52 mg/dL (0.70-1.30); EST Glomerular Filtration Rate 47 mL/min (>60); Est Glom Filt Rate - Afr Amer 56 mL/min (>60); Estimated Creatinine Clearance 34.38 ml/min; Glucose 214 mg/dL (74-106); Potassium 4.3 mmol/L (3.5-5.1); Sodium Level 142 mmol/L (136-145)
[2023-08-24 08:29] VITALS: BP 135/76; PULSE 84
[2023-08-24] MEDS: Insulin Glargine-YFGN 100 UNIT/ML Pen 10 UNIT SC (08:29)
[2023-08-24] MEDS: Multivitamin (Healthy Eyes) Capsule 1 CAP PO (08:29)
[2023-08-24] MEDS: Senna/Docusate Sodium 1 Tablet 2 TABLET PO ×2 (08:29→21:47)
[2023-08-24] MEDS: Empagliflozin 10 MG Tablet PO (08:29)
[2023-08-24] MEDS: Metoprolol Tartrate 50 MG Tablet PO ×2 (08:29→21:46)
[2023-08-24] MEDS: Furosemide 20 MG Tablet PO (08:29)
[2023-08-24] MEDS: Cholecalciferol (VIT D3) 25 MCG TABLET (1,000 UNITS) 50 MCG PO (08:30)
[2023-08-24] MEDS: glipiZIDE 5 MG Tablet PO ×2 (08:30→17:10)
[2023-08-24] MEDS: Losartan Potassium 100 MG Tablet PO (08:30)
--- NOTE | 2023-08-24 10:26 | NURSING ---
Case Advocate Note; Activity Asset: Complete
[2023-08-24] MEDS: Tuberculin,Purif.prot.deriv. 50 TU/ML Vial 0.1 ML ID (11:25)
[2023-08-24] MEDS: cloNIDine HCl 0.1 MG Tablet PO ×2 (11:25→21:46)
[2023-08-24] MEDS: 0.9% Saline Lock 10 ML Syringe IV ×2 (11:26→21:54)
[2023-08-24 11:31] VITALS: BP 166/80; PULSE 61
[2023-08-24 11:46] LABS: Bedside Glucose 218 mg/dL (74-106)
[2023-08-24 12:14] VITALS: BMI 30.9
[2023-08-24 14:12] VITALS: BP 101/65; PULSE 60; RESP 16; TEMP 36.6; O2SAT 100
--- NOTE | 2023-08-24 16:09 | PHA.CONS_ITS ---
Documented by User: Mary Mosley 08/24/23 16:27 TCU RX Drug Regimen Review Subjective/Objective Subjective/Objective: Subjective: TCU Admission. 83 YOM presented to the ER with a fall. Hospitalized for left hip fracture, underwent left hip hemiarthroplasty 08/20/[address] Parada, postoperative course complicated by urinary retention. Admitted to TCU with debility for strengthening and rehabilitation. Objective: Allergies hydrochlorothiazide Adverse Reaction (Unknown, Verified 08/19/23 15:15) Gout symptoms Current Medications Generic Name Dose Route Start Last Admin Trade Name Freq PRN Reason Stop Dose Admin Acetaminophen 1,000 mg 08/23/23 22:00 08/24/23 13:30 Acetaminophen 500 Mg Tablet PO 1,000 mg Q8 DAYAMI Administration Aspirin 325 mg 09/08/23 08:00 Aspirin 325 Mg Tablet PO DAILYCM DAYAMI Cholecalciferol 50 mcg 08/24/23 10:00 08/24/23 08:30 Cholecalciferol (Vit D3) 25 Mcg Tablet (1,000 Units) PO 50 mcg DAILY DAYAMI Administration Clonidine 0.1 mg 08/23/23 22:00 08/24/23 11:25 Clonidine Hcl 0.1 Mg Tablet PO 0.1 mg BID DAYAMI Administration Protocol Empagliflozin 10 mg 08/24/23 10:00 08/24/23 08:29 Empagliflozin 10 Mg Tablet PO 10 mg DAILY DAYAMI Administration Furosemide 20 mg 08/24/23 10:00 08/24/23 08:29 Furosemide 20 Mg Tablet PO 20 mg DAILY DAYAMI Administration Protocol Glipizide 5 mg 08/24/23 07:00 08/24/23 08:30 Glipizide 5 Mg Tablet PO 5 mg BIDAC DAYAMI Administration Insulin Glargine 10 unit 08/24/23 10:00 08/24/23 08:29 Insulin Glargine-Yfgn 100 Unit/Ml Pen SC 10 unit DAILY DAYAMI Administration Losartan Potassium 100 mg 08/24/23 10:00 08/24/23 08:30 Losartan Potassium 100 Mg Tablet PO 100 mg DAILY DAYAMI Administration Protocol Magnesium Citrate 300 ml 08/23/23 20:56 Magnesium Citrate 300 Ml PO DAILY PRN PRN CONSTIPATION Metoprolol Tartrate 50 mg 08/23/23 22:00 08/24/23 08:29 Metoprolol Tartrate 50 Mg Tablet PO 50 mg BID DAYAMI Administration Protocol Multivitamins/Minerals 1 cap 08/24/23 10:00 08/24/23 08:29 Multivitamin (Healthy Eyes) Capsule PO 1 cap DAILY DAYAMI Administration Oxycodone HCl 2.5 mg 08/23/23 20:56 Oxycodone 5 Mg Tablet PO Q4H PRN PRN Pain Score 1-10 Pravastatin Sodium 80 mg 08/23/23 22:00 08/23/23 20:49 Pravastatin 80 Mg Tablet PO 80 mg QHS DAYAMI Administration Rivaroxaban 10 mg 08/24/23 06:00 08/24/23 05:30 Rivaroxaban 10 Mg Tablet PO 09/07/23 06:01 10 mg DAILY@0600 DAYAMI Administration Senna/Docusate Sodium 2 tablet 08/23/23 22:00 08/24/23 08:29 Senna/Docusate Sodium 1 Tablet PO 2 tablet BID DAYAMI Administration Sodium Chloride 10 - 40 ml 08/23/23 16:30 08/24/23 11:26 0.9% Saline Lock 10 Ml Syringe IV 10 ml UD PRN Administration SALINE FLUSH Tamsulosin HCl 0.4 mg 08/23/23 17:30 08/23/23 17:35 Tamsulosin Hcl 0.4 Mg Capsule PO 0.4 mg DAILY@1730 DAYAMI Administration Tuberculin PPD 0.1 ml 08/31/23 10:00 Tuberculin,Purif.Prot.Deriv. 50 Tu/Ml Vial ID 08/31/23 10:01 X1 ONE Problem List (Updated 08/23/23 @ 20:[address] Sharif Friend MD) Coronary artery disease (Acute) Hyperlipidemia (Acute) HTN (hypertension) (Chronic) Diabetes mellitus (Acute) Urinary retention (Acute) Debility (Acute) S/P hip hemiarthroplasty (Acute) Fracture of femoral neck, left (Acute) Vital Signs Temp Pulse Resp BP Pulse Ox O2 Del Method 97.8 F 60 16 101/65 100 Room Air 08/24/23 14:12 08/24/23 14:12 08/24/23 14:12 08/24/23 14:12 08/24/23 14:12 08/24/23 14:12 Oxygen Delivery Method Room Air Weight: 94.801 kg Body Mass Index (BMI) 30.9 Sodium 142 mmol/L (136-145) 08/24/23 05:22 Potassium 4.3 mmol/L (3.5-5.1) 08/24/23 05:22 Chloride 113 mmol/L (98-107) H 08/24/23 05:22 Carbon Dioxide 28.0 mmol/L (21.0-32.0) 08/24/23 05:22 Anion Gap 1 (5-15) L 08/24/23 05:22 BUN 40 mg/dL (7-18) H 08/24/23 05:22 Creatinine 1.52 mg/dL (0.70-1.30) H 08/24/23 05:22 Est GFR (MDRD) Af Amer 56 mL/min (>60) L 08/24/23 05:22 Est GFR (MDRD) Non-Af 47 mL/min (>60) L 08/24/23 05:22 BUN/Creatinine Ratio 26.3 RATIO (10-20) H 08/24/23 05:22 Glucose 214 mg/dL (74-106) H 08/24/23 05:22 Assessment/Plan: 1. Pain: acetaminophen 1000 mg PO Q8H and oxycodone 2.5 mg PO Q4H as needed for pain. Monitor ALT/AST (AST was 12 U/L and ALT was 16 U/L on 08/20/23), constipation, dizziness, pain level, and as needed medication usage. Patient has needed 0 doses of oxycodone this admission. 2. Bowel: senna/docusate 2 tablets PO BID and magnesium citrate 300 mL PO daily as needed for constipation. Monitor for constipation, diarrhea, and as needed medication usage. Patient has needed 0 doses during this admission. Last documented bowel movement 08/22/23. 3. BPH/Urinary Retention: tamsulosin 0.4 mg PO daily. Monitor for signs of orthostatic hypotension, urine output, and dizziness. 4. Hypertension: metoprolol tartrate 50 mg PO BID, losartan 100 mg PO daily, and clonidine 0.1 mg PO BID. Monitor heart rate?(last 60), blood pressure (last 101/65), renal function, dizziness, and drowsiness. 5. Hyperlipidemia: pravastatin 80 mg PO QHS. Please consider ordering a lipid panel as the last panel was from 04/30/22. Thanks. Monitor AST/ALT?(AST was 12 U/L and ALT was 16 U/L on 08/20/23) and myalgias. 6. Diabetes Mellitus Type II: glipizide 5 mg PO BID before meals, Jardiance 10 mg PO daily, and Insulin glargine SQ 10 units daily. Monitor for shakiness, s omnolence, hemoglobin A1c (last 9.2%) and blood sugars (Was 165-328 mg/dl on this admission). 7. Edema: furosemide 20 mg PO daily. Monitor for lower extremity edema, renal function and potassium (last 4.3mmol/L). 8. DVT prophylaxis: Xarelto 10 mg PO daily until 09/07/23 then aspirin 325 mg PO daily. Monitor for signs of bleeding/bruising and hemoglobin (last 12.2g/dL). 9. Vitamin deficiency/Macular degeneration: cholecalciferol 50 mcg PO daily and multivitamin 1 capsule PO daily. Monitor for vitamin deficiencies. Last vitamin D level was 06/25/23. Assessment/Plan for indications treated with psychotropic medications: None Medical chart and medication regimen reviewed. The following medication irregularities or issues were identified: *1. Pravastatin 80 mg PO QHS. Please consider ordering a lipid panel as the last panel was from 04/30/22. Thanks. Date Date of Note:: 08/24/23 Documented by User: Dr. Sharif Friend MD 08/24/23 16:59 TCU RX Drug Regimen Review Provider Comments Provider responsibility Provider Comments to Recommendations by Pharmacy: Agree
[2023-08-24 16:51] LABS: Bedside Glucose 154 mg/dL (74-106)
[2023-08-24] MEDS: Tamsulosin HCl 0.4 MG Capsule PO (17:10)
[2023-08-24 21:28] LABS: Bedside Glucose 153 mg/dL (74-106)
[2023-08-24 21:46] VITALS: BP 171/79; PULSE 75
[2023-08-24] MEDS: Pravastatin 80 MG Tablet PO (21:47)
[2023-08-24 21:51] VITALS: BP 171/79; PULSE 75
[2023-08-25] MEDS: Acetaminophen 500 MG Tablet 1000 MG PO ×3 (05:39→21:49)
[2023-08-25] MEDS: Rivaroxaban 10 MG Tablet PO (05:39)
[2023-08-25] MEDS: glipiZIDE 5 MG Tablet PO ×2 (06:24→17:40)
[2023-08-25 06:42] LABS: Bedside Glucose 147 mg/dL (74-106)
[2023-08-25 09:10] VITALS: PULSE 66; RESP 18
[2023-08-25] MEDS: Insulin Glargine-YFGN 100 UNIT/ML Pen 10 UNIT SC (10:10)
--- NOTE | 2023-08-25 10:48 | NURSING ---
Left VM with Dr. Parada's office asking about MD coming to see patient on TCU as WC transport expensive and payment needed up front. Await response, updated.
--- NOTE | 2023-08-25 11:00 | NURSING ---
pt of floor for f/u neuro visit in [place], dtr to drive, left at [phone]
[2023-08-25] MEDS: Senna/Docusate Sodium 1 Tablet 2 TABLET PO ×2 (11:01→21:49)
[2023-08-25] MEDS: Furosemide 20 MG Tablet PO (11:02)
[2023-08-25] MEDS: Cholecalciferol (VIT D3) 25 MCG TABLET (1,000 UNITS) 50 MCG PO (11:02)
[2023-08-25] MEDS: Losartan Potassium 100 MG Tablet PO (11:02)
[2023-08-25] MEDS: Multivitamin (Healthy Eyes) Capsule 1 CAP PO (11:02)
[2023-08-25] MEDS: Empagliflozin 10 MG Tablet PO (11:03)
[2023-08-25] MEDS: cloNIDine HCl 0.1 MG Tablet PO ×2 (11:04→21:50)
[2023-08-25 11:09] VITALS: BP 171/79; PULSE 75
[2023-08-25] MEDS: Metoprolol Tartrate 50 MG Tablet PO ×2 (11:09→21:49)
--- NOTE | 2023-08-25 11:18 | NS ---
MST score= 3
[2023-08-25 12:29] LABS: Bedside Glucose 200 mg/dL (74-106)
[2023-08-25 16:00] VITALS: BP 124/75; PULSE 76; RESP 16; TEMP 36.7; O2SAT 96
[2023-08-25 17:22] LABS: Bedside Glucose 297 mg/dL (74-106)
[2023-08-25] MEDS: Tamsulosin HCl 0.4 MG Capsule PO (17:40)
--- NOTE | 2023-08-25 17:43 | CASEMGMT ---
Social Work Met with patient to complete initial assessment. Introduced self and role. Verified/updated contacts. Confirmed code status as full code. Educated to Medicare benefit and copay coverage. Pt's goal is to return home with assisting with all tasks. SW will continue to follow for DC planning. AKIKO AvilesW
[2023-08-25 21:44] LABS: Bedside Glucose 181 mg/dL (74-106)
[2023-08-25] MEDS: 0.9% Saline Lock 10 ML Syringe IV (21:44)
[2023-08-25 21:49] VITALS: BP 161/77; PULSE 69
[2023-08-25] MEDS: Pravastatin 80 MG Tablet PO (21:49)
[2023-08-26] MEDS: Acetaminophen 500 MG Tablet 1000 MG PO ×3 (05:54→21:33)
[2023-08-26] MEDS: Rivaroxaban 10 MG Tablet PO (05:54)
[2023-08-26 06:53] LABS: Bedside Glucose 171 mg/dL (74-106)
[2023-08-26] MEDS: Multivitamin (Healthy Eyes) Capsule 1 CAP PO (08:51)
[2023-08-26] MEDS: glipiZIDE 5 MG Tablet PO ×2 (08:51→16:52)
[2023-08-26] MEDS: cloNIDine HCl 0.1 MG Tablet PO ×2 (08:51→21:36)
[2023-08-26] MEDS: Losartan Potassium 100 MG Tablet PO (08:51)
[2023-08-26] MEDS: Insulin Glargine-YFGN 100 UNIT/ML Pen 10 UNIT SC (08:51)
[2023-08-26 08:52] VITALS: BP 131/68; PULSE 74
[2023-08-26] MEDS: Senna/Docusate Sodium 1 Tablet 2 TABLET PO ×2 (08:52→21:35)
[2023-08-26] MEDS: Furosemide 20 MG Tablet PO (08:52)
[2023-08-26] MEDS: Metoprolol Tartrate 50 MG Tablet PO ×2 (08:52→21:34)
[2023-08-26] MEDS: Empagliflozin 10 MG Tablet PO (08:52)
[2023-08-26] MEDS: Cholecalciferol (VIT D3) 25 MCG TABLET (1,000 UNITS) 50 MCG PO (08:52)
[2023-08-26 08:59] VITALS: BP 131/68; PULSE 79; RESP 16; TEMP 36.5; O2SAT 96
[2023-08-26 11:37] LABS: Bedside Glucose 294 mg/dL (74-106)
[2023-08-26] MEDS: 0.9% Saline Lock 10 ML Syringe IV ×2 (14:50→21:31)
[2023-08-26 16:17] VITALS: RESP 16
[2023-08-26] MEDS: Tamsulosin HCl 0.4 MG Capsule PO (16:53)
[2023-08-26 17:06] LABS: Bedside Glucose 339 mg/dL (74-106)
[2023-08-26 21:27] LABS: Bedside Glucose 202 mg/dL (74-106)
[2023-08-26 21:34] VITALS: BP 110/74; PULSE 73
[2023-08-26] MEDS: Pravastatin 80 MG Tablet PO (21:36)
[2023-08-27] MEDS: Rivaroxaban 10 MG Tablet PO (06:14)
[2023-08-27] MEDS: Acetaminophen 500 MG Tablet 1000 MG PO ×3 (06:14→21:27)
[2023-08-27 06:49] LABS: Bedside Glucose 138 mg/dL (74-106)
[2023-08-27] MEDS: glipiZIDE 5 MG Tablet PO ×2 (08:14→16:03)
[2023-08-27] MEDS: Senna/Docusate Sodium 1 Tablet 2 TABLET PO (08:15)
[2023-08-27] MEDS: Multivitamin (Healthy Eyes) Capsule 1 CAP PO (08:15)
[2023-08-27] MEDS: Cholecalciferol (VIT D3) 25 MCG TABLET (1,000 UNITS) 50 MCG PO (08:15)
[2023-08-27 08:16] VITALS: PULSE 76
[2023-08-27] MEDS: Metoprolol Tartrate 50 MG Tablet PO ×2 (08:16→21:27)
[2023-08-27] MEDS: Empagliflozin 10 MG Tablet PO (08:16)
[2023-08-27] MEDS: Furosemide 20 MG Tablet PO (08:16)
[2023-08-27] MEDS: Losartan Potassium 100 MG Tablet PO (08:16)
[2023-08-27] MEDS: cloNIDine HCl 0.1 MG Tablet PO ×2 (08:16→21:26)
[2023-08-27] MEDS: Insulin Glargine-YFGN 100 UNIT/ML Pen 10 UNIT SC (08:17)
[2023-08-27 11:36] LABS: Bedside Glucose 272 mg/dL (74-106)
--- NOTE | 2023-08-27 14:08 | CASEMGMT ---
PHQ9 (01/28) and BIMS ( ) assessments completed on this date for MDS assessment. TAYLOR Agustin
[2023-08-27 15:13] VITALS: BP 133/75; PULSE 72; RESP 18; TEMP 36.4; O2SAT 94
--- NOTE | 2023-08-27 15:54 | CHAPLAIN ---
Type of Pastoral Visit ___ Initial Visit _x__ Follow-up Visit ___ On-call Visit ___ General Patient Visit ___ Spiritual Assessment ___ Family Conference ___ Bereavement ___ Rapid Response ___ Code Blue ___ Other (describe below) Pastoral Care Referral From _x__ Patient ___ Family ___ Nurse ___ Physician ___ Weight Loss Physician ___ Bilingual Instructor ___ Other (describe below) Sacrament/Intervention _x__ Active listening ___ Anointing ___ Taoist ___ Bereavement ___ Communion ___ Aaliyah exploration ___ _x__ Life review _x__ Prayer ___ Reconciliation ___ Sacrament of Sick ___ Supportive presence ___ Wedding ___ Other (describe below) Pastoral Comments patient was watchinig football with his and tells about ending of the game; the pt is talkative and states how far he walked the last two days; pt expresses positive experience so far in TCU with staff, kindness, and food; pt wants to see the therapy dog and so message returned to him about when to expect that; pt welcomes prayer and future visits
[2023-08-27] MEDS: Tamsulosin HCl 0.4 MG Capsule PO (16:03)
[2023-08-27 16:48] LABS: Bedside Glucose 199 mg/dL (74-106)
[2023-08-27] MEDS: 0.9% Saline Lock 10 ML Syringe IV ×2 (18:03→21:26)
[2023-08-27 21:27] VITALS: BP 160/74; PULSE 72
[2023-08-27] MEDS: Pravastatin 80 MG Tablet PO (21:27)
[2023-08-27 21:33] VITALS: BP 160/74; PULSE 72
[2023-08-27 21:42] LABS: Bedside Glucose 179 mg/dL (74-106)
--- NOTE | 2023-08-28 03:58 | NURSING ---
Patient having insomnia this shift. Patient offered warm blanket, fluids, and bedtime snack, patient refused. Denies any needs at this time. Patient laying in bed watching television.
[2023-08-28] MEDS: glipiZIDE 5 MG Tablet PO ×2 (06:26→17:12)
[2023-08-28 06:27] LABS: Bedside Glucose 142 mg/dL (74-106)
[2023-08-28] MEDS: Acetaminophen 500 MG Tablet 1000 MG PO ×3 (06:27→21:27)
[2023-08-28] MEDS: Rivaroxaban 10 MG Tablet PO (06:27)
[2023-08-28 10:05] VITALS: BP 151/71; PULSE 71
[2023-08-28] MEDS: Insulin Glargine-YFGN 100 UNIT/ML Pen 10 UNIT SC (10:05)
[2023-08-28] MEDS: Metoprolol Tartrate 50 MG Tablet PO ×2 (10:05→21:29)
[2023-08-28] MEDS: cloNIDine HCl 0.1 MG Tablet PO ×2 (10:06→21:27)
[2023-08-28] MEDS: Cholecalciferol (VIT D3) 25 MCG TABLET (1,000 UNITS) 50 MCG PO (10:06)
[2023-08-28] MEDS: Multivitamin (Healthy Eyes) Capsule 1 CAP PO (10:06)
[2023-08-28] MEDS: Empagliflozin 10 MG Tablet PO (10:06)
[2023-08-28] MEDS: Losartan Potassium 100 MG Tablet PO (10:06)
[2023-08-28] MEDS: Furosemide 20 MG Tablet PO (10:06)
[2023-08-28 10:12] VITALS: BP 151/71; PULSE 71
[2023-08-28 11:52] LABS: Bedside Glucose 219 mg/dL (74-106)
[2023-08-28 14:49] VITALS: BP 138/65; PULSE 72; RESP 16; TEMP 36.4; O2SAT 96
[2023-08-28] MEDS: Tamsulosin HCl 0.4 MG Capsule PO (17:12)
[2023-08-28 17:13] LABS: Bedside Glucose 144 mg/dL (74-106)
[2023-08-28] MEDS: Pravastatin 80 MG Tablet PO (21:28)
[2023-08-28 21:29] VITALS: BP 153/57; PULSE 65
[2023-08-28 22:00] LABS: Bedside Glucose 163 mg/dL (74-106)
[2023-08-29] VITALS (8 sets, daily range): BP systolic 142–151; BP diastolic 68–80; PULSE 71–80; RESP 16; TEMP 36.7–37.6; O2SAT 95–97
--- NOTE | 2023-08-29 04:03 | NURSING ---
Pt has experienced intermittent moist cough and sneezing throughout the night. Sitting up in bed. Pt thinks his symptoms started approximately 2 days ago. Lungs clear, slightly diminished b/l anterior and posterior. SpO2 96% on room air. Resp even, shallow, and unlabored. Reports occasional sputum production- unsure of characteristics. Denies difficulty expectorating sputum. Denies being around anyone who has been ill. In no acute distress. Given IS and PEP therapy; instructed on use. Will report to oncoming nurse and continue to monitor.
[2023-08-29] MEDS: Acetaminophen 500 MG Tablet 1000 MG PO ×3 (05:54→22:11)
[2023-08-29] MEDS: Rivaroxaban 10 MG Tablet PO (05:55)
[2023-08-29] MEDS: Losartan Potassium 100 MG Tablet PO (08:32)
[2023-08-29] MEDS: Furosemide 20 MG Tablet PO (08:32)
[2023-08-29] MEDS: glipiZIDE 5 MG Tablet PO ×2 (08:32→18:08)
[2023-08-29] MEDS: cloNIDine HCl 0.1 MG Tablet PO ×2 (08:32→22:25)
[2023-08-29] MEDS: Multivitamin (Healthy Eyes) Capsule 1 CAP PO (08:32)
[2023-08-29] MEDS: Metoprolol Tartrate 50 MG Tablet PO ×2 (08:33→22:25)
[2023-08-29] MEDS: Empagliflozin 10 MG Tablet PO (08:33)
[2023-08-29] MEDS: Senna/Docusate Sodium 1 Tablet 2 TABLET PO ×2 (08:34→22:10)
[2023-08-29] MEDS: Insulin Glargine-YFGN 100 UNIT/ML Pen 10 UNIT SC (08:35)
[2023-08-29] MEDS: Cholecalciferol (VIT D3) 25 MCG TABLET (1,000 UNITS) 50 MCG PO (08:36)
[2023-08-29 11:34] LABS: Bedside Glucose 180 mg/dL (74-106)
[2023-08-29] MEDS: Doxycycline 100 MG CAPSULE PO ×2 (13:37→22:16)
--- NOTE | 2023-08-29 13:39 | NURSING ---
Pt noted to have a temp of 99.[address] Friend updated N.O. for Chest X-ray Respiratory panel Covid Swab and Doxycycline 100mg bid for 7 days. Orders read back and updated.
--- NOTE | 2023-08-29 14:03 | RAD_ITS ---
STUDY: XR Chest 2 Views 08/29/2023 2:08 PM REASON FOR EXAM: Male, 83 years old. Productive Cough COMPARISON: 09.15.21 TECHNIQUE: XR Chest 2 Views FINDINGS: There is no demonstrated pleural abnormality. There is a right sided pacemaker batterypack. Normal heart size. Normal mediastinum. Normal sylvie. Prominent appearing increased interstitial lung markings. Normal visualized pulmonary arteries. There is atherosclerotic calcification of the aortic arch with tortuosity. There are diffuse degenerative changes of the visualized thoracic spine. There is degenerative osteoarthritis of the bilateral shoulders. There are no acute findings of the upper abdomen. RAD/Chest PA and Lateral IMPRESSION: There are no acute findings. Electronically Signed: Gato Hancock MD at 15:05 EST ,
--- NOTE | 2023-08-29 15:32 | NURSING ---
Dr. Friend updated on pt testing positive for COVID. N.O. for Paxlovid for 5 days. Order Read back. updated on pt's positive result.
--- NOTE | 2023-08-29 15:34 | NURSING ---
Received call from pharmacy d/t severe interaction with Paxlovid and Xarelto and a potential interaction with Tamsulosin. Pt on Xarelto until 09/07. Dr. Friend updated N.O. to discontinue Xarelto and okay to continue to give Tamsulosin. Orders read back and Updated Pharmacy.
[2023-08-29 17:06] LABS: Bedside Glucose 182 mg/dL (74-106)
[2023-08-29] MEDS: Tamsulosin HCl 0.4 MG Capsule PO (18:08)
[2023-08-29] MEDS: Pravastatin 80 MG Tablet PO (22:10)
[2023-08-29] MEDS: NIRMATRELVIR/RITONAVIR 1 EACH TABLET PO (22:14)
[2023-08-29 22:59] LABS: Bedside Glucose 142 mg/dL (74-106)
[2023-08-30 00:30] VITALS: O2SAT 98
[2023-08-30] MEDS: Acetaminophen 500 MG Tablet 1000 MG PO ×3 (05:24→22:01)
[2023-08-30 05:48] VITALS: O2SAT 98
[2023-08-30 06:33] LABS: Bedside Glucose 103 mg/dL (74-106)
[2023-08-30 09:01] VITALS: PULSE 76
[2023-08-30] MEDS: Furosemide 20 MG Tablet PO (09:01)
[2023-08-30] MEDS: Senna/Docusate Sodium 1 Tablet 2 TABLET PO ×2 (09:01→22:01)
[2023-08-30] MEDS: Metoprolol Tartrate 50 MG Tablet PO ×2 (09:01→22:00)
[2023-08-30] MEDS: Doxycycline 100 MG CAPSULE PO ×2 (09:01→22:00)
[2023-08-30] MEDS: Cholecalciferol (VIT D3) 25 MCG TABLET (1,000 UNITS) 50 MCG PO (09:01)
[2023-08-30] MEDS: Multivitamin (Healthy Eyes) Capsule 1 CAP PO (09:01)
[2023-08-30] MEDS: Losartan Potassium 100 MG Tablet PO (09:01)
[2023-08-30] MEDS: cloNIDine HCl 0.1 MG Tablet PO ×2 (09:02→22:01)
[2023-08-30] MEDS: glipiZIDE 5 MG Tablet PO ×2 (09:02→17:03)
[2023-08-30] MEDS: Empagliflozin 10 MG Tablet PO (09:02)
[2023-08-30] MEDS: NIRMATRELVIR/RITONAVIR 1 EACH TABLET PO ×2 (09:03→22:00)
--- NOTE | 2023-08-30 09:10 | NURSING ---
Cleaner Furniture Note; MDS for 08/30/2023 Complete
[2023-08-30] MEDS: Insulin Glargine-YFGN 100 UNIT/ML Pen 10 UNIT SC (09:15)
[2023-08-30 11:37] LABS: Bedside Glucose 180 mg/dL (74-106)
--- NOTE | 2023-08-30 12:44 | NURSING ---
Patient and updated that a patient on the unit tested covid positive.
[2023-08-30 13:52] VITALS: BP 148/82; PULSE 76; RESP 16; TEMP 37.3; O2SAT 99
[2023-08-30] MEDS: Tamsulosin HCl 0.4 MG Capsule PO (17:01)
[2023-08-30 17:02] LABS: Bedside Glucose 84 mg/dL (74-106)
[2023-08-30 21:57] VITALS: BP 148/74; PULSE 70; O2SAT 97
[2023-08-30 22:00] VITALS: BP 148/74; PULSE 70
[2023-08-30] MEDS: Pravastatin 80 MG Tablet PO (22:01)
[2023-08-30 22:27] LABS: Bedside Glucose 102 mg/dL (74-106)
[2023-08-31 05:44] LABS: Absolute Lymphocyte Count 2.06 X10^3/uL (0.83-4.51); Basophil# 0.07 X10^3/uL; Basophil% 0.7 % (0-1); Eosinophil# 0.55 X10^3/uL; Eosinophils% 5.6 % (0-5); Hematocrit 39.9 % (40-54); Hemoglobin 12.2 g/dL (13.0-16.5); Lymphocyte # 2.06 X10^3/ul (0.83-4.51); Lymphocyte % 20.9 % (19-41); Mean Corp Hgb Conc 30.6 g/dL (32-36); Mean Corpuscular Hgb 29.7 pg (27.0-32.0); Mean Corpuscular Volume 97.1 fL (80-94); Mean Platelet Vol. 9.7 fl (6.2-12.0); Monocyte# 1.15 X10^3/uL; Monocyte% 11.7 % (0-10); NRBC Flagged by Analyzer 0 % (0-5); Neutrophil # 5.96 X10^3/uL (2.7-7.7); Neutrophil % 60.6 % (47-70); Platelet Count 307 K/mm3 (150-450); RBC Distribution Width CV 13.4 % (11.6-14.6); RBC Distribution Width SD 48.7 fl (35.1-43.9); Red Blood Count 4.11 M/mm3 (4.6-6.2); White Blood Count 9.8 K/mm3 (4.4-11.0)
[2023-08-31] MEDS: Acetaminophen 500 MG Tablet 1000 MG PO ×3 (05:51→22:24)
[2023-08-31 06:03] VITALS: PULSE 59; O2SAT 96
[2023-08-31 06:27] LABS: Anion Gap 6 (5-15); BUN 30 mg/dL (7-18); BUN/Creat Ratio 18.1 RATIO (10-20); Calcium,Total 8.8 mg/dL (8.5-10.1); Chloride 109 mmol/L (98-107); Creatinine, Serum 1.66 mg/dL (0.70-1.30); EST Glomerular Filtration Rate 42 mL/min (>60); Est Glom Filt Rate - Afr Amer 51 mL/min (>60); Estimated Creatinine Clearance 31.48 ml/min; Glucose 94 mg/dL (74-106); Sodium Level 138 mmol/L (136-145)
[2023-08-31 06:49] LABS: Bedside Glucose 90 mg/dL (74-106)
[2023-08-31] MEDS: NIRMATRELVIR/RITONAVIR 1 EACH TABLET PO ×2 (09:45→22:24)
[2023-08-31] MEDS: Cholecalciferol (VIT D3) 25 MCG TABLET (1,000 UNITS) 50 MCG PO (09:48)
[2023-08-31 09:49] VITALS: BP 137/58; PULSE 73
[2023-08-31] MEDS: Empagliflozin 10 MG Tablet PO (09:49)
[2023-08-31] MEDS: Doxycycline 100 MG CAPSULE PO ×2 (09:49→22:24)
[2023-08-31] MEDS: Furosemide 20 MG Tablet PO (09:49)
[2023-08-31] MEDS: cloNIDine HCl 0.1 MG Tablet PO ×2 (09:49→22:28)
[2023-08-31] MEDS: Senna/Docusate Sodium 1 Tablet 2 TABLET PO ×2 (09:49→22:24)
[2023-08-31] MEDS: Losartan Potassium 100 MG Tablet PO (09:49)
[2023-08-31] MEDS: Multivitamin (Healthy Eyes) Capsule 1 CAP PO (09:49)
[2023-08-31] MEDS: Metoprolol Tartrate 50 MG Tablet PO ×2 (09:49→22:28)
[2023-08-31] MEDS: glipiZIDE 5 MG Tablet PO ×2 (11:15→17:40)
[2023-08-31] MEDS: Nystatin Powder 15gm Bottle 1 APPLIC TOPICAL ×2 (11:16→22:26)
[2023-08-31] MEDS: Petrolatum 33% Tube 1 APPLIC TOPICAL ×2 (11:16→22:26)
[2023-08-31] MEDS: Tuberculin,Purif.prot.deriv. 50 TU/ML Vial 0.1 ML ID (11:18)
[2023-08-31] MEDS: guaiFENesin 10 ML UDC (200MG/10ML) PO ×2 (11:21→22:24)
[2023-08-31] MEDS: Insulin Glargine-YFGN 100 UNIT/ML Pen 10 UNIT SC (11:22)
[2023-08-31 11:56] LABS: Bedside Glucose 190 mg/dL (74-106)
[2023-08-31 14:36] VITALS: BMI 30.4
[2023-08-31 16:00] VITALS: BP 139/69; PULSE 68; RESP 18; TEMP 36.6; O2SAT 95; BMI 30.4
[2023-08-31 17:09] LABS: Bedside Glucose 135 mg/dL (74-106)
[2023-08-31] MEDS: Tamsulosin HCl 0.4 MG Capsule PO (17:41)
[2023-08-31 21:44] LABS: Bedside Glucose 100 mg/dL (74-106)
[2023-08-31] MEDS: Pravastatin 80 MG Tablet PO (22:24)
[2023-08-31 22:28] VITALS: BP 120/65; PULSE 63
[2023-09-01] MEDS: guaiFENesin 10 ML UDC (200MG/10ML) PO ×2 (02:28→06:41)
[2023-09-01 06:38] VITALS: PULSE 61; O2SAT 97
[2023-09-01] MEDS: Acetaminophen 500 MG Tablet 1000 MG PO ×3 (06:41→21:34)
[2023-09-01 07:08] LABS: Bedside Glucose 92 mg/dL (74-106)
[2023-09-01] MEDS: cloNIDine HCl 0.1 MG Tablet PO ×2 (10:24→21:35)
[2023-09-01] MEDS: Cholecalciferol (VIT D3) 25 MCG TABLET (1,000 UNITS) 50 MCG PO (10:24)
[2023-09-01] MEDS: Multivitamin (Healthy Eyes) Capsule 1 CAP PO (10:24)
[2023-09-01] MEDS: Insulin Glargine-YFGN 100 UNIT/ML Pen 10 UNIT SC (10:24)
[2023-09-01] MEDS: Empagliflozin 10 MG Tablet PO (10:25)
[2023-09-01] MEDS: Furosemide 20 MG Tablet PO (10:25)
[2023-09-01] MEDS: Doxycycline 100 MG CAPSULE PO ×2 (10:25→21:36)
[2023-09-01] MEDS: NIRMATRELVIR/RITONAVIR 1 EACH TABLET PO ×2 (10:25→21:35)
[2023-09-01] MEDS: Senna/Docusate Sodium 1 Tablet 2 TABLET PO ×2 (10:25→21:33)
[2023-09-01] MEDS: Losartan Potassium 100 MG Tablet PO (10:25)
[2023-09-01] MEDS: Nystatin Powder 15gm Bottle 1 APPLIC TOPICAL ×2 (10:41→21:37)
[2023-09-01] MEDS: Petrolatum 33% Tube 1 APPLIC TOPICAL ×2 (10:41→21:37)
--- NOTE | 2023-09-01 10:42 | NURSING ---
Spoke with Eileen at Dr. Parada's office. Per her, Dr. Parada would prefer to see patient a week after DC from TCU. Order given that kiana can be removed on TCU.
[2023-09-01 10:43] VITALS: BP 128/67; PULSE 75
[2023-09-01] MEDS: Metoprolol Tartrate 50 MG Tablet PO ×2 (10:43→21:41)
--- NOTE | 2023-09-01 13:27 | CASEMGMT ---
Social Work IDT met with patient and for care plan meeting. Discussed patient's progress in PT/OT/ST/SN. Educated to Medicare benefit and copay coverage. Pt's goal is to DC home with . stated she can assist as needed but did agree to therapy training. Scheduled for 09/03 at 1000. Pt requested cath and kiana are removed prior to home. Pt and agreed to having pt out of isolation for a few days with therapy to ensure pt has not lost excessive strength, then SW can assist with DC plans. SW will continue to follow for DC planning. Danielle Hood, AKIKO KOENIGW
[2023-09-01 13:46] VITALS: BP 125/64; PULSE 64; RESP 16; TEMP 36.5; O2SAT 96
--- NOTE | 2023-09-01 15:03 | NURSING ---
Updated patient and that a staff member tested positive for covid.
--- NOTE | 2023-09-01 16:45 | RAD_ITS ---
STUDY: X-RAY - PELVIS AND LEFT HIP REASON FOR EXAM: Male, 83 years old. Status post left hemiarthroplasty TECHNIQUE: 3 views of the pelvis and hip. COMPARISON: 08/19/2023 FINDINGS: There is a non-specific bowel gas pattern. Normal visualized soft tissue structures. Normal bilateral iliac wings, sacroiliac joints and visualized sacrum. Normal bilateral superior and inferior pubic rami. Normal pubic symphysis. Normal bilateral ischial tuberosities. Status post interval recent left hip hemiarthroplasty with skin kiana and subcutaneous emphysema. The prosthesis appears located. Normal acetabulum. Normal hip joint. RAD/HIP, UNI W/ Pelvis 2-3 Views IMPRESSION: Interval recent left hip hemiarthroplasty. Electronically Signed: Ishaan Austin MD at 17:05 EST ,
[2023-09-01] MEDS: Tamsulosin HCl 0.4 MG Capsule PO (18:05)
[2023-09-01 18:09] LABS: Bedside Glucose 165 mg/dL (74-106)
[2023-09-01 18:38] LABS: Bedside Glucose 139 mg/dL (74-106)
[2023-09-01] MEDS: Pravastatin 80 MG Tablet PO (21:36)
[2023-09-01 21:37] LABS: Bedside Glucose 205 mg/dL (74-106)
[2023-09-01] MEDS: Menthol/Lanolin/Calamine/Znox 113 GM Tube 1 APPLIC TOPICAL (21:39)
[2023-09-01 21:41] VITALS: BP 126/70; PULSE 65
[2023-09-01 21:47] VITALS: PULSE 70
[2023-09-02] MEDS: Acetaminophen 500 MG Tablet 1000 MG PO ×3 (05:36→21:05)
[2023-09-02 06:37] LABS: Bedside Glucose 149 mg/dL (74-106)
--- NOTE | 2023-09-02 09:39 | NURSING ---
Dr. Parada in to see patient. He removed kiana and place steri-strips. Patient tolerated well.
[2023-09-02] MEDS: Senna/Docusate Sodium 1 Tablet 2 TABLET PO ×2 (09:52→21:05)
[2023-09-02] MEDS: Multivitamin (Healthy Eyes) Capsule 1 CAP PO (09:52)
[2023-09-02] MEDS: Empagliflozin 10 MG Tablet PO (09:52)
[2023-09-02] MEDS: Doxycycline 100 MG CAPSULE PO ×2 (09:52→21:04)
[2023-09-02] MEDS: Cholecalciferol (VIT D3) 25 MCG TABLET (1,000 UNITS) 50 MCG PO (09:52)
[2023-09-02] MEDS: Nystatin Powder 15gm Bottle 1 APPLIC TOPICAL ×2 (09:52→21:01)
[2023-09-02] MEDS: Menthol/Lanolin/Calamine/Znox 113 GM Tube 1 APPLIC TOPICAL ×2 (09:53→20:59)
[2023-09-02] MEDS: Insulin Glargine-YFGN 100 UNIT/ML Pen 10 UNIT SC (09:53)
[2023-09-02] MEDS: NIRMATRELVIR/RITONAVIR 1 EACH TABLET PO ×2 (09:57→21:05)
[2023-09-02 10:00] VITALS: PULSE 72; RESP 17
[2023-09-02 10:05] VITALS: BP 130/51; PULSE 70
[2023-09-02] MEDS: Losartan Potassium 100 MG Tablet PO (10:05)
[2023-09-02] MEDS: Metoprolol Tartrate 50 MG Tablet PO ×2 (10:05→21:04)
[2023-09-02] MEDS: cloNIDine HCl 0.1 MG Tablet PO ×2 (10:05→21:03)
[2023-09-02] MEDS: Furosemide 20 MG Tablet PO (10:07)
[2023-09-02] MEDS: Petrolatum 33% Tube 1 APPLIC TOPICAL ×2 (10:07→21:00)
[2023-09-02 11:43] LABS: Bedside Glucose 176 mg/dL (74-106)
[2023-09-02 14:27] VITALS: BP 130/51; PULSE 70; RESP 16; TEMP 36.3; O2SAT 96
[2023-09-02 16:41] LABS: Bedside Glucose 202 mg/dL (74-106)
[2023-09-02] MEDS: Tamsulosin HCl 0.4 MG Capsule PO (17:13)
[2023-09-02 21:04] VITALS: BP 167/87; PULSE 72
[2023-09-02] MEDS: Pravastatin 80 MG Tablet PO (21:05)
[2023-09-02 21:31] LABS: Bedside Glucose 190 mg/dL (74-106)
[2023-09-03] MEDS: Acetaminophen 500 MG Tablet 1000 MG PO ×3 (05:06→21:03)
[2023-09-03 05:34] VITALS: RESP 17
[2023-09-03 06:48] LABS: Bedside Glucose 153 mg/dL (74-106)
--- NOTE | 2023-09-03 08:35 | MDS.RN ---
Information for the mds was obtained from review of the clinical record, interview of resident, staff, and direct observation of resident's care.
[2023-09-03] MEDS: NIRMATRELVIR/RITONAVIR 1 EACH TABLET PO (09:50)
[2023-09-03] MEDS: Multivitamin (Healthy Eyes) Capsule 1 CAP PO (09:50)
[2023-09-03] MEDS: Losartan Potassium 100 MG Tablet PO (09:51)
[2023-09-03] MEDS: cloNIDine HCl 0.1 MG Tablet PO ×2 (09:51→21:01)
[2023-09-03] MEDS: Doxycycline 100 MG CAPSULE PO ×2 (09:51→21:01)
[2023-09-03] MEDS: Furosemide 20 MG Tablet PO (09:52)
[2023-09-03] MEDS: Insulin Glargine-YFGN 100 UNIT/ML Pen 10 UNIT SC (09:52)
[2023-09-03] MEDS: Empagliflozin 10 MG Tablet PO (09:52)
[2023-09-03] MEDS: Senna/Docusate Sodium 1 Tablet 2 TABLET PO ×2 (09:53→21:03)
[2023-09-03] MEDS: Cholecalciferol (VIT D3) 25 MCG TABLET (1,000 UNITS) 50 MCG PO (09:53)
[2023-09-03 09:55] VITALS: BP 124/66; PULSE 66
[2023-09-03] MEDS: Metoprolol Tartrate 50 MG Tablet PO ×2 (09:55→21:04)
[2023-09-03] MEDS: Petrolatum 33% Tube 1 APPLIC TOPICAL ×2 (10:07→21:01)
[2023-09-03] MEDS: Nystatin Powder 15gm Bottle 1 APPLIC TOPICAL ×2 (10:07→21:02)
[2023-09-03] MEDS: Menthol/Lanolin/Calamine/Znox 113 GM Tube 1 APPLIC TOPICAL ×2 (10:07→21:00)
[2023-09-03 11:44] LABS: Bedside Glucose 269 mg/dL (74-106)
[2023-09-03] MEDS: guaiFENesin 10 ML UDC (200MG/10ML) PO ×2 (13:31→17:43)
[2023-09-03 14:53] VITALS: BP 113/62; PULSE 63; RESP 18; TEMP 36.6; O2SAT 97
[2023-09-03 16:19] VITALS: BP 132/71; PULSE 74; RESP 16; TEMP 36.2; O2SAT 97
[2023-09-03 16:57] LABS: Bedside Glucose 195 mg/dL (74-106)
[2023-09-03] MEDS: Tamsulosin HCl 0.4 MG Capsule PO (17:31)
[2023-09-03] MEDS: Pravastatin 80 MG Tablet PO (21:03)
[2023-09-03 21:04] VITALS: BP 154/98; PULSE 69
[2023-09-03 21:20] VITALS: BP 154/98; PULSE 69
[2023-09-03 21:43] LABS: Bedside Glucose 186 mg/dL (74-106)
[2023-09-04] MEDS: Acetaminophen 500 MG Tablet 1000 MG PO ×3 (04:54→21:57)
[2023-09-04 06:45] LABS: Bedside Glucose 171 mg/dL (74-106)
[2023-09-04] MEDS: Cholecalciferol (VIT D3) 25 MCG TABLET (1,000 UNITS) 50 MCG PO (09:34)
[2023-09-04] MEDS: Senna/Docusate Sodium 1 Tablet 2 TABLET PO ×2 (09:34→21:55)
[2023-09-04 09:35] VITALS: BP 124/74; PULSE 75
[2023-09-04] MEDS: Losartan Potassium 100 MG Tablet PO (09:35)
[2023-09-04] MEDS: Metoprolol Tartrate 50 MG Tablet PO ×2 (09:35→22:08)
[2023-09-04] MEDS: Furosemide 20 MG Tablet PO (09:35)
[2023-09-04] MEDS: Empagliflozin 10 MG Tablet PO (09:35)
[2023-09-04] MEDS: Multivitamin (Healthy Eyes) Capsule 1 CAP PO (09:35)
[2023-09-04] MEDS: Doxycycline 100 MG CAPSULE PO ×2 (09:35→21:56)
[2023-09-04] MEDS: Insulin Glargine-YFGN 100 UNIT/ML Pen 10 UNIT SC (09:36)
[2023-09-04] MEDS: cloNIDine HCl 0.1 MG Tablet PO ×2 (09:36→22:08)
[2023-09-04] MEDS: Nystatin Powder 15gm Bottle 1 APPLIC TOPICAL ×2 (09:40→22:04)
[2023-09-04] MEDS: Menthol/Lanolin/Calamine/Znox 113 GM Tube 1 APPLIC TOPICAL ×2 (09:41→22:03)
[2023-09-04] MEDS: Petrolatum 33% Tube 1 APPLIC TOPICAL ×2 (09:41→22:04)
[2023-09-04 10:48] LABS: Bedside Glucose 259 mg/dL (74-106)
[2023-09-04] MEDS: guaiFENesin 10 ML UDC (200MG/10ML) PO (13:18)
[2023-09-04 14:15] VITALS: BP 149/63; PULSE 65; RESP 19; TEMP 36.3; O2SAT 96
[2023-09-04 16:00] VITALS: BP 149/63; PULSE 65; RESP 19; TEMP 36.3; O2SAT 96
[2023-09-04 16:40] LABS: Bedside Glucose 216 mg/dL (74-106)
[2023-09-04] MEDS: Tamsulosin HCl 0.4 MG Capsule PO (17:15)
[2023-09-04 21:26] LABS: Bedside Glucose 235 mg/dL (74-106)
[2023-09-04] MEDS: Pravastatin 80 MG Tablet PO (21:55)
[2023-09-04 22:08] VITALS: BP 157/66; PULSE 64
[2023-09-05] MEDS: Acetaminophen 500 MG Tablet 1000 MG PO ×3 (04:46→22:35)
[2023-09-05 06:46] LABS: Bedside Glucose 165 mg/dL (74-106)
[2023-09-05 09:07] VITALS: BP 135/65; PULSE 74
[2023-09-05 09:11] VITALS: BP 135/65; PULSE 74
[2023-09-05] MEDS: Insulin Glargine-YFGN 100 UNIT/ML Pen 10 UNIT SC (09:11)
[2023-09-05] MEDS: Metoprolol Tartrate 50 MG Tablet PO ×2 (09:11→22:42)
[2023-09-05] MEDS: Multivitamin (Healthy Eyes) Capsule 1 CAP PO (09:12)
[2023-09-05] MEDS: Furosemide 20 MG Tablet PO (09:12)
[2023-09-05] MEDS: Losartan Potassium 100 MG Tablet PO (09:12)
[2023-09-05] MEDS: Cholecalciferol (VIT D3) 25 MCG TABLET (1,000 UNITS) 50 MCG PO (09:13)
[2023-09-05] MEDS: Senna/Docusate Sodium 1 Tablet 2 TABLET PO ×2 (09:13→22:35)
[2023-09-05] MEDS: Empagliflozin 10 MG Tablet PO (09:13)
[2023-09-05] MEDS: cloNIDine HCl 0.1 MG Tablet PO ×2 (09:13→22:43)
[2023-09-05] MEDS: Doxycycline 100 MG CAPSULE PO (09:14)
[2023-09-05] MEDS: Petrolatum 33% Tube 1 APPLIC TOPICAL ×2 (09:24→22:41)
[2023-09-05] MEDS: Menthol/Lanolin/Calamine/Znox 113 GM Tube 1 APPLIC TOPICAL ×2 (09:25→22:42)
[2023-09-05] MEDS: Nystatin Powder 15gm Bottle 1 APPLIC TOPICAL ×2 (09:26→22:40)
[2023-09-05] MEDS: guaiFENesin 10 ML UDC (200MG/10ML) PO ×3 (09:31→22:51)
[2023-09-05 11:32] LABS: Bedside Glucose 271 mg/dL (74-106)
[2023-09-05 14:23] VITALS: BP 162/86; PULSE 69; RESP 18; TEMP 36.2; O2SAT 98
[2023-09-05] MEDS: Tamsulosin HCl 0.4 MG Capsule PO (16:13)
[2023-09-05 16:47] LABS: Bedside Glucose 223 mg/dL (74-106)
[2023-09-05 21:59] LABS: Bedside Glucose 241 mg/dL (74-106)
[2023-09-05] MEDS: Pravastatin 80 MG Tablet PO (22:36)
[2023-09-05 22:42] VITALS: BP 123/67; PULSE 65
[2023-09-06] MEDS: guaiFENesin 10 ML UDC (200MG/10ML) PO (05:12)
[2023-09-06] MEDS: Acetaminophen 500 MG Tablet 1000 MG PO ×3 (05:12→21:12)
[2023-09-06 06:30] LABS: Bedside Glucose 196 mg/dL (74-106)
--- NOTE | 2023-09-06 08:01 | NURSING ---
New order received from Dr. Friend on unit and repeated back for Hytone cream 2.5% BID PRN rash to back.
[2023-09-06] MEDS: Senna/Docusate Sodium 1 Tablet 2 TABLET PO ×2 (09:48→21:10)
[2023-09-06] MEDS: Losartan Potassium 100 MG Tablet PO (09:48)
[2023-09-06] MEDS: Cholecalciferol (VIT D3) 25 MCG TABLET (1,000 UNITS) 50 MCG PO (09:48)
[2023-09-06] MEDS: Furosemide 20 MG Tablet PO (09:48)
[2023-09-06] MEDS: Empagliflozin 10 MG Tablet PO (09:49)
[2023-09-06] MEDS: cloNIDine HCl 0.1 MG Tablet PO ×2 (09:49→21:09)
[2023-09-06 09:55] VITALS: BP 129/101; PULSE 73
[2023-09-06] MEDS: Insulin Glargine-YFGN 100 UNIT/ML Pen 10 UNIT SC (09:55)
[2023-09-06] MEDS: Metoprolol Tartrate 50 MG Tablet PO ×2 (09:55→21:09)
[2023-09-06] MEDS: Hydrocortisone 2.5% Crm 1 APPLIC TOPICAL (09:56)
[2023-09-06 10:00] VITALS: O2SAT 97
[2023-09-06] MEDS: Nystatin Powder 15gm Bottle 1 APPLIC TOPICAL ×2 (10:02→21:10)
[2023-09-06] MEDS: Menthol/Lanolin/Calamine/Znox 113 GM Tube 1 APPLIC TOPICAL ×2 (10:03→21:08)
[2023-09-06] MEDS: Petrolatum 33% Tube 1 APPLIC TOPICAL ×2 (10:10→21:08)
[2023-09-06 11:08] LABS: Bedside Glucose 278 mg/dL (74-106)
[2023-09-06] MEDS: Multivitamin (Healthy Eyes) Capsule 1 CAP PO (11:48)
[2023-09-06 15:33] VITALS: BP 125/69; PULSE 62; RESP 18; TEMP 35.3; O2SAT 99
[2023-09-06 16:00] VITALS: BP 125/69; PULSE 62; RESP 18; TEMP 35.3; O2SAT 99
[2023-09-06] MEDS: Tamsulosin HCl 0.4 MG Capsule PO (16:37)
[2023-09-06 16:50] LABS: Bedside Glucose 214 mg/dL (74-106)
[2023-09-06 21:06] VITALS: BP 151/78; PULSE 71; O2SAT 97
[2023-09-06 21:09] VITALS: BP 151/78; PULSE 71
[2023-09-06] MEDS: Pravastatin 80 MG Tablet PO (21:10)
[2023-09-06 21:45] LABS: Bedside Glucose 203 mg/dL (74-106)
--- NOTE | 2023-09-07 02:20 | NURSING ---
Patient c/o not being able to urinate. Bladder scan result of 206. This nurse assisted patient to the bathroom, patient was able to void a moderate amount and had a small amount in attends. Patient reports he is able to void better on toilet compared to urinal. Will continue to help patient ambulate to the bathroom to help encourage patient to void.
[2023-09-07] MEDS: Acetaminophen 500 MG Tablet 1000 MG PO ×3 (04:47→21:54)
[2023-09-07 05:51] LABS: Absolute Lymphocyte Count 1.83 X10^3/uL (0.83-4.51); Absolute Neutrophil Count 5.6 X10^3/uL (2.0-7.7); Basophil# 0.07 X10^3/uL; Basophil% 0.8 % (0-1); Eosinophil# 0.61 X10^3/uL; Eosinophils% 6.8 % (0-5); Hematocrit 38.6 % (40-54); Hemoglobin 11.8 g/dL (13.0-16.5); Lymphocyte # 1.83 X10^3/ul (0.83-4.51); Lymphocyte % 20.5 % (19-41); Mean Corp Hgb Conc 30.6 g/dL (32-36); Mean Corpuscular Hgb 29.1 pg (27.0-32.0); Mean Corpuscular Volume 95.1 fL (80-94); Mean Platelet Vol. 9.3 fl (6.2-12.0); Monocyte# 0.84 X10^3/uL; Monocyte% 9.4 % (0-10); NRBC Flagged by Analyzer 0 % (0-5); Neutrophil # 5.55 X10^3/uL (2.7-7.7); Neutrophil % 62.1 % (47-70); Platelet Count 346 K/mm3 (150-450); RBC Distribution Width CV 13.2 % (11.6-14.6); RBC Distribution Width SD 46.6 fl (35.1-43.9); Red Blood Count 4.06 M/mm3 (4.6-6.2); White Blood Count 8.9 K/mm3 (4.4-11.0)
[2023-09-07 06:13] LABS: Anion Gap 5 (5-15); BUN 43 mg/dL (7-18); BUN/Creat Ratio 25.4 RATIO (10-20); Calcium,Total 9.3 mg/dL (8.5-10.1); Chloride 108 mmol/L (98-107); Creatinine, Serum 1.69 mg/dL (0.70-1.30); EST Glomerular Filtration Rate 41 mL/min (>60); Est Glom Filt Rate - Afr Amer 50 mL/min (>60); Estimated Creatinine Clearance 30.92 ml/min; Glucose 195 mg/dL (74-106); Potassium 4.7 mmol/L (3.5-5.1); Sodium Level 137 mmol/L (136-145)
[2023-09-07 06:33] LABS: Bedside Glucose 175 mg/dL (74-106)
[2023-09-07 09:50] VITALS: PULSE 78
[2023-09-07] MEDS: Multivitamin (Healthy Eyes) Capsule 1 CAP PO (09:50)
[2023-09-07] MEDS: Losartan Potassium 100 MG Tablet PO (09:50)
[2023-09-07] MEDS: Metoprolol Tartrate 50 MG Tablet PO ×2 (09:50→21:54)
[2023-09-07] MEDS: Furosemide 20 MG Tablet PO (09:50)
[2023-09-07] MEDS: Doxycycline 100 MG CAPSULE PO ×2 (09:50→21:52)
[2023-09-07] MEDS: cloNIDine HCl 0.1 MG Tablet PO ×2 (09:50→21:51)
[2023-09-07] MEDS: Empagliflozin 10 MG Tablet PO (09:51)
[2023-09-07] MEDS: Senna/Docusate Sodium 1 Tablet 2 TABLET PO ×2 (09:51→21:53)
[2023-09-07] MEDS: Cholecalciferol (VIT D3) 25 MCG TABLET (1,000 UNITS) 50 MCG PO (09:51)
[2023-09-07] MEDS: Insulin Glargine-YFGN 100 UNIT/ML Pen 10 UNIT SC (09:51)
[2023-09-07] MEDS: Petrolatum 33% Tube 1 APPLIC TOPICAL (09:53)
[2023-09-07] MEDS: Nystatin Powder 15gm Bottle 1 APPLIC TOPICAL ×2 (09:54→21:52)
[2023-09-07] MEDS: Menthol/Lanolin/Calamine/Znox 113 GM Tube 1 APPLIC TOPICAL ×2 (09:54→21:51)
[2023-09-07 10:00] VITALS: BP 127/71; BP 127/83; PULSE 62; PULSE 63; RESP 18; TEMP 37; O2SAT 96
[2023-09-07 11:54] LABS: Bedside Glucose 296 mg/dL (74-106)
[2023-09-07] MEDS: Cephalexin 500 MG Capsule PO ×3 (13:53→23:10)
[2023-09-07] MEDS: Tamsulosin HCl 0.4 MG Capsule PO (16:33)
[2023-09-07 16:38] LABS: Bedside Glucose 285 mg/dL (74-106)
[2023-09-07] MEDS: Pravastatin 80 MG Tablet PO (21:53)
[2023-09-07 21:54] VITALS: BP 127/71; PULSE 62
[2023-09-07 21:54] LABS: Bedside Glucose 248 mg/dL (74-106)
[2023-09-08] MEDS: Cephalexin 500 MG Capsule PO ×4 (05:07→23:53)
[2023-09-08] MEDS: Acetaminophen 500 MG Tablet 1000 MG PO ×3 (05:07→21:33)
[2023-09-08 06:37] LABS: Bedside Glucose 174 mg/dL (74-106)
[2023-09-08] MEDS: Aspirin 325 MG Tablet PO (09:09)
[2023-09-08] MEDS: Doxycycline 100 MG CAPSULE PO ×2 (09:10→21:32)
[2023-09-08] MEDS: cloNIDine HCl 0.1 MG Tablet PO ×2 (09:10→21:31)
[2023-09-08] MEDS: Petrolatum 33% Tube 1 APPLIC TOPICAL ×2 (09:10→21:34)
[2023-09-08] MEDS: Losartan Potassium 100 MG Tablet PO (09:10)
[2023-09-08] MEDS: Multivitamin (Healthy Eyes) Capsule 1 CAP PO (09:11)
[2023-09-08] MEDS: Empagliflozin 10 MG Tablet PO (09:12)
[2023-09-08] MEDS: Furosemide 20 MG Tablet PO (09:12)
[2023-09-08] MEDS: Cholecalciferol (VIT D3) 25 MCG TABLET (1,000 UNITS) 50 MCG PO (09:13)
[2023-09-08] MEDS: Senna/Docusate Sodium 1 Tablet 2 TABLET PO ×2 (09:13→21:32)
[2023-09-08 09:15] VITALS: PULSE 60
[2023-09-08] MEDS: Metoprolol Tartrate 50 MG Tablet PO ×2 (09:15→21:35)
[2023-09-08] MEDS: Menthol/Lanolin/Calamine/Znox 113 GM Tube 1 APPLIC TOPICAL ×2 (09:58→21:31)
[2023-09-08] MEDS: Insulin Glargine-YFGN 100 UNIT/ML Pen 10 UNIT SC (09:58)
[2023-09-08] MEDS: Nystatin Powder 15gm Bottle 1 APPLIC TOPICAL ×2 (09:59→21:32)
[2023-09-08 12:04] LABS: Bedside Glucose 228 mg/dL (74-106)
[2023-09-08 15:04] VITALS: BP 118/86; PULSE 60; RESP 14; TEMP 35.6; O2SAT 97
[2023-09-08 17:15] LABS: Bedside Glucose 220 mg/dL (74-106)
[2023-09-08] MEDS: Tamsulosin HCl 0.4 MG Capsule PO (17:38)
[2023-09-08] MEDS: Pravastatin 80 MG Tablet PO (21:32)
[2023-09-08 21:35] VITALS: BP 128/65; PULSE 64; PULSE 65; RESP 16; O2SAT 98
[2023-09-08 21:40] LABS: Bedside Glucose 253 mg/dL (74-106)
[2023-09-08] MEDS: guaiFENesin 10 ML UDC (200MG/10ML) PO (21:50)
[2023-09-09] MEDS: Cephalexin 500 MG Capsule PO ×3 (05:31→18:26)
[2023-09-09] MEDS: Acetaminophen 500 MG Tablet 1000 MG PO ×2 (05:31→22:06)
[2023-09-09 06:17] VITALS: PULSE 74; RESP 16; O2SAT 96
[2023-09-09 06:52] LABS: Bedside Glucose 208 mg/dL (74-106)
[2023-09-09] MEDS: Empagliflozin 10 MG Tablet PO (08:40)
[2023-09-09] MEDS: cloNIDine HCl 0.1 MG Tablet PO ×2 (08:40→22:01)
[2023-09-09] MEDS: Furosemide 20 MG Tablet PO (08:40)
[2023-09-09 08:41] VITALS: BP 126/70; PULSE 63
[2023-09-09] MEDS: Insulin Glargine-YFGN 100 UNIT/ML Pen 10 UNIT SC (08:41)
[2023-09-09] MEDS: Cholecalciferol (VIT D3) 25 MCG TABLET (1,000 UNITS) 50 MCG PO (08:41)
[2023-09-09] MEDS: Multivitamin (Healthy Eyes) Capsule 1 CAP PO (08:41)
[2023-09-09] MEDS: Losartan Potassium 100 MG Tablet PO (08:41)
[2023-09-09] MEDS: Doxycycline 100 MG CAPSULE PO ×2 (08:41→22:03)
[2023-09-09] MEDS: Aspirin 325 MG Tablet PO (08:41)
[2023-09-09] MEDS: Metoprolol Tartrate 50 MG Tablet PO ×2 (08:41→22:01)
[2023-09-09] MEDS: Nystatin Powder 15gm Bottle 1 APPLIC TOPICAL ×2 (08:42→22:03)
[2023-09-09] MEDS: Senna/Docusate Sodium 1 Tablet 2 TABLET PO ×2 (08:51→22:05)
[2023-09-09 11:21] LABS: Bedside Glucose 261 mg/dL (74-106)
[2023-09-09] MEDS: Menthol/Lanolin/Calamine/Znox 113 GM Tube 1 APPLIC TOPICAL ×2 (12:28→22:02)
[2023-09-09 15:43] VITALS: BP 128/52; PULSE 63; RESP 17; TEMP 36.4; O2SAT 97
[2023-09-09 16:26] LABS: Bedside Glucose 183 mg/dL (74-106)
[2023-09-09] MEDS: Tamsulosin HCl 0.4 MG Capsule PO (18:26)
[2023-09-09 21:27] LABS: Bedside Glucose 205 mg/dL (74-106)
[2023-09-09 21:55] VITALS: BP 145/71; PULSE 77
[2023-09-09 22:01] VITALS: BP 145/71; PULSE 77
[2023-09-09] MEDS: Petrolatum 33% Tube 1 APPLIC TOPICAL (22:03)
[2023-09-09] MEDS: Pravastatin 80 MG Tablet PO (22:05)
[2023-09-10] MEDS: Cephalexin 500 MG Capsule PO ×5 (00:13→23:18)
[2023-09-10] MEDS: Acetaminophen 500 MG Tablet 1000 MG PO ×3 (05:41→21:12)
[2023-09-10 06:42] LABS: Bedside Glucose 178 mg/dL (74-106)
[2023-09-10] MEDS: Senna/Docusate Sodium 1 Tablet 2 TABLET PO ×2 (08:50→21:12)
[2023-09-10] MEDS: Multivitamin (Healthy Eyes) Capsule 1 CAP PO (08:50)
[2023-09-10 08:51] VITALS: BP 118/67; PULSE 65
[2023-09-10] MEDS: Empagliflozin 10 MG Tablet PO (08:51)
[2023-09-10] MEDS: Cholecalciferol (VIT D3) 25 MCG TABLET (1,000 UNITS) 50 MCG PO (08:51)
[2023-09-10] MEDS: Losartan Potassium 100 MG Tablet PO (08:51)
[2023-09-10] MEDS: Aspirin 325 MG Tablet PO (08:51)
[2023-09-10] MEDS: Furosemide 20 MG Tablet PO (08:51)
[2023-09-10] MEDS: Metoprolol Tartrate 50 MG Tablet PO ×2 (08:51→21:12)
[2023-09-10] MEDS: Doxycycline 100 MG CAPSULE PO ×2 (08:51→21:12)
[2023-09-10] MEDS: cloNIDine HCl 0.1 MG Tablet PO ×2 (08:52→21:12)
[2023-09-10] MEDS: Insulin Glargine-YFGN 100 UNIT/ML Pen 10 UNIT SC (08:52)
[2023-09-10] MEDS: Nystatin Powder 15gm Bottle 1 APPLIC TOPICAL ×2 (08:52→21:13)
[2023-09-10] MEDS: Menthol/Lanolin/Calamine/Znox 113 GM Tube 1 APPLIC TOPICAL ×2 (08:53→21:13)
[2023-09-10] MEDS: Petrolatum 33% Tube 1 APPLIC TOPICAL ×2 (08:54→21:13)
[2023-09-10 10:00] VITALS: PULSE 65; O2SAT 95
[2023-09-10 11:19] LABS: Bedside Glucose 196 mg/dL (74-106)
[2023-09-10 14:28] VITALS: BP 107/57; PULSE 64; RESP 15; TEMP 36.3; O2SAT 94
--- NOTE | 2023-09-10 14:41 | PCM.DC.SUM ---
Providers Date of Admission: 08/23/23 Primary Care Physician: Dr. Joe Hernandez MD Reason For Visit: FALL/ L HIP FRACTURE Diagnosis Discharge Diagnosis (1) Debility: Status: Acute Code(s): R53.81 - Other malaise (2) Fracture of femoral neck, left: Status: Acute Code(s): S72.002A - Fracture of unspecified part of neck of left femur, initial encounter for closed fracture Qualifiers: Encounter type: initial encounter Fracture type: closed Qualified Code(s): S72.002A - Fracture of unspecified part of neck of left femur, initial encounter for closed fracture (3) S/P hip hemiarthroplasty: Status: Acute Code(s): Z96.649 - Presence of unspecified artificial hip joint (4) Urinary retention: Status: Acute Code(s): R33.9 - Retention of urine, unspecified (5) Diabetes mellitus: Status: Acute Code(s): E11.9 - Type 2 diabetes mellitus without complications (6) HTN (hypertension): Status: Chronic Code(s): I10 - Essential (primary) hypertension Qualifiers: Hypertension type: essential hypertension Qualified Code(s): I10 - Essential (primary) hypertension (7) Hyperlipidemia: Status: Acute Code(s): E78.5 - Hyperlipidemia, unspecified (8) Coronary artery disease: Status: Acute Code(s): I25.10 - Atherosclerotic heart disease of [place] coronary artery without angina pectoris Plan 83 year old male with below past medical history hospitalized for left hip fracture, underwent left hip hemiarthroplasty 08/20/[address] Parada, postoperative course complicated by urinary retention, admitted to TCU with debility, here for rehabilitation, strengthening, prior to discharge home with . Debility - PT/OT. Pain - Tylenol 1000mg q8, Oxycodone 2.5mg q4 prn pain (1-10). Bowel - senna/colace 2 tablets bid, Magnesium citrate 300ml daily prn Adult immunization - Administer pneumonia vaccine, covid vaccine, flu vaccine as appropriate. DVT prophylaxis - Xarelto 10mg daily thru 09/07/2023, then Aspirin 325mg daily. Vitamin D deficiency - D3 50mcg daily. Hypertension - Metoprolol 50mg bid, Losartan 100mg daily, Clonidine 0.1mg bid. Diabetes Mellitus II - Glipizide 5mg bidac, Jardiance 10mg daily, Glargine 10 units daily. Edema - Furosemide 20mg daily. Macular degeneration - Healthy Eyes 1 daily. Hyperlipidemia - Pravastatin 80mg qhs. BPH/urianry retention - Tamsulosin 0.4mg daily, bladder scan surveillance. Medications at Discharge Home Medications aspirin 81 mg chewable tablet 81 mg PO QHS HEART HEALTH 06/24/14 furosemide 20 mg tablet 20 mg PO DAILY FLUID #1 TAB 01/11/20 empagliflozin 10 mg tablet (Jardiance) 10 mg PO DAILY DIABETES 01/14/22 clonidine HCl 0.1 mg tablet 0.1 mg PO BID BLOOD PRESSURE #180 tabs 10/01/22 metoprolol tartrate 50 mg tablet 50 mg PO BID BLOOD PRESSURE #180 tabs 04/05/23 losartan 100 mg tablet 100 mg PO DAILY BLOOD PRESSURE #90 tabs 04/16/23 pravastatin 80 mg tablet 80 mg PO QHS CHOLESTEROL #90 tabs 07/21/23 cholecalciferol (vitamin D3) 50 mcg (2,000 unit) capsule 2,000 unit PO DAILY SUPPLEMENT 08/19/23 insulin glargine U-300 conc 300 unit/mL (1.5 mL) subcutaneous pen (Toujeo SoloStar U-300 Insulin) 10 unit subcut DAILY DIABETES 08/19/23 vitamins A,C,E-trtc-akaqra 4,296 mcg-226 mg-90 mg capsule (PreserVision AREDS) 1 cap PO DAILY EYE HEALTH 08/19/23 acetaminophen 500 mg tablet 1,000 mg (2 x 500 mg) PO Q8 Pain #0 tabs 08/23/23 tamsulosin 0.4 mg capsule 0.4 mg PO DAILY@1730 30 days #30 caps 09/10/23 Hospital Course Operations - (Left hip hemiarthroplasty.) Procedures None Summary of Care Provided Minutes Spent on Discharge: 35 Hospital Course: 83 year old male with below past medical history hospitalized for left hip fracture, underwent left hip hemiarthroplasty 08/20/[address] Parada, postoperative course complicated by urinary retention, admitted to TCU with debility, here for rehabilitation, strengthening, prior to discharge home with . Tamsulosin 0.4mg added. Discharge home with 09/15/2023, [facility] PT/OT, FWW. Front Wheeled Walker: Patient is unsafe to use a cane and requires a walker for ambulation in the home and the community. Physical Exam Const alert General Appearance: cooperative HEENT normocephalic Eyes PERRL and EOMs intact bilaterally Neck supple, no JVD and no carotid bruits Resp normal respiratory effort, normal air movement and clear to auscultation bilaterally Cardio regular rate and regular rhythm GI normal to inspection, nondistended, normoactive bowel sounds, non-tender and non-distended Extremity normal capillary refill General Extremity: Negative for edema Skin no rashes or lesions noted General Skin Exam: no breakdown Psych affect normal Appearance: appropriate Weight / BMI Weight Weight: 93.259 kg Body Mass Index (BMI) 30.4 ABG / Lab / Microbiology Data 09/07/23 05:43 09/07/23 05:43 Laboratory: Laboratory Results - last 24 hr 09/09/23 16:08: POC Glucose 183 H 09/09/23 21:05: POC Glucose 205 H 09/10/23 06:21: POC Glucose 178 H 09/10/23 11:01: POC Glucose 196 H Microbiology: Microbiology 08/29/23 13:25 Mucosa - Nasopharyngeal Respiratory Panel (PCR) - Final 08/29/23 13:25 Nasal Secretion SARS-CoV-2 Antigen (Rapid) - Final SARS-CoV-2 (COVID 19) D/C Instructions Discharge Diet: No restrictions Discharge Activity: Return to Normal Activity, May Shower and Use Walker Weight Bearing Status: Weight bearing as tolerated Call your doctor if you observe: Fever of 101 or Higher, Inability to urinate, Inability to have a bowel movement, Shortness of breath, Dizziness, Fainting spells, Swelling in the ankles, Chest pain and Uncontrolled pain Additional Instructions: Discharge home with 09/15/2023, [facility] PT/OT, FWW. Front Wheeled Walker: Patient is unsafe to use a cane and requires a walker for ambulation in the home and the community. Please Follow Up With: Giacomo Parada MD When: As scheduled. Meaningful Use Info Meaningful Use Diagnoses (Choose all that apply): None applicable Discharge Plan Admission Admit Date/Time: 08/23/23 15:47 Primary Reason for Your Visit: Debility. Attending Provider: Sharif Friend Chi Primary Care Provider: Joe Hernandez Instructions Additional Instructions / Restrictions: Discharge home with 09/15/2023, [facility] PT/OT, FWW. Front Wheeled Walker: Patient is unsafe to use a cane and requires a walker for ambulation in the home and the community. Discharge Orders/Prescriptions Prescriptions: New tamsulosin 0.4 mg Capsule 0.4 mg PO DAILY@1730 30 Days Qty: 30 0RF Continued furosemide 20 mg tablet 20 mg PO DAILY Qty: 1 0RF Jardiance 10 mg tablet 10 mg PO DAILY aspirin 81 MG tablet,chewable 81 mg PO QHS cholecalciferol (vitamin D3) 50 mcg (2,000 unit) capsule 2,000 unit PO DAILY Toujeo SoloStar U-300 Insulin 300 unit/mL (1.5 mL) insulin pen 10 unit SUBCUT DAILY Hold Instructions: Hold while on TCU PreserVision AREDS 4,296 mcg-226 mg-90 mg capsule 1 cap PO DAILY acetaminophen 500 mg Tablet 1,000 mg PO Q8 Qty: 0 0RF clonidine HCl 0.1 mg tablet 0.1 mg PO BID Qty: 180 3RF metoprolol tartrate 50 mg tablet 50 mg PO BID Qty: 180 3RF losartan 100 mg tablet 100 mg PO DAILY Qty: 90 3RF pravastatin 80 mg tablet 80 mg PO QHS Qty: 90 3RF Discontinued glipizide 5 mg tablet 5 mg PO BID Xarelto 10 mg Tablet 10 mg PO DAILY@0600 Qty: 0 0RF tamsulosin 0.4 mg Capsule 0.4 mg PO DAILY@1730 Qty: 0 0RF insulin glargine-yfgn 100 unit/mL (3 mL) insulin pen 10 unit subcut DAILY aspirin [Satya Aspirin] 325 mg tablet 325 mg PO DAILY Referrals / Follow Up: Giacomo Parada MD [Med Staff - Active Staff] - 09/30/23 10:30 am Joe Hernandez MD [Primary Care Provider] - Disposition Disposition (needs filled in before D/C Order can be placed): Home Health Service
--- NOTE | 2023-09-10 14:49 | CASEMGMT ---
Addendum entered by Danielle Hood 09/13/23 14:26: provided HHC choices: [facility] or [facility]. SW phoned referral to [facility] and added SN and SW to order, as inquiring about information for respite care. SW again provided resources for nonskilled CANDLE WRAPPING MACHINE OPERATOR and [place]. Educated to respite care in SNFs. Original Note: Social Work SW phone to follow up after therapy training. stated she is ready to take pt home next week and pt is ready to be home as well. and SW agreed to DC 09/15, with HHC PT/OT/ST, and FWW. did express some concerns with the unknown of how pt will do at home. SW offered nonskilled CANDLE WRAPPING MACHINE OPERATOR resources for initial assistance. agreeable to those resources. will visit pt this weekend. SW left printed lists of nonskilled CANDLE WRAPPING MACHINE OPERATOR and skilled HHC in pts room. SW sent referral to [facility] for FWW. Plan: DC home with 09/15, HHC PT/OT/ST, FWW Danielle Hood, JAVA APPLICATION ENGINEER FUR DRY CLEANER
[2023-09-10 16:20] LABS: Bedside Glucose 185 mg/dL (74-106)
[2023-09-10] MEDS: Tamsulosin HCl 0.4 MG Capsule PO (17:59)
[2023-09-10 21:12] VITALS: BP 141/54; PULSE 65
[2023-09-10] MEDS: Pravastatin 80 MG Tablet PO (21:12)
[2023-09-10 21:52] LABS: Bedside Glucose 216 mg/dL (74-106)
[2023-09-11] MEDS: Cephalexin 500 MG Capsule PO ×4 (05:24→23:44)
[2023-09-11 07:58] LABS: Bedside Glucose 168 mg/dL (74-106)
[2023-09-11 08:06] VITALS: BP 127/66; PULSE 62; RESP 17; TEMP 36.5; O2SAT 97
[2023-09-11] MEDS: Aspirin 325 MG Tablet PO (08:10)
[2023-09-11] MEDS: Menthol/Lanolin/Calamine/Znox 113 GM Tube 1 APPLIC TOPICAL ×2 (08:11→22:27)
[2023-09-11] MEDS: cloNIDine HCl 0.1 MG Tablet PO ×2 (08:11→22:28)
[2023-09-11] MEDS: Doxycycline 100 MG CAPSULE PO ×2 (08:12→22:28)
[2023-09-11] MEDS: Losartan Potassium 100 MG Tablet PO (08:12)
[2023-09-11] MEDS: Multivitamin (Healthy Eyes) Capsule 1 CAP PO (08:13)
[2023-09-11] MEDS: Insulin Glargine-YFGN 100 UNIT/ML Pen 10 UNIT SC (08:13)
[2023-09-11] MEDS: Empagliflozin 10 MG Tablet PO (08:13)
[2023-09-11 08:14] VITALS: PULSE 62
[2023-09-11] MEDS: Metoprolol Tartrate 50 MG Tablet PO ×2 (08:14→22:29)
[2023-09-11] MEDS: Senna/Docusate Sodium 1 Tablet 2 TABLET PO ×2 (08:14→22:29)
[2023-09-11] MEDS: Furosemide 20 MG Tablet PO (08:14)
[2023-09-11] MEDS: Nystatin Powder 15gm Bottle 1 APPLIC TOPICAL ×2 (08:14→22:29)
[2023-09-11] MEDS: Cholecalciferol (VIT D3) 25 MCG TABLET (1,000 UNITS) 50 MCG PO (08:15)
[2023-09-11] MEDS: Petrolatum 33% Tube 1 APPLIC TOPICAL ×2 (08:16→22:28)
[2023-09-11 10:00] VITALS: RESP 16
[2023-09-11 12:25] LABS: Bedside Glucose 284 mg/dL (74-106)
[2023-09-11] MEDS: Acetaminophen 500 MG Tablet 1000 MG PO ×2 (13:01→22:31)
[2023-09-11 17:43] LABS: Bedside Glucose 216 mg/dL (74-106)
[2023-09-11] MEDS: Tamsulosin HCl 0.4 MG Capsule PO (18:28)
[2023-09-11 21:18] LABS: Bedside Glucose 186 mg/dL (74-106)
[2023-09-11 22:29] VITALS: BP 135/64; PULSE 65
[2023-09-11] MEDS: Pravastatin 80 MG Tablet PO (22:30)
[2023-09-12] MEDS: Acetaminophen 500 MG Tablet 1000 MG PO ×3 (05:23→21:41)
[2023-09-12] MEDS: Cephalexin 500 MG Capsule PO ×4 (05:23→23:22)
[2023-09-12 06:14] LABS: Bedside Glucose 203 mg/dL (74-106)
[2023-09-12] MEDS: Aspirin 325 MG Tablet PO (09:03)
[2023-09-12] MEDS: cloNIDine HCl 0.1 MG Tablet PO ×2 (09:03→21:40)
[2023-09-12] MEDS: Losartan Potassium 100 MG Tablet PO (09:04)
[2023-09-12] MEDS: Multivitamin (Healthy Eyes) Capsule 1 CAP PO (09:05)
[2023-09-12] MEDS: Doxycycline 100 MG CAPSULE PO ×2 (09:05→21:38)
[2023-09-12] MEDS: Senna/Docusate Sodium 1 Tablet 2 TABLET PO ×2 (09:06→21:41)
[2023-09-12] MEDS: Furosemide 20 MG Tablet PO (09:06)
[2023-09-12] MEDS: Empagliflozin 10 MG Tablet PO (09:06)
[2023-09-12] MEDS: Cholecalciferol (VIT D3) 25 MCG TABLET (1,000 UNITS) 50 MCG PO (09:07)
[2023-09-12 09:09] VITALS: BP 118/64; PULSE 64
[2023-09-12] MEDS: Metoprolol Tartrate 50 MG Tablet PO ×2 (09:09→21:38)
[2023-09-12] MEDS: Nystatin Powder 15gm Bottle 1 APPLIC TOPICAL ×2 (09:13→21:41)
[2023-09-12] MEDS: Insulin Glargine-YFGN 100 UNIT/ML Pen 10 UNIT SC (09:15)
[2023-09-12] MEDS: Petrolatum 33% Tube 1 APPLIC TOPICAL ×2 (09:17→21:40)
[2023-09-12] MEDS: Menthol/Lanolin/Calamine/Znox 113 GM Tube 1 APPLIC TOPICAL ×2 (09:18→21:39)
[2023-09-12 10:00] VITALS: RESP 18
[2023-09-12 14:18] LABS: Bedside Glucose 228 mg/dL (74-106)
[2023-09-12 16:00] VITALS: TEMP 36.4
[2023-09-12 16:36] LABS: Bedside Glucose 201 mg/dL (74-106)
[2023-09-12] MEDS: Tamsulosin HCl 0.4 MG Capsule PO (17:08)
[2023-09-12 21:38] VITALS: BP 142/64; PULSE 63
[2023-09-12] MEDS: Pravastatin 80 MG Tablet PO (21:42)
[2023-09-12 21:45] VITALS: BP 142/64; PULSE 63
[2023-09-12 22:04] LABS: Bedside Glucose 189 mg/dL (74-106)
[2023-09-13 03:08] VITALS: RESP 16
[2023-09-13] MEDS: Cephalexin 500 MG Capsule PO ×4 (05:14→23:54)
[2023-09-13] MEDS: Acetaminophen 500 MG Tablet 1000 MG PO ×2 (05:14→21:59)
[2023-09-13 06:24] LABS: Bedside Glucose 151 mg/dL (74-106)
[2023-09-13] MEDS: Empagliflozin 10 MG Tablet PO (09:23)
[2023-09-13] MEDS: Insulin Glargine-YFGN 100 UNIT/ML Pen 10 UNIT SC (09:23)
[2023-09-13] MEDS: Doxycycline 100 MG CAPSULE PO ×2 (09:23→21:59)
[2023-09-13] MEDS: Cholecalciferol (VIT D3) 25 MCG TABLET (1,000 UNITS) 50 MCG PO (09:23)
[2023-09-13] MEDS: Losartan Potassium 100 MG Tablet PO (09:23)
[2023-09-13 09:24] VITALS: BP 136/61; PULSE 60
[2023-09-13] MEDS: Furosemide 20 MG Tablet PO (09:24)
[2023-09-13] MEDS: Senna/Docusate Sodium 1 Tablet 2 TABLET PO ×2 (09:24→21:59)
[2023-09-13] MEDS: cloNIDine HCl 0.1 MG Tablet PO ×2 (09:24→21:59)
[2023-09-13] MEDS: Metoprolol Tartrate 50 MG Tablet PO ×2 (09:24→21:59)
[2023-09-13] MEDS: Aspirin 325 MG Tablet PO (09:24)
[2023-09-13] MEDS: Multivitamin (Healthy Eyes) Capsule 1 CAP PO (09:24)
[2023-09-13] MEDS: Petrolatum 33% Tube 1 APPLIC TOPICAL ×2 (09:25→22:12)
[2023-09-13] MEDS: Menthol/Lanolin/Calamine/Znox 113 GM Tube 1 APPLIC TOPICAL ×2 (09:25→21:55)
[2023-09-13] MEDS: Nystatin Powder 15gm Bottle 1 APPLIC TOPICAL ×2 (09:25→22:12)
[2023-09-13 11:42] LABS: Bedside Glucose 198 mg/dL (74-106)
[2023-09-13 13:15] VITALS: BP 135/63; PULSE 64; RESP 19; TEMP 36.3; O2SAT 98
[2023-09-13 16:11] LABS: Bedside Glucose 194 mg/dL (74-106)
[2023-09-13] MEDS: Tamsulosin HCl 0.4 MG Capsule PO (17:00)
[2023-09-13 21:25] LABS: Bedside Glucose 206 mg/dL (74-106)
[2023-09-13 21:59] VITALS: BP 128/94; PULSE 70
[2023-09-13] MEDS: Pravastatin 80 MG Tablet PO (21:59)
[2023-09-14] MEDS: Acetaminophen 500 MG Tablet 1000 MG PO (05:23)
[2023-09-14] MEDS: Cephalexin 500 MG Capsule PO ×2 (05:23→12:26)
[2023-09-14 06:04] LABS: Basophil# 0.04 X10^3/uL; Basophil% 0.6 % (0-1); Eosinophil# 0.65 X10^3/uL; Eosinophils% 9.3 % (0-5); Hematocrit 38.3 % (40-54); Hemoglobin 11.8 g/dL (13.0-16.5); Lymphocyte % 22.8 % (19-41); Mean Corp Hgb Conc 30.8 g/dL (32-36); Mean Corpuscular Hgb 29.5 pg (27.0-32.0); Mean Corpuscular Volume 95.8 fL (80-94); Mean Platelet Vol. 9.5 fl (6.2-12.0); NRBC Flagged by Analyzer 0 % (0-5); Neutrophil # 4.01 X10^3/uL (2.7-7.7); Neutrophil % 57.2 % (47-70); Platelet Count 277 K/mm3 (150-450); RBC Distribution Width CV 13.4 % (11.6-14.6); RBC Distribution Width SD 47.3 fl (35.1-43.9)
[2023-09-14 06:32] LABS: Anion Gap 7 (5-15); BUN 53 mg/dL (7-18); BUN/Creat Ratio 28.6 RATIO (10-20); Calcium,Total 9.3 mg/dL (8.5-10.1); Chloride 113 mmol/L (98-107); Creatinine, Serum 1.85 mg/dL (0.70-1.30); EST Glomerular Filtration Rate 37 mL/min (>60); Est Glom Filt Rate - Afr Amer 45 mL/min (>60); Estimated Creatinine Clearance 28.24 ml/min; Glucose 175 mg/dL (74-106); Potassium 4.6 mmol/L (3.5-5.1); Sodium Level 142 mmol/L (136-145)
[2023-09-14 06:37] LABS: Bedside Glucose 183 mg/dL (74-106)
[2023-09-14 07:31] VITALS: PULSE 60; RESP 16; O2SAT 97
[2023-09-14] MEDS: Furosemide 20 MG Tablet PO (09:12)
[2023-09-14] MEDS: Cholecalciferol (VIT D3) 25 MCG TABLET (1,000 UNITS) 50 MCG PO (09:12)
[2023-09-14 09:13] VITALS: BP 144/59; PULSE 63
[2023-09-14] MEDS: cloNIDine HCl 0.1 MG Tablet PO ×2 (09:13→19:58)
[2023-09-14] MEDS: Multivitamin (Healthy Eyes) Capsule 1 CAP PO (09:13)
[2023-09-14] MEDS: Metoprolol Tartrate 50 MG Tablet PO ×2 (09:13→19:59)
[2023-09-14] MEDS: Losartan Potassium 100 MG Tablet PO (09:13)
[2023-09-14] MEDS: Petrolatum 33% Tube 1 APPLIC TOPICAL ×2 (09:13→20:04)
[2023-09-14] MEDS: Aspirin 325 MG Tablet PO (09:13)
[2023-09-14] MEDS: Doxycycline 100 MG CAPSULE PO (09:13)
[2023-09-14] MEDS: Empagliflozin 10 MG Tablet PO (09:13)
[2023-09-14] MEDS: Menthol/Lanolin/Calamine/Znox 113 GM Tube 1 APPLIC TOPICAL ×2 (09:14→20:07)
[2023-09-14] MEDS: Nystatin Powder 15gm Bottle 1 APPLIC TOPICAL ×2 (09:14→20:05)
[2023-09-14] MEDS: Insulin Glargine-YFGN 100 UNIT/ML Pen 10 UNIT SC (09:18)
[2023-09-14 09:36] VITALS: BMI 28.9
[2023-09-14 11:21] LABS: Bedside Glucose 224 mg/dL (74-106)
--- NOTE | 2023-09-14 11:49 | CASEMGMT ---
Social Work BIMS (07/18) and PHQ-2 () completed for MDS assessment. Danielle Hood MSW TINNER HELPER
[2023-09-14 15:01] VITALS: BP 121/68; PULSE 60; RESP 16; TEMP 35.9; O2SAT 97
[2023-09-14 16:29] LABS: Bedside Glucose 185 mg/dL (74-106)
[2023-09-14] MEDS: Tamsulosin HCl 0.4 MG Capsule PO (17:23)
[2023-09-14] MEDS: Pravastatin 80 MG Tablet PO (19:58)
[2023-09-14 19:59] VITALS: BP 122/65; PULSE 63
[2023-09-14 21:32] LABS: Bedside Glucose 204 mg/dL (74-106)
[2023-09-15 05:49] VITALS: PULSE 73; RESP 16; O2SAT 97
[2023-09-15 05:57] LABS: Anion Gap 5 (5-15); BUN 54 mg/dL (7-18); BUN/Creat Ratio 29.3 RATIO (10-20); Calcium,Total 9.2 mg/dL (8.5-10.1); Chloride 112 mmol/L (98-107); Creatinine, Serum 1.84 mg/dL (0.70-1.30); EST Glomerular Filtration Rate 37 mL/min (>60); Est Glom Filt Rate - Afr Amer 45 mL/min (>60); Glucose 168 mg/dL (74-106); Potassium 4.6 mmol/L (3.5-5.1); Sodium Level 141 mmol/L (136-145)
[2023-09-15 06:14] LABS: Bedside Glucose 164 mg/dL (74-106)
[2023-09-15] MEDS: Aspirin 325 MG Tablet PO (08:20)
[2023-09-15] MEDS: cloNIDine HCl 0.1 MG Tablet PO (08:20)
[2023-09-15] MEDS: Losartan Potassium 100 MG Tablet PO (08:20)
[2023-09-15 08:21] VITALS: BP 140/63; PULSE 67
[2023-09-15] MEDS: Metoprolol Tartrate 50 MG Tablet PO (08:21)
[2023-09-15] MEDS: Multivitamin (Healthy Eyes) Capsule 1 CAP PO (08:21)
[2023-09-15] MEDS: Empagliflozin 10 MG Tablet PO (08:21)
[2023-09-15] MEDS: Cholecalciferol (VIT D3) 25 MCG TABLET (1,000 UNITS) 50 MCG PO (08:24)
[2023-09-15] MEDS: Furosemide 20 MG Tablet PO (08:24)
[2023-09-15] MEDS: Menthol/Lanolin/Calamine/Znox 113 GM Tube 1 APPLIC TOPICAL (08:24)
[2023-09-15] MEDS: Petrolatum 33% Tube 1 APPLIC TOPICAL (08:25)
[2023-09-15] MEDS: Nystatin Powder 15gm Bottle 1 APPLIC TOPICAL (08:25)
[2023-09-15] MEDS: Insulin Glargine-YFGN 100 UNIT/ML Pen 10 UNIT SC (08:36)
[2023-09-15 11:00] VITALS: BP 130/67; PULSE 96; RESP 18; TEMP 36.5; O2SAT 97
== END 2023-09-15 11:00 | disposition home health service (06) | DRG 559 ==
PROVIDERS: Admitting Provider Family Medicine Geriatric Medicine; PCP Family Medicine; Visit Provider Family Medicine Geriatric Medicine
DX: S72.002D Fracture of unspecified part of neck of left femur, subsequent encounter for closed fracture with routine healing (principal); U07.1 COVID-19; L03.115 Cellulitis of right lower limb; E11.9 Type 2 diabetes mellitus without complications; J44.9 Chronic obstructive pulmonary disease, unspecified; Z79.4 Long term (current) use of insulin; I10 Essential (primary) hypertension; H35.30 Unspecified macular degeneration; I25.10 Atherosclerotic heart disease of native coronary artery without angina pectoris; E78.2 Mixed hyperlipidemia; E55.9 Vitamin D deficiency, unspecified; W19.XXXD Unspecified fall, subsequent encounter; Z79.82 Long term (current) use of aspirin; Z95.5 Presence of coronary angioplasty implant and graft; R33.8 Other retention of urine; Z79.01 Long term (current) use of anticoagulants; N40.1 Benign prostatic hyperplasia with lower urinary tract symptoms; Z79.899 Other long term (current) drug therapy; Z79.84 Long term (current) use of oral hypoglycemic drugs; Z95.0 Presence of cardiac pacemaker
CPT/HCPCS: 36415; 71046; 73502; 80048; 82962; 85025; 87633; 87811; 92507; 92523; 97110; 97116; 97129; 97130; 97162; 97166; 97530; 97535; A4216

== ENCOUNTER → 2023-09-16 | Outpatient (CLI) | payer MEDICARE, OTHER, SELFPAY ==
[2023-09-16 17:35] LABS: Color, Urine Yellow (Yellow); Glucose, Dipstick 1000 mg/dl (Normal); Ketone-Dipstick Negative (Negative); Leukocyte Esterase-Dipstick 500 /ul (Negative); Nitrite-Dipstick Negative (Negative); Occult Blood-Urine 25 /ul (Negative); Protein-Dipstick 30 mg/dl (Negative); Urine Bilirubin Dipstick Negative (Negative); Urine Clarity Cloudy (Clear); Urine Urobilinogen Normal (Normal)
== END | disposition home or self-care (01) ==
LOC: LABSPEC 16:06
PROVIDERS: PCP Family Medicine; Visit Provider Family Medicine
DX: N39.0 Urinary tract infection, site not specified (principal)
CPT/HCPCS: 81002; 87086

== ENCOUNTER → 2023-09-21 | Outpatient (CLI) | payer MEDICARE, OTHER, SELFPAY ==
[2023-09-21 15:53] LABS: Anion Gap 10 (5-15); BUN 30 mg/dL (7-18); Calcium,Total 8.6 mg/dL (8.5-10.1); Chloride 110 mmol/L (98-107); Creatinine, Serum 1.67 mg/dL (0.70-1.30); EST Glomerular Filtration Rate 42 mL/min (>60); Est Glom Filt Rate - Afr Amer 51 mL/min (>60); Glucose 266 mg/dL (74-106); PSA,Total - Annual Screen 8.76 ng/mL (0.00-4.00); Potassium 5.5 mmol/L (3.5-5.1); Sodium Level 142 mmol/L (136-145)
== END | disposition home or self-care (01) ==
LOC: MFPLAB 11:32
PROVIDERS: PCP Family Medicine; Visit Provider Family Medicine
DX: R39.198 Other difficulties with micturition (principal); Z12.5 Encounter for screening for malignant neoplasm of prostate
CPT/HCPCS: 36415; 80048; 84153; G0103

== ENCOUNTER → 2023-09-23 | Outpatient (CLI) | payer MEDICARE, OTHER, SELFPAY ==
--- NOTE | 2023-09-23 10:59 | US_ITS ---
STUDY: ULTRASOUND - URINARY BLADDER REASON FOR EXAM: Male, 83 years old. Freq urination post op TECHNIQUE: Ultrasound evaluation of the urinary bladder was performed with real-time and static yen-scale imaging. COMPARISON: None. FINDINGS: There is no right UVJ calculus. There is a visualized right ureteral jet. There is no left UVJ calculus. There is a visualized left ureteral jet. The distended volume of the urinary bladder is 86.4 ml. The empty volume of the urinary bladder is 74.6 ml. The bladder wall is diffusely thickened. The bladder wall measures 5.1 mm. There is a 3.2 cm x 3.7 cm x 1.2 cm polypoid soft tissue density at the base of the bladder. Vascularity is seen. A neoplastic process should be ruled out. There are no demonstrated bladder calculi. US/Post Void Residual Bladder IMPRESSION: Moderate postvoid residual. Diffuse bladder wall thickening with polypoid lesion at the base of the bladder. Correlation with cystoscopy is recommended. Electronically Signed: Michael Hudson MD at 14:47 EST ,
== END | disposition home or self-care (01) ==
LOC: US 10:58
PROVIDERS: PCP Family Medicine; Referring Provider Family Medicine; Visit Provider Family Medicine
DX: N99.89 Other postprocedural complications and disorders of genitourinary system (principal); R39.198 Other difficulties with micturition
CPT/HCPCS: 51798

== ENCOUNTER → 2023-09-29 | Outpatient (CLI) | payer MEDICARE, OTHER, SELFPAY ==
[2023-09-29 17:48] LABS: Potassium 4.6 mmol/L (3.5-5.1)
== END | disposition home or self-care (01) ==
LOC: MFPLAB 14:54
PROVIDERS: Family Medicine; PCP Family Medicine; Visit Provider Family Medicine
DX: N18.31 Chronic kidney disease, stage 3a (principal)
CPT/HCPCS: 36415; 84132

== ENCOUNTER → 2023-10-18 | Outpatient (CLI) | payer MEDICARE, OTHER, SELFPAY ==
--- OUTSIDE RECORDS SUMMARY | 2023-10-18 15:36 | XMS RPT_ITS | CCD ---
Author Name Unknown Address [address] [place] [address] Organization [facility] Care Team Providers Care Greenhouse Worker Name Role Phone CONNER Herbert, Nelly Deal Unavailable Unavailable CONNER Herbert, Nelly Deal Unavailable Unavailable CONNER Herbert, Nelly Deal Unavailable Unavailable Janay Judd Unavailable Unavailable MEME KING Unavailable Unavailable TEENA ESCOBEDO Unavailable Unavailable ROGELIO, NIHAD Unavailable Unavailable JACQUELINE BAUTISTA Unavailable Unavailable SANTOSH BRUNO Unavailable Unavailable JACQUELINE BAUTISTA Unavailable Unavailable JANE PEREZ Unavailable Unavailable MEME KING Unavailable Unavailable Earl PRIETO, Yelena Rowe Unavailable [phone] Yelena Elliott RN Unavailable [phone] CONNER Herbert Sue M Unavailable Unavailable CONNER Herbert, Nelly Deal Unavailable Unavailable Janay Judd Unavailable Unavailable Unavailable Primary Care Provider Unavailabl e Allergies Allergy Classification Reported Allergen(s) Allergy Type Date of Onset Reaction(s) Facility (9 sources) hydroCHLOROthiazide drug allergy 1 Gout symptoms [facility] Work Phone: Medications Current Medications Medication Drug Class(es) Dates Sig (Normalized) Sig (Original) Acetaminophen (1 source) Start: 12-16-2019 acetaminophen (TYLENOL) tablet 650 mg aspirin 81 mg chewable tablet (20 sources) Platelet Aggregation Inhibitor, Nonsteroidal Anti-inflammatory Drug Start: 12-16-2019 take 81 mg by mouth once daily 81 mg, Oral, DAILY, First dose on 12/16/19 at 1830 Completed/Discontinued Medications Medication Drug Class(es) Dates Sig (Normalized) Sig (Original) 200 actuat albuterol 0.09 mg/actuat metered dose inhaler (9 sources) beta2-Adrenergic Agonist Start: 05-26-2016 PROAIR HFA 108 (90 Base) MCG/ACT AERS 1-2 puffs every 4 hours as needed for SOB ALBUTEROL SULFATE [id number] Jaxson Soto DO Problems Active Problems Problem Classification Problem Date Documented Date Episodic/Chronic Cardiac dysrhythmias (18 sources) Atrial flutter; Translations: [Atrial fibrillation] Onset: 12-15-2010 12-15-2010 Chronic Chronic obstructive pulmonary disease and bronchiectasis (9 sources) Chronic obstructive lung disease; Translations: [Chronic obstructive pulmonary disease, unspecified] Onset: 05-26-2016 05-26-2016 Chronic Conduction disorders (9 sources) Cardiac pacemaker in situ; Translations: [Presence of cardiac pacemaker] Onset: 12-15-2010 12-15-2010 Chronic Coronary atherosclerosis and other heart disease (9 sources) Atherosclerotic heart disease of [place] coronary artery without angina pectoris; Translations: [Atherosclerotic heart disease of [place] coronary artery without angina pectoris] Onset: 12-15-2010 12-15-2010 Chronic Disorders of lipid metabolism (9 sources) Hyperlipidemia; Translations: [Hyperlipidemia, unspecified] Onset: 12-15-2010 12-15-2010 Chronic Essential hypertension (9 sources) Hypertensive disorder; Translations: [Essential (primary) hypertension] Onset: 12-15-2010 12-15-2010 Chronic Nutritional deficiencies (2 sources) Cobalamin deficiency; Translations: [Vitamin B12 deficiency] 12-18-2019 Episodic Other hereditary and degenerative nervous system conditions (2 sources) Essential tremor; Translations: [Essential tremor] 12-18-2019 Chronic Other nervous system disorders (2 sources) Metabolic encephalopathy; Translations: [Metabolic encephalopathy] 12-18-2019 Chronic Other nervous system disorders (2 sources) Impaired cognition; Translations: [Cognitive deficits] 12-18-2019 Episodic Other nutritional; endocrine; and metabolic disorders (20 sources) Body mass index (BMI) 33.0-33.9, adult; Translations: [Obesity] Onset: 06-19-2013 09-07-2016 Chronic Other nutritional; endocrine; and metabolic disorders (5 sources) Body mass index (BMI) 34.0-34.9, adult; Translations: [Body mass index (BMI) 34.0-34.9, adult] Onset: 06-19-2013 02-24-2016 Chronic Other nutritional; endocrine; and metabolic disorders (5 sources) Body mass index (BMI) 32.0-32.9, adult; Translations: [Body mass index (BMI) 32.0-32.9, adult] Onset: 06-19-2013 06-19-2013 Chronic Other nutritional; endocrine; and metabolic disorders (5 sources) Obesity; Translations: [Obesity, unspecified] Onset: 05-26-2016 05-26-2016 Chronic Residual codes; unclassified (2 sources) Altered mental status; Translations: [Altered mental status] Onset: 12-16-2019 12-16-2019 Episodic Unclassified (5 sources) Long-term drug therapy; Translations: [Other director long term care (current) drug therapy] Onset: 12-15-2010 12-15-2010 Past or Other Problems Problem Classification Problem Date Documented Da te Episodic/Chronic Cancer; other and unspecified primary (20 sources) Malignant pericardial effusion; 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] Onset: 12-15-2010 12-15-2010 Episodic Coronary atherosclerosis and other heart disease (9 sources) Coronary angioplasty status; Translations: [Coronary angioplasty status] Onset: 12-15-2010 12-15-2010 Episodic Other aftercare (4 sources) Other director long term care (current) drug therapy; Translations: [Other director long term care (current) drug therapy] Onset: 12-15-2010 12-15-2010 Episodic Other injuries and conditions due to external causes (18 sources) Compartment syndrome; Translations: [Nontraumatic compartment syndrome of other sites] Onset: 12-15-2010 Resolved: 09-07-2016 09-07-2016 Episodic Other lower respiratory disease (13 sources) Dyspnea on exertion; Translations: [Lung function testing abnormal] Onset: 02-24-2016 02-24-2016 Episodic Other screening for suspected conditions (not mental disorders or infectious disease) (5 sources) Lung function testing abnormal; Translations: [Abnormal results of pulmonary function studies] Onset: 04-13-2016 04-13-2016 Episodic Residual codes; unclassified (9 sources) Edema; Translations: [Edema, unspecified] Onset: 12-15-2010 12-15-2010 Episodic Syncope (9 sources) Syncope; Translations: [Syncope and collapse] Onset: 08-12-2015 08-12-2015 Episodic Results Test Name Value Interpretation Reference Range Facil ity Vital Signs Date Time Vital Sign Value Performing Clinician Facility 12-18-2019 15:46-0400 Body Temperature 98.71 [degF] [facility] 12-18-2019 15:46-0400 BP Diastolic 92 mm[Hg] [facility], [place] 12-18-2019 15:46-0400 BP Systolic 189 mm[Hg] [facility] 12-18-2019 15:46-0400 Pulse (Heart Rate) 71 /min [facility], [place] 12-18-2019 15:46-0400 Pulse Oximetry 98 % [facility] 12-18-2019 15:46-0400 Respiratory Rate 20 /min [facility] 12-16-2019 17:45-0400 BMI (Body Mass Index) 31.57 kg/m2 [facility], [place] 12-16-2019 17:45-0400 Body weight 99.79 kg [facility] 12-16-2019 17:45-0400 Height 177.8 cm [facility] 06-21-2017 10:15-0400 BMI (Body Mass Index) 33.6 kg/m2 [facility] Work Phone: 06-21-2017 10:15-0400 BP Diastolic 70 mm[Hg] [facility] Work Phone: 06-21-2017 10:15-0400 BP Systolic 142 mm[Hg] [facility] Work Phone: 06-21-2017 10:15-0400 Height 172.72 cm [facility] Work Phone: 06-21-2017 10:15-0400 Pulse (Heart Rate) 64 /min [facility] Work Phone: 06-21-2017 10:15-0400 Respiratory Rate 18 /min Nelly Herbert RN [facility] Work Phone: 06-21-2017 10:15-0400 Weight 100.25 kg Nelly Herbert RN [facility] Work Phone: 06-21-2017 10:15-0400 Weight 100.24 kg Nelly Herbert RN [facility] Work Phone: 05-26-2017 06:11-0400 BMI (Body Mass Index) 33.75 kg/m2 Janay Judd [facility] Work Phone: 05-26-2017 06:11-0400 Body Temperature 97.6 [degF] Janay Judd [facility] Work Phone: 05-26-2017 06:11-0400 BP Diastolic 82 mm[Hg] Janay Judd [facility] Work Phone: 05-26-2017 06:11-0400 BP Systolic 160 mm[Hg] Janay Judd [facility] Work Phone: 05-26-2017 06:11-0400 Height 172.72 cm Janay Judd [facility] Work Phone: 05-26-2017 06:11-0400 Pulse (Heart Rate) 78 /min Janay Judd [facility] Work Phone: 05-26-2017 06:11-0400 Respiratory Rate 18 /min Janay Judd [facility] Work Phone: 05-26-2017 06:11-0400 Weight 100.7 kg Janay Judd [facility] Work Phone: 11-24-2016 10:35-0500 BMI (Body Mass Index) 33.45 kg/m2 [facility] Work Phone: 11-24-2016 10:35-0500 Body Temperature 98.78 [degF] [facility] Work Phone: 11-24-2016 10:35-0500 Body Temperature 98.8 [degF] [facility] Work Phone: 11-24-2016 10:35-0500 BP Diastolic 102 mm[Hg] [facility] Work Phone: 11-24-2016 10:35-0500 BP Systolic 186 mm[Hg] [facility] Work Phone: 11-24-2016 10:35-0500 BSA (Body Surface Area) 2.13 m2 [facility] Work Phone: 11-24-2016 10:35-0500 Height 172.72 cm [facility] Work Phone: 11-24-2016 10:35-0500 Pulse (Heart Rate) 88 /min [facility] Work Phone: 11-24-2016 10:35-0500 Pulse Oximetry 96 % [facility] Work Phone: 11-24-2016 10:35-0500 Respiratory Rate 18 /min [facility] Work Phone: 11-24-2016 10:35-0500 Weight 100 kg [facility] Work Phone: 11-24-2016 10:35-0500 Weight 99.79 kg [facility] Work Phone: 02-24-2016 15:44-0400 BP Diastolic 84 mm[Hg] [facility] Work Phone: 02-24-2016 15:44-0400 BP Systolic 138 mm[Hg] [facility] Work Phone: Encounters Encounter Date Encounter Type Care Provider Facility Start: 12-16-2019 End: 12-18-2019 Evaluation and management of inpatient Bebe Bragg Work Phone: [facility] Start: 07-05-2017 End: 07-06-2017 Ambulatory JANE PEREZ Facility:[facility] Start: 06-16-2017 End: 06-18-2017 Evaluation and management of inpatient MEME KING Facility:[facility] Procedures Date Procedure Procedure Detail Performing Clinician Start: 12-18-2019 Gluc bld gluc mntr d ev cleared fda spec home use Bebe Parajuli Work Phone: Start: 12-18-2019 Gluc bld gluc mntr d ev cleared fda spec home use Bebe Parajuli Work Phone: Start: 12-18-2019 EEG REPORT August Armendariz Work Phone: Start: 12-18-2019 Gluc bld gluc mntr d ev cleared fda spec home use Bebe Parajuli Work Phone: Start: 12-18-2019 Assay of thyroid sti mulating hormone tsh Chidi Mari Work Phone: Start: 12-18-2019 Basic metabolic pane l calcium total Chidi Mari Work Phone: Start: 12-18-2019 Blood count complete auto&auto difrntl wbc Chidi Mari Work Phone: Start: 12-17-2019 Gluc bld gluc mntr d ev cleared fda spec home use Bebe Parajuli Work Phone: Start: 12-17-2019 Gluc bld gluc mntr d ev cleared fda spec home use Bebe Parajuli Work Phone: Start: 12-17-2019 Gluc bld gluc mntr d ev cleared fda spec home use Bebe Parajuli Work Phone: Start: 12-17-2019 Cyanocobalamin vitamin b-12 Kyra S Deoras Work Phone: Start: 12-17-2019 Assay of ammonia Kyra S Deoras Work Phone: Start: 12-17-2019 Syphilis test non-tr eponemal antibody qual Kyra S Deoras Work Phone: Start: 12-17-2019 25 hydroxy includes fractions if performed Kyra S Deoras Work Phone: Start: 12-17-2019 EEG Kyra S Ed annabel Work Phone: Start: 12-17-2019 Gluc bld gluc mntr d ev cleared fda spec home use Bebe Parajuli Work Phone: Start: 12-17-2019 Gluc bld gluc mntr d ev cleared fda spec home use Bebe Parajuli Work Phone: Start: 12-17-2019 Assay of troponin quantitative Chidi Mari Work Phone: Start: 12-17-2019 BASIC METABOLIC PANE L W/ REFLEX TO MG FOR LOW K Chidi Mari Work Phone: Start: 12-17-2019 Blood count complete auto&auto difrntl wbc Chidi Mari Work Phone: Start: 12-17-2019 Hepatic function panel Chidi Mari Work Phone: Start: 12-17-2019 Assay of lactate Karanzeina Mari Work Phone: Start: 12-16-2019 Gluc bld gluc mntr d ev cleared fda spec home use Bebe Parajuli Work Phone: Start: 12-16-2019 Assay of troponin quantitative Chidi Mari Work Phone: Start: 06-21-2017 End: 06-21-2017 Follow Up Appt 3 months Pastor Lawson MD Start: 06-21-2017 End: 06-21-2017 MMM Pastor Lawson MD Start: 06-21-2017 End: 06-21-2017 Program eval implantable in persn dual ld pacer Pastor Lawson MD Start: 06-21-2017 End: 06-21-2017 Dietary management education, guidance, and counseling Yelena Elliott RN Start: 06-21-2017 End: 06-21-2017 Follow Up Appt 3 months Pastor Lawson MD Start: 06-21-2017 End: 06-21-2017 MMM Pastor Lawson MD Start: 06-21-2017 End: 06-21-2017 Pm device progr eval, dual Pastor adame MD Start: 05-26-2017 End: 05-26-2017 Dietary management education, guidance, and counseling Janay Judd Start: 03-17-2017 End: 03-17-2017 Program eval implantable in persn dual ld pacer Pastor Lawson MD Start: 03-17-2017 End: 03-17-2017 Pm device progr eval, dual Pastor adame MD Start: 12-07-2016 End: 12-07-2016 Program eval implantable in persn dual ld pacer Pastor Lawson MD Start: 12-07-2016 End: 12-07-2016 Pm device progr eval, dual Pastor adame MD Start: 11-24-2016 End: 11-24-2016 Dietary management education, guidance, and counseling Nelly Herbert RN Start: 08-31-2016 End: 09-07-2016 Follow Up Appt 3 months Pastor Lawson MD Start: 08-31-2016 End: 09-07-2016 Pacer Clinic Pastor Lawson MD Start: 08-31-2016 End: 08-31-2016 Program eval implantable in persn dual ld pacer Pastor Lawson MD Start: 08-31-2016 End: 09-07-2016 Follow Up Appt 3 months Pastor Lawson MD Start: 08-31-2016 End: 09-07-2016 Pacer Clinic Pastor Lawson MD Start: 08-31-2016 End: 08-31-2016 Pm device progr eval, dual Pastor adame MD Start: 08-26-2016 End: 09-07-2016 *Hepatic Function Panel Pastor Lawson MD Start: 08-26-2016 End: 09-07-2016 Lipid 1996 panel - Serum or Plasma Pastor Lawson MD Start: 08-26-2016 End: 09-07-2016 *Hepatic Function Panel Pastor Lawson MD Start: 08-26-2016 End: 09-07-2016 Lipid panel [AGGREGATE] Pastor Lawson MD Start: 06-03-2016 End: 06-03-2016 Program eval implantable in persn dual ld pacer Yelena Paredes PA-C Work Phone: Start: 06-03-2016 End: 06-03-2016 Pm device progr eval, dual Yelena Lawrence PA-C Work Phone: Start: 05-26-2016 End: 05-26-2016 Demo&/eval of pt utiliz aersl gen/neb/inhlr/ip Jaxson Soto DO Work Phone: Start: 05-26-2016 End: 05-26-2016 Evaluate pt use of inhaler Jaxson Soto DO Work Phone: Start: 04-13-2016 End: 04-14-2016 Referral to respiratory physician Yelena Paredes PA-C Work Phone: Start: 04-13-2016 End: 04-14-2016 Referral to respiratory physician Yelena Paredes PA-C Work Phone: Start: 02-26-2016 End: 02-26-2016 Program eval implantable in persn dual ld pacer Pastor Lawson MD Start: 02-26-2016 End: 02-26-2016 Pm device progr eval, dual Pastor adame MD Start: 02-24-2016 End: 04-13-2016 Chest x-ray Pastor Lawson MD Start: 02-24-2016 End: 04-13-2016 Follow Up Appt Other Pastor Lawson MD Start: 02-24-2016 End: 04-13-2016 PFM Pastor Lawson MD Start: 02-24-2016 End: 04-13-2016 Pulmonary Function Test - complete Pastor Lawson MD Start: 02-24-2016 End: 04-13-2016 Chest x-ray Pastor Lawson MD Start: 02-24-2016 End: 04-13-2016 Follow Up Appt Other Pastor Lawson MD Start: 02-24-2016 End: 04-13-2016 PFM Pastor Lawson MD Start: 02-24-2016 End: 04-13-2016 Pulmonary Function Test - complete Pastor Lawson MD Start: 11-21-2015 End: 04-13-2016 Follow Up Appt 3 months Pastor Lawson MD Start: 11-21-2015 End: 04-13-2016 Pacer Clinic Pastor Lawson MD Start: 11-21-2015 End: 11-21-2015 Program eval implantable in persn dual ld pacer Pastor Lawson MD Start: 11-21-2015 End: 04-13-2016 Follow Up Appt 3 months Pastor Lawson MD Start: 11-21-2015 End: 04-13-2016 Pacer Clinic Pastor Lawson MD Start: 11-21-2015 End: 11-21-2015 Pm device progr eval, dual Pastor adame MD Start: 08-12-2015 End: 04-13-2016 Device Interrogation Pastor Lawson MD Start: 08-12-2015 End: 08-13-2015 Documentation of current medications Pastor Lawson MD Start: 08-12-2015 End: 04-13-2016 Follow Up Appt 3 months Pastor Lawson MD Start: 08-12-2015 End: 08-12-2015 Follow Up Appt 6 months Pastor Lawson MD Start: 08-12-2015 End: 04-13-2016 Follow Up Appt Other Pastor Lawson MD Start: 08-12-2015 End: 04-13-2016 Pacer Clinic Pastor Lawson MD Start: 08-12-2015 End: 08-12-2015 PFM Pastor Lawson MD Start: 08-12-2015 End: 08-13-2015 Program eval implantable in persn dual ld pacer Pastor Lawson MD Start: 08-12-2015 End: 04-13-2016 Device Interrogation Pastor Lawson MD Start: 08-12-2015 End: 08-13-2015 Documentation of current medications Pastor Lawson MD Start: 08-12-2015 End: 04-13-2016 Follow Up Appt 3 months Pastor Lawson MD Start: 08-12-2015 End: 08-12-2015 Follow Up Appt 6 months Pastor Lawson MD Start: 08-12-2015 End: 04-13-2016 Follow Up Appt Other Pastor Lawson MD Start: 08-12-2015 End: 04-13-2016 Pacer Clinic Pastor Lawson MD Start: 08-12-2015 End: 08-12-2015 PFM Pastor Lawson MD Start: 08-12-2015 End: 08-13-2015 Pm device progr eval, dual Pastor adame MD Start: 07-24-2015 End: 04-13-2016 *Hepatic Function Panel Pastor Lawson MD Start: 07-24-2015 End: 04-13-2016 Lipid 1996 panel - Serum or Plasma Pastor Lawson MD Start: 07-24-2015 End: 04-13-2016 *Hepatic Function Panel Pastor Lawson MD Start: 07-24-2015 End: 04-13-2016 Lipid panel [AGGREGATE] Pastor Lawson MD Start: 02-07-2015 End: 02-08-2015 Documentation of current medications Yelena Paredes PA-C Work Phone: Start: 02-07-2015 End: 04-13-2016 Follow Up Appt 3 months Pastor Lawson MD Start: 02-07-2015 End: 02-07-2015 Follow Up Appt 6 months Yelena del rosario PA-C Work Phone: Start: 02-07-2015 End: 04-13-2016 Pacer Clinic Pastor Lawson MD Start: 02-07-2015 End: 02-07-2015 PFM Yelena Paredes PA-C Work Phone: Start: 02-07-2015 End: 02-08-2015 Program eval implantable in persn dual ld pacer Pastor Lawson MD Start: 02-07-2015 End: 02-08-2015 Documentation of current medications Yelena Paredes PA-C Work Phone: Start: 02-07-2015 End: 04-13-2016 Follow Up Appt 3 months Pastor Lawson MD Start: 02-07-2015 End: 02-07-2015 Follow Up Appt 6 months Yelena del rosario PA-C Work Phone: Start: 02-07-2015 End: 04-13-2016 Pacer Clinic Pastor Lawson MD Start: 02-07-2015 End: 02-07-2015 PFM Yelena Paredes PA-C Work Phone: Start: 02-07-2015 End: 02-08-2015 Pm device progr eval, dual Pastor adame MD Start: 01-02-2015 End: 01-22-2015 *Hepatic Function Panel Pastor Lawson MD Start: 01-02-2015 End: 01-22-2015 Lipid 1996 panel - Serum or Plasma Pastor Lawson MD Start: 01-02-2015 End: 01-22-2015 *Hepatic Function Panel Pastor Lawson MD Start: 01-02-2015 End: 01-22-2015 Lipid panel [AGGREGATE] Pastor Lawson MD Start: 11-09-2014 End: 11-09-2014 *BMP Yelena Paredes PA-C Work Phone: Start: 11-09-2014 End: 02-07-2015 Follow Up Appt 3 months Yelena del rosario PA-C Work Phone: Start: 11-09-2014 End: 02-07-2015 Pacer Clinic Yelena Paredes PA-C Work Phone: Start: 11-09-2014 End: 11-09-2014 Program eval implantable in persn dual ld pacer Yelena Paredes PA-C Work Phone: Start: 11-09-2014 End: 11-09-2014 Thyrotropin [Units/volume] in Serum or Plasma Yelena Paredes PA-C Work Phone: Start: 11-09-2014 End: 11-09-2014 Thyroxine (T4) [Mass/volume] in Serum or Plasma Yelena Paredes PA-C Work Phone: Start: 11-09-2014 End: 11-09-2014 *BMP Yelena Paredes PA-C Work Phone: Start: 11-09-2014 End: 02-07-2015 Follow Up Appt 3 months Yelena del rosario PA-C Work Phone: Start: 11-09-2014 End: 02-07-2015 Pacer Clinic Yelena Paredes PA-C Work Phone: Start: 11-09-2014 End: 11-09-2014 Pm device progr eval, dual Yelena Lawrence PA-C Work Phone: Start: 11-09-2014 End: 11-09-2014 Thyroid stimulating hormone (TSH) Yelena Paredes PA-C Work Phone: Start: 11-09-2014 End: 11-09-2014 Thyroxine (T4) Yelena Paredes PA-C Work Phone: Start: 08-08-2014 End: 08-09-2014 Device Interrogation Pastor Lawson MD Start: 08-08-2014 End: 02-07-2015 Follow Up Appt 3 months Pastor Lawson MD Start: 08-08-2014 End: 08-09-2014 Follow Up Appt 6 months Pastor Lawson MD Start: 08-08-2014 End: 08-09-2014 MMM Pastor Lawson MD Start: 08-08-2014 End: 02-07-2015 Pacer Clinic Pastor Lawson MD Start: 08-08-2014 End: 08-09-2014 Program eval implantable in persn dual ld pacer Pastor Lawson MD Start: 08-08-2014 End: 08-09-2014 Device Interrogation Pastor Lawson MD Start: 08-08-2014 End: 02-07-2015 Follow Up Appt 3 months Pastor Lawson MD Start: 08-08-2014 End: 08-09-2014 Follow Up Appt 6 months Pastor Lawson MD Start: 08-08-2014 End: 08-09-2014 MMM Pastor Lawson MD Start: 08-08-2014 End: 02-07-2015 Pacer Clinic Pastor Lawson MD Start: 08-08-2014 End: 08-09-2014 Pm device progr eval, dual Pastor adame MD Start: 07-03-2014 End: 08-09-2014 *BMP Pastor Lawson MD Start: 07-03-2014 End: 08-09-2014 *BMP Pastor Lawson MD Start: 06-04-2014 End: 06-26-2014 *Hepatic Function Panel Pastor Lawson MD Start: 06-04-2014 End: 06-26-2014 Lipid 1996 panel - Serum or Plasma Pastor Lawson MD Start: 06-04-2014 End: 06-26-2014 *Hepatic Function Panel Pastor Lawson MD Start: 06-04-2014 End: 06-26-2014 Lipid panel [AGGREGATE] Pastor Lawson MD Start: 04-26-2014 End: 06-26-2014 Follow Up Appt 3 months Pastor Lawson MD Start: 04-26-2014 End: 06-26-2014 Pacer Clinic Pastor Lawson MD Start: 04-26-2014 End: 04-26-2014 Program eval implantable in persn dual ld pacer Pastor Lawson MD Start: 04-26-2014 End: 06-26-2014 Follow Up Appt 3 months Pastor Lawson MD Start: 04-26-2014 End: 06-26-2014 Pacer Clinic Pastor Lawson MD Start: 04-26-2014 End: 04-26-2014 Pm device progr eval, dual Pastor adame MD Start: 02-28-2014 End: 03-05-2014 *BMP Yelena Paredes PA-C Work Phone: Start: 02-28-2014 End: 02-28-2014 Follow Up Appt 6 months Yelena del rosario PA-C Work Phone: Start: 02-28-2014 End: 02-28-2014 PFSay Paredes PA-C Work Phone: Start: 02-28-2014 End: 03-05-2014 *BMP Yelena Paredes PA-C Work Phone: Start: 02-28-2014 End: 02-28-2014 Follow Up Appt 6 months Yelena del rosario PA-C Work Phone: Start: 02-28-2014 End: 02-28-2014 PFSay Paredes PA-C Work Phone: Start: 01-22-2014 End: 06-26-2014 *BMP Pastor Lawson MD Start: 01-22-2014 End: 01-22-2014 Follow Up Appt 1 month Pastor Lawson MD Start: 01-22-2014 End: 06-26-2014 Follow Up Appt 3 months Pastor Lawson MD Start: 01-22-2014 End: 01-22-2014 MMM Pastor Lawson MD Start: 01-22-2014 End: 06-26-2014 Pacer Clinic Pastor Lawson MD Start: 01-22-2014 End: 01-22-2014 Program eval implantable in persn dual ld pacer Pastor Lawson MD Start: 01-22-2014 End: 06-26-2014 *BMP Pastor Lawson MD Start: 01-22-2014 End: 01-22-2014 Follow Up Appt 1 month Pastor Lawson MD Start: 01-22-2014 End: 06-26-2014 Follow Up Appt 3 months Pastor Lawson MD Start: 01-22-2014 End: 01-22-2014 MMM Pastor Lawson MD Start: 01-22-2014 End: 06-26-2014 Pacer Clinic Pastor Lawson MD Start: 01-22-2014 End: 01-22-2014 Pm device progr eval, dual Pastor adame MD Start: 12-02-2013 End: 12-26-2013 *Hepatic Function Panel Pastor Lawson MD Start: 12-02-2013 End: 12-26-2013 Lipid 1996 panel - Serum or Plasma Pastor Lawson MD Start: 12-02-2013 End: 12-26-2013 *Hepatic Function Panel Pastor Lawson MD Start: 12-02-2013 End: 12-26-2013 Lipid panel [AGGREGATE] Pastor Lawson MD Start: 10-12-2013 End: 06-26-2014 Follow Up Appt 3 months Pastor Lawson MD Start: 10-12-2013 End: 06-26-2014 Pacer Clinic Pastor Lawson MD Start: 10-12-2013 End: 10-12-2013 Program eval implantable in persn dual ld pacer Pastor Lawson MD Start: 10-12-2013 End: 06-26-2014 Follow Up Appt 3 months Pastor Lawson MD Start: 10-12-2013 End: 06-26-2014 Pacer Clinic Pastor Lawson MD Start: 10-12-2013 End: 10-12-2013 Pm device progr eval, dual Pastor adame MD Start: 06-19-2013 End: 06-28-2013 *Hepatic Function Panel Pastor Lawson MD Start: 06-19-2013 End: 06-26-2014 Follow Up Appt 3 months Pastor Lawson MD Start: 06-19-2013 End: 02-07-2015 Follow Up Appt 6 months Pastor Lawson MD Start: 06-19-2013 End: 06-28-2013 Lipid 1996 panel - Serum or Plasma Pastor Lawson MD Start: 06-19-2013 End: 06-26-2014 Pacer Clinic Pastor Lawson MD Start: 06-19-2013 End: 06-26-2014 PFM Pastor Lawson MD Start: 06-19-2013 End: 06-19-2013 Program eval implantable in persn dual ld pacer Pastor Lawson MD Start: 06-19-2013 End: 06-28-2013 *Hepatic Function Panel Pastor Lawson MD Start: 06-19-2013 End: 06-26-2014 Follow Up Appt 3 months Pastor Lawson MD Start: 06-19-2013 End: 02-07-2015 Follow Up Appt 6 months Pastor Lawson MD Start: 06-19-2013 End: 06-28-2013 Lipid panel [AGGREGATE] Pastor Lawson MD Start: 06-19-2013 End: 06-26-2014 Pacer Clinic Pastor Lawson MD Start: 06-19-2013 End: 06-26-2014 PFM Pastor Lawson MD Start: 06-19-2013 End: 06-19-2013 Pm device progr eval, dual Pastor adame MD Start: 04-05-2013 End: 06-26-2014 Follow Up Appt 3 months Pastor Lawson MD Start: 04-05-2013 End: 06-26-2014 Pacer Clinic Pastor Lawson MD Start: 04-05-2013 End: 04-05-2013 Program eval implantable in persn dual ld pacer Pastor Lawson MD Start: 04-05-2013 End: 06-26-2014 Follow Up Appt 3 months Pastor Lawson MD Start: 04-05-2013 End: 06-26-2014 Pacer Clinic Pastor Lawson MD Start: 04-05-2013 End: 04-05-2013 Pm device progr eval, dual Pastor adame MD Start: 03-08-2013 End: 06-28-2013 *Hepatic Function Panel Fadia Almonte RN Start: 03-08-2013 End: 06-26-2014 Follow Up Appt 3 months Fadia Almonte RN Start: 03-08-2013 End: 06-28-2013 Lipid 1996 panel - Serum or Plasma Fadia Almonte RN Start: 03-08-2013 End: 06-26-2014 PFM Fadia Almonte RN Start: 03-08-2013 End: 06-28-2013 *Hepatic Function Panel Fadia Almonte RN Start: 03-08-2013 End: 06-26-2014 Follow Up Appt 3 months Fadia Almonte RN Start: 03-08-2013 End: 06-28-2013 Lipid panel [AGGREGATE] Fadia Almonte RN Start: 03-08-2013 End: 06-26-2014 PFM Fadia Almonte RN Start: 02-21-2013 End: 02-21-2013 Nurse, Teaching, Wound Check (no charge) Pastor Lawson MD Start: 02-21-2013 End: 02-21-2013 Nurse, Teaching, Wound Check (no charge) Pastor Lawson MD Start: 02-14-2013 End: 06-26-2014 Follow Up Appt 2 months Pastor Lawson MD Start: 02-14-2013 End: 02-14-2013 Nurse, Teaching, Wound Check (no charge) Pastor Lawson MD Start: 02-14-2013 End: 06-26-2014 Pacer Clinic Pastor Lawson MD Start: 02-14-2013 End: 06-26-2014 Follow Up Appt 2 months Pastor Lawson MD Start: 02-14-2013 End: 02-14-2013 Nurse, Teaching, Wound Check (no charge) Pastor Lawson MD Start: 02-14-2013 End: 06-26-2014 Pacer Clinic Pastor Lawson MD Start: 01-09-2013 End: 06-26-2014 Echocardiography Pastor Lawson MD Start: 01-09-2013 End: 06-26-2014 Follow Up Appt 4 months Pastor Lawson MD Start: 01-09-2013 End: 06-26-2014 Follow Up Appt Other Pastor Lawson MD Start: 01-09-2013 End: 06-26-2014 PFM Pastor Lawson MD Start: 01-09-2013 End: 06-26-2014 [facility] Pastor Lawson MD Start: 01-09-2013 End: 06-26-2014 Follow Up Appt 4 months Pastor Lawson MD Start: 01-09-2013 End: 06-26-2014 Follow Up Appt Other Pastor Lawson MD Start: 01-09-2013 End: 06-26-2014 PFM Pastor Lawson MD Start: 09-15-2012 End: 06-26-2014 Device Interrogation Pastor Lawson MD Start: 09-15-2012 End: 09-15-2012 eRx Transmitted during this visit (Medicare only) Pastor Lawson MD Start: 09-15-2012 End: 06-26-2014 Follow Up Appt 6 months Pastor Lawson MD Start: 09-15-2012 End: 06-26-2014 Device Interrogation Pastor Lawson MD Start: 09-15-2012 End: 09-15-2012 eRx Transmitted during this visit (Medicare only) Pastor Lawson MD Start: 09-15-2012 End: 06-26-2014 Follow Up Appt 6 months Pastor Lawson MD Start: 03-10-2012 End: 06-26-2014 Device Interrogation Pastor Lawson MD Start: 03-10-2012 End: 03-10-2012 eRx Transmitted during this visit (Medicare only) Pastor Lawson MD Start: 03-10-2012 End: 06-26-2014 Follow Up Appt 6 months Pastor Lawson MD Start: 03-10-2012 End: 06-26-2014 Device Interrogation Pastor Lawson MD Start: 03-10-2012 End: 03-10-2012 eRx Transmitted during this visit (Medicare only) Pastor Lawson MD Start: 03-10-2012 End: 06-26-2014 Follow Up Appt 6 months Pastor Lawson MD Start: 09-03-2011 End: 06-26-2014 *Hepatic Function Panel Pastor Lawson MD Start: 09-03-2011 End: 09-03-2011 Follow Up Appt 6 months Pastor Lawson MD Start: 09-03-2011 End: 06-26-2014 Lipid 1996 panel - Serum or Plasma Pastor Lawson MD Start: 09-03-2011 End: 06-26-2014 *Hepatic Function Panel Pastor Lawson MD Start: 09-03-2011 End: 09-03-2011 Follow Up Appt 6 months Pastor Lawson MD Start: 09-03-2011 End: 06-26-2014 Lipid panel [AGGREGATE] Pastor Lawson MD Plan of Treatment Date Care Activity Detail Author Start: 12-17-2020 Creatinine monitoring Creatinine monitoring [place], [place] Start: 12-17-2020 Potassium monitoring Potassium monitoring [place], [place] Start: 06-04-2019 Influenza vaccination Flu vaccine (#1) [place], [place] Start: 10-11-2017 End: 10-11-2017 Appointment Appointment [facility] Work Phone: Start: 09-22-2017 End: 09-22-2017 Appointment Appointment [facility] Work Phone: Start: 06-21-2017 End: 06-21-2017 Device Interrogation Device Interrogation [facility] Work Phone: Start: 06-21-2017 End: 06-21-2017 Follow Up Appt 3 months Follow Up Appt 3 months [facility] Work Phone: Start: 06-21-2017 End: 06-21-2017 Follow Up Appt Other Follow Up Appt Other [facility] Work Phone: Start: 06-21-2017 End: 06-21-2017 MMM MMM [facility] Work Phone: Start: 06-21-2017 End: 06-21-2017 Pacer Clinic [facility] Work Phone: Start: 06-21-2017 End: 06-21-2017 Appointment Appointment [facility] Work Phone: Start: 06-21-2017 End: 06-21-2017 Device Interrogation Device Interrogation [facility] Work Phone: Start: 06-21-2017 End: 06-21-2017 Follow Up Appt 3 months Follow Up Appt 3 months [facility] Work Phone: Start: 06-21-2017 End: 06-21-2017 Follow Up Appt Other Follow Up Appt Other [facility] Work Phone: Start: 06-21-2017 End: 06-21-2017 MMM MMM [facility] Work Phone: Start: 06-21-2017 End: 06-21-2017 Pacer Clinic Pacer Clinic [facility] Work Phone: Start: 05-26-2017 End: 05-26-2017 Follow Up Appt 1 year Follow Up Appt 1 year [facility] Work Phone: Start: 05-26-2017 End: 05-26-2017 Appointment Appointment [facility] Work Phone: Start: 05-26-2017 End: 05-26-2017 Follow Up Appt 1 year Follow Up Appt 1 year [facility] [place] Work Phone: Start: 03-17-2017 End: 03-17-2017 Follow Up Appt 3 months Follow Up Appt 3 months [facility] Work Phone: Start: 03-17-2017 End: 03-17-2017 Pacer Clinic Pacer Clinic [facility] Work Phone: Start: 03-17-2017 End: 03-17-2017 Appointment Appointment [facility] Work Phone: Start: 03-17-2017 End: 03-17-2017 Follow Up Appt 3 months Follow Up Appt 3 months [facility] Work Phone: Start: 03-17-2017 End: 03-17-2017 Pacer Clinic [facility] Work Phone: Start: 03-04-2017 End: 09-07-2016 *Hepatic Function Panel *Hepatic Function Panel [facility] Work Phone: Start: 03-04-2017 End: 09-07-2016 Lipid 1996 panel *Lipid Profile CC PCP [facility] Work Phone: Start: 03-04-2017 End: 09-07-2016 *Hepatic Function Panel *Hepatic Function Panel [facility] Work Phone: Start: 03-04-2017 End: 09-07-2016 Lipid panel [AGGREGATE] *Lipid Profile CC PCP [facility] Work Phone: Start: 12-07-2016 End: 12-07-2016 Follow Up Appt 3 months Follow Up Appt 3 months [facility] Work Phone: Start: 12-07-2016 End: 12-07-2016 Pacer Clinic Pac[facility] Clinic [facility] Work Phone: Start: 12-07-2016 End: 12-07-2016 Follow Up Appt 3 months Follow Up Appt 3 months [facility] Work Phone: Start: 12-07-2016 End: 12-07-2016 Pacer Clinic Pacer Clinic [facility] Work Phone: Start: 11-24-2016 End: 11-24-2016 DMB DMB [facility] Work Phone: Start: 11-24-2016 End: 11-24-2016 Follow Up Appt 6 months Follow Up Appt 6 months [facility] Work Phone: Start: 11-24-2016 End: 11-24-2016 DMB DMB [facility] Work Phone: Start: 11-24-2016 End: 11-24-2016 Follow Up Appt 6 months Follow Up Appt 6 months [facility] Work Phone: Start: 09-07-2016 End: 09-07-2016 Follow Up Appt 9 months Follow Up Appt 9 months [facility] Work Phone: Start: 09-07-2016 End: 09-07-2016 PFM PFM [facility] Work Phone: Start: 09-07-2016 End: 09-07-2016 Follow Up Appt 9 months Follow Up Appt 9 months [facility] Work Phone: Start: 09-07-2016 End: 09-07-2016 PFM PFM [facility] Work Phone: Start: 08-31-2016 End: 09-07-2016 Follow Up Appt 3 months Follow Up Appt 3 months [facility] Work Phone: Start: 08-31-2016 End: 09-07-2016 Pacer Clinic Pacer Clinic [facility] Work Phone: Start: 08-31-2016 End: 09-07-2016 Follow Up Appt 3 months Follow Up Appt 3 months [facility] Work Phone: Start: 08-31-2016 End: 09-07-2016 Pacer Clinic Pacer Clinic [facility] Work Phone: Start: 08-26-2016 End: 09-07-2016 *Hepatic Function Panel *Hepatic Function Panel [facility] Work Phone: Start: 08-26-2016 End: 09-07-2016 Lipid 1996 panel *Lipid Profile CC PCP [facility] Work Phone: Start: 08-26-2016 End: 09-07-2016 *Hepatic Function Panel *Hepatic Function Panel [facility] Work Phone: Start: 08-26-2016 End: 09-07-2016 Lipid panel [AGGREGATE] *Lipid Profile CC PCP [facility] Work Phone: Start: 06-03-2016 End: 06-03-2016 Follow Up Appt 3 months Follow Up Appt 3 months [facility] Work Phone: Start: 06-03-2016 End: 06-03-2016 Pacer Clinic Pacer Clinic [facility] Work Phone: Start: 06-03-2016 End: 06-03-2016 Follow Up Appt 3 months Follow Up Appt 3 months [facility] Work Phone: Start: 06-03-2016 End: 06-03-2016 Pacer Clinic Pacer Clinic [facility] Work Phone: Start: 05-26-2016 End: 05-26-2016 [facility] Work Phone: Start: 05-26-2016 End: 05-26-2016 Follow Up Appt 6 months Follow Up Appt 6 months [facility] Work Phone: Start: 05-26-2016 End: 05-26-2016 [facility] Work Phone: Start: 05-26-2016 End: 05-26-2016 Follow Up Appt 6 months Follow Up Appt 6 months [facility] Work Phone: Start: 04-13-2016 End: 04-13-2016 Pulmonary Referral Pulmonary Referral Angel Jauregui, [facility], [address], [place], [address] [facility] Work Phone: Start: 04-13-2016 End: 04-13-2016 Pulmonary Referral Pulmonary Referral Angel Jauregui, [facility] [place], [address], [place], [address] [facility] Work Phone: Start: 02-26-2016 End: 02-26-2016 Follow Up Appt 3 months Follow Up Appt 3 months [facility] Work Phone: Start: 02-26-2016 End: 02-26-2016 Pacer Clinic Pacer Clinic [facility] Work Phone: Start: 02-26-2016 End: 02-26-2016 Follow Up Appt 3 months Follow Up Appt 3 months [facility] Work Phone: Start: 02-26-2016 End: 02-26-2016 Pacer Clinic Pacer Clinic [facility] Work Phone: Start: 02-24-2016 End: 04-13-2016 Chest x-ray X-Ray, Chest, PA & Lateral [facility] Work Phone: Start: 02-24-2016 End: 02-24-2016 Follow Up Appt 6 months Follow Up Appt 6 months [facility] Work Phone: Start: 02-24-2016 End: 04-13-2016 Follow Up Appt Other Follow Up Appt Other [facility] Work Phone: Start: 02-24-2016 End: 04-13-2016 PFM PFM [facility] Work Phone: Start: 02-24-2016 End: 02-24-2016 Pulmonary Function Test - complete Pulmonary Function Test - complete [facility] Work Phone: Start: 02-24-2016 End: 04-13-2016 Chest x-ray X-Ray, Chest, PA & Lateral [facility] Work Phone: Start: 02-24-2016 End: 02-24-2016 Follow Up Appt 6 months Follow Up Appt 6 months [facility] Work Phone: Start: 02-24-2016 End: 04-13-2016 Follow Up Appt Other Follow Up Appt Other [facility] Work Phone: Start: 02-24-2016 End: 04-13-2016 PFM PFM [facility] Work Phone: Start: 02-24-2016 End: 02-24-2016 Pulmonary Function Test - complete Pulmonary Function Test - complete [facility] Work Phone: Start: 11-21-2015 End: 04-13-2016 Follow Up Appt 3 months Follow Up Appt 3 months [facility] Work Phone: Start: 11-21-2015 End: 04-13-2016 Pacer Clinic Pacer Clinic [facility] Work Phone: Start: 11-21-2015 End: 04-13-2016 Follow Up Appt 3 months Follow Up Appt 3 months [facility] Work Phone: Start: 11-21-2015 End: 04-13-2016 Pacer Clinic Pacer Clinic [facility] Work Phone: Start: 08-12-2015 End: 04-13-2016 Device Interrogation Device Interrogation [facility] Work Phone: Start: 08-12-2015 End: 04-13-2016 Follow Up Appt 3 months Follow Up Appt 3 months [facility] Work Phone: Start: 08-12-2015 End: 08-12-2015 Follow Up Appt 6 months Follow Up Appt 6 months [facility] Work Phone: Start: 08-12-2015 End: 04-13-2016 Follow Up Appt Other Follow Up Appt Other [facility] Work Phone: Start: 08-12-2015 End: 04-13-2016 Pacer Clinic Pacer Clinic [facility] Work Phone: Start: 08-12-2015 End: 08-12-2015 PFM PFM [facility] Work Phone: Start: 08-12-2015 End: 04-13-2016 Device Interrogation Device Interrogation [facility] Work Phone: Start: 08-12-2015 End: 04-13-2016 Follow Up Appt 3 months Follow Up Appt 3 months [facility] Work Phone: Start: 08-12-2015 End: 08-12-2015 Follow Up Appt 6 months Follow Up Appt 6 months [facility] Work Phone: Start: 08-12-2015 End: 04-13-2016 Follow Up Appt Other Follow Up Appt Other [facility] Work Phone: Start: 08-12-2015 End: 04-13-2016 Pacer Clinic Pacer Clinic [facility] Work Phone: Start: 08-12-2015 End: 08-12-2015 PFM PFM [facility] Work Phone: Start: 07-24-2015 End: 04-13-2016 *Hepatic Function Panel *Hepatic Function Panel [facility] Work Phone: Start: 07-24-2015 End: 04-13-2016 Lipid 1996 panel *Lipid Profile CC PCP [facility] Work Phone: Start: 07-24-2015 End: 04-13-2016 *Hepatic Function Panel *Hepatic Function Panel [facility] Work Phone: Start: 07-24-2015 End: 04-13-2016 Lipid panel [AGGREGATE] *Lipid Profile CC PCP [facility] Work Phone: Start: 02-07-2015 End: 04-13-2016 Follow Up Appt 3 months Follow Up Appt 3 months [facility] Work Phone: Start: 02-07-2015 End: 02-07-2015 Follow Up Appt 6 months Follow Up Appt 6 months [facility] Work Phone: Start: 02-07-2015 End: 04-13-2016 Pacer Clinic Pacer Clinic [facility] Work Phone: Start: 02-07-2015 End: 02-07-2015 PFM PFM [facility] Work Phone: Start: 02-07-2015 End: 04-13-2016 Follow Up Appt 3 months Follow Up Appt 3 months [facility] Work Phone: Start: 02-07-2015 End: 02-07-2015 Follow Up Appt 6 months Follow Up Appt 6 months [facility] Work Phone: Start: 02-07-2015 End: 04-13-2016 Pacer Clinic Pacer Clinic [facility] Work Phone: Start: 02-07-2015 End: 02-07-2015 PFM PFM [facility] Work Phone: Start: 01-02-2015 End: 01-22-2015 *Hepatic Function Panel *Hepatic Function Panel [facility] Work Phone: Start: 01-02-2015 End: 01-22-2015 Lipid 1996 panel *Lipid Profile CC PCP [facility] Work Phone: Start: 01-02-2015 End: 01-22-2015 *Hepatic Function Panel *Hepatic Function Panel [facility] Work Phone: Start: 01-02-2015 End: 01-22-2015 Lipid panel [AGGREGATE] *Lipid Profile CC PCP [facility] Work Phone: Start: 11-09-2014 End: 11-09-2014 *BMP *BMP [facility] Work Phone: Start: 11-09-2014 End: 02-07-2015 Follow Up Appt 3 months Follow Up Appt 3 months [facility] Work Phone: Start: 11-09-2014 End: 02-07-2015 Pacer Clinic Pacer Clinic [facility] Work Phone: Start: 11-09-2014 End: 11-09-2014 T4 mass conc *T4 (Total) [facility] Work Phone: Start: 11-09-2014 End: 11-09-2014 Thyrotropin Qn *TSH [facility] Work Phone: Start: 11-09-2014 End: 11-09-2014 *BMP *BMP [facility] Work Phone: Start: 11-09-2014 End: 02-07-2015 Follow Up Appt 3 months Follow Up Appt 3 months [facility] Work Phone: Start: 11-09-2014 End: 02-07-2015 Pacer Clinic Pacer Clinic [facility] Work Phone: Start: 11-09-2014 End: 11-09-2014 Thyroid stimulating hormone (TSH) *TSH [facility] Work Phone: Start: 11-09-2014 End: 11-09-2014 Thyroxine (T4) *T4 (Total) [facility] Work Phone: Start: 08-08-2014 End: 08-09-2014 Device Interrogation Device Interrogation [facility] Work Phone: Start: 08-08-2014 End: 02-07-2015 Follow Up Appt 3 months Follow Up Appt 3 months [facility] Work Phone: Start: 08-08-2014 End: 08-09-2014 Follow Up Appt 6 months Follow Up Appt 6 months [facility] Work Phone: Start: 08-08-2014 End: 08-09-2014 MMM MMM [facility] Work Phone: Start: 08-08-2014 End: 02-07-2015 Pacer Clinic Pacer Clinic [facility] Work Phone: Start: 08-08-2014 End: 08-09-2014 Device Interrogation Device Interrogation [facility] Work Phone: Start: 08-08-2014 End: 02-07-2015 Follow Up Appt 3 months Follow Up Appt 3 months [facility] Work Phone: Start: 08-08-2014 End: 08-09-2014 Follow Up Appt 6 months Follow Up Appt 6 months [facility] Work Phone: Start: 08-08-2014 End: 08-09-2014 MMM MMM [facility] Work Phone: Start: 08-08-2014 End: 02-07-2015 Pacer Clinic Pacer Clinic [facility] Work Phone: Start: 07-03-2014 End: 08-09-2014 *BMP *BMP [facility] Work Phone: Start: 07-03-2014 End: 08-09-2014 *BMP *BMP [facility] Work Phone: Start: 06-04-2014 End: 06-26-2014 *Hepatic Function Panel *Hepatic Function Panel [facility] Work Phone: Start: 06-04-2014 End: 06-26-2014 Lipid 1996 panel *Lipid Profile CC PCP [facility] Work Phone: Start: 06-04-2014 End: 06-26-2014 *Hepatic Function Panel *Hepatic Function Panel [facility] Work Phone: Start: 06-04-2014 End: 06-26-2014 Lipid panel [AGGREGATE] *Lipid Profile CC PCP [facility] Work Phone: Start: 04-26-2014 End: 06-26-2014 Follow Up Appt 3 months Follow Up Appt 3 months [facility] Work Phone: Start: 04-26-2014 End: 06-26-2014 Pacer Clinic Pacer Clinic [facility] Work Phone: Start: 04-26-2014 End: 06-26-2014 Follow Up Appt 3 months Follow Up Appt 3 months [facility] Work Phone: Start: 04-26-2014 End: 06-26-2014 Pacer Clinic Pacer Clinic [facility] Work Phone: Start: 02-28-2014 End: 03-05-2014 *BMP *BMP [facility] Work Phone: Start: 02-28-2014 End: 02-28-2014 Follow Up Appt 6 months Follow Up Appt 6 months [facility] Work Phone: Start: 02-28-2014 End: 02-28-2014 PFM PFM [facility] Work Phone: Start: 02-28-2014 End: 03-05-2014 *BMP *BMP [facility] Work Phone: Start: 02-28-2014 End: 02-28-2014 Follow Up Appt 6 months Follow Up Appt 6 months [facility] Work Phone: Start: 02-28-2014 End: 02-28-2014 PFM PFM [facility] Work Phone: Start: 01-22-2014 End: 06-26-2014 *BMP *BMP [facility] Work Phone: Start: 01-22-2014 End: 01-22-2014 Follow Up Appt 1 month Follow Up Appt 1 month [facility] Work Phone: Start: 01-22-2014 End: 06-26-2014 Follow Up Appt 3 months Follow Up Appt 3 months [facility] Work Phone: Start: 01-22-2014 End: 01-22-2014 MMM MMM [facility] Work Phone: Start: 01-22-2014 End: 06-26-2014 Pacer Clinic Pacer Clinic [facility] Work Phone: Start: 01-22-2014 End: 06-26-2014 *BMP *BMP [facility] Work Phone: Start: 01-22-2014 End: 01-22-2014 Follow Up Appt 1 month Follow Up Appt 1 month [facility] Work Phone: Start: 01-22-2014 End: 06-26-2014 Follow Up Appt 3 months Follow Up Appt 3 months [facility] Work Phone: Start: 01-22-2014 End: 01-22-2014 MMM MMM [facility] Work Phone: Start: 01-22-2014 End: 06-26-2014 Pacer Clinic Pacer Clinic [facility] Work Phone: Start: 12-02-2013 End: 12-26-2013 *Hepatic Function Panel *Hepatic Function Panel [facility] Work Phone: Start: 12-02-2013 End: 12-26-2013 Lipid 1996 panel *Lipid Profile CC PCP [facility] Work Phone: Start: 12-02-2013 End: 12-26-2013 *Hepatic Function Panel *Hepatic Function Panel [facility] Work Phone: Start: 12-02-2013 End: 12-26-2013 Lipid panel [AGGREGATE] *Lipid Profile CC PCP [facility] Work Phone: Start: 10-12-2013 End: 06-26-2014 Follow Up Appt 3 months Follow Up Appt 3 months [facility] Work Phone: Start: 10-12-2013 End: 06-26-2014 Pacer Clinic Pacer Clinic [facility] Work Phone: Start: 10-12-2013 End: 06-26-2014 Follow Up Appt 3 months Follow Up Appt 3 months [facility] Work Phone: Start: 10-12-2013 End: 06-26-2014 Pacer Clinic Pacer Clinic [facility] Work Phone: Start: 06-19-2013 End: 06-28-2013 *Hepatic Function Panel *Hepatic Function Panel [facility] Work Phone: Start: 06-19-2013 End: 06-26-2014 Follow Up Appt 3 months Follow Up Appt 3 months [facility] Work Phone: Start: 06-19-2013 End: 02-07-2015 Follow Up Appt 6 months Follow Up Appt 6 months [facility] Work Phone: Start: 06-19-2013 End: 06-28-2013 Lipid 1996 panel *Lipid Profile CC PCP [facility] Work Phone: Start: 06-19-2013 End: 06-26-2014 Pacer Clinic Pacer Clinic [facility] Work Phone: Start: 06-19-2013 End: 06-26-2014 PFM PFM [facility] Work Phone: Start: 06-19-2013 End: 06-28-2013 *Hepatic Function Panel *Hepatic Function Panel [facility] Work Phone: Start: 06-19-2013 End: 06-26-2014 Follow Up Appt 3 months Follow Up Appt 3 months [facility] Work Phone: Start: 06-19-2013 End: 02-07-2015 Follow Up Appt 6 months Follow Up Appt 6 months [facility] Work Phone: Start: 06-19-2013 End: 06-28-2013 Lipid panel [AGGREGATE] *Lipid Profile CC PCP [facility] Work Phone: Start: 06-19-2013 End: 06-26-2014 Pacer Clinic Pacer Clinic [facility] Work Phone: Start: 06-19-2013 End: 06-26-2014 PFM PFM [facility] Work Phone: Start: 04-05-2013 End: 06-26-2014 Follow Up Appt 3 months Follow Up Appt 3 months [facility] Work Phone: Start: 04-05-2013 End: 06-26-2014 Pacer Clinic Pacer Clinic [facility] Work Phone: Start: 04-05-2013 End: 06-26-2014 Follow Up Appt 3 months Follow Up Appt 3 months [facility] Work Phone: Start: 04-05-2013 End: 06-26-2014 Pacer Clinic Pacer Clinic [facility] Work Phone: Start: 03-08-2013 End: 06-28-2013 *Hepatic Function Panel *Hepatic Function Panel [facility] Work Phone: Start: 03-08-2013 End: 06-26-2014 Follow Up Appt 3 months Follow Up Appt 3 months [facility] Work Phone: Start: 03-08-2013 End: 06-28-2013 Lipid 1996 panel *Lipid Profile CC PCP [facility] Work Phone: Start: 03-08-2013 End: 06-26-2014 PFM PFM [facility] Work Phone: Start: 03-08-2013 End: 06-28-2013 *Hepatic Function Panel *Hepatic Function Panel [facility] Work Phone: Start: 03-08-2013 End: 06-26-2014 Follow Up Appt 3 months Follow Up Appt 3 months [facility] Work Phone: Start: 03-08-2013 End: 06-28-2013 Lipid panel [AGGREGATE] *Lipid Profile CC PCP [facility] Work Phone: Start: 03-08-2013 End: 06-26-2014 PFM PFM [facility] Work Phone: Start: 02-14-2013 End: 06-26-2014 Follow Up Appt 2 months Follow Up Appt 2 months [facility] Work Phone: Start: 02-14-2013 End: 06-26-2014 Pacer Clinic Pacer Clinic [facility] Work Phone: Start: 02-14-2013 End: 06-26-2014 Follow Up Appt 2 months Follow Up Appt 2 months [facility] Work Phone: Start: 02-14-2013 End: 06-26-2014 Pacer Clinic Pacer Clinic [facility] Work Phone: Start: 01-09-2013 End: 01-09-2013 Echocardiography Echocardiogram (complete) [facility] Work Phone: Start: 01-09-2013 End: 06-26-2014 Follow Up Appt 4 months Follow Up Appt 4 months [facility] Work Phone: Start: 01-09-2013 End: 06-26-2014 Follow Up Appt Other Follow Up Appt Other [facility] Work Phone: Start: 01-09-2013 End: 06-26-2014 PFM PFM [facility] Work Phone: Start: 01-09-2013 End: 01-09-2013 Echocardiography Echocardiogram (complete) [facility] Work Phone: Start: 01-09-2013 End: 06-26-2014 Follow Up Appt 4 months Follow Up Appt 4 months [facility] Work Phone: Start: 01-09-2013 End: 06-26-2014 Follow Up Appt Other Follow Up Appt Other [facility] Work Phone: Start: 01-09-2013 End: 06-26-2014 PFM PFM [facility] Work Phone: Start: 09-15-2012 End: 06-26-2014 Device Interrogation Device Interrogation [facility] Work Phone: Start: 09-15-2012 End: 06-26-2014 Follow Up Appt 6 months Follow Up Appt 6 months [facility] Work Phone: Start: 09-15-2012 End: 06-26-2014 Device Interrogation Device Interrogation [facility] Work Phone: Start: 09-15-2012 End: 06-26-2014 Follow Up Appt 6 months Follow Up Appt 6 months [facility] Work Phone: Start: 03-10-2012 End: 06-26-2014 Device Interrogation Device Interrogation [facility] Work Phone: Start: 03-10-2012 End: 06-26-2014 Follow Up Appt 6 months Follow Up Appt 6 months [facility] Work Phone: Start: 03-10-2012 End: 06-26-2014 Device Interrogation Device Interrogation [facility] Work Phone: Start: 03-10-2012 End: 06-26-2014 Follow Up Appt 6 months Follow Up Appt 6 months [facility] Work Phone: Start: 09-03-2011 End: 06-26-2014 *Hepatic Function Panel *Hepatic Function Panel [facility] Work Phone: Start: 09-03-2011 End: 09-03-2011 Follow Up Appt 6 months Follow Up Appt 6 months [facility] Work Phone: Start: 09-03-2011 End: 06-26-2014 Lipid 1996 panel *Lipid Profile [facility] Work Phone: Start: 09-03-2011 End: 06-26-2014 *Hepatic Function Panel *Hepatic Function Panel [facility] Work Phone: Start: 09-03-2011 End: 09-03-2011 Follow Up Appt 6 months Follow Up Appt 6 months [facility] Work Phone: Start: 09-03-2011 End: 06-26-2014 Lipid panel [AGGREGATE] *Lipid Profile [facility] Work Phone: End: 12-18-2019 Culture, Urine Culture, Urine Microbiology Routine One Time for 1 Occurrences starting 12/18/2019 until 12/18/2019 [facility] [place] Payers Date Payer Category Payer Medicare [id number] Social History Date Type Detail Facility Start: 12-17-2019 Tobacco smoking status NHIS Former s moker [place], [place] End: 10-04-1989 History of tobacco use Current smoker [place], [place] Sex Assigned At Not on file [facility] [place] Summary Purpose Family History No Family History Records FoundNo Family History Records Found Advance Directives Latest Code Status on File Code Status Date Activated Date Inactivated Comments Full Code 12/16/2019 6:22 PM Hospital Course * Pancho Matos MD - 12/18/2019 4:44 PM EDT Discharge Summary Peter Montaño : 1940 ADMIT DATE: 12/16/2019 DISCHARGE DATE: 12/18/2019 PRIMARY CARE PHYSICIAN: No primary care provider on file. VISIT STATUS: Admission CODE STATUS: Full Code DISCHARGE DIAGNOSES: Active Problems: Altered mental status Metabolic encephalopathy Cognitive deficits Essential tremor Vitamin B12 deficiency Resolved Problems: * No resolved hospital problems. * Altered mental status: improved DDx included but not limited to: CVA/delirium/encephalopathy/sz/dementia HTN DM 2 afib hyperlipidemia HOSPITAL COURSE: The patient is a 79 y.o. male presents from [facility] after presenting there with altered mental status, confusion and slurred speech. Pt was doing well Wednesday morning ( after some mild confusion ) and when he was getting ready for bed Wednesday night became very confused, slurring his speech and not acting right. He was brought to the ED and initially admitted to [facility]. He has been steadily improving since admission. Patient is AOx3, cleared for DC by neurology. EEG performed, results reviewed. MRI unable to be obtained due to agitation. Per neurology, can be performed as outpatient. DC to home with OP followup with PCP and neurology. SIGNIFICANT DIAGNOSTIC STUDIES: above CONSULTANTS: above RECOMMENDED NEXT STEPS: F.u with PCP and neurology. MRI per outpatient appt if needed. Physical Exam: General appearance: alert, cooperative and no distress Mental Status: oriented to person, place and time and normal affect Lungs: clear to auscultation bilaterally, normal effort Heart: regular rate and rhythm, no murmur Abdomen: soft, nontender, nondistended, bowel sounds present, no masses Extremities: no edema, redness, tenderness in the calves Skin: no gross lesions, rashes DISCHARGE MEDICATIONS: Peter Montaño Home Medication Instructions [facility]:[id number] Printed on:12/18/19 6971 Medication Information aspirin 81 MG tablet Take 81 mg by mouth daily bumetanide (BUMEX) 0.5 MG tablet Take 0.5 mg by mouth every other day As needed for swelling cloNIDine (CATAPRES) 0.1 MG tablet Take 0.1 mg by mouth daily insulin glargine (LANTUS) 100 UNIT/ML injection vial Inject 10 Units into the skin every morning losartan (COZAAR) 100 MG tablet Take 100 mg by mouth daily magnesium oxide (MAG-OX) 400 MG tablet Take 400 mg by mouth every evening metFORMIN (GLUCOPHAGE) 1000 MG tablet Take 1,000 mg by mouth 2 times daily (with meals) metoprolol succinate (TOPROL XL) 50 MG extended release tablet Take 50 mg by mouth 2 times daily Multiple Vitamins-Minerals (CENTRUM SILVER 50+MEN PO) Take 1 tablet by mouth daily Multiple Vitamins-Minerals (PRESERVISION AREDS 2+MULTI VIT PO) Take 1 tablet by mouth daily pravastatin (PRAVACHOL) 80 MG tablet Take 80 mg by mouth daily DIET: DIET CARB CONTROL; ACTIVITY: No heavy lifting. up with assist COMPLEXITY OF FOLLOW UP: [] Moderate Complexity: follow up within 7-14 calendar days (92812) [] Severe Complexity: follow up within 7 calendar days (16525) FOLLOW UP TESTING, PENDING RESULTS OR REFERRALS AT TRANSITIONAL CARE VISIT: [] Yes [] No PENDING STUDIES: No DISPOSITION: Home FACILITY/HOME CARE AGENCY NAME: Follow up with [facility] POS [address] [facility] [address] In 4 weeks memory loss, hospital delirium, schedule appointment within 2 - 4 weeks Risa De La Cruz MD [address] [facility] [address] Call MRI on INSTRUCTIONS TO MA/SW: Please call patient on day after discharge (must document patient contacted within 2 business days of discharge). FOLLOW UP QUESTIONS FOR MA/SW: 1. Did you get medications filled and taking them as instructed from discharge? 2. Are you following your discharge instructions from your hospital stay? 3. Please confirm patient is scheduled for a follow up appointment within the above time frame. DISCHARGE TIME: > 30 minutes SIGNED: Pancho Matos MD 12/18/2019, 4:44 PM documented in this encounter Discharge Instructions * Discharge Instr - Lab* Anu Dodson, RN - 12/18/2019 5:19 PM EDT Your physician has ordered skilled home care services for you. Your home care will be provided by: [facility] [phone] * Additional Instructions* Pancho Matos MD - 12/16/2019 Refer to the Understanding Stroke Booklet given to you, written material provided to patient/family, addressing all signs & symptoms of a stroke, which are: sudden numbness or weakness, especially on one side of the body sudden confusion sudden difficulty speaking or understanding sudden loss of vision sudden dizziness or loss of balance or coordination sudden severe headache Explained the need to call EMS ([phone]) immediately if signs & symptoms occur. Discussed medications that the patient is taking, will review medications again prior to discharge, risk factors, and the need for follow-up with a physician/[employer]/PA after discharge. Discussed the patient s personal risk factors for Stroke /TIA with patient/family, and ways to reduce the risk for a recurrent stroke. Patient's personal risk factors which were identified are: [x] High blood pressure [x] High cholesterol [] Atrial fibrillation [x] Diabetes [] Smoking [x] Overweight [x] Lack of Exercise [] Sleep apnea [] Prior heart disease or heart attack [] Excessive alcohol use [] Use of illicit drugs [] Personal history of previous TIA or stroke [] Family history of stroke or heart disease [] Carotid stenosis [] Heart failure [] Patent Foramen Ovale [] Migraine [] Hormone replacement therapy [] Current (up to six weeks post ) [] Depression [] Sickle Cell [] Renal insufficiency - chronic [] None Refer to Understanding Stroke Booklet. Advised patient that risk for stroke/TIA can be reduced by modifying/controlling risk factors. Patient advised to take medications as prescribed, which will be detailed in the discharge instructions, and to not stop taking them without consulting a physician. In addition, pt. advised to maintain a healthy diet, exercise regularly and to not smoke. Patient to f/u with Dr. De La Cruz regarding possible MRI as outpatient. documented in this encounter History of Present Illness * Sayra Steward RN - 12/18/2019 5:10 PM EDT RN reviewed discharge instructions with patient's family, including , two sons, and son Jacqueline's . Family aware patient is to follow up with neurology outpatient and follow their recommendationif MRI is needed. Jacqueline's received a list of possible MRI facilities patient may use to obtain the test if ordered. Family asked about HHC. RN read spring encaser's note and informed family she was in contact with Anu the coordinator from [facility]. Family provided with [facility] phone's number for any further questions or concerns on HHC needs. Upon discharge patient maintains with improved mentation. A&Ox4, calm, and cooperative. Patient DC via transport wheelchair with family. * Pancho Matos MD - 12/18/2019 12:01 PM EDT Progress Note 12/18/2019 12:01 PM Name: Peter Montaño Day: 2 Admit Date: 12/16/2019 5:37 PM PCP: No primary care provider on file. Code Status: Full Code Subjective: doing ok. Tolerating diet. Up in chair. No cp, sob, cough, n/v, f/c, dizziness. Agitated this morning requiring code fabby to have patient return to bed. Appears to become more agitated with family present. AOx3 D/w pt and family at bedside and Neurology separately Physical Examination: Vitals: BP (!) 153/105 Pulse 73 Temp 98 F (36.7 C) (Temporal) Resp 22 Ht 5' 10 (1.778 m) Wt 220 lb (99.8 kg) SpO2 96% BMI 31.57 kg/m Temp (24hrs), Av.8 F (36.6 C), Min:97.5 F (36.4 C), Max:98 F (36.7 C) General appearance: alert, cooperative and no distress Mental Status: oriented to person and place and normal affect Lungs: clear to auscultation bilaterally, normal effort Heart: irregular rhythm, no murmur Abdomen: soft, nontender, nondistended, bowel sounds present, no masses Extremities: no edema, redness, tenderness in the calves Skin: no gross lesions, rashes Data: Labs: Recent Labs 12/17/19 0043 12/18/19 0242 WBC 6.1 6.3 HGB 12.7* 12.8* PLT 193 187 Recent Labs 12/17/19 0043 12/18/19 0242 NA 138 137 K 4.3 4.1 CL 105 107 CO2 24 23 BUN 13 14 CREATININE 1.18 1.13 GLUCOSE 120* 106* Recent Labs 12/17/19 0043 AST 26 ALT 9 BILITOT 0.5 ALKPHOS 45 Assessment and Plan: Altered mental status: improved DDx included but not limited to: CVA/delirium/encephalopathy/sz/dementia HTN DM 2 afib hyperlipidemia Plan: continue current tx and meds, PT/OT, home meds, Neurology evaluating, MRI/EEG, Geriatrics to see, discharge planning, see orders. * Kyra Vaca MD - 12/18/2019 11:02 AM EDT Overnight, patient noted to be agitated, trying to get out bed. He was placed in soft restraints for a period of time. This morning, EEG was attempted, but shortly into testing, patient became agitated and combative, necessitating a code fabby. Labs: B12 192 Ammonia <9 RPR nonreactive Vit D 18 ASSESSMENT/PLAN: 79 yo male with past medical history significant for PAF (no longer on OAC for past six months due to recurrent falls), CAD s/p pacer, HTN, HPL, DM presents from [facility] with complaint/s of altered mental status. Altered mental status -Concerns include stroke vs seizure vs TME vs delirium -Suspect some degree of underlying dementia -CT head no acute abn -Basic labs, UA, and TSH WNL at [facility] -Patient reportedly has MRI compatible pacermaker-unfortunately, in house unable to get MRI with pacer. This will need to be set up outpatient as soon as able. -EEG attempted, but shortened study-will send for interpretation. -TSH, B12, Vit D, RPR, ammonia checked. B12 and Vit D low -Maintain seizure precautions for now -Consider geriatrics involvement for dementia evaluation Low B12/Vit D -Supplement per primary -Could be contributors to AMS History of A Fib -No longer on OAC due to history of falls HTN/HPL/DM -Continue home medications * Angelic Mata - 12/18/2019 8:19 AM EDT .Nutrition rescreen completed. Chart reviewed. Patient to be monitored and followed by the diet crime lab technician.NONA Espinoza * Daniele Welsh, PT - 12/17/2019 2:43 PM EDT Physical Therapy Facility/Department: [facility] 3W TELEMETRY Initial Assessment NAME: Peter Montaño : 1940 Date of Service: 12/17/2019 Discharge Recommendations: 24 hour supervision or assist, Home with Home health PT Assessment Body structures, Functions, Activity limitations: Decreased functional mobility ;Decreased safe awareness;Decreased balance;Decreased cognition;Decreased endurance;Decreased posture Assessment: pt presents with the deficits listed above; pt generally moving well but needs cues forneutral head and was safer using ww; encouraged consistent use of ww at home; anticipate disch homewhen medically stable; recommend home PT and 24 hour supervision for confusion Prognosis: Fair Decision Making: Low Complexity PT Education: Precautions;Functional Mobility Training;Family Education;Equipment;General Safety;Gait Training REQUIRES PT FOLLOW UP: Yes Activity Tolerance Activity Tolerance: Patient limited by fatigue Patient Diagnosis(es): There were no encounter diagnoses. has no past medical history on file. has no past surgical history on file. Restrictions Restrictions/Precautions Restrictions/Precautions: Fall Risk(+chair alarm) Vision/Hearing Subjective General Chart Reviewed: Yes Patient assessed for rehabilitation services?: Yes Family / Caregiver Present: Yes() Diagnosis: Altered mental status Follows Commands: Within Functional Limits Subjective Subjective: pleasant and coooperative; poor historian at times Pain Screening Patient Currently in Pain: Denies Vital Signs Patient Currently in Pain: Denies Orientation Orientation Overall Orientation Status: Impaired Orientation Level: Disoriented to place;Disoriented to time;Disoriented to situation Social/Functional History Social/Functional History Lives With: Spouse Type of Home: House Home Layout: One level Home Access: Stairs to enter with rails Entrance Stairs - Number of Steps: 4-5 Entrance Stairs - Rails: Both Bathroom Shower/Tub: Walk-in shower, Tub/Shower unit, Shower chair without back Bathroom Toilet: Standard Bathroom Equipment: Grab bars in shower, Shower chair Bathroom Accessibility: Accessible Home Equipment: Cane(Rollator- uses in home. Cane in community ) Receives Help From: Family ADL Assistance: Independent Homemaking Assistance: Independent Homemaking Responsibilities: Yes Ambulation Assistance: Independent Transfer Assistance: Independent Active Special Agent In Charge: Yes(but spouse is primary drivers license examiner) Occupation: Retired Additional Comments: uses ww in the home and cane in the community Cognition Objective Observation/Palpation Posture: Fair PROM RLE (degrees) RLE PROM: WNL AROM RLE (degrees) RLE AROM: WNL PROM LLE (degrees) LLE PROM: WNL AROM LLE (degrees) LLE AROM : WNL PROM RUE (degrees) RUE PROM: WNL Strength RLE Strength RLE: WNL Strength LLE Strength LLE: WNL Transfers Sit to Stand: Supervision Stand to sit: Supervision Bed to Chair: Supervision Ambulation Ambulation?: Yes More Ambulation?: Yes Ambulation 1 Surface: level tile Device: Single point cane Assistance: Contact guard assistance Distance: 15 feet and 100 feet Comments: pt looks down and needs cues to keep head up; while looking down, pt bumped into doorway causing LOB and needing assist to recover Ambulation 2 Surface - 2: level tile Device 2: Rolling Walker Assistance 2: Supervision Distance: 15 feet and 120 feet Comments: verbal cues for safety Stairs/Curb Stairs?: Yes Stairs # Steps : 4 Stairs Height: 6 Rails: Right ascending Device: Single pt cane Assistance: Supervision Balance Posture: Fair Sitting - Static: Good Sitting - Dynamic: Good Standing - Static: Fair;+ Standing - Dynamic: Fair Comments: verbal cues to improve amb posture Plan Plan Times per week: 5x/week Plan weeks: 2 weeks Current Treatment Recommendations: Strengthening, Transfer Training, Endurance Training, Balance Training, Gait Training, Home Exercise Program, Safety Education & Training, Functional Mobility Training Safety Devices Type of devices: All fall risk precautions in place, Patient at risk for falls, Left in chair, Calllight within reach, Chair alarm in place, Gait belt, Nurse notified(Family present) AM-PAC Score [facility] Inpatient Mobility Raw Score : 24 (12/17/19 143) AM-[facility] Inpatient T-Scale Score : 61.14 (12/17/19 143) Mobility Inpatient [facility] 0-100% Score: 0 (12/17/191429) Mobility Inpatient [facility] G-Code Modifier : CH (12/17/191429) Goals Short term goals Time Frame for Short term goals: 2 weeks Short term goal 1: Bed mobility Indep Short term goal 2: Transfers Indep Short term goal 3: Gait 150 feet with ww and mod Indep Patient Goals Patient goals : None given Therapy Time Individual Concurrent Group Co-treatment Time In 1355 Time Out 1420 Minutes 25 Timed Code Treatment Minutes: 10 Minutes(Gait training) Patient s Physical Therapy Plan of Care supervision is transferred to [facility] Rehab Department Physical Therapist. Daniele Welsh PT * Chidi Mari MD - 12/17/2019 11:21 AM EDT Progress Note 12/17/2019 11:21 AM Name: Peter Montaño IP Day: 1 Admit Date: 12/16/2019 5:37 PM PCP: No primary care provider on file. Code Status: Full Code Subjective: doing ok. Tolerating diet. Up in chair. No cp, sob, cough, n/v, f/c, dizziness. Apparently hallucinating about a child care nurse coming to his room earlier telling him about a big lawsuit he is gonna win (according to ). D/w pt and family at bedside and Neurology separately Physical Examination: Vitals: BP (!) 164/92 Pulse 68 Temp 97.5 F (36.4 C) (Temporal) Resp 18 Ht 5' 10 (1.778 m) Wt 220lb (99.8 kg) SpO2 96% BMI 31.57 kg/m Temp (24hrs), Av.6 F (36.4 C), Min:96.7 F (35.9 C), Max:98.6 F (37 C) General appearance: alert, cooperative and no distress Mental Status: oriented to person and place and normal affect Lungs: clear to auscultation bilaterally, normal effort Heart: irregular rhythm, no murmur Abdomen: soft, nontender, nondistended, bowel sounds present, no masses Extremities: no edema, redness, tenderness in the calves Skin: no gross lesions, rashes Data: Labs: Recent Labs 12/17/19 0043 WBC 6.1 HGB 12.7* PLT 193 Recent Labs 12/17/19 0043 NA 138 K 4.3 CL 105 CO2 24 BUN 13 CREATININE 1.18 GLUCOSE 120* Recent Labs 12/17/19 0043 AST 26 ALT 9 BILITOT 0.5 ALKPHOS 45 Assessment and Plan: Altered mental status-rule out CVA/delirium/encephalopathy/sz/dementia HTN DM 2 afib hyperlipidemia Plan: continue current tx and meds, PT/OT, home meds, Neurology evaluating, MRI/EEG, will ask Geriatrics to see, discharge planning, see orders. documented in this encounter Assessments Diagnosis Altered mental status Metabolic encephalopathy Cognitive deficits Unspecified persistent mental disorders due to conditions classified elsewhere Essential tremor Essential and other specified forms of tremor Vitamin B12 deficiency Other B-complex deficiencies Additional Source Comments (unrecognized sect ion and content) No Status Records FoundNo Status Records Found INFORMATION SOURCE (unrecogn ized section and content) DATE CREATED AUTHOR AUTHOR'S ORGANIZ ATION 01/08/2020 [facility] FOR RECORDS PERTAINING TO PATIENTS WHO ARE OR HAVE BEEN ENROLLED IN A CHEMICAL DEPENDENCY/SUBSTANCEABUSE PROGRAM, SOME INFORMATION MAY BE OMITTED. This clinical summary was aggregated from multiple sources. Caution should be exercised in using it in the provision of clinical care. This summary normalizes information from multiple sources, and as a consequence, information in this document may materially change the coding, format and clinical context of patient data. In addition, data may be omitted in some cases. CLINICAL DECISIONS SHOULD BE BASED ON THE PRIMARY CLINICAL RECORDS. [facility] [employer] provides no warranty or guarantee of the accuracy or completeness of information in this document.
== END | disposition home or self-care (01) ==
LOC: LABSPEC 15:19
PROVIDERS: PCP Family Medicine; Referring Provider Urology; Visit Provider Urology
DX: R31.29 Other microscopic hematuria (principal)
CPT/HCPCS: 87086; 87088

== ENCOUNTER 2023-10-27 13:51 | Observation (INO) | payer MEDICARE, OTHER, SELFPAY ==
[2023-10-25 11:06] LABS: Hemoglobin A1c 8.2 % (3.8-5.6)
[2023-10-27] VITALS (13 sets, daily range): BP systolic 106–164; BP diastolic 55–83; PULSE 58–63; RESP 16–18; TEMP 36.3–37; O2SAT 96–100; BMI 29.6
--- NOTE | 2023-10-27 | PROS_PTH ---
PATHOLOGY RESULTS PATIENT: TANIA GUERRERO LOC: MS3 U#:[id number] AGE/SX: 83/M ROOM: CA319 RE10/27/[address]: Dr. Bryan Rodriguez MD : 1940 BED: 1 DIS: 10/28/2023 SPEC #: [id number] RECD: 10/27/23 15:47 STATUS: JOSÉ MIGUEL CATES #: [id number] JACQUELINE: 10/27/23 00:[address]: Bryan Rodriguez DEPT: SURGICAL PATHOLOGY RECD BY: Tavon José ENTERED: 10/28/23 08:47 SP TYPE: TURP OTHR DR: MD Dr. Joe Felix MD Tissues: Prostate, NOS Procedures: Surgery Specimen Level IV HEADER OPERATION: Transurethral resection of prostate with Olympus PRE-OP DIAGNOSIS: Benign prostatic hyperplasia with obstruction TISSUE SUBMITTED: Prostate MICROSCOPIC DIAGNOSIS Prostate, transurethral resection: Benign nodular hyperplasia. Mild chronic inflammation. Benign urothelium with associated mild chronic inflammation. AM:mirza 10/29/2023 MICROSCOPIC DESCRIPTION Slides are reviewed. GROSS DESCRIPTION Received is one container labeled with the patient's name and designated prostate tissue. The specimen consists of multiple irregular fragments of pink-del rio, rubbery, soft tissue that in aggregate weigh 5.8 gm and measure in aggregate 3.0 x 3.0 x 1.0 cm. The entire specimen is submitted in six cassettes. / WATSON:mirza 10/28/2023 TC:3 CPT: 34725
[2023-10-27] MEDS: Lactated Ringers 1,000 ML 15 ML IV (11:35)
--- NOTE | 2023-10-27 12:42 | HP.PCM_ITS ---
HPI - General General Date of Service: 10/27/23 Chief Complaint: BPH with obstruction HPI Narrative TANIA GUERRERO, is a 83 M who presents for transurethral resection of the prostate for obstruction [facility] Medical History (Updated 10/22/23 @ 08:49 by Carola Carey) Ambulates with cane Atherosclerotic heart disease of [place] coronary artery without angina pectoris Atrial dysrhythmia Cardiac dysrhythmia Cardiac pacemaker in situ Cardiac tamponade Cardiology follow-up encounter COPD (chronic obstructive pulmonary disease) Diverticulosis DM2 (diabetes mellitus, type 2) Essential (primary) hypertension Essential hypertension Former smoker Gout High cholesterol History of atrial fibrillation History of bacterial endocarditis History of cardioversion History of echocardiogram History of edema History of electrophysiologic study History of stress test HTN (hypertension) Hyperlipidemia Longstanding persistent atrial fibrillation Loose, teeth Mixed hyperlipidemia On anticoagulant therapy Presence of stent in coronary artery (~04/08/10) Prostate disease Pulmonary embolism Sick sinus syndrome Sick sinus syndrome TIA (transient ischemic attack) Tremor, essential Walker as ambulation aid Wears glasses Wears partial dentures Home Medications aspirin 81 mg chewable tablet 81 mg PO QHS HEART HEALTH 06/24/14 [History Last Taken 10/20/23] furosemide 20 mg tablet 20 mg PO DAILY FLUID #1 TAB 01/11/20 [Rx Last Taken 10/27/23 06:30] empagliflozin 10 mg tablet (Jardiance) 10 mg PO DAILY DIABETES 01/14/22 [History Last Taken 10/26/23] metoprolol tartrate 50 mg tablet 50 mg PO BID BLOOD PRESSURE #180 tabs 04/05/23 [Rx Last Taken 10/27/23 06:30] losartan 100 mg tablet 100 mg PO DAILY BLOOD PRESSURE #90 tabs 04/16/23 [Rx Last Taken 10/27/23 06:30] pravastatin 80 mg tablet 80 mg PO QHS CHOLESTEROL #90 tabs 07/21/23 [Rx Last Taken 10/26/23] cholecalciferol (vitamin D3) 50 mcg (2,000 unit) capsule 2,000 unit PO DAILY SUPPLEMENT 08/19/23 [History Last Taken 10/26/23] insulin glargine U-300 conc 300 unit/mL (1.5 mL) subcutaneous pen (Toujeo SoloStar U-300 Insulin) 10 unit subcut DAILY DIABETES 08/19/23 [History Last Taken 10/27/23 06:30] vitamins A,C,W-lfjf-thrdjo 4,296 mcg-226 mg-90 mg capsule (PreserVision AREDS) 1 cap PO DAILY EYE HEALTH 08/19/23 [History Last Taken 10/26/23] tamsulosin 0.4 mg capsule 0.4 mg PO DAILY@1730 30 days #30 caps 09/10/23 [Rx Last Taken 10/26/23] clonidine HCl 0.1 mg tablet 0.1 mg PO BID BLOOD PRESSURE #180 tabs 09/22/23 [Rx Last Taken 10/27/23 06:30] glipizide 5 mg tablet, extended release 24 hr 5 mg PO DAILY 09/30/23 [History Last Taken 10/26/23] fluconazole 150 mg tablet 150 mg PO BID 10/22/23 [History Last Taken 10/27/23 06:30] acetaminophen 500 mg tablet 1,000 mg PO Q8 PRN Pain 10/27/23 [History Last Taken Unknown] ciprofloxacin HCl 500 mg tablet (Cipro) 500 mg PO BID #10 tabs 10/27/23 [Rx Last Taken Unknown] Allergy/AdvReac Type Severity Reaction Status Date / Time hydrochlorothiazide AdvReac Unknown Gout Verified 10/27/23 11:16 symptoms Family History Brother Colon cancer Father CAD (coronary artery disease) Mother Colon cancer Sister Breast cancer Surgical History (Updated 10/22/23 @ 08:49 by Carola Carey) H/O right and left heart catheterization History of ankle surgery History of cardiac radiofrequency ablation (~09/2005) History of hernia repair History of left hip hemiarthroplasty Presence of coronary angioplasty implant and graft (~04/08/10) PVI and Superior Vena Cava Isolation S/P pericardiocentesis S/P placement of cardiac pacemaker (~02/2010) S/P PTCA (percutaneous transluminal coronary angioplasty) (~04/2010) Social History household members: spouse Smoking Status: Former smoker alcohol intake: current alcohol intake frequency: 0-2 drinks per day Alcohol type: hard liquor substance use type: does not use caffeine: No what type of physical activity do you participate in: none seatbelt use: always do you feel safe at home: Yes Vital Signs Vital Signs Vital Signs: 10/27/23 11:22 10/27/23 11:22 Temperature 98.4 F Temperature Source Temporal Pulse Rate 59 L Respiratory Rate 16 Respiratory Pattern Normal Blood Pressure 129/74 H Blood Pressure Mean 92 Blood Pressure Source Monitor Blood Pressure Position Semi-Fowlers Blood Pressure Location Right Arm Pulse Ox 100 Oxygen Delivery Method Room Air Weight Weight: 91 kg Body Mass Index (BMI) 29.6
--- NOTE | 2023-10-27 12:43 | DCINST_ITS ---
Discharge Instructions Procedure Urology Diet Discharge Diet: No restrictions Activity Discharge Activity: Return to Normal Activity and May Not Drive (while taking narcotic pain medications.) Dressing / Incision Call your doctor if you observe: Fever of 101 or Higher Follow Up Care Please Follow Up With: Bryan Rodriguez MD When: Call [phone] for an appointment Test Results: Test results from this visit will be discussed in further detail at your follow- up appointment, if applicable. Discharge Plan Admission Primary Reason for Your Visit: TURP Attending Provider: Bryan Rodriugez Primary Care Provider: Joe Hernandez Consulting Providers: Joe Landry Discharge Orders/Prescriptions Prescriptions: New ciprofloxacin HCl [Cipro] 500 mg tablet 500 mg PO BID Qty: 10 0RF Continued furosemide 20 mg tablet 20 mg PO DAILY Qty: 1 0RF Jardiance 10 mg tablet 10 mg PO DAILY glipizide 5 mg tablet extended release 24hr 5 mg PO DAILY Patient Comments: TAKE 1 TABLET BY MOUTH TWICE DAILY aspirin 81 MG tablet,chewable 81 mg PO QHS cholecalciferol (vitamin D3) 50 mcg (2,000 unit) capsule 2,000 unit PO DAILY insulin glargine U-300 conc [Toujeo SoloStar U-300 Insulin] 300 unit/mL (1.5 mL) insulin pen 10 unit SUBCUT DAILY Hold Instructions: Hold while on TCU PreserVision AREDS 4,296 mcg-226 mg-90 mg capsule 1 cap PO DAILY tamsulosin 0.4 mg Capsule 0.4 mg PO DAILY@1730 30 Days Qty: 30 0RF fluconazole 150 mg tablet 150 mg PO BID acetaminophen 500 mg Tablet 1,000 mg PO Q8 PRN (Reason: Pain) metoprolol tartrate 50 mg tablet 50 mg PO BID Qty: 180 3RF losartan 100 mg tablet 100 mg PO DAILY Qty: 90 3RF pravastatin 80 mg tablet 80 mg PO QHS Qty: 90 3RF clonidine HCl 0.1 mg tablet 0.1 mg PO BID Qty: 180 3RF Referrals / Follow Up: Joe Hernandez MD [Primary Care Provider] - Bryan Rodriguez MD [Med Staff - Active Staff] - Disposition Disposition (needs filled in before D/C Order can be placed): Home, Self Care
[2023-10-27] MEDS: Cefazolin 2 GM in 0.9% Normal Saline (100mL Bag) 100 ML IV (13:06)
--- NOTE | 2023-10-27 13:52 | OP.PCM_ITS ---
Report of Operation Date of Procedure: 10/27/23 Pre-Operative Diagnosis: BPH with obstruction Post-Operative Diagnosis: Same Surgery/Procedure Performed:: Transurethral resection of the prostate Description of Surgical Findings:: In the preoperative setting I discussed with the patient how the surgery would be done with expect afterwards. We discussed how a prostate resection is done and we discussed the risk of the surgery including, bleeding, infection, retrograde ejaculation, changes with ejaculation or intercourse,. We discussed the possibility that the resection of the prostate may not alleviate his urinary symptoms. We discussed the small risk of developing scar tissue along the urethral channel and strictures. We also discussed the chance of the prostate could grow back and he may need further surgery or treatment in the future for prostate problems. Patient was taken back to the operating room, timeout procedure was performed, he was identified and marked and placed on the operating room table. He underwent general anesthesia. He was placed in dorsolithotomy position. Penis and testicles were prepped and draped in usual sterile fashion. Went into the bladder using the visual obturator with a resectoscope. Once inside the bladder identified the right and left ureteral orifice. I then identified the prostate and the anatomy of the prostate. I marked out the area of the sphincter and the verumontanum was identified. I then proceeded with the prostate resection first resected the median lobe. And then resected the right lobe of the prostate. Then to resect the left lobe of the prostate. I then resected the apical tissue of the prostate. This was a complete resection of all obstructive tissue to improve voiding and relieve obstruction. I then made sure that there was no injury to the sphincter or the verumontanum was still intact. At the end of the resection all the chips were Ellik out of the bladder. I then identified the left and right ureteral orifice and these were confirmed to be in good position and effluxing and not injured. The resectoscope was removed, a 22 [place] catheter was placed into the bladder on continuous irrigation. And the urine was fairly light pink color and draining normally. He was taken back to the PACU in good condition. Surgeon: Bryan Rodriguez Type of Anesthesia: General Drains: 22fr 3 way Estimated Blood Loss (mL): 5 Admit VTE Documentation VTE Present on Admission: No VTE Mechan Device Prophylaxis: SCD's VTE Pharm Prophylaxis ordered?: No
[2023-10-27 13:53] LABS: Bedside Glucose 121 mg/dL (74-106)
[2023-10-27] MEDS: 0.9% Normal Saline (1000mL) 1,000 ML 125 ML IV (16:39)
[2023-10-27] MEDS: Tamsulosin HCl 0.4 MG Capsule 0.400000000000000022 MG PO (16:43)
[2023-10-27] MEDS: 0.9% Saline Lock 10 ML Syringe IV (18:15)
[2023-10-27] MEDS: Ketorolac 15 MG/ML Vial IV (18:15)
[2023-10-27] MEDS: Ciprofloxacin 400 MG/200 ML BAG 200 MG IV (20:28)
[2023-10-27] MEDS: cloNIDine HCl 0.1 MG Tablet 0.100000000000000006 MG PO (20:30)
[2023-10-27] MEDS: Pravastatin 80 MG Tablet PO (20:30)
[2023-10-27] MEDS: Metoprolol Tartrate 50 MG Tablet PO (20:34)
[2023-10-28] MEDS: Ketorolac 15 MG/ML Vial IV ×3 (00:38→12:00)
[2023-10-28] MEDS: 0.9% Normal Saline (1000mL) 1,000 ML 125 ML IV ×2 (00:41→07:50)
[2023-10-28 04:17] VITALS: BP 143/78; PULSE 61; RESP 16; TEMP 36.7; O2SAT 98
[2023-10-28] MEDS: glipiZIDE XL 5 MG Tablet PO (07:50)
[2023-10-28 08:00] VITALS: BP 154/68; PULSE 62; RESP 18; TEMP 36.6; O2SAT 99
[2023-10-28 09:29] VITALS: PULSE 62
[2023-10-28] MEDS: Insulin Glargine-YFGN 100 UNIT/ML Pen 10 UNIT SC (09:29)
[2023-10-28] MEDS: Multivitamin (Healthy Eyes) Capsule 1 CAP PO (09:29)
[2023-10-28] MEDS: cloNIDine HCl 0.1 MG Tablet 0.100000000000000006 MG PO (09:29)
[2023-10-28] MEDS: Metoprolol Tartrate 50 MG Tablet PO (09:29)
[2023-10-28] MEDS: Empagliflozin 10 MG Tablet PO (09:29)
[2023-10-28] MEDS: Losartan Potassium 100 MG Tablet PO (09:29)
[2023-10-28] MEDS: Furosemide 20 MG Tablet PO (09:29)
[2023-10-28] MEDS: Ciprofloxacin 400 MG/200 ML BAG 200 MG IV (09:30)
--- NOTE | 2023-10-28 09:45 | CASEMGMT ---
Pt states that he feels safe going home today. Denies additional needs. Pt states his will drive him home today.
[2023-10-28 09:55] LABS: Bedside Glucose 210 mg/dL (74-106)
[2023-10-28] MEDS: 0.9% Saline Lock 10 ML Syringe IV (12:00)
--- NOTE | 2023-10-28 12:13 | PHA.DC.MC.R ---
Pharmacy [facility] Service has performed discharge medication reconciliation and counseling for this patient. 1. CIPROFLOXACIN 500MG PO BID X 5 DAYS The patient's discharge medication list was reviewed for discrepancies and discrepancies were resolved. The patient was counseled on the following discharge medications and changes in medications for homegoing were reviewed. The Reason for Use, instructions for use, and potential side effects were reviewed for all new medications. The patient's questions regarding all of their medications were answered. The patient was able to verbally demonstrate an understanding of their discharge medications. Medications at Discharge Home Medications aspirin 81 mg chewable tablet 81 mg PO QHS HEART HEALTH 06/24/14 furosemide 20 mg tablet 20 mg PO DAILY FLUID #1 TAB 01/11/20 empagliflozin 10 mg tablet (Jardiance) 10 mg PO DAILY DIABETES 01/14/22 metoprolol tartrate 50 mg tablet 50 mg PO BID BLOOD PRESSURE #180 tabs 04/05/23 losartan 100 mg tablet 100 mg PO DAILY BLOOD PRESSURE #90 tabs 04/16/23 pravastatin 80 mg tablet 80 mg PO QHS CHOLESTEROL #90 tabs 07/21/23 cholecalciferol (vitamin D3) 50 mcg (2,000 unit) capsule 2,000 unit PO DAILY SUPPLEMENT 08/19/23 insulin glargine U-300 conc 300 unit/mL (1.5 mL) subcutaneous pen (Toujeo SoloStar U-300 Insulin) 10 unit subcut DAILY DIABETES 08/19/23 vitamins A,C,Q-mjyu-cvukff 4,296 mcg-226 mg-90 mg capsule (PreserVision AREDS) 1 cap PO DAILY EYE HEALTH 08/19/23 tamsulosin 0.4 mg capsule 0.4 mg PO DAILY@1730 30 days #30 caps 09/10/23 clonidine HCl 0.1 mg tablet 0.1 mg PO BID BLOOD PRESSURE #180 tabs 09/22/23 glipizide 5 mg tablet, extended release 24 hr 5 mg PO DAILY 09/30/23 fluconazole 150 mg tablet 150 mg PO BID 10/22/23 acetaminophen 500 mg tablet 1,000 mg PO Q8 PRN Pain 10/27/23 ciprofloxacin HCl 500 mg tablet (Cipro) 500 mg PO BID #10 tabs 10/27/23
[2023-10-28 16:00] VITALS: BP 165/85; PULSE 64; RESP 18; TEMP 36.8; O2SAT 100
== END 2023-10-28 16:20 | disposition home or self-care (01) ==
LOC: SDC 15:21 → MS3 15:22
PROVIDERS: Anesthesiology; Admitting Provider Urology; PCP Family Medicine; Referring Provider Urology; Visit Provider Urology
PROC: 0VT08ZZ Resection of Prostate, Via Natural or Artificial Opening Endoscopic (ICD-10-PCS; CPT 52601; principal; 2023-10-27 12:50)
DX: N40.1 Benign prostatic hyperplasia with lower urinary tract symptoms (principal); J44.9 Chronic obstructive pulmonary disease, unspecified; I48.11 Longstanding persistent atrial fibrillation; E11.9 Type 2 diabetes mellitus without complications; Z79.4 Long term (current) use of insulin; E78.2 Mixed hyperlipidemia; Z79.84 Long term (current) use of oral hypoglycemic drugs; I10 Essential (primary) hypertension; Z79.82 Long term (current) use of aspirin; I25.10 Atherosclerotic heart disease of native coronary artery without angina pectoris; Z79.899 Other long term (current) drug therapy; R39.12 Poor urinary stream; N13.8 Other obstructive and reflux uropathy; Z95.810 Presence of automatic (implantable) cardiac defibrillator
CPT/HCPCS: 52601; 00914; 36415; 82962; 83036; 88305; 96361; 96365; 96366; 96375; 96376; 99221; J7030; J7120; A4216; G0378; J0744; J2405

== ENCOUNTER → 2023-11-01 | Outpatient (CLI) | payer MEDICARE, OTHER, SELFPAY ==
--- OUTSIDE RECORDS SUMMARY | 2023-11-01 11:14 | XMS RPT_ITS | CCD ---
Author Name Unknown Address [id number] [place] [address] Organization [facility] Care Team Providers [facility] [employer] Name Role Phone CONNER Herbert, Nelly Deal Unavailable Unavailable CONNER Herbert, Nelly Deal Unavailable Unavailable CONNER Herbert, Nelly Deal Unavailable Unavailable Janay Judd Unavailable Unavailable MEME KING Unavailable Unavailable TEENA ESCOBEDO Unavailable Unavailable ROGELIO, NIHAD Unavailable Unavailable JACQUELINE BAUTISTA Unavailable Unavailable SANTOSH BRUNO Unavailable Unavailable JACQUELINE BAUTISTA Unavailable Unavailable JANE PEREZ Unavailable Unavailable MEME KING Unavailable Unavailable Earl PRIETO, Yelena Rowe Unavailable Yelena Elliott RN Unavailable [phone] CONNER Herbert Sue M Unavailable Unavailable CONNER Herbert, Nelly Deal Unavailable Unavailable Janay Judd Unavailable Unavailable Unavailable Primary Care Provider Unavailabl e Allergies Allergy Classification Reported Allergen(s) Allergy Type Date of Onset Reaction(s) Facility (9 sources) hydroCHLOROthiazide drug allergy 1 Gout symptoms [facility] Work Phone: Medications Current Medications [...] hours as needed for SOB ALBUTEROL SULFATE [phone] Jaxson Soto DO Problems Active Problems Problem [...] disease (9 sources) Atherosclerotic heart disease of [place] coronary artery without angina pectoris; Translations: [Atherosclerotic heart disease of [place] coronary artery without angina pectoris] Onset: 12-15-2010 [...] (5 sources) Long-term drug therapy; Translations: [Other terminologist (current) drug therapy] Onset: 12-15-2010 12-15-2010 Past or Other Problems Problem Classification Problem Date Documented Da te Episodic/Chronic Cancer; other and unspecified primary (20 sources) Malignant pericardial effusion; 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] Onset: 12-15-2010 12-15-2010 Episodic Coronary atherosclerosis and other heart disease (9 sources) Coronary angioplasty status; Translations: [Coronary angioplasty status] Onset: 12-15-2010 12-15-2010 Episodic Other aftercare (4 sources) Other terminologist (current) drug therapy; Translations: [Other terminologist (current) drug therapy] Onset: 12-15-2010 12-15-2010 Episodic [...] 15:46-0400 Body Temperature 98.71 [degF] [facility], [place] 12-18-2019 15:46-0400 BP Diastolic 92 mm[Hg] [facility], [place] 12-18-2019 15:46-0400 BP Systolic 189 mm[Hg] [facility] 12-18-2019 15:46-0400 Pulse (Heart Rate) 71 /min [facility], [place] 12-18-2019 15:46-0400 Pulse Oximetry 98 % [facility], [place] 12-18-2019 15:46-0400 Respiratory Rate 20 /min [facility] 12-16-2019 17:45-0400 BMI (Body Mass Index) 31.57 kg/m2 [facility], [place] 12-16-2019 17:45-0400 Body weight 99.79 kg [facility] 12-16-2019 17:45-0400 Height 177.8 cm [facility], [place] 06-21-2017 10:15-0400 BMI (Body Mass Index) 33.6 [...] Respiratory Rate 18 /min Nelly Herbert RN [facility] Work Phone: 06-21-2017 10:15-0400 Weight 100.25 kg Nelly Herbert RN [facility] Work Phone: 06-21-2017 10:15-0400 Weight 100.24 kg Nelly Herbert RN [facility] Work Phone: 05-26-2017 06:11-0400 BMI (Body Mass Index) 33.75 kg/m2 Janay Judd [facility] Work Phone: 05-26-2017 06:11-0400 Body Temperature 97.6 [degF] Janay Judd [facility] Work Phone: 05-26-2017 06:11-0400 BP Diastolic 82 mm[Hg] Janay Judd [facility] Work Phone: 05-26-2017 06:11-0400 BP Systolic 160 mm[Hg] Janay Judd [facility] Work Phone: 05-26-2017 06:11-0400 Height 172.72 cm Janay Judd [facility] Work Phone: 05-26-2017 06:11-0400 Pulse (Heart Rate) 78 /min Janay Judd [facility] Work Phone: 05-26-2017 06:11-0400 Respiratory Rate 18 /min Janay Judd [facility] Work Phone: 05-26-2017 06:11-0400 Weight 100.7 kg Janay Judd [facility] Work Phone: 11-24-2016 10:35-0500 BMI (Body Mass [...] Start: 07-05-2017 End: 07-06-2017 Ambulatory JANE PEREZ Facility:[facility] Start: 06-16-2017 End: 06-18-2017 Evaluation and management [...] Start: 08-31-2016 End: 09-07-2016 Pacer Clinic Pastor Lawsno MD Start: 08-31-2016 End: 08-31-2016 Pm device [...] Follow Up Appt 6 months Yelena del rosairo PA-C Work Phone: Start: 02-07-2015 End: 04-13-2016 [...] Pastor Lawson MD Start: 01-09-2013 End: 06-26-2014 [facility] Pastor Lawson MD Start: 01-09-2013 End: 06-26-2014 Follow Up Appt 4 months Pastor aLwson MD Start: 01-09-2013 End: 06-26-2014 Follow Up [...] Author Start: 12-17-2020 Creatinine monitoring Creatinine monitoring [place], [place] Start: 12-17-2020 Potassium monitoring Potassium monitoring [place], [place] Start: 06-04-2019 Influenza vaccination Flu vaccine (#1) [place], [place] Start: 10-11-2017 End: 10-11-2017 Appointment Appointment [facility] Work Phone: Start: 09-22-2017 End: 09-22-2017 Appointment Appointment [facility] Work Phone: Start: 06-21-2017 End: 06-21-2017 Device Interrogation Device Interrogation [facility] Work Phone: Start: 06-21-2017 End: 06-21-2017 Follow Up Appt 3 months Follow Up Appt 3 months [facility] Work Phone: Start: 06-21-2017 End: 06-21-2017 Follow Up Appt Other Follow Up Appt Other [facility] Work Phone: Start: 06-21-2017 End: 06-21-2017 MMM MMM [facility] Work Phone: Start: 06-21-2017 End: 06-21-2017 Pacer Clinic [facility] Work Phone: Start: 06-21-2017 End: [...] 1 year Follow Up Appt 1 year [facility] Work Phone: Start: 05-26-2017 End: 05-26-2017 Appointment Appointment [facility] Work Phone: Start: 05-26-2017 End: 05-26-2017 Follow Up Appt 1 year Follow Up Appt 1 year [facility] [place] Work Phone: Start: 03-17-2017 End: 03-17-2017 Follow Up Appt 3 months Follow Up Appt 3 months [facility] Work Phone: Start: 03-17-2017 End: 03-17-2017 Pacer Clinic Pacer Clinic [facility] Work Phone: Start: 03-17-2017 End: 03-17-2017 Appointment Appointment [facility] Work Phone: Start: 03-17-2017 End: 03-17-2017 Follow Up Appt 3 months Follow Up Appt 3 months [facility] Work Phone: Start: 03-17-2017 End: 03-17-2017 Pacer Clinic [facility] Work Phone: Start: 03-04-2017 End: 09-07-2016 *Hepatic Function Panel *Hepatic Function Panel [facility] Work Phone: Start: 03-04-2017 [...] 3 months Follow Up Appt 3 months [facility] Work Phone: Start: 12-07-2016 End: 12-07-2016 Pacer Clinic [facility] Clinic [facility] Work Phone: Start: 12-07-2016 End: 12-07-2016 Follow Up Appt 3 months Follow Up Appt 3 months [facility] Work Phone: Start: 12-07-2016 End: 12-07-2016 Pacer Clinic Pacer Clinic [facility] Work Phone: Start: 11-24-2016 End: 11-24-2016 DMB DMB [facility] Work Phone: Start: 11-24-2016 End: 11-24-2016 Follow Up Appt 6 months Follow Up Appt 6 months [facility] Work Phone: Start: 11-24-2016 End: 11-24-2016 DMB DMB [facility] Work Phone: Start: 11-24-2016 End: 11-24-2016 Follow Up Appt 6 months Follow Up Appt 6 months [facility] Work Phone: Start: 09-07-2016 End: 09-07-2016 Follow Up Appt 9 months Follow Up Appt 9 months [facility] Work Phone: Start: 09-07-2016 End: 09-07-2016 PFM PFM [facility] Work Phone: Start: 09-07-2016 End: 09-07-2016 Follow Up Appt 9 months Follow Up Appt 9 months [facility] Work Phone: Start: 09-07-2016 End: 09-07-2016 PFM PFM [facility] Work Phone: Start: 08-31-2016 End: 09-07-2016 Follow Up Appt 3 months Follow Up Appt 3 months [facility] Work Phone: Start: 08-31-2016 End: 09-07-2016 Pacer Clinic Pacer Clinic [facility] Work Phone: Start: 08-31-2016 End: 09-07-2016 Follow Up Appt 3 months Follow Up Appt 3 months [facility] Work Phone: Start: 08-31-2016 End: 09-07-2016 Pacer Clinic Pac[facility] Clinic [facility] Work Phone: Start: 08-26-2016 End: 09-07-2016 *Hepatic Function Panel *Hepatic Function Panel [facility] Work Phone: Start: 08-26-2016 End: 09-07-2016 Lipid 1996 panel *Lipid Profile CC PCP [facility] Work Phone: Start: 08-26-2016 End: 09-07-2016 *Hepatic Function Panel *Hepatic Function Panel [facility] Work Phone: Start: 08-26-2016 End: 09-07-2016 Lipid panel [AGGREGATE] *Lipid Profile CC PCP [facility] Work Phone: Start: 06-03-2016 End: 06-03-2016 Follow Up Appt 3 months Follow Up Appt 3 months [facility] Work Phone: Start: 06-03-2016 End: 06-03-2016 Pacer Clinic Pacer Clinic [facility] Work Phone: Start: 06-03-2016 End: 06-03-2016 Follow Up Appt 3 months Follow Up Appt 3 months [facility] Work Phone: Start: 06-03-2016 End: 06-03-2016 Pacer Clinic Pac[facility] Clinic [facility] Work Phone: Start: 05-26-2016 End: 05-26-2016 [facility] Work Phone: Start: 05-26-2016 End: 05-26-2016 Follow Up Appt 6 months Follow Up Appt 6 months [facility] Work Phone: Start: 05-26-2016 End: 05-26-2016 [facility] Work Phone: Start: 05-26-2016 End: 05-26-2016 Follow Up Appt 6 months Follow Up Appt 6 months [facility] Work Phone: Start: 04-13-2016 End: 04-13-2016 Pulmonary Referral Pulmonary Referral Angel Jauregui, [facility] [place], [address], [place], [address] [facility] Work Phone: Start: 04-13-2016 End: 04-13-2016 Pulmonary Referral Pulmonary Referral Agnel Jauregui, [facility] [place], [address], [place], [address] [facility] Work Phone: Start: 02-26-2016 End: 02-26-2016 Follow Up Appt 3 months Follow Up Appt 3 months [facility] Work Phone: Start: 02-26-2016 End: 02-26-2016 Pacer Clinic [facility] Work Phone: Start: 02-26-2016 End: 02-26-2016 Follow Up Appt 3 months Follow Up Appt 3 months [facility] Work Phone: Start: 02-26-2016 End: 02-26-2016 Pacer Clinic Pacer Clinic [facility] Work Phone: Start: 02-24-2016 End: 04-13-2016 Chest x-ray X-Ray, Chest, PA & Lateral [facility] Work Phone: Start: 02-24-2016 End: 02-24-2016 Follow Up Appt 6 months Follow Up Appt 6 months [facility] Work Phone: Start: 02-24-2016 End: 04-13-2016 Follow Up Appt Other Follow Up Appt Other [facility] Work Phone: Start: 02-24-2016 End: 04-13-2016 PFM PFM [facility] Work Phone: Start: 02-24-2016 End: 02-24-2016 Pulmonary Function Test - complete Pulmonary Function Test - complete [facility] Work Phone: Start: 02-24-2016 End: 04-13-2016 Chest x-ray X-Ray, Chest, PA & Lateral [facility] Work Phone: Start: 02-24-2016 End: 02-24-2016 Follow Up Appt 6 months Follow Up Appt 6 months [facility] Work Phone: Start: 02-24-2016 End: 04-13-2016 Follow Up Appt Other Follow Up Appt Other [facility] Work Phone: Start: 02-24-2016 End: 04-13-2016 PFM PFM [facility] Work Phone: Start: 02-24-2016 End: [...] 11-21-2015 End: 04-13-2016 Pacer Clinic Pac[facility] Clinic [facility] Work Phone: Start: 08-12-2015 End: 04-13-2016 Device Interrogation Device Interrogation [facility] Work Phone: Start: 08-12-2015 End: 04-13-2016 Follow Up Appt 3 months Follow Up Appt 3 months [facility] Work Phone: Start: 08-12-2015 End: 08-12-2015 Follow Up Appt 6 months Follow Up Appt 6 months [facility] Work Phone: Start: 08-12-2015 End: 04-13-2016 Follow Up Appt Other Follow Up Appt Other [facility] Work Phone: Start: 08-12-2015 End: 04-13-2016 Pacer Clinic Pacer Clinic [facility] Work Phone: Start: 08-12-2015 End: 08-12-2015 PFM PFM [facility] Work Phone: Start: 08-12-2015 End: 04-13-2016 Device Interrogation Device Interrogation [facility] Work Phone: Start: 08-12-2015 End: 04-13-2016 Follow Up Appt 3 months Follow Up Appt 3 months [facility] Work Phone: Start: 08-12-2015 End: 08-12-2015 Follow Up Appt 6 months Follow Up Appt 6 months [facility] Work Phone: Start: 08-12-2015 End: 04-13-2016 Follow Up Appt Other Follow Up Appt Other [facility] Work Phone: Start: 08-12-2015 End: 04-13-2016 Pacer Clinic Pacer Clinic [facility] Work Phone: Start: 08-12-2015 End: 08-12-2015 PFM PFM [facility] Work Phone: Start: 07-24-2015 End: 04-13-2016 *Hepatic Function Panel *Hepatic Function Panel [facility] Work Phone: Start: 07-24-2015 End: 04-13-2016 Lipid 1996 panel *Lipid Profile CC PCP [facility] Work Phone: Start: 07-24-2015 End: 04-13-2016 *Hepatic Function Panel *Hepatic Function Panel [facility] Work Phone: Start: 07-24-2015 End: 04-13-2016 Lipid panel [AGGREGATE] *Lipid Profile CC PCP [facility] Work Phone: Start: 02-07-2015 End: 04-13-2016 Follow Up Appt 3 months Follow Up Appt 3 months [facility] Work Phone: Start: 02-07-2015 End: 02-07-2015 Follow Up Appt 6 months Follow Up Appt 6 months [facility] Work Phone: Start: 02-07-2015 End: 04-13-2016 Pacer Clinic Pacer Clinic [facility] Work Phone: Start: 02-07-2015 End: 02-07-2015 PFM PFM [facility] Work Phone: Start: 02-07-2015 End: 04-13-2016 Follow Up Appt 3 months Follow Up Appt 3 months [facility] Work Phone: Start: 02-07-2015 End: 02-07-2015 Follow Up Appt 6 months Follow Up Appt 6 months [facility] Work Phone: Start: 02-07-2015 End: 04-13-2016 Pacer Clinic Pacer Clinic [facility] Work Phone: Start: 02-07-2015 End: 02-07-2015 PFM PFM [facility] Work Phone: Start: 01-02-2015 End: 01-22-2015 *Hepatic Function Panel *Hepatic Function Panel [facility] Work Phone: Start: 01-02-2015 End: 01-22-2015 Lipid 1996 panel *Lipid Profile CC PCP [facility] Work Phone: Start: 01-02-2015 End: 01-22-2015 *Hepatic Function Panel *Hepatic Function Panel [facility] Work Phone: Start: 01-02-2015 End: 01-22-2015 Lipid panel [AGGREGATE] *Lipid Profile CC PCP [facility] Work Phone: Start: 11-09-2014 End: 11-09-2014 *BMP *BMP [facility] Work Phone: Start: 11-09-2014 End: 02-07-2015 Follow Up Appt 3 months Follow Up Appt 3 months [facility] Work Phone: Start: 11-09-2014 End: 02-07-2015 Pacer Clinic Pacer Clinic [facility] Work Phone: Start: 11-09-2014 End: 11-09-2014 T4 mass conc *T4 (Total) [facility] Work Phone: Start: 11-09-2014 End: 11-09-2014 Thyrotropin Qn *TSH [facility] Work Phone: Start: 11-09-2014 End: 11-09-2014 *BMP *BMP [facility] Work Phone: Start: 11-09-2014 End: 02-07-2015 Follow Up Appt 3 months Follow Up Appt 3 months [facility] Work Phone: Start: 11-09-2014 End: 02-07-2015 Pacer Clinic Pacer Clinic [facility] Work Phone: Start: 11-09-2014 End: 11-09-2014 Thyroid stimulating hormone (TSH) *TSH [facility] Work Phone: Start: 11-09-2014 End: [...] 6 months Follow Up Appt 6 months [facility] Work Phone: Start: 08-08-2014 End: 08-09-2014 MMM MMM [facility] Work Phone: Start: 08-08-2014 End: 02-07-2015 Pacer Clinic Pacer Clinic [facility] Work Phone: Start: 08-08-2014 End: 08-09-2014 Device Interrogation Device Interrogation [facility] Work Phone: Start: 08-08-2014 [...] Phone: Start: 07-03-2014 End: 08-09-2014 *BMP *BMP [facility] Work Phone: Start: 07-03-2014 End: 08-09-2014 *BMP *BMP [facility] Work Phone: Start: 06-04-2014 End: 06-26-2014 *Hepatic Function Panel *Hepatic Function Panel [facility] Work Phone: Start: 06-04-2014 [...] 04-26-2014 End: 06-26-2014 Pacer Clinic Pacer Clinic [facility] Work Phone: Start: 04-26-2014 End: 06-26-2014 Follow Up Appt 3 months Follow Up Appt 3 months [facility] Work Phone: Start: 04-26-2014 End: 06-26-2014 Pacer Clinic Pacer Clinic [facility] Work Phone: Start: 02-28-2014 End: 03-05-2014 *BMP *BMP [facility] Work Phone: Start: 02-28-2014 End: 02-28-2014 Follow Up Appt 6 months Follow Up Appt 6 months [facility] Work Phone: Start: 02-28-2014 End: 02-28-2014 PFM PFM [facility] Work Phone: Start: 02-28-2014 End: 03-05-2014 *BMP *BMP [facility] Work Phone: Start: 02-28-2014 End: 02-28-2014 Follow Up Appt 6 months Follow Up Appt 6 months [facility] Work Phone: Start: 02-28-2014 End: 02-28-2014 PFM PFM [facility] Work Phone: Start: 01-22-2014 End: 06-26-2014 *BMP *BMP [facility] Work Phone: Start: 01-22-2014 End: 01-22-2014 Follow Up Appt 1 month Follow Up Appt 1 month [facility] Work Phone: Start: 01-22-2014 End: [...] 1 month Follow Up Appt 1 month [facility] Work Phone: Start: 01-22-2014 End: 06-26-2014 Follow Up Appt 3 months Follow Up Appt 3 months [facility] Work Phone: Start: 01-22-2014 End: 01-22-2014 MMM MMM [facility] Work Phone: Start: 01-22-2014 End: 06-26-2014 Pacer Clinic Pacer Clinic [facility] Work Phone: Start: 12-02-2013 End: 12-26-2013 *Hepatic Function Panel *Hepatic Function Panel [facility] Work Phone: Start: 12-02-2013 End: 12-26-2013 Lipid 1996 panel *Lipid Profile CC PCP [facility] Work Phone: Start: 12-02-2013 End: 12-26-2013 *Hepatic Function Panel *Hepatic Function Panel [facility] Work Phone: Start: 12-02-2013 End: 12-26-2013 Lipid panel [AGGREGATE] *Lipid Profile CC PCP [facility] Work Phone: Start: 10-12-2013 End: 06-26-2014 Follow Up Appt 3 months Follow Up Appt 3 months [facility] Work Phone: Start: 10-12-2013 End: 06-26-2014 Pacer Clinic Pacer Clinic [facility] Work Phone: Start: 10-12-2013 End: 06-26-2014 Follow Up Appt 3 months Follow Up Appt 3 months [facility] Work Phone: Start: 10-12-2013 End: 06-26-2014 Pacer Clinic Pacer Clinic [facility] Work Phone: Start: 06-19-2013 End: 06-28-2013 *Hepatic Function Panel *Hepatic Function Panel [facility] Work Phone: Start: 06-19-2013 End: 06-26-2014 Follow Up Appt 3 months Follow Up Appt 3 months [facility] Work Phone: Start: 06-19-2013 End: 02-07-2015 Follow Up Appt 6 months Follow Up Appt 6 months [facility] Work Phone: Start: 06-19-2013 End: 06-28-2013 Lipid 1996 panel *Lipid Profile CC PCP [facility] Work Phone: Start: 06-19-2013 End: 06-26-2014 Pacer Clinic Pacer Clinic [facility] Work Phone: Start: 06-19-2013 End: 06-26-2014 PFM PFM [facility] Work Phone: Start: 06-19-2013 End: 06-28-2013 *Hepatic Function Panel *Hepatic Function Panel [facility] Work Phone: Start: 06-19-2013 End: 06-26-2014 Follow Up Appt 3 months Follow Up Appt 3 months [facility] Work Phone: Start: 06-19-2013 End: 02-07-2015 Follow Up Appt 6 months Follow Up Appt 6 months [facility] Work Phone: Start: 06-19-2013 End: 06-28-2013 Lipid panel [AGGREGATE] *Lipid Profile CC PCP [facility] Work Phone: Start: 06-19-2013 End: 06-26-2014 Pacer Clinic Pacer Clinic [facility] Work Phone: Start: 06-19-2013 End: 06-26-2014 PFM PFM [facility] Work Phone: Start: 04-05-2013 End: 06-26-2014 Follow Up Appt 3 months Follow Up Appt 3 months [facility] Work Phone: Start: 04-05-2013 End: 06-26-2014 Pacer Clinic Pacer Clinic [facility] Work Phone: Start: 04-05-2013 End: 06-26-2014 Follow Up Appt 3 months Follow Up Appt 3 months [facility] Work Phone: Start: 04-05-2013 [...] 06-28-2013 *Hepatic Function Panel *Hepatic Function Panel [facility] Work Phone: Start: 03-08-2013 End: 06-26-2014 Follow Up Appt 3 months Follow Up Appt 3 months [facility] Work Phone: Start: 03-08-2013 End: 06-28-2013 Lipid panel [AGGREGATE] *Lipid Profile CC PCP [facility] Work Phone: Start: 03-08-2013 End: 06-26-2014 PFM PFM [facility] Work Phone: Start: 02-14-2013 End: 06-26-2014 Follow Up Appt 2 months Follow Up Appt 2 months [facility] Work Phone: Start: 02-14-2013 End: 06-26-2014 Pacer Clinic Pacer Clinic [facility] Work Phone: Start: 02-14-2013 End: 06-26-2014 Follow Up Appt 2 months Follow Up Appt 2 months [facility] Work Phone: Start: 02-14-2013 End: 06-26-2014 Pacer Clinic Pacer Clinic [facility] Work Phone: Start: 01-09-2013 End: 01-09-2013 Echocardiography Echocardiogram (complete) [facility] Work Phone: Start: 01-09-2013 End: 06-26-2014 Follow Up Appt 4 months Follow Up Appt 4 months [facility] Work Phone: Start: 01-09-2013 End: 06-26-2014 Follow Up Appt Other Follow Up Appt Other [facility] Work Phone: Start: 01-09-2013 End: 06-26-2014 PFM PFM [facility] Work Phone: Start: 01-09-2013 End: 01-09-2013 Echocardiography Echocardiogram (complete) [facility] Work Phone: Start: 01-09-2013 End: 06-26-2014 Follow Up Appt 4 months Follow Up Appt 4 months [facility] Work Phone: Start: 01-09-2013 End: 06-26-2014 Follow Up Appt Other Follow Up Appt Other [facility] Work Phone: Start: 01-09-2013 End: 06-26-2014 PFM PFM [facility] Work Phone: Start: 09-15-2012 End: 06-26-2014 Device Interrogation Device Interrogation [facility] Work Phone: Start: 09-15-2012 End: 06-26-2014 Follow Up Appt 6 months Follow Up Appt 6 months [facility] Work Phone: Start: 09-15-2012 End: 06-26-2014 Device Interrogation Device Interrogation [facility] Work Phone: Start: 09-15-2012 End: 06-26-2014 Follow Up Appt 6 months Follow Up Appt 6 months [facility] Work Phone: Start: 03-10-2012 End: 06-26-2014 Device Interrogation Device Interrogation [facility] Work Phone: Start: 03-10-2012 End: 06-26-2014 Follow Up Appt 6 months Follow Up Appt 6 months [facility] Work Phone: Start: 03-10-2012 End: 06-26-2014 Device Interrogation Device Interrogation [facility] Work Phone: Start: 03-10-2012 End: 06-26-2014 Follow Up Appt 6 months Follow Up Appt 6 months [facility] Work Phone: Start: 09-03-2011 End: 06-26-2014 *Hepatic Function Panel *Hepatic Function Panel [facility] Work Phone: Start: 09-03-2011 End: 09-03-2011 Follow Up Appt 6 months Follow Up Appt 6 months [facility] Work Phone: Start: 09-03-2011 End: 06-26-2014 Lipid 1996 panel *Lipid Profile [facility] Work Phone: Start: 09-03-2011 End: 06-26-2014 *Hepatic Function Panel *Hepatic Function Panel [facility] Work Phone: Start: 09-03-2011 End: 09-03-2011 Follow Up Appt 6 months Follow Up Appt 6 months [facility] Work Phone: Start: 09-03-2011 End: 06-26-2014 Lipid panel [AGGREGATE] *Lipid Profile [facility] Work Phone: End: 12-18-2019 Culture, Urine Culture, Urine Microbiology Routine One Time for 1 Occurrences starting 12/18/2019 until 12/18/2019 [facility] [place] Payers Date Payer Category Payer Medicare [id number] Social History Date Type Detail Facility Start: 12-17-2019 Tobacco smoking status NHIS Former s moker [place], [place] End: 10-04-1989 History of tobacco use Current smoker [place], [place] Sex Assigned At Not on file [facility] [place] Summary Purpose Family History No Family [...] is a 79 y.o. male presents from [facility] after presenting there with altered mental status, confusion and slurred speech. Pt was doing well Wednesday morning ( after some mild confusion ) and when he was getting ready for bed Wednesday night became very confused, slurring his speech and not acting right. He was brought to the ED and initially admitted to [place]. He has been steadily improving since admission. [...] DISCHARGE MEDICATIONS: Peter Montaño Home Medication Instructions [facility] CENTER:[id number] Printed on:12/18/19 4746 Medication Information aspirin 81 MG tablet Take [...] Complexity: follow up within 7-14 calendar days (94371) [] Severe Complexity: follow up within 7 calendar days (24624) FOLLOW UP TESTING, PENDING RESULTS OR REFERRALS AT TRANSITIONAL CARE VISIT: [] Yes [] No PENDING STUDIES: No DISPOSITION: Home FACILITY/HOME CARE AGENCY NAME: Follow up with 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 Discussed the patient s personal [...] ordered. Family asked about HHC. RN read case advocate's note and informed family she was in [...] s/p pacer, HTN, HPL, DM presents from [facility] with complaint/s of altered mental status. Altered mental status -Concerns include stroke vs seizure vs TME vs delirium -Suspect some degree of underlying dementia -CT head no acute abn -Basic labs, UA, and TSH WNL at [place] -Patient reportedly has MRI compatible pacermaker-unfortunately, in [...] be monitored and followed by the diet cryptologic technician.NONA Espinoza * Daniele Welsh, PT - 12/17/2019 2:43 PM EDT Physical Therapy Facility/Department: [facility] 3W TELEMETRY Initial Assessment NAME: Peter [...] Ambulation Assistance: Independent Transfer Assistance: Independent Active Accounts Officer: Yes(but spouse is primary transport driver) Occupation: Retired Additional Comments: uses ww in [...] Gait belt, Nurse notified(Family present) AM-PAC Score [facility] Inpatient Mobility Raw Score : 24 (12/17/19 143) [facility] Inpatient T-Scale Score : 61.14 (12/17/19 143) Mobility Inpatient [facility] 0-100% Score: 0 (12/17/191429) Mobility Inpatient [facility] G-Code Modifier : CH (12/17/191429) Goals Short [...] Plan of Care supervision is transferred to [facility] Physical Therapist. Daniele Welsh PT * Chidi Mari MD - 12/17/2019 11:21 AM EDT Progress Note 12/17/2019 11:21 AM Name: Peter Montaño IP Day: 1 Admit Date: 12/16/2019 5:37 PM PCP: No primary care provider on file. Code Status: Full Code Subjective: doing ok. Tolerating diet. Up in chair. No cp, sob, cough, n/v, f/c, dizziness. Apparently hallucinating about a manager distribution center coming to his room earlier telling him [...] DATE CREATED AUTHOR AUTHOR'S ORGANIZ ATION 01/08/2020 [facility] FOR RECORDS PERTAINING TO [...] BE BASED ON THE PRIMARY CLINICAL RECORDS. [facility] [employer] provides no warranty or guarantee of the accuracy or completeness of information in this document.
[2023-11-01 12:02] LABS: Absolute Lymphocyte Count 1.81 X10^3/uL (0.83-4.51); Absolute Neutrophil Count 5.9 X10^3/uL (2.0-7.7); Basophil# 0.06 X10^3/uL; Basophil% 0.7 % (0-1); Eosinophil# 0.21 X10^3/uL; Eosinophils% 2.4 % (0-5); Hematocrit 39.6 % (40-54); Hemoglobin 12.1 g/dL (13.0-16.5); Lymphocyte # 1.81 X10^3/ul (0.83-4.51); Lymphocyte % 20.8 % (19-41); Mean Corp Hgb Conc 30.6 g/dL (32-36); Mean Corpuscular Hgb 28.9 pg (27.0-32.0); Mean Corpuscular Volume 94.5 fL (80-94); Mean Platelet Vol. 9.6 fl (6.2-12.0); Monocyte# 0.76 X10^3/uL; Monocyte% 8.7 % (0-10); NRBC Flagged by Analyzer 0 % (0-5); Neutrophil # 5.85 X10^3/uL (2.7-7.7); Neutrophil % 67.2 % (47-70); Platelet Count 258 K/mm3 (150-450); RBC Distribution Width CV 13.7 % (11.6-14.6); RBC Distribution Width SD 48.1 fl (35.1-43.9); Red Blood Count 4.19 M/mm3 (4.6-6.2); White Blood Count 8.7 K/mm3 (4.4-11.0)
[2023-11-01 12:51] LABS: Vitamin B12 437 pg/mL (211-911)
[2023-11-01 13:54] LABS: ALB/GLOB Ratio 0.7 RATIO (0.9-2.4); AST(SGOT) 13 U/L (15-37); Alanine Aminotransfer ALT/SGPT 13 U/L (16-61); Albumin, Serum 3.3 g/dL (3.2-5.0); Alkaline Phosphatase 73 U/L (45-117); Anion Gap 6 (5-15); BUN 24 mg/dL (7-18); Chloride 109 mmol/L (98-107); Creatinine, Serum 1.72 mg/dL (0.70-1.30); EST Glomerular Filtration Rate 40 mL/min (>60); Est Glom Filt Rate - Afr Amer 49 mL/min (>60); Globulin 4.5 g/dL (2.2-4.2); Glucose 210 mg/dL (74-106); Magnesium 2.5 mg/dL (1.6-2.6); Potassium 4.4 mmol/L (3.5-5.1); Protein, Total 7.8 g/dL (6.4-8.2); Sodium Level 137 mmol/L (136-145); Thyroid Stim Hormone (TSH) 2.76 uIU/mL (0.358-3.74)
== END | disposition home or self-care (01) ==
LOC: MFPLAB 10:42
PROVIDERS: PCP Family Medicine; Visit Provider Family Medicine
DX: N18.31 Chronic kidney disease, stage 3a (principal); J44.9 Chronic obstructive pulmonary disease, unspecified; E11.22 Type 2 diabetes mellitus with diabetic chronic kidney disease; I48.91 Unspecified atrial fibrillation; I48.92 Unspecified atrial flutter; E53.8 Deficiency of other specified B group vitamins
CPT/HCPCS: 36415; 80053; 82607; 82746; 83735; 84443; 85025

== ENCOUNTER → 2023-12-06 | Outpatient (CLI) | payer MEDICARE, OTHER, SELFPAY ==
--- OUTSIDE RECORDS SUMMARY | 2023-12-06 08:51 | XMS RPT_ITS | CCD ---
Author Name Unknown Address [address] [place] [address] Organization [facility] Care Team Providers Care Nut Tightener Name Role Phone CONNER Herbert, Nelly Deal Unavailable Unavailable CONNER Herbert, Nelly Deal Unavailable Unavailable CONNER Herbert, Nelly Deal Unavailable Unavailable Janay Judd Unavailable Unavailable MEME KING Unavailable Unavailable TEENA ESCOBEDO Unavailable Unavailable ROGELIO, NIHAD Unavailable Unavailable JACQUELINE BAUTISTA Unavailable Unavailable SANTOSH BRUNO Unavailable Unavailable JACQUELINE BAUTISTA Unavailable Unavailable JANE PEREZ Unavailable Unavailable MEME KING Unavailable Unavailable Earl PRIETO, Yelena Rowe Unavailable [phone] Yelena Elliott RN Unavailable [phone] CONENR Herbert Sue M Unavailable Unavailable CONNER Herbert, Nelly Deal Unavailable Unavailable Janay Judd Unavailable Unavailable Unavailable Primary Care Provider Unavailabl e Allergies Allergy Classification Reported Allergen(s) Allergy Type Date of Onset Reaction(s) Facility (9 sources) hydroCHLOROthiazide drug allergy 1 Gout symptoms [facility] Work Phone: Medications Current Medications [...] hours as needed for SOB ALBUTEROL SULFATE [phone] Jasxon Soto DO Problems Active Problems Problem Classification [...] disease (9 sources) Atherosclerotic heart disease of [place] coronary artery without angina pectoris; Translations: [Atherosclerotic heart disease of [place] coronary artery without angina pectoris] Onset: 12-15-2010 [...] (5 sources) Long-term drug therapy; Translations: [Other half-way (current) drug therapy] Onset: 12-15-2010 12-15-2010 Past [...] Other terminologist (current) drug therapy; Translations: [Other half-way (current) drug therapy] Onset: 12-15-2010 12-15-2010 Episodic [...] Facility 12-18-2019 15:46-0400 Body Temperature 98.71 [degF] [facility], [place] 12-18-2019 15:46-0400 BP Diastolic 92 mm[Hg] [facility] 12-18-2019 15:46-0400 BP Systolic 189 mm[Hg] [facility] 12-18-2019 15:46-0400 Pulse (Heart Rate) 71 /min [facility] 12-18-2019 15:46-0400 Pulse Oximetry 98 % [facility] 12-18-2019 15:46-0400 Respiratory Rate 20 /min [facility] 12-16-2019 17:45-0400 BMI (Body Mass Index) 31.57 kg/m2 [facility] [place] 12-16-2019 17:45-0400 Body weight 99.79 kg [facility] 12-16-2019 17:45-0400 Height 177.8 cm [facility] 06-21-2017 10:15-0400 BMI (Body Mass Index) 33.6 [...] Respiratory Rate 18 /min Nelly Herbert RN [facility] Work Phone: 06-21-2017 10:15-0400 Weight 100.25 kg Nelly Herbert RN [facility] Work Phone: 06-21-2017 10:15-0400 Weight 100.24 kg Nelly Herbert RN [facility] Work Phone: 05-26-2017 06:11-0400 BMI (Body Mass Index) 33.75 kg/m2 Janay Judd [facility] Work Phone: 05-26-2017 06:11-0400 Body Temperature 97.6 [degF] Janay Judd [facility] Work Phone: 05-26-2017 06:11-0400 BP Diastolic 82 mm[Hg] Janay Judd [facility] Work Phone: 05-26-2017 06:11-0400 BP Systolic 160 mm[Hg] Janay Judd [facility] Work Phone: 05-26-2017 06:11-0400 Height 172.72 cm Janay Judd [facility] Work Phone: 05-26-2017 06:11-0400 Pulse (Heart Rate) 78 /min Janay Judd [facility] Work Phone: 05-26-2017 06:11-0400 Respiratory Rate 18 /min Janay Judd [facility] Work Phone: 05-26-2017 06:11-0400 Weight 100.7 kg Janay Judd [facility] Work Phone: 11-24-2016 10:35-0500 BMI (Body Mass [...] Start: 07-05-2017 End: 07-06-2017 Ambulatory JANE PEREZ Facility:[facility] Start: 06-16-2017 End: 06-18-2017 Evaluation and management [...] Pastor Lawson MD Start: 01-09-2013 End: 06-26-2014 [facility] Pastor Lawson MD Start: 01-09-2013 End: [...] Author Start: 12-17-2020 Creatinine monitoring Creatinine monitoring [place], [place] Start: 12-17-2020 Potassium monitoring Potassium monitoring [place], [place] Start: 06-04-2019 Influenza vaccination Flu vaccine (#1) [place], [place] Start: 10-11-2017 End: 10-11-2017 Appointment Appointment [facility] Work Phone: Start: 09-22-2017 End: 09-22-2017 Appointment Appointment [facility] Work Phone: Start: 06-21-2017 End: 06-21-2017 Device Interrogation Device Interrogation [facility] Work Phone: Start: 06-21-2017 End: 06-21-2017 Follow Up Appt 3 months Follow Up Appt 3 months [facility] Work Phone: Start: 06-21-2017 End: 06-21-2017 Follow Up Appt Other Follow Up Appt Other [facility] Work Phone: Start: 06-21-2017 End: 06-21-2017 MMM MMM [facility] Work Phone: Start: 06-21-2017 End: 06-21-2017 Pacer Clinic Pacer Clinic [facility] Work Phone: Start: 06-21-2017 End: 06-21-2017 Appointment Appointment [facility] Work Phone: Start: 06-21-2017 End: 06-21-2017 Device Interrogation Device Interrogation [facility] Work Phone: Start: 06-21-2017 End: 06-21-2017 Follow Up Appt 3 months Follow Up Appt 3 months [facility] Work Phone: Start: 06-21-2017 End: 06-21-2017 Follow Up Appt Other Follow Up Appt Other [facility] Work Phone: Start: 06-21-2017 End: 06-21-2017 MMM MMM [facility] Work Phone: Start: 06-21-2017 End: 06-21-2017 Pacer Clinic [facility] Work Phone: Start: 05-26-2017 End: 05-26-2017 Follow Up Appt 1 year Follow Up Appt 1 year [facility] Work Phone: Start: 05-26-2017 End: 05-26-2017 Appointment Appointment [facility] Work Phone: Start: 05-26-2017 End: 05-26-2017 Follow Up Appt 1 year Follow Up Appt 1 year [facility] Work Phone: Start: 03-17-2017 End: 03-17-2017 Follow Up Appt 3 months Follow Up Appt 3 months [facility] Work Phone: Start: 03-17-2017 End: 03-17-2017 Pacer Clinic Pac[facility] Clinic [facility] Work Phone: Start: 03-17-2017 End: 03-17-2017 Appointment Appointment [facility] Work Phone: Start: 03-17-2017 End: 03-17-2017 Follow Up Appt 3 months Follow Up Appt 3 months [facility] Work Phone: Start: 03-17-2017 End: 03-17-2017 Pacer Clinic Pac[facility] Clinic [facility] Work Phone: Start: 03-04-2017 End: 09-07-2016 *Hepatic Function Panel *Hepatic Function Panel [facility] Work Phone: Start: 03-04-2017 End: 09-07-2016 Lipid 1996 panel *Lipid Profile CC PCP [facility] Work Phone: Start: 03-04-2017 End: 09-07-2016 *Hepatic Function Panel *Hepatic Function Panel [facility] Work Phone: Start: 03-04-2017 End: 09-07-2016 Lipid panel [AGGREGATE] *Lipid Profile CC PCP [facility] Work Phone: Start: 12-07-2016 End: 12-07-2016 Follow Up Appt 3 months Follow Up Appt 3 months [facility] Work Phone: Start: 12-07-2016 End: 12-07-2016 Pacer Clinic [facility] Work Phone: Start: 12-07-2016 End: 12-07-2016 Follow Up Appt 3 months Follow Up Appt 3 months [facility] Work Phone: Start: 12-07-2016 End: 12-07-2016 Pacer Clinic [facility] Work Phone: Start: 11-24-2016 End: 11-24-2016 DMB DMB [facility] Work Phone: Start: 11-24-2016 End: 11-24-2016 Follow Up Appt 6 months Follow Up Appt 6 months [facility] Work Phone: Start: 11-24-2016 End: 11-24-2016 DMB DMB [facility] Work Phone: Start: 11-24-2016 End: 11-24-2016 Follow Up Appt 6 months Follow Up Appt 6 months [facility] Work Phone: Start: 09-07-2016 End: 09-07-2016 Follow Up Appt 9 months Follow Up Appt 9 months [facility] Work Phone: Start: 09-07-2016 End: 09-07-2016 PFM PFM [facility] Work Phone: Start: 09-07-2016 End: 09-07-2016 Follow Up Appt 9 months Follow Up Appt 9 months [facility] Work Phone: Start: 09-07-2016 End: 09-07-2016 PFM PFM [facility] Work Phone: Start: 08-31-2016 End: 09-07-2016 Follow Up Appt 3 months Follow Up Appt 3 months [facility] Work Phone: Start: 08-31-2016 End: 09-07-2016 Pacer Clinic Pacer Clinic [facility] Work Phone: Start: 08-31-2016 End: 09-07-2016 Follow Up Appt 3 months Follow Up Appt 3 months [facility] Work Phone: Start: 08-31-2016 End: 09-07-2016 Pacer Clinic Pacer Clinic [facility] Work Phone: Start: 08-26-2016 End: 09-07-2016 *Hepatic Function Panel *Hepatic Function Panel [facility] Work Phone: Start: 08-26-2016 End: 09-07-2016 Lipid 1996 panel *Lipid Profile CC PCP [facility] Work Phone: Start: 08-26-2016 End: 09-07-2016 *Hepatic Function Panel *Hepatic Function Panel [facility] Work Phone: Start: 08-26-2016 End: 09-07-2016 Lipid panel [AGGREGATE] *Lipid Profile CC PCP [facility] Work Phone: Start: 06-03-2016 End: 06-03-2016 Follow Up Appt 3 months Follow Up Appt 3 months [facility] Work Phone: Start: 06-03-2016 End: 06-03-2016 Pacer Clinic Pacer Clinic [facility] Work Phone: Start: 06-03-2016 End: 06-03-2016 Follow Up Appt 3 months Follow Up Appt 3 months [facility] Work Phone: Start: 06-03-2016 End: 06-03-2016 Pacer Clinic Pacer Clinic [facility] Work Phone: Start: 05-26-2016 End: 05-26-2016 [facility] Work Phone: Start: 05-26-2016 End: 05-26-2016 Follow Up Appt 6 months Follow Up Appt 6 months [facility] Work Phone: Start: 05-26-2016 End: 05-26-2016 [facility] Work Phone: Start: 05-26-2016 End: 05-26-2016 Follow Up Appt 6 months Follow Up Appt 6 months [facility] Work Phone: Start: 04-13-2016 End: 04-13-2016 Pulmonary Referral Pulmonary Referral Angel Jauregui, [facility] [place], [address], [place], [address] [facility] Work Phone: Start: 04-13-2016 End: 04-13-2016 Pulmonary Referral Pulmonary Referral Angel Jauregui, [facility] [place], [address], [place], [address] [facility] Work Phone: Start: 02-26-2016 End: 02-26-2016 Follow Up Appt 3 months Follow Up Appt 3 months [facility] Work Phone: Start: 02-26-2016 End: 02-26-2016 Pacer Clinic [facility] Work Phone: Start: 02-26-2016 End: 02-26-2016 Follow Up Appt 3 months Follow Up Appt 3 months [facility] Work Phone: Start: 02-26-2016 End: 02-26-2016 Pacer Clinic [facility] Work Phone: Start: 02-24-2016 End: 04-13-2016 Chest x-ray X-Ray, Chest, PA & Lateral [facility] Work Phone: Start: 02-24-2016 End: 02-24-2016 Follow Up Appt 6 months Follow Up Appt 6 months [facility] Work Phone: Start: 02-24-2016 End: 04-13-2016 Follow Up Appt Other Follow Up Appt Other [facility] Work Phone: Start: 02-24-2016 End: 04-13-2016 PFM PFM [facility] Work Phone: Start: 02-24-2016 End: 02-24-2016 Pulmonary Function Test - complete Pulmonary Function Test - complete [facility] Work Phone: Start: 02-24-2016 End: 04-13-2016 Chest x-ray X-Ray, Chest, PA & Lateral [facility] Work Phone: Start: 02-24-2016 End: 02-24-2016 Follow Up Appt 6 months Follow Up Appt 6 months [facility] Work Phone: Start: 02-24-2016 End: 04-13-2016 Follow Up Appt Other Follow Up Appt Other [facility] Work Phone: Start: 02-24-2016 End: 04-13-2016 PFM PFM [facility] Work Phone: Start: 02-24-2016 End: 02-24-2016 Pulmonary Function Test - complete Pulmonary Function Test - complete [facility] Work Phone: Start: 11-21-2015 End: 04-13-2016 Follow Up Appt 3 months Follow Up Appt 3 months [facility] Work Phone: Start: 11-21-2015 End: 04-13-2016 Pacer Clinic [facility] Work Phone: Start: 11-21-2015 End: 04-13-2016 Follow Up Appt 3 months Follow Up Appt 3 months [facility] Work Phone: Start: 11-21-2015 End: 04-13-2016 Pacer Clinic [facility] Work Phone: Start: 08-12-2015 End: 04-13-2016 Device Interrogation Device Interrogation [facility] Work Phone: Start: 08-12-2015 [...] 08-12-2015 End: 04-13-2016 Pacer Clinic [facility] Work Phone: Start: 08-12-2015 End: 08-12-2015 PFM PFM [facility] Work Phone: Start: 08-12-2015 End: 04-13-2016 Device Interrogation Device Interrogation [facility] Work Phone: Start: 08-12-2015 [...] Phone: Start: 08-12-2015 End: 08-12-2015 PFM PFM [facility] Work Phone: Start: 07-24-2015 End: 04-13-2016 *Hepatic Function Panel *Hepatic Function Panel [facility] Work Phone: Start: 07-24-2015 End: 04-13-2016 Lipid 1996 panel *Lipid Profile CC PCP [facility] Work Phone: Start: 07-24-2015 End: 04-13-2016 *Hepatic Function Panel *Hepatic Function Panel [facility] Work Phone: Start: 07-24-2015 End: 04-13-2016 Lipid panel [AGGREGATE] *Lipid Profile CC PCP [facility] Work Phone: Start: 02-07-2015 End: 04-13-2016 Follow Up Appt 3 months Follow Up Appt 3 months [facility] Work Phone: Start: 02-07-2015 End: 02-07-2015 Follow Up Appt 6 months Follow Up Appt 6 months [facility] Work Phone: Start: 02-07-2015 End: 04-13-2016 Pacer Clinic Pacer Clinic [facility] Work Phone: Start: 02-07-2015 End: 02-07-2015 PFM PFM [facility] Work Phone: Start: 02-07-2015 End: 04-13-2016 Follow Up Appt 3 months Follow Up Appt 3 months [facility] Work Phone: Start: 02-07-2015 End: 02-07-2015 Follow Up Appt 6 months Follow Up Appt 6 months [facility] Work Phone: Start: 02-07-2015 End: 04-13-2016 Pacer Clinic Pacer Clinic [facility] Work Phone: Start: 02-07-2015 End: 02-07-2015 PFM PFM [facility] Work Phone: Start: 01-02-2015 End: 01-22-2015 *Hepatic Function Panel *Hepatic Function Panel [facility] Work Phone: Start: 01-02-2015 End: 01-22-2015 Lipid 1996 panel *Lipid Profile CC PCP [facility] Work Phone: Start: 01-02-2015 End: 01-22-2015 *Hepatic Function Panel *Hepatic Function Panel [facility] Work Phone: Start: 01-02-2015 End: 01-22-2015 Lipid panel [AGGREGATE] *Lipid Profile CC PCP [facility] Work Phone: Start: 11-09-2014 End: 11-09-2014 *BMP *BMP [facility] Work Phone: Start: 11-09-2014 End: 02-07-2015 Follow Up Appt 3 months Follow Up Appt 3 months [facility] Work Phone: Start: 11-09-2014 End: 02-07-2015 Pacer Clinic Pacer Clinic [facility] Work Phone: Start: 11-09-2014 End: 11-09-2014 T4 mass conc *T4 (Total) [facility] Work Phone: Start: 11-09-2014 End: 11-09-2014 Thyrotropin Qn *TSH [facility] Work Phone: Start: 11-09-2014 End: 11-09-2014 *BMP *BMP [facility] Work Phone: Start: 11-09-2014 End: 02-07-2015 Follow Up Appt 3 months Follow Up Appt 3 months [facility] Work Phone: Start: 11-09-2014 End: 02-07-2015 Pacer Clinic Pacer Clinic [facility] Work Phone: Start: 11-09-2014 End: 11-09-2014 Thyroid stimulating hormone (TSH) *TSH [facility] Work Phone: Start: 11-09-2014 End: 11-09-2014 Thyroxine (T4) *T4 (Total) [facility] Work Phone: Start: 08-08-2014 End: 08-09-2014 Device Interrogation Device Interrogation [facility] Work Phone: Start: 08-08-2014 End: 02-07-2015 Follow Up Appt 3 months Follow Up Appt 3 months [facility] Work Phone: Start: 08-08-2014 End: 08-09-2014 Follow Up Appt 6 months Follow Up Appt 6 months [facility] Work Phone: Start: 08-08-2014 End: 08-09-2014 MMM MMM [facility] Work Phone: Start: 08-08-2014 End: 02-07-2015 Pacer Clinic Pacer Clinic [facility] Work Phone: Start: 08-08-2014 End: 08-09-2014 Device Interrogation Device Interrogation [facility] Work Phone: Start: 08-08-2014 End: 02-07-2015 Follow Up Appt 3 months Follow Up Appt 3 months [facility] Work Phone: Start: 08-08-2014 End: 08-09-2014 Follow Up Appt 6 months Follow Up Appt 6 months [facility] Work Phone: Start: 08-08-2014 End: 08-09-2014 MMM MMM [facility] Work Phone: Start: 08-08-2014 End: 02-07-2015 Pacer Clinic Pacer Clinic [facility] Work Phone: Start: 07-03-2014 End: 08-09-2014 *BMP *BMP [facility] Work Phone: Start: 07-03-2014 End: 08-09-2014 *BMP *BMP [facility] Work Phone: Start: 06-04-2014 End: 06-26-2014 *Hepatic Function Panel *Hepatic Function Panel [facility] Work Phone: Start: 06-04-2014 End: 06-26-2014 Lipid 1996 panel *Lipid Profile CC PCP [facility] Work Phone: Start: 06-04-2014 End: 06-26-2014 *Hepatic Function Panel *Hepatic Function Panel [facility] Work Phone: Start: 06-04-2014 End: 06-26-2014 Lipid panel [AGGREGATE] *Lipid Profile CC PCP [facility] Work Phone: Start: 04-26-2014 End: 06-26-2014 Follow Up Appt 3 months Follow Up Appt 3 months [facility] Work Phone: Start: 04-26-2014 End: 06-26-2014 Pacer Clinic Pacer Clinic [facility] Work Phone: Start: 04-26-2014 End: 06-26-2014 Follow Up Appt 3 months Follow Up Appt 3 months [facility] Work Phone: Start: 04-26-2014 End: 06-26-2014 Pacer Clinic Pacer Clinic [facility] Work Phone: Start: 02-28-2014 End: 03-05-2014 *BMP *BMP [facility] Work Phone: Start: 02-28-2014 End: 02-28-2014 Follow Up Appt 6 months Follow Up Appt 6 months [facility] Work Phone: Start: 02-28-2014 End: 02-28-2014 PFM PFM [facility] Work Phone: Start: 02-28-2014 End: 03-05-2014 *BMP *BMP [facility] Work Phone: Start: 02-28-2014 End: 02-28-2014 Follow Up Appt 6 months Follow Up Appt 6 months [facility] Work Phone: Start: 02-28-2014 End: 02-28-2014 PFM PFM [facility] Work Phone: Start: 01-22-2014 End: 06-26-2014 *BMP *BMP [facility] Work Phone: Start: 01-22-2014 End: 01-22-2014 Follow Up Appt 1 month Follow Up Appt 1 month [facility] Work Phone: Start: 01-22-2014 End: 06-26-2014 Follow Up Appt 3 months Follow Up Appt 3 months [facility] Work Phone: Start: 01-22-2014 End: 01-22-2014 MMM MMM [facility] Work Phone: Start: 01-22-2014 End: 06-26-2014 Pacer Clinic Pacer Clinic [facility] Work Phone: Start: 01-22-2014 End: 06-26-2014 *BMP *BMP [facility] Work Phone: Start: 01-22-2014 End: 01-22-2014 Follow Up Appt 1 month Follow Up Appt 1 month [facility] Work Phone: Start: 01-22-2014 End: 06-26-2014 Follow Up Appt 3 months Follow Up Appt 3 months [facility] Work Phone: Start: 01-22-2014 End: 01-22-2014 MMM MMM [facility] Work Phone: Start: 01-22-2014 End: 06-26-2014 Pacer Clinic Pacer Clinic [facility] Work Phone: Start: 12-02-2013 End: 12-26-2013 *Hepatic Function Panel *Hepatic Function Panel [facility] Work Phone: Start: 12-02-2013 End: 12-26-2013 Lipid 1996 panel *Lipid Profile CC PCP [facility] Work Phone: Start: 12-02-2013 End: 12-26-2013 *Hepatic Function Panel *Hepatic Function Panel [facility] Work Phone: Start: 12-02-2013 End: 12-26-2013 Lipid panel [AGGREGATE] *Lipid Profile CC PCP [facility] Work Phone: Start: 10-12-2013 End: 06-26-2014 Follow Up Appt 3 months Follow Up Appt 3 months [facility] Work Phone: Start: 10-12-2013 End: 06-26-2014 Pacer Clinic Pacer Clinic [facility] Work Phone: Start: 10-12-2013 End: 06-26-2014 Follow Up Appt 3 months Follow Up Appt 3 months [facility] Work Phone: Start: 10-12-2013 End: 06-26-2014 Pacer Clinic Pac[facility] Clinic [facility] Work Phone: Start: 06-19-2013 End: 06-28-2013 *Hepatic Function Panel *Hepatic Function Panel [facility] Work Phone: Start: 06-19-2013 End: 06-26-2014 Follow Up Appt 3 months Follow Up Appt 3 months [facility] Work Phone: Start: 06-19-2013 End: 02-07-2015 Follow Up Appt 6 months Follow Up Appt 6 months [facility] Work Phone: Start: 06-19-2013 End: 06-28-2013 Lipid 1996 panel *Lipid Profile CC PCP [facility] Work Phone: Start: 06-19-2013 End: 06-26-2014 Pacer Clinic Pacer Clinic [facility] Work Phone: Start: 06-19-2013 End: 06-26-2014 PFM PFM [facility] Work Phone: Start: 06-19-2013 End: 06-28-2013 *Hepatic Function Panel *Hepatic Function Panel [facility] Work Phone: Start: 06-19-2013 End: 06-26-2014 Follow Up Appt 3 months Follow Up Appt 3 months [facility] Work Phone: Start: 06-19-2013 End: 02-07-2015 Follow Up Appt 6 months Follow Up Appt 6 months [facility] Work Phone: Start: 06-19-2013 End: 06-28-2013 Lipid panel [AGGREGATE] *Lipid Profile CC PCP [facility] Work Phone: Start: 06-19-2013 End: 06-26-2014 Pacer Clinic [facility] Clinic [facility] Work Phone: Start: 06-19-2013 End: 06-26-2014 PFM PFM [facility] Work Phone: Start: 04-05-2013 End: 06-26-2014 Follow Up Appt 3 months Follow Up Appt 3 months [facility] Work Phone: Start: 04-05-2013 End: 06-26-2014 Pacer Clinic [facility] Clinic [facility] Work Phone: Start: 04-05-2013 End: 06-26-2014 Follow Up Appt 3 months Follow Up Appt 3 months [facility] Work Phone: Start: 04-05-2013 End: 06-26-2014 Pacer Clinic [facility] Clinic [facility] Work Phone: Start: 03-08-2013 End: 06-28-2013 *Hepatic Function Panel *Hepatic Function Panel [facility] Work Phone: Start: 03-08-2013 End: 06-26-2014 Follow Up Appt 3 months Follow Up Appt 3 months [facility] Work Phone: Start: 03-08-2013 End: 06-28-2013 Lipid 1996 panel *Lipid Profile CC PCP [facility] Work Phone: Start: 03-08-2013 End: 06-26-2014 PFM PFM [facility] Work Phone: Start: 03-08-2013 End: 06-28-2013 *Hepatic Function Panel *Hepatic Function Panel [facility] Work Phone: Start: 03-08-2013 End: 06-26-2014 Follow Up Appt 3 months Follow Up Appt 3 months [facility] Work Phone: Start: 03-08-2013 End: 06-28-2013 Lipid panel [AGGREGATE] *Lipid Profile CC PCP [facility] Work Phone: Start: 03-08-2013 End: 06-26-2014 PFM PFM [facility] Work Phone: Start: 02-14-2013 End: 06-26-2014 Follow Up Appt 2 months Follow Up Appt 2 months [facility] Work Phone: Start: 02-14-2013 End: 06-26-2014 Pacer Clinic Pacer Clinic [facility] Work Phone: Start: 02-14-2013 End: 06-26-2014 Follow Up Appt 2 months Follow Up Appt 2 months [facility] Work Phone: Start: 02-14-2013 End: 06-26-2014 Pacer Clinic Pac[facility] Clinic [facility] Work Phone: Start: 01-09-2013 End: 01-09-2013 Echocardiography Echocardiogram (complete) [facility] Work Phone: Start: 01-09-2013 End: 06-26-2014 Follow Up Appt 4 months Follow Up Appt 4 months [facility] Work Phone: Start: 01-09-2013 End: 06-26-2014 Follow Up Appt Other Follow Up Appt Other [facility] Work Phone: Start: 01-09-2013 End: 06-26-2014 PFM PFM [facility] Work Phone: Start: 01-09-2013 End: 01-09-2013 Echocardiography Echocardiogram (complete) [facility] Work Phone: Start: 01-09-2013 End: 06-26-2014 Follow Up Appt 4 months Follow Up Appt 4 months [facility] Work Phone: Start: 01-09-2013 End: 06-26-2014 Follow Up Appt Other Follow Up Appt Other [facility] Work Phone: Start: 01-09-2013 End: 06-26-2014 PFM PFM [facility] Work Phone: Start: 09-15-2012 End: 06-26-2014 Device Interrogation Device Interrogation [facility] Work Phone: Start: 09-15-2012 End: 06-26-2014 Follow Up Appt 6 months Follow Up Appt 6 months [facility] Work Phone: Start: 09-15-2012 End: 06-26-2014 Device Interrogation Device Interrogation [facility] Work Phone: Start: 09-15-2012 End: 06-26-2014 Follow Up Appt 6 months Follow Up Appt 6 months [facility] Work Phone: Start: 03-10-2012 End: 06-26-2014 Device Interrogation Device Interrogation [facility] Work Phone: Start: 03-10-2012 End: 06-26-2014 Follow Up Appt 6 months Follow Up Appt 6 months [facility] Work Phone: Start: 03-10-2012 End: 06-26-2014 Device Interrogation Device Interrogation [facility] Work Phone: Start: 03-10-2012 End: 06-26-2014 Follow Up Appt 6 months Follow Up Appt 6 months [facility] Work Phone: Start: 09-03-2011 End: 06-26-2014 *Hepatic Function Panel *Hepatic Function Panel [facility] Work Phone: Start: 09-03-2011 End: 09-03-2011 Follow Up Appt 6 months Follow Up Appt 6 months [facility] Work Phone: Start: 09-03-2011 End: 06-26-2014 Lipid 1996 panel *Lipid Profile [facility] Work Phone: Start: 09-03-2011 End: [...] for 1 Occurrences starting 12/18/2019 until 12/18/2019 [facility] [place] Payers Date Payer Category Payer Medicare [id number] Social History Date Type Detail Facility Start: 12-17-2019 Tobacco smoking status NHIS Former s moker [place], [place] End: 10-04-1989 History of tobacco use Current smoker [place], [place] Sex Assigned At Not on file [facility] [place] Summary Purpose Family History No Family [...] is a 79 y.o. male presents from [facility] after presenting there with altered mental status, confusion and slurred speech. Pt was doing well Wednesday morning ( after some mild confusion ) and when he was getting ready for bed Wednesday night became very confused, slurring his speech and not acting right. He was brought to the ED and initially admitted to [facility]. He has been steadily improving since admission. [...] DISCHARGE MEDICATIONS: Peter Montaño Home Medication Instructions [facility]:[id number] Printed on:12/18/19 5183 Medication Information aspirin 81 MG tablet Take [...] Complexity: follow up within 7-14 calendar days (96046) [] Severe Complexity: follow up within 7 calendar days (60025) FOLLOW UP TESTING, PENDING RESULTS OR REFERRALS AT TRANSITIONAL CARE VISIT: [] Yes [] No PENDING STUDIES: No DISPOSITION: Home FACILITY/HOME CARE AGENCY NAME: Follow up with [facility] POS [address] [facility] [address] In 4 weeks memory loss, hospital delirium, schedule appointment within 2 - 4 weeks Risa De La Cruz MD [address] [facility] [address] Call MRI on INSTRUCTIONS TO MA/SW: Please [...] Your home care will be provided by: [facility] [phone] * Additional Instructions* Pancho Matos MD - [...] and the need for follow-up with a physician/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 Discussed the patient s [...] ordered. Family asked about HHC. RN read gearcase assembler's note and informed family she was in [...] s/p pacer, HTN, HPL, DM presents from [facility] with complaint/s of altered mental status. 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 Daniele Welsh PT * Chidi Mari MD - 12/17/2019 11:21 AM EDT Progress Note 12/17/2019 11:21 AM Name: Peter Montaño IP Day: 1 Admit Date: 12/16/2019 5:37 PM PCP: No primary care provider on file. Code Status: Full Code Subjective: doing ok. Tolerating diet. Up in chair. No cp, sob, cough, n/v, f/c, dizziness. Apparently hallucinating about a artist's manager coming to his room earlier telling him [...] DATE CREATED AUTHOR AUTHOR'S ORGANIZ ATION 01/08/2020 [facility] FOR RECORDS PERTAINING TO PATIENTS [...] BE BASED ON THE PRIMARY CLINICAL RECORDS. [facility] provides no warranty or guarantee of the accuracy or completeness of information in this document.
[2023-12-06 10:08] LABS: AST(SGOT) 16 U/L (15-37); Alanine Aminotransfer ALT/SGPT 13 U/L (16-61); Cholesterol 151 mg/dL (200); High Density Lipoprotein 54 mg/dL; Triglycerides 115 mg/dL; Very Low Density Lipoprotein 23 mg/dL (5-40)
== END | disposition home or self-care (01) ==
LOC: LAB 08:17
PROVIDERS: PCP Family Medicine; Referring Provider Internal Medicine Cardiovascular Disease; Visit Provider Internal Medicine Cardiovascular Disease
DX: I10 Essential (primary) hypertension (principal); I25.10 Atherosclerotic heart disease of native coronary artery without angina pectoris; E78.5 Hyperlipidemia, unspecified
CPT/HCPCS: 36415; 80061; 84450; 84460

== ENCOUNTER → 2024-01-24 | Outpatient (CLI) | payer MEDICARE, OTHER, SELFPAY ==
[2024-01-24 12:50] LABS: ALB/GLOB Ratio 0.9 RATIO (0.9-2.4); AST(SGOT) 17 U/L (15-37); Alanine Aminotransfer ALT/SGPT 22 U/L (16-61); Albumin, Serum 3.7 g/dL (3.2-5.0); Alkaline Phosphatase 79 U/L (45-117); Anion Gap 8 (5-15); BUN 33 mg/dL (7-18); BUN/Creat Ratio 17.7 RATIO (10-20); Calcium,Total 9.4 mg/dL (8.5-10.1); Chloride 105 mmol/L (98-107); Creatinine, Serum 1.86 mg/dL (0.70-1.30); EST Glomerular Filtration Rate 37 mL/min (>60); Est Glom Filt Rate - Afr Amer 45 mL/min (>60); Globulin 4.2 g/dL (2.2-4.2); Glucose 361 mg/dL (74-106); Potassium 4.4 mmol/L (3.5-5.1); Protein, Total 7.9 g/dL (6.4-8.2); Sodium Level 136 mmol/L (136-145)
[2024-01-24 13:01] LABS: Microalbumin,Random Urine 54.6 mg/L (NO RANGE EST.); Microalbumin:Creatinine Ratio 78.7 mg/g CRE (<30 mg/g CRE)
[2024-01-24 13:06] LABS: Hemoglobin A1c 9.4 % (3.8-5.6)
== END | disposition home or self-care (01) ==
LOC: MFPLAB 10:00
PROVIDERS: PCP Family Medicine; Visit Provider Family Medicine
DX: E11.22 Type 2 diabetes mellitus with diabetic chronic kidney disease (principal); N18.31 Chronic kidney disease, stage 3a
CPT/HCPCS: 36415; 80053; 82043; 82570; 83036

== ENCOUNTER → 2024-03-03 | Outpatient (CLI) | payer MEDICARE, OTHER, SELFPAY ==
--- NOTE | 2024-03-03 10:22 | RAD_ITS ---
EXAM: XR CHEST, 2 VIEWS CLINICAL INDICATION: RLL posterior with diminished breath sound and tympany on percuss TECHNIQUE: Frontal and lateral views of the chest. COMPARISON: 08/29/2023. FINDINGS: LUNGS AND PLEURAL SPACES: Unremarkable. No consolidation or edema. No pneumothorax. No effusion. HEART: Cardiac size is not enlarged. MEDIASTINUM: Central airways and mediastinal contour are unremarkable. BONES/JOINTS: Unremarkable. No acute fracture. SOFT TISSUES: Unremarkable. TUBES, LINES AND DEVICES: Dual-chamber pacing lead tips remain in the right atrium and right ventricle. RAD/Chest PA and Lateral IMPRESSION: No acute cardiopulmonary pathology and unchanged when compared to 08/29/2023. Electronically Signed: Rian Randle MD at 16:01 EDT ,
== END | disposition home or self-care (01) ==
LOC: MTRAD 10:22
PROVIDERS: PCP Family Medicine; Referring Provider Family Medicine; Visit Provider Family Medicine
DX: J44.9 Chronic obstructive pulmonary disease, unspecified (principal)
CPT/HCPCS: 71046

== ENCOUNTER 2024-06-08 10:01 | Day surgery (SDC) | payer MEDICARE, OTHER, SELFPAY ==
--- NOTE | 2024-06-08 | IMM_PTH ---
PATIENT: TANIA GUERRERO [place] [facility] [id number] AGE/SX: 83/M ROOM: RE06/08/[address]: Dr. Rochelle Velasco MD : 1940 BED: DIS: 06/08/2024 SPEC #: [id number] RECD: 06/09/24 11:17 STATUS: JOSÉ MIGUEL REQ #: [id number] JACQUELINE: 06/08/24 00:[address]: Rochelle Velasco DEPT: IMMUNOHISTOCHEMISTRY RECD BY: Belgica Pereira ENTERED: 06/09/24 11:26 SP TYPE: IMMUNO OTHR DR: Dr. Joe Hernandez MD Tissues: Skin of chest Procedures: SMA (add) CD34 (add) DESMIN (add) KI-67 (add) P53 (add) Vimentin (add) SMM (add) MELAN-A (add) CD68 (ADD) AE1-3 (initial) S-100 (add) PHYSICIAN & [address] [address] SPECIMEN INFORMATION: Tissue Source: Chest lesion Clinical Info: Neoplasm of uncertain behavior of chest Specimen Number: [id number] CPT code: 60831, 64559 x10 METHODOLOGY: Deparaffinized sections of prefer/formalin-fixed tissue or PAP/DQ stained slides are incubated with monoclonal/polyclonal antibodies/oligonucleotide probes. Localization is made via biotin free immunoperoxidase method. Appropriate controls are performed and reacted as expected. Results on target cell population are indicated in the following table: RESULTS: ANTIBODY / CLONE RESULT AE1-3 (AE1/AE3/PCK26) negative Vimentin (V9) positive CD34 (QBEnd-10) negative CD68 (KP-1) negative Actin (1A4) negative Myosin (simms1) negative Desmin (CE-R-11) negative Melan A (A103) negative S-100 (4C4.9) negative P53 (DO-7) positive, wild type pattern Ki-67 (30-9) positive, rare cells These tests were developed and their performance characteristics determined by [facility]. They may not have been cleared or approved by the U.S. Food and Drug Administration. The FDA has determined that such clearance or approval is not necessary. The above immunohistochemical/dualISH markers are ordered and reviewed by the Pathologist. INTERPRETATION: Skin lesion of chest, excision: Consistent with benign nodular fibroma. Case has been reviewed in consultation with Dr. Chavez who concurs with the above diagnosis. IDC:WATSON SINGERmr 06/12/2024
[2024-06-08 10:25] VITALS: BP 147/88; PULSE 65; RESP 16; TEMP 36.1; O2SAT 98; BMI 30.2
--- NOTE | 2024-06-08 10:28 | PCM.HP.BLA ---
History and Physical Date of Admission: 06/08/24 The patient presents with a growing or changing lesion of the left chest. He presents for excision of the lesion with submission for pathologic evaluation. Informed consent is obtained. There are no changes to the H&P dated 06/06/2024. Assessment & Plan Assessment/Plan (1) Neoplasm of uncertain behavior of skin of chest: PLAN: Plan For excision neoplasm of chest.
--- NOTE | 2024-06-08 10:45 | LES_PTH ---
PATIENT: TANIA GUERRERO [place] [facility] [place][id number] AGE/SX: 83/M ROOM: RE06/08/[address]: Dr. Rochelle Velasco MD : 1940 BED: DIS: 06/08/2024 SPEC #: [id number] RECD: 06/08/24 12:52 STATUS: JOSÉ MIGUEL CATES #: [id number] JACQUELINE: 06/08/24 10:[address]: Rochelle Velasco DEPT: SURGICAL PATHOLOGY RECD BY: Belgica Pereira ENTERED: 06/08/24 13:44 SP TYPE: Lesion OTHR DR: Dr. Joe Hernandez MD Tissues: Skin of chest Procedures: Surgery Specimen Level IV HEADER OPERATION: Excision lesion chest (3.5cm) intermediate closure PRE-OP DIAGNOSIS: Neoplasm of uncertain behavior of chest TISSUE SUBMITTED: Chest lesion MICROSCOPIC DIAGNOSIS Skin lesion of chest, excision: Consistent with benign nodular fibroma. AM/am 06/09/24 COMMENT Immunohistochemistry, [id number] supports the diagnosis. Case has been reviewed in consultation with Dr. Chavez who concurs with the above diagnosis. IDC:SJ MICROSCOPIC DESCRIPTION Slides are reviewed. GROSS DESCRIPTION Received is one container labeled with the patient's name and not further designated. The specimen consists of a piece of del rio-white skin measuring 2.5 x 1.0cm and up to 0.4cm in thickness. The specimen is inked, serially sectioned and submitted entirely in one cassette. 06/08/2024 TC: 1 CPT:30587
[2024-06-08] MEDS: Lidocaine 1% /Epi 1:100 9 ML, Sodium Bicarbonate 1 MEQ OPERA.SITE (11:03)
[2024-06-08 11:07] VITALS: BP 128/64; BP 148/67; O2SAT 97; O2SAT 98
[2024-06-08 11:29] VITALS: BP 141/77; PULSE 62; RESP 18; TEMP 37.8; O2SAT 97
--- NOTE | 2024-06-08 11:30 | DCINST_ITS ---
Discharge Instructions Dressing / Incision Additional Dressing/Incision Instructions:: Keep your back elevated (recliner position) for the next 2-3 nights to help reduce swelling and bruising. Take the oral antibiotic (Keflex) 2 times a day until finished. Try to keep the tape dry by facing away from the shower. If the tape falls off, apply antibiotic ointment 1 time a day (like Neosporin, bacitracin, or triple antibiotic ointment). Follow Up Care Please Follow Up With: Rochelle Velasco MD When: In 1 to 2 weeks Test Results: Test results from this visit will be discussed in further detail at your follow-up appointment, if applicable. Discharge Plan Admission Attending Provider: Rochelle Velasco Primary Care Provider: Joe Hernandez Instructions Print Language: Pashto Discharge Orders/Prescriptions Prescriptions: New cephalexin 500 mg capsule 500 mg PO BID 5 Days Qty: 10 0RF No Action furosemide 20 mg tablet 20 mg PO DAILY Qty: 1 0RF Jardiance 10 mg tablet 10 mg PO DAILY aspirin 81 MG tablet,chewable 81 mg PO QHS cholecalciferol (vitamin D3) 50 mcg (2,000 unit) capsule 2,000 unit PO DAILY PreserVision AREDS 4,296 mcg-226 mg-90 mg capsule 1 cap PO DAILY insulin glargine U-300 conc [Toujeo SoloStar U-300 Insulin] 300 unit/mL (1.5 mL) insulin pen 22 unit SUBCUT DAILY acetaminophen 500 mg Tablet 1,000 mg PO Q8 PRN (Reason: Pain) pravastatin 80 mg tablet 80 mg PO QHS Qty: 90 3RF clonidine HCl 0.1 mg tablet 0.1 mg PO BID Qty: 180 3RF losartan 100 mg tablet 100 mg PO DAILY Qty: 90 3RF metoprolol tartrate 50 mg tablet 50 mg PO BID Qty: 180 3RF Referrals / Follow Up: Joe Hernandez MD [Primary Care Provider] - Disposition Disposition (needs filled in before D/C Order can be placed): Home, Self Care
--- NOTE | 2024-06-08 11:33 | PCM.OPRPT ---
Problems Associated Problem List Diagnoses (1) Neoplasm of uncertain behavior of skin of chest: Report of Operation Date of Procedure: 06/08/24 Pre-Operative Diagnosis: Neoplasm skin of the chest of uncertain behavior Post-Operative Diagnosis: Same Surgery/Procedure Performed:: Excision neoplasm skin of chest (4 cm) with intermediate closure Surgeon: Rochelle Velasco Type of Anesthesia: Local Specimen's removed: As above Estimated Blood Loss (mL): Minimal Description of Procedure: The patient presents with a neoplasm of the chest. We will remove the lesions and submit this for pathologic evaluation. Informed consent was obtained. Patient is brought to the operating room and placed on the operating room table in supine position. The chest is prepped and draped in the usual sterile fashion. 1% Xylocaine with epinephrine is used for local anesthetic. Following this, the neoplasm is excised in an elliptical configuration and passed off the operative field to be sent to pathology. Hemostasis is controlled with cautery. The wound is then closed using Monocryl suture in the subcutaneous tissue and dermis. Skin edges are approximated with a running subcuticular Monocryl suture. Dermabond and Steri-Strips were used to dress the site. He tolerated the procedure well was taken to the recovery area in an awake and stable condition. Needle and sponge counts are correct. Complications none Admit VTE Documentation VTE Mechan Device Prophylaxis: None Reason prophylaxis not ordered:: Treatment Not Indicated
== END 2024-06-08 12:17 | disposition home or self-care (01) ==
LOC: SDC 10:01 → AC 10:03
PROVIDERS: PCP Family Medicine; Referring Provider Plastic Surgery; Visit Provider Plastic Surgery
PROC: (CPT 11404; principal; 2024-06-08 10:35)
DX: D48.5 Neoplasm of uncertain behavior of skin (principal)
CPT/HCPCS: 11404; 12032; 88305; 88341; 88342

== ENCOUNTER → 2024-09-04 | Outpatient (CLI) | payer MEDICARE, OTHER, SELFPAY ==
[2024-09-04 12:34] LABS: Absolute Lymphocyte Count 2.19 X10^3/uL (0.83-4.51); Basophil# 0.05 X10^3/uL; Basophil% 0.5 % (0-1); Eosinophil# 0.37 X10^3/uL; Eosinophils% 3.9 % (0-5); Hematocrit 48.3 % (40-54); Hemoglobin 14.9 g/dL (13.0-16.5); Lymphocyte # 2.19 X10^3/ul (0.83-4.51); Lymphocyte % 23.2 % (19-41); Mean Corp Hgb Conc 30.8 g/dL (32-36); Mean Corpuscular Hgb 29.4 pg (27.0-32.0); Mean Corpuscular Volume 95.5 fL (80-94); Mean Platelet Vol. 10.4 fl (6.2-12.0); Monocyte% 8.5 % (0-10); NRBC Flagged by Analyzer 0 % (0-5); Neutrophil # 6.01 X10^3/uL (2.7-7.7); Neutrophil % 63.6 % (47-70); Platelet Count 217 K/mm3 (150-450); RBC Distribution Width SD 49.1 fl (35.1-43.9); Red Blood Count 5.06 M/mm3 (4.6-6.2); White Blood Count 9.5 K/mm3 (4.4-11.0)
[2024-09-04 12:45] LABS: ALB/GLOB Ratio 0.9 RATIO (0.9-2.4); AST(SGOT) 14 U/L (15-37); Alanine Aminotransfer ALT/SGPT 18 U/L (16-61); Albumin, Serum 3.7 g/dL (3.2-5.0); Alkaline Phosphatase 75 U/L (45-117); Anion Gap 7 (5-15); BUN 30 mg/dL (7-18); BUN/Creat Ratio 16.9 RATIO (10-20); Calcium,Total 9.5 mg/dL (8.5-10.1); Chloride 106 mmol/L (98-107); Creatinine, Serum 1.78 mg/dL (0.70-1.30); EST Glomerular Filtration Rate 39 mL/min (>60); Est Glom Filt Rate - Afr Amer 47 mL/min (>60); Globulin 4.2 g/dL (2.2-4.2); Glucose 239 mg/dL (74-106); Potassium 4.3 mmol/L (3.5-5.1); Protein, Total 7.9 g/dL (6.4-8.2); Sodium Level 139 mmol/L (136-145)
[2024-09-04 14:01] LABS: Hemoglobin A1c 8.7 % (3.8-5.6)
== END | disposition home or self-care (01) ==
PROVIDERS: PCP Family Medicine; Visit Provider Family Medicine
DX: E11.22 Type 2 diabetes mellitus with diabetic chronic kidney disease (principal)
CPT/HCPCS: 36415; 80053; 83036; 85025

== ENCOUNTER → 2024-11-29 | Outpatient (CLI) | payer MEDICARE, OTHER, SELFPAY ==
[2024-11-29 20:29] LABS: ALB/GLOB Ratio 1.1 RATIO (0.9-2.4); AST(SGOT) 24 U/L (<=37); Alanine Aminotransfer ALT/SGPT 11 U/L (<=46); Albumin, Serum 4.3 g/dL (3.4-4.8); Alkaline Phosphatase 73 U/L (40-129); Anion Gap 17 (5-15); BUN 20 mg/dL (4-19); BUN/Creat Ratio 14.4 RATIO (10-20); Calcium 10.1 mg/dL (7.6-11.0); Carbon Dioxide 21.9 mmol/L (22.0-29.0); Chloride 104 mmol/L (96-108); Creatinine, Serum 1.4 mg/dL (0.8-1.3); EST Glomerular Filtration Rate 48 (>60); Globulin 3.9 g/dL (2.2-4.2); Glucose 109 mg/dL (70-99); Potassium 4.5 mmol/L (3.3-5.1); Protein, Total 8.2 g/dL (5.9-8.4); Sodium Level 142 mmol/L (133-145); Total Bilirubin 0.54 mg/dL (0.00-1.30)
[2024-11-29 23:23] LABS: Cholesterol 134 mg/dL (<=200); High Density Lipoprotein 47 mg/dL; Very Low Density Lipoprotein 24 mg/dL (5-40); cholesterol:hdl ratio screen 2.85
[2024-11-29 23:49] LABS: Low Density Lipoprotein Calc. 64 mg/dL; Triglycerides 117 mg/dL
== END | disposition home or self-care (01) ==
LOC: MFPLAB 08:25
PROVIDERS: PCP Family Medicine; Referring Provider Internal Medicine Cardiovascular Disease; Visit Provider Internal Medicine Cardiovascular Disease
DX: I49.8 Other specified cardiac arrhythmias (principal); E11.9 Type 2 diabetes mellitus without complications; I10 Essential (primary) hypertension; E78.5 Hyperlipidemia, unspecified
CPT/HCPCS: 36415; 80053; 80061

== ENCOUNTER → 2024-12-08 | Outpatient (CLI) | payer MEDICARE, OTHER, SELFPAY ==
--- NOTE | 2024-12-08 09:00 | CDU_ITS ---
Reason For Study Reason For Study: Carotid bruit Rt. Velocities/BP Lt. Velocities/BP Prox CCA 73/8.8 cm/sec. Prox CCA 62.2/8.1 cm/sec. Mid CCA 71.1/8.8 cm/sec. Mid CCA 62.2/11.6 cm/sec. Dist CCA 48.2/7.2 cm/sec. Dist CCA 59.6/11.6 cm/sec. Prox ICA 37.9/4.5 cm/sec. Prox ICA 64.1/14.6 cm/sec. Mid ICA 78.8/16 cm/sec. Mid ICA 74/14.6 cm/sec. Dist ICA 59.6/12.5 cm/sec. Dist ICA 98.1/21.2 cm/sec. Rt. ICA/CCA = 1.11. Lt. ICA/CCA = 1.58. Prox ECA 90/6 cm/sec. Prox ECA 96.1/9 cm/sec. Rt. Vert. 23.8/4.7 cm/sec. Lt. Vert. 45/8.2 cm/sec. Right Extracranial There is intimal thickening but no significant atherosclerotic plaque noted in the right common carotid artery. There is heterogeneous, irregular atherosclerotic plaque noted in the right internal carotid artery. There is intimal thickening but no significant atherosclerotic plaque noted in the right external carotid artery. Antegrade flow is noted in the right vertebral artery. Left Extracranial There is intimal thickening but no significant atherosclerotic plaque noted in the left common carotid artery. There is heterogeneous, irregular atherosclerotic plaque noted in the left internal carotid artery. There is intimal thickening but no significant atherosclerotic plaque noted in the left external carotid artery. Antegrade flow is noted in the left vertebral artery. Procedure Carotid Duplex 81843. This is a Carotid Duplex examination using B-mode, color flow and specral Doppler. Exam performed in department. VL/Carotid Duplex Ultrasound Interpretation Summary Mild (<50%) stenosis right extracranial internal carotid. Mild (<50%) stenosis left extracranial internal carotid. Patent and antegrade vertebrals bilaterally. Ordering Physician: Moo Vargas Referring Physician: Joe Hernandez MD Performed By: Donna Jiménez RVT
--- NOTE | 2024-12-08 09:00 | ECHOD_ITS ---
Reason For Study Reason For Study: CAD/ASHD Procedure This was a 2D Doppler, Color Flow transthoracic echocardiogram. Exam performed in department. Left Ventricle Normal LV size. Mild concentric left ventricular hypertrophy. Paced septal motion. Diastolic function is indeterminate. The left ventricular ejection fraction is 50 %. Right Ventricle ICD or pacer leads identified within the right ventricle. Normal RV size. Normal systolic function. Atria There is mild biatrial dilatation. ICD or pacer leads identified within the right atrium. Mitral Valve Mild mitral annular calcification. Mild (1+) mitral valve insufficiency. Tricuspid Valve Normal tricuspid valve. Mild to moderate (1-2+) tricuspid valve insufficiency. Pulmonary artery systolic pressure is 43 mmHg. Aortic Valve Trisinus/trileaflet aortic valve. Aortic sclerosis, no stenosis. Mild (1+) aortic valve insufficiency. Pulmonic Valve Normal pulmonic valve. Great Vessels The aortic root is not well visualized. Pericardium/Pleural No pericardial effusion. MMode/2D Measurements & Calculations LVIDd: 4.3 cm IVSd: 1.2 cm LVOT diam: 2.0 cm LVIDs: 2.7 cm LVPWd: 1.1 cm LVOT area: 3.0 cm2 FS: 36.7 % LAV(MOD-bp): 60.5 ml LVAd ap4: 25.0 cm2 SV(MOD-sp4): 32.4 ml LAV(MOD-bp) Indexed: 29.6 ml/m2 LVLd ap4: 7.7 cm SI(MOD-sp4): 15.9 ml/m2 LAV(MOD-sp2): 59.5 ml EDV(MOD-sp4): 69.7 ml LAV(MOD-sp4): 58.5 ml EDV(sp4-el): 68.3 ml LVAs ap4: 16.9 cm2 LVLs ap4: 7.0 cm ESV(MOD-sp4): 37.3 ml ESV(sp4-el): 34.4 ml EF(MOD-sp4): 46.5 % EF(sp4-el): 49.7 % SV(sp4-el): 34.0 ml LA A4 area: 20.7 cm2 LA dimension(2D): 3.7 cm RA A4 area: 21.7 cm2 Time Measurements MV dec time: 0.16 sec Doppler Measurements & Calculations MV E max castillo: 95.6 cm/sec Lat Peak E' Castillo: 9.9 cm/sec Med Peak E' Castillo: 8.0 cm/sec MV A max castillo: 41.0 cm/sec E/E' lat: 9.7 E/E' med: 12.0 MV E/A: 2.3 Ao V2 max: 119.3 cm/sec AI max castillo: 390.9 cm/sec MV dec slope: 592.7 cm/sec2 Ao max P.7 mmHg AI max P.1 mmHg Ao V2 mean: 81.4 cm/sec Ao mean P.1 mmHg AI dec slope: 156.9 cm/sec2 Ao V2 VTI: 23.0 cm AI P1/2t: 729.9 msec AV (velocity ratio): 1.1 JULIANNE(I,D): 3.4 cm2 JULIANNE(V,D): 3.3 cm2 LV V1 max: 130.4 cm/sec SV(LVOT): 77.2 ml TR max castillo: 315.1 cm/sec LV V1 max P.8 mmHg TR max P.7 mmHg LV V1 mean P.7 mmHg LV V1 mean: 89.1 cm/sec LV V1 VTI: 25.8 cm ECHO/Echo Complete Interpretation Summary Diastolic function is indeterminate. Mild concentric left ventricular hypertrophy. Dyssynchronous septal wall motion likely secondary to right ventricular pacemak er rhythm. Estimated LVEF 50%. There is mild biatrial dilatation. Mild mitral annular calcification. Mild (1+) mitral valve insufficiency. Mild (1+) aortic valve insufficiency. Ordering Physician: Moo Vargas Referring Physician: Moo Vargas Performed By: Lita Zuleta RCS
== END | disposition home or self-care (01) ==
LOC: CVS 08:59
PROVIDERS: PCP Family Medicine; Referring Provider Internal Medicine Cardiovascular Disease; Visit Provider Internal Medicine Cardiovascular Disease
DX: I25.10 Atherosclerotic heart disease of native coronary artery without angina pectoris (principal); I48.11 Longstanding persistent atrial fibrillation; I49.5 Sick sinus syndrome; Z86.79 Personal history of other diseases of the circulatory system; E78.5 Hyperlipidemia, unspecified; Z95.5 Presence of coronary angioplasty implant and graft; R09.89 Other specified symptoms and signs involving the circulatory and respiratory systems
CPT/HCPCS: 93306; 93880

== ENCOUNTER → 2025-08-16 | Outpatient (CLI) | payer MEDICARE, OTHER, SELFPAY ==
[2025-08-16 15:39] LABS: AST(SGOT) 19 U/L (<=37); Alanine Aminotransfer ALT/SGPT 8 U/L (<=46); Albumin, Serum 4.2 g/dL (3.4-4.8); Alkaline Phosphatase 76 U/L (40-129); Anion Gap 11 (5-15); BUN 20 mg/dL (4-19); BUN/Creat Ratio 11.9 RATIO (10-20); Calcium,Total 9.7 mg/dL (7.6-11.0); Carbon Dioxide 26.5 mmol/L (21.0-32.0); Chloride 102 mmol/L (98-108); Globulin 3.3 g/dL (2.2-4.2); Glucose 252 mg/dL (70-99); Potassium 4.4 mmol/L (3.3-5.1)
[2025-08-16 15:49] LABS: Creatinine, Urine (random) 59.40 mg/dL (39.00-259.00); Microalbumin,Random Urine 24.8 mg/L (<20 mg/L)
== END | disposition home or self-care (01) ==
LOC: MFPLAB 13:35
PROVIDERS: PCP Family Medicine; Visit Provider Family Medicine
DX: E11.22 Type 2 diabetes mellitus with diabetic chronic kidney disease (principal); N18.30 Chronic kidney disease, stage 3 unspecified
CPT/HCPCS: 36415; 80053; 82043; 82570; 83036